=== PATIENT | female | born 1945 | race Caucasian/White ===

== ENCOUNTER → 2017-08-06 08:26 | Outpatient (CLI) | payer MEDICARE, OTHER, SELFPAY ==
--- NOTE | 2017-08-06 08:42 | RAD_ITS ---
STUDY: X-RAY - ABDOMEN/PELVIS REASON FOR EXAM: Female, 71 years old. History of kidney stones. Status post left nephrectomy. TECHNIQUE: Single AP view of the abdomen / pelvis. COMPARISON: Comparison is made with prior examination dated February 07, 2017. FINDINGS: There is an unremarkable bowel gas pattern. The calculus in the upper pole calyx of the right kidney has increased in size. It presently measures 1.8 cm. Stable appearance of the calcification in the lower pole calyx of the right kidney. There are 3 stable calcifications overlying the left iliac wing. There are calcified phleboliths in the pelvis. Normal visualized osseous structures. RAD/Abdomen Single View IMPRESSION: Increased size of the calculus in the upper pole calyx of the right kidney. Electronically Signed: Jose Juan Anderson MD at 13:27 EDT Tel [phone], Service support ,
--- NOTE | 2017-08-06 09:52 | EKG12_ITS ---
Test Reason : PRE OP Blood Pressure : / mmHG Vent. Rate : 055 BPM Atrial Rate : 055 BPM P-R Int : 168 ms QRS Dur : 078 ms QT Int : 436 ms P-R-T Axes : 015 018 017 degrees QTc Int : 417 ms Sinus bradycardia Minimal voltage criteria for LVH, may be normal variant Borderline ECG Confirmed by LEIGH ANN BECERRA ([id number]), editorial project manager JAS DEL ROSARIO ([id number]) on 08/19/2017 4:59:38 PM Referred By: Garry Fermin Confirmed By:LEIGH ANN BECERRA
[2017-08-06 10:59] LABS: Hematocrit 42.9 % (37-47); Mean Corp Hgb Conc 32.6 g/gl (32-36); Mean Corpuscular Hgb 30.4 pg (27.0-32.0); Mean Corpuscular Volume 93.3 fL (81-99); Mean Platelet Vol. 10.6 fl (6.2-12.0); Platelet Count 313 K/mm3 (150-450); RBC Distribution Width CV 13.2 % (11.6-14.6); RBC Distribution Width SD 44.1 fl (35.1-43.9); White Blood Count 7.1 K/mm3 (4.4-11.0)
[2017-08-06 11:01] LABS: Scan Indicated on CBC? Y/N NO
[2017-08-06 11:23] LABS: Anion Gap 11 (5-15); BUN 17 mg/dL (7-18); BUN/Creat Ratio 14.8 RATIO (10-20); Calcium,Total 9.2 mg/dL (8.5-10.1); Chloride 107 mmol/L (98-107); Creatinine, Serum 1.15 mg/dL (0.55-1.02); EST Glomerular Filtration Rate 49 mL/min (>60); Est Glom Filt Rate - Afr Amer 60 mL/min (>60); Glucose 131 mg/dL (74-106); Sodium Level 143 mmol/L (136-145)
== END ==
PROVIDERS: Family Provider Family Medicine; PCP Family Medicine; Visit Provider Urology
DX: Z01.818 Encounter for other preprocedural examination (principal); N20.0 Calculus of kidney
CPT/HCPCS: 36415; 74018; 80048; 85027; 93005

== ENCOUNTER → 2017-08-29 10:38 | Outpatient (CLI) | payer MEDICARE, OTHER, SELFPAY ==
--- NOTE | 2017-08-29 10:41 | RAD_ITS ---
STUDY: X-RAY - ABDOMEN/PELVIS REASON FOR EXAM: Female, 71 years old. Right-sided kidney stones TECHNIQUE: Single AP view of the abdomen / pelvis. COMPARISON: Prior study of 08/06/2017 FINDINGS: The lung bases are not in the field of view of the study. There is an unremarkable bowel gas pattern. There is no demonstrated free abdominal air. A right-sided ureteral stent is present appearing in good position. There are a number of very faint calcific densities of the mid to upper pole of the right kidney. A large calculus of the upper pole of the right kidney and several smaller right lower pole renal calculi seen on the previous study are not identified at present. No ureteral calculus is seen along the course of the right ureteral stent. There are 3 stable small calcifications overlying the left iliac wing. Normal soft tissue structures. Normal visualized osseous structures. RAD/Abdomen Single View IMPRESSION: Right ureteral stent appearing in good position. There are a number of very faint calcific fragments of the mid to upper pole of the right kidney which may represent results of lithotripsy. A large calcification of the upper pole of the right kidney and several smaller calcifications of the lower pole of the right kidney noted on the previous study are not identified at present. No ureteral calculi are seen along the course of the right ureteral stent. There are 3 small calcifications overlying the left iliac wing, stable in the interval. Electronically Signed: Barrington Rubio MD at 17:21 EDT , Service support ,
== END ==
PROVIDERS: Family Provider Family Medicine; PCP Family Medicine; Visit Provider Nurse Practitioner Adult Health
DX: N20.0 Calculus of kidney (principal)
CPT/HCPCS: 74018

== ENCOUNTER → 2017-09-18 11:39 | Outpatient (CLI) | payer MEDICARE, OTHER, SELFPAY ==
[2017-09-18 14:37] LABS: Vitamin D,25 Hydroxy 19.7 ng/mL (29.95-100.01)
[2017-09-18 14:57] LABS: AST(SGOT) 19 U/L (15-37); Alanine Aminotransfer ALT/SGPT 29 U/L (13-56); Anion Gap 11 (5-15); BUN 18 mg/dL (7-18); BUN/Creat Ratio 14.8 RATIO (10-20); Calcium,Total 9.5 mg/dL (8.5-10.1); Chloride 104 mmol/L (98-107); Cholesterol 164 mg/dL (200); Creatinine, Serum 1.22 mg/dL (0.55-1.02); EST Glomerular Filtration Rate 46 mL/min (>60); Est Glom Filt Rate - Afr Amer 56 mL/min (>60); Glucose 98 mg/dL (74-106); High Density Lipoprotein 42 mg/dL; Potassium 4.1 mmol/L (3.5-5.1); Sodium Level 140 mmol/L (136-145); T4 Total, Thyroxin 14.7 ug/dL (4.8-13.9); Thyroid Stim Hormone (TSH) 0.34 uIU/mL (0.358-3.74); Triglycerides 210 mg/dL; Very Low Density Lipoprotein 42 mg/dL (5-40)
== END ==
PROVIDERS: Family Provider Family Medicine; PCP Family Medicine; Visit Provider Family Medicine
DX: I10 Essential (primary) hypertension (principal); E03.9 Hypothyroidism, unspecified; E78.5 Hyperlipidemia, unspecified; E55.9 Vitamin D deficiency, unspecified
CPT/HCPCS: 36415; 80048; 80061; 82306; 84436; 84443; 84450; 84460

== ENCOUNTER → 2017-09-27 07:00 | Outpatient (CLI) | payer MEDICARE, OTHER, SELFPAY | PROVIDERS: Family Provider Family Medicine; PCP Family Medicine; Visit Provider Urology | DX: N39.0 Urinary tract infection, site not specified (principal) | CPT/HCPCS: 87086; 87088 ==

== ENCOUNTER → 2017-10-09 10:49 | Outpatient (CLI) | payer MEDICARE, OTHER, SELFPAY ==
--- NOTE | 2017-10-09 10:58 | CT_ITS ---
STUDY: CT ABDOMEN AND PELVIS WITHOUT CONTRAST REASON FOR EXAM: Female, 71 years old. FLANK PAIN HX-LEFT NEPHRECTOMY,NEREYDA/BSO,APPY RADIATION DOSAGE (If Supplied By Facility): CTDIvol = ( 17.1 ) mGy, DLP = ( 837.41 ) mGycm TECHNIQUE: Transaxial images were obtained from the dome of the diaphragm to the symphysis pubis without oral contrast, and without intravenous contrast. Sagittal and coronal images were reconstructed. COMPARISON: 06.27.11 FINDINGS: The visualized lung bases are unremarkable. The visualized portions of the heart are within normal limits. The liver is enlarged. This is consistent for Hepatomegaly. Liver is 20 cm in size. There are multiple gallstones. Normal spleen. Normal pancreas. Normal bilateral adrenal glands. Non obstructive 1 to 2 mm right renal parenchymal stones. The largest stone is in the mid right kidney measuring 4.1 mm. Surgically absent left kidney. Postsurgical vanessa in the left renal fossa. There is a residual calcified phleboliths along the left retroperitoneum. There is a moderate hiatal hernia. Normal small intestine. There are multiple colonic diverticula consistent with diverticulosis. There is non-visualization of the appendix. There are calcifications of the abdominal aorta and vascular structures. This is consistent for atherosclerotic disease. There is no abdominal aortic aneurysm. Normal inferior vena cava. Subcentimeter mesenteric lymph nodes. Normal urinary bladder. There is absence of the uterus consistent with a prior hysterectomy. Normal abdominal wall. There are degenerative changes of the osseous structures. Degenerative findings of the hips. Loss of intervertebral disc height at L5-S1. Vacuum disc phenomenon at L5-S1. Grade 1 anterolisthesis of L4 on L5. Minimal anterior wedging of L1. This appears stable. CT/Abdomen/Pelvis without Cont IMPRESSION: There is a moderate hiatal hernia. There are multiple gallstones. Non obstructive 1 to 2 mm right renal parenchymal stones. The largest stone is in the mid right kidney measuring 4.1 mm. There are multiple diverticuli of the colon. There is diverticulosis but no radiographic signs for diverticulitis. Hepatomegaly Other findings as above. Electronically Signed: Isaac Gautam MD at 17:34 EDT , Service support ,
== END ==
PROVIDERS: Family Provider Family Medicine; PCP Family Medicine; Visit Provider Urology
DX: R10.9 Unspecified abdominal pain (principal)
CPT/HCPCS: 74176

== ENCOUNTER → 2017-10-29 07:12 | Outpatient (CLI) | payer MEDICARE, OTHER, SELFPAY | PROVIDERS: Family Provider Family Medicine; PCP Family Medicine; Visit Provider Family Medicine | DX: Z12.31 Encounter for screening mammogram for malignant neoplasm of breast (principal) | CPT/HCPCS: 77063; 77067 ==

== ENCOUNTER → 2017-12-02 09:11 | Outpatient (CLI) | payer MEDICARE, OTHER, SELFPAY ==
--- NOTE | 2017-12-02 09:15 | RAD_ITS ---
STUDY: X-RAY - ABDOMEN/PELVIS REASON FOR EXAM: Female, 72 years old. History of kidney stone. TECHNIQUE: Single AP view of the abdomen / pelvis. COMPARISON: CT of the abdomen and pelvis, October 09, 2017. FINDINGS: The lung bases are not included. There is an unremarkable bowel gas pattern. There is increased rectal feces without obstruction. There is no small bowel dilatation. There is no demonstrated free abdominal air. The visualized liver and spleen are grossly normal in size and morphology. There are multiple calcific densities over the mid and lower right kidney suggesting renal calculi. There is a lobulated calcification overlying the right iliac crest which correlates with calcifications seen in the left pelvis on the CT scan. Normal visualized osseous structures. RAD/Abdomen Single View IMPRESSION: Multiple right renal calculi. The findings are similar to the distribution seen on a CT scan. Electronically Signed: Jass Mederos DO at 16:49 EDT Tel [phone], Service support ,
== END ==
PROVIDERS: Family Provider Family Medicine; PCP Family Medicine; Visit Provider Urology
DX: N20.0 Calculus of kidney (principal)
CPT/HCPCS: 74018

== ENCOUNTER → 2018-08-25 09:59 | Outpatient (CLI) | payer MEDICARE, OTHER, SELFPAY ==
--- NOTE | 2018-08-25 10:02 | RAD_ITS ---
STUDY: X-RAY - ABDOMEN/PELVIS REASON FOR EXAM: Female, 72 years old. Six-month follow-up for history of kidney stones on the left. TECHNIQUE: Two AP supine views of the abdomen and pelvis. COMPARISON: 02 December 2017 FINDINGS: Normal visualized lung bases. There is an unremarkable bowel gas pattern. There is no demonstrated free abdominal air. The visualized liver, spleen and kidneys are grossly normal in size and morphology. Multiple calculi overlying the right renal pelvis. Normal visualized osseous structures. RAD/Abdomen Single View IMPRESSION: Multiple calcifications overlie the right renal pelvis concerning for multiple nephroliths in the appropriate clinical setting. Electronically Signed: Paul Santoyo DO at 22:46 EDT , Service support ,
== END ==
PROVIDERS: Family Provider Family Medicine; PCP Family Medicine; Referring Provider Urology; Visit Provider Urology
DX: N20.0 Calculus of kidney (principal)
CPT/HCPCS: 74018

== ENCOUNTER → 2018-11-18 12:05 | Outpatient (CLI) | payer MEDICARE, OTHER, SELFPAY ==
--- NOTE | 2018-11-18 12:09 | BI_ITS ---
MAMMOGRAPHY - BILATERAL SCREENING REASON FOR EXAM: Female, 73 years old. Routine annual screening examination. PERTINENT HISTORY: Grandmother with breast cancer. TECHNIQUE: Digital bilateral breast shruthi (3D mammographic acquisition) in the CC and MLO projections. 2-D mediolateral oblique (MLO) and craniocaudad (CC) views of both breasts were obtained. CAD: Full Field Digital Mammography with Computer Added Detection was performed. COMPARISON: Comparison is made with prior study dated October 29, 2017. FINDINGS: Breast Composition: There are scattered areas of fibroglandular density. There are no dominant masses or suspicious calcifications. Stable small benign-appearing bilateral axillary lymph nodes. No other significant abnormalities are identified. There has been no significant change since the prior study. BI/SCREEN MAMM (CAD) W/SHRUTHI BILAT IMPRESSION: Stable bilateral screening mammogram. Yearly follow-up mammogram recommended. (A) ASSESSMENT CATEGORY: BIRADS Category 2: Benign. A letter regarding these results will be sent to the patient by the facility within 30 days. Approximately 10% of breast cancers are not detected by mammography. A normal mammogram should not delay biopsy of a clinically suspicious abnormality. [id number] Electronically Signed: Jose Juan Anderson, at 13:59 EDT , Service support ,
== END ==
PROVIDERS: Family Provider Family Medicine; PCP Family Medicine; Referring Provider Nurse Practitioner Family; Visit Provider Nurse Practitioner Family
DX: Z12.31 Encounter for screening mammogram for malignant neoplasm of breast (principal)
CPT/HCPCS: 77063; 77067

== ENCOUNTER → 2018-12-25 09:04 | Outpatient (CLI) | payer MEDICARE, OTHER, SELFPAY ==
--- NOTE | 2018-12-25 09:06 | RAD_ITS ---
STUDY: X-RAY - ABDOMEN/PELVIS REASON FOR EXAM: Female, 73 years old. Kidney stones TECHNIQUE: Single AP view of the abdomen / pelvis. COMPARISON: None. FINDINGS: There is an unremarkable bowel gas pattern. Multiple calcific opacities overlying both kidneys consistent with bilateral renal stones. No definite ureteral stone. Normal soft tissue structures. Normal visualized osseous structures. RAD/Abdomen Single View IMPRESSION: Bilateral renal stones Electronically Signed: Nimesh Collins MD at 9:09 EDT Tel , Service support ,
== END ==
PROVIDERS: Family Provider Family Medicine; PCP Family Medicine; Referring Provider Urology; Visit Provider Urology
DX: N20.0 Calculus of kidney (principal)
CPT/HCPCS: 74018

== ENCOUNTER 2018-12-31 10:38 | Day surgery (SDC) | payer MEDICARE, OTHER, SELFPAY ==
[2018-12-31 11:00] VITALS: BP 140/84; PULSE 55; RESP 16; TEMP 36.9; O2SAT 100; BMI 35.3
[2018-12-31] MEDS: Lactated Ringers 1,000 ML 100 ML IV (11:16)
[2018-12-31] MEDS: Cefazolin 2 GM in 0.9% Normal Saline 100 ML IV (12:16)
--- NOTE | 2018-12-31 13:31 | PCM.DC ---
You will use the following diet at home:: No restrictions, Regular Your food should be the consistency of: Regular Discharge Activity: Return to Normal Activity, May not drive while taking narcotic pain medications. Call your doctor if your incision/area has: Sudden Increased Bleeding Call your doctor if you observe: Fever of 101 or Higher Suture Line Care: Avoid Pulling/Pushing, Avoid Pinching/Bending Allergies/Adverse Reactions: Allergies Iodinated Contrast Media Allergy (Verified 12/31/18 10:58) Other latex Allergy (Verified 12/31/18 10:58) Rash meperidine [From Demerol] Allergy (Verified 12/31/18 10:58) Rash nitrofurantoin [From Macrobid] Allergy (Verified 12/31/18 10:58) Unknown sulfamethoxazole [From Septra] Allergy (Verified 12/31/18 10:58) Unknown trimethoprim [From Septra] Allergy (Verified 12/31/18 10:58) Unknown Medications to take at Discharge Amlodipine [Norvasc] 5 mg PO DAILY 10/05/13 Atenolol [Tenormin (Beta Cayeatno)] 100 mg PO DAILY 10/05/13 Atorvastatin Calcium [Lipitor] 20 mg PO QHS 10/05/13 Esomeprazole Mag Trihydrate [Nexium] 20 mg PO DAILY PRN 10/05/13 Levothyroxine [Synthroid] 200 mcg PO DAILY 10/05/13 Ramipril [Altace] 10 mg PO DAILY 10/05/13 Ranitidine [Zantac] 150 mg PO DINNER 10/05/13 Ciprofloxacin [Cipro] 500 mg PO BID #6 tab 12/31/18 Hydrocodone Bitart/Apap 5-325 [[place] 5MG-325MG] 1 tab PO Q4H PRN PRN 5 Days #20 tab 12/31/18 Phenazopyridine [Pyridium] 100 mg PO TID PRN PRN 5 Days #14 tab 12/31/18 The following prescriptions were given: Ciprofloxacin [Cipro] 500 mg PO BID #6 tab Prescription Printed Hydrocodone Bitart/Apap 5-325 [[place] 5MG-325MG] 1 tab PO Q4H PRN PRN 5 Days #20 tab PRN Reason: Pain Prescription Printed Phenazopyridine [Pyridium] 100 mg PO TID PRN PRN 5 Days #14 tab PRN Reason: burning Prescription Printed Primary Care Physician: Joan Gomez MD [Primary Care Provider] - Test Results: Test results from this visit will be discussed in further detail at your follow-up appointment, if applicable. Please Follow Up With: Garry Fermin MD When: next week with xray
--- NOTE | 2018-12-31 13:33 | OP.PCM_ITS ---
Report of Operation Date of Procedure: 12/31/18 Pre-Operative Diagnosis: Multiple right renal calculi Post-Operative Diagnosis: Same Surgery/Procedure Performed:: Cystoscopy, right retrograde pyelogram, interpretation fluoroscopic images, right ureteroscopy laser lithotripsy of stones, and stent placement. Description of Surgical Findings:: 73-year-old female who presents for treatment of her kidney stone she is taken back to the operating room and smooth induction of anesthesia she was placed supine on the table we went to the bladder with a 21 [place] rigid cystourethroscope cannulated the right ureteral orifice with a Pollick cath and a Glidewire, performed a retrograde pyelogram, looked at the fluoroscopic images and then I put a wire up into the right kidney next the wire went in with a flexible ureteroscope was able to get to the ureter quite easily went up the ureter which I got into the right renal pelvis there is a stone in the renal pelvis I then started with laser lithotripsy, took quite a long time to laser the stone she had a stone in the renal pelvis stone in the lower pole stone in the midpole stone in the mid upper pole and stone in the upper pole the kidney after lasering all the stones were good 45 minutes with 200 665 ?m laser fiber then I worked my way down the ureter put a wire up in that side of the stent into the wire and then pulled the string the stent coiled in the kidney bladder good position. We will see her next week with an x-ray and then remove the cyst with a cystoscope. Type of Anesthesia:: General Drains: stent right side - Admit VTE Documentation VTE Present on Admission: No VTE Mechan Device Prophylaxis: SCD's
[2018-12-31 13:36] VITALS: BP 138/81; BP 140/84; PULSE 72; RESP 16; TEMP 36.2; O2SAT 95
[2018-12-31 13:45] VITALS: BP 121/69; BP 140/84; PULSE 70; RESP 16; O2SAT 95
[2018-12-31 14:00] VITALS: BP 137/78; BP 140/84; PULSE 60; RESP 16; O2SAT 97
[2018-12-31 14:15] VITALS: BP 140/84; BP 143/79; PULSE 60; RESP 16; TEMP 36.3; O2SAT 95
[2018-12-31 14:50] VITALS: BP 140/84; BP 156/92; PULSE 60; RESP 20; TEMP 36.2; O2SAT 97
== END 2018-12-31 15:07 | disposition home or self-care (01) ==
LOC: SDC 10:39 → AC 10:40
PROVIDERS: Family Provider Family Medicine; PCP Family Medicine; Referring Provider Urology; Visit Provider Urology
PROC: 0TJ98ZZ Inspection of Ureter, Via Natural or Artificial Opening Endoscopic (ICD-10-PCS; CPT 52352; principal; 2018-12-31 12:10)
DX: N20.0 Calculus of kidney (principal); I10 Essential (primary) hypertension; E03.9 Hypothyroidism, unspecified; E78.5 Hyperlipidemia, unspecified; K58.9 Irritable bowel syndrome, unspecified; K21.9 Gastro-esophageal reflux disease without esophagitis; F32.9 Major depressive disorder, single episode, unspecified; F41.9 Anxiety disorder, unspecified; Z90.5 Acquired absence of kidney; Z78.0 Asymptomatic menopausal state; Z87.440 Personal history of urinary (tract) infections; Z87.442 Personal history of urinary calculi
CPT/HCPCS: 52356; 76000; J7120; C2617; J2405

== ENCOUNTER → 2019-01-05 14:27 | Outpatient (CLI) | payer MEDICARE, OTHER, SELFPAY ==
[2018-12-31 11:00] VITALS: BMI 35.3
--- NOTE | 2019-01-05 14:38 | RAD_ITS ---
STUDY: X-RAY - ABDOMEN/PELVIS REASON FOR EXAM: Female, 73 years old. Kidney stone. TECHNIQUE: Single AP view of the abdomen / pelvis. COMPARISON: 12/25/2018. FINDINGS: Lung base is not included in the [id number]. There is an unremarkable bowel gas pattern. There is no demonstrated free abdominal air. There are 2 stones within the mid lower pole of the right kidney, each measuring approximately 4.5 mm with subtle small stone within the humeral mid upper renal pole stones, each measuring approximately 3.5-4 mm. There is a right-sided ureteral stent in place. The left renal shadow is not visualized. Remainder of the visualized liver, spleen and kidneys are grossly normal in size and morphology. There is prominence of prominent calcifications projecting over the left iliac bones, nonspecific and stable in the interval. There are calcified phleboliths in the pelvis. There are diffuse degenerative changes of the visualized lumbar spine. RAD/Abdomen Single View IMPRESSION: Right-sided intrarenal stones as described above. Right-sided ureteral stent in place. Electronically Signed: Julianna Sanchez MD at 2:16 EDT , Service support ,
== END ==
PROVIDERS: Family Provider Family Medicine; PCP Family Medicine; Referring Provider Urology; Visit Provider Urology
DX: N20.0 Calculus of kidney (principal)
CPT/HCPCS: 74018

== ENCOUNTER → 2019-08-24 08:22 | Outpatient (CLI) | payer MEDICARE, OTHER, SELFPAY ==
--- NOTE | 2019-08-24 08:56 | RAD_ITS ---
STUDY: X-RAY - ABDOMEN/PELVIS REASON FOR EXAM: Female, 73 years old. Right sided stones -- left nephrectomy 2011 TECHNIQUE: Single AP view of the abdomen / pelvis. COMPARISON: Comparison is made with prior study dated January 05. FINDINGS: The previously seen right double-J stent catheter has been removed. There is a moderate amount of colonic fecal material. Multiple calculi are seen in the upper and mid portions of the right kidney. A tiny calcification is seen in the lower pole. The largest calcification measures 4.6 mm. There are calcified phleboliths in the pelvis. 3 stable adjacent calcifications are seen overlying the left iliac bone. Normal visualized osseous structures. RAD/Abdomen Single View IMPRESSION: Mild enlargement of the right intrarenal calculi. Electronically Signed: Jose Juan Anderson, at 10:36 EDT , Service support ,
== END ==
PROVIDERS: PCP Family Medicine; Referring Provider Urology; Visit Provider Urology
DX: N20.0 Calculus of kidney (principal)
CPT/HCPCS: 74018

== ENCOUNTER → 2019-12-31 13:36 | Outpatient (CLI) | payer MEDICARE, OTHER, SELFPAY ==
--- NOTE | 2019-12-31 13:38 | BI_ITS ---
MAMMOGRAPHY - BILATERAL SCREENING REASON FOR EXAM: Female, 74 years old. Routine annual screening examination. PERTINENT HISTORY: Grandmother with breast cancer. TECHNIQUE: Digital bilateral breast shruthi (3D mammographic acquisition) in the CC and MLO projections. 2-D mediolateral oblique (MLO) and craniocaudad (CC) views of both breasts were obtained. CAD: Full Field Digital Mammography with Computer Added Detection was performed. COMPARISON: Comparison is made with prior study dated 11/18/2018 and 10/29/2017. FINDINGS: Breast Composition: There are scattered areas of fibroglandular density. There are no dominant masses or suspicious calcifications. Stable benign appearing left axillary lymph nodes. No other significant abnormalities are identified. There has been no significant change since the prior study. BI/SCREEN MAMM (CAD) W/SHRUTHI BILAT IMPRESSION: Stable bilateral screening mammogram. Yearly follow-up mammogram recommended. (A) ASSESSMENT CATEGORY: BIRADS Category 2: Benign. A letter regarding these results will be sent to the patient by the facility within 30 days. Approximately 10% of breast cancers are not detected by mammography. A normal mammogram should not delay biopsy of a clinically suspicious abnormality. [id number] Electronically Signed: Jose Juan Anderson, at 14:28 EDT , Service support ,
== END ==
PROVIDERS: PCP Family Medicine; Referring Provider Family Medicine; Visit Provider Family Medicine
DX: Z12.31 Encounter for screening mammogram for malignant neoplasm of breast (principal)
CPT/HCPCS: 77063; 77067

== ENCOUNTER → 2020-02-22 08:56 | Outpatient (CLI) | payer MEDICARE, OTHER, SELFPAY ==
--- NOTE | 2020-02-22 09:00 | RAD_ITS ---
STUDY: X-RAY - ABDOMEN/PELVIS REASON FOR EXAM: Female, 74 years old. HX OF CALCULUS OF RIGHT KIDNEY. HX OF LEFT KIDNEY REMOVED 2011. TECHNIQUE: Single AP view of the abdomen / pelvis. COMPARISON: None. FINDINGS: There is an unremarkable bowel gas pattern. 2 small calcific opacities overlying the lower pole the right kidney consistent with right renal stones. No definite ureteral stone. Normal soft tissue structures. Normal visualized osseous structures. RAD/Abdomen Single View IMPRESSION: 2 right renal stones. Electronically Signed: Nimesh Collins MD at 17:04 EST Tel , Service support ,
== END ==
PROVIDERS: PCP Family Medicine; Referring Provider Urology; Visit Provider Urology
DX: N20.0 Calculus of kidney (principal)
CPT/HCPCS: 74018

== ENCOUNTER → 2020-03-31 11:40 | Outpatient (CLI) | payer MEDICARE, OTHER, SELFPAY | PROVIDERS: PCP Family Medicine; Visit Provider Urology | DX: N20.0 Calculus of kidney (principal) ==

== ENCOUNTER → 2020-04-04 09:09 | Outpatient (CLI) | payer MEDICARE, OTHER, SELFPAY ==
--- NOTE | 2020-04-04 09:24 | RAD_ITS ---
STUDY: X-RAY - ABDOMEN/PELVIS REASON FOR EXAM: Female, 74 years old. KIDNEY STONE CHECK UP, LEFT URETER TECHNIQUE: Single AP view of the abdomen / pelvis. COMPARISON: 02/22/2020 FINDINGS: Normal visualized lung bases. There is an unremarkable bowel gas pattern. There is no change in the calcific opacities overlying the right kidney consistent with right renal stones. There is also no change in the multiple calcific opacities overlying the left ilium which may represent left ureteral stones. Normal soft tissue structures. Normal visualized osseous structures. RAD/Abdomen Single View IMPRESSION: No change from 02/22/2020. Electronically Signed: Nimesh Collins MD at 16:54 EST Tel , Service support ,
== END ==
PROVIDERS: PCP Family Medicine; Referring Provider Urology; Visit Provider Urology
DX: N20.0 Calculus of kidney (principal)
CPT/HCPCS: 74018

== ENCOUNTER 2020-04-18 07:40 | Inpatient (IN) | payer MEDICARE, OTHER, SELFPAY ==
--- NOTE | 2020-04-11 13:39 | EKG12_ITS ---
Test Reason : PREOP Blood Pressure : / mmHG Vent. Rate : 062 BPM Atrial Rate : 062 BPM P-R Int : 156 ms QRS Dur : 072 ms QT Int : 426 ms P-R-T Axes : 014 012 017 degrees QTc Int : 432 ms Normal sinus rhythm Consider Voltage Criteria for LVH (aVL) Confirmed by AYAD JONAS, RUSS ([id number]), editor greeting card VICTOR MANUEL RODRIGUEZ ([id number]) on 04/12/2020 8:39:14 AM Referred By: West Minor Confirmed By:RUSS LION MD
[2020-04-11 14:18] LABS: Absolute Lymphocyte Count 2.22 X10^3/uL (0.83-4.51); Basophil# 0.06 X10^3/uL; Basophil% 0.7 % (0-1); Eosinophils% 3.5 % (0-5); Hematocrit 41.5 % (37-47); Lymphocyte # 2.22 X10^3/ul (4.0); Lymphocyte % 25.9 % (19-41); Mean Corp Hgb Conc 33.7 g/dL (32-36); Mean Corpuscular Hgb 31.3 pg (27.0-32.0); Mean Corpuscular Volume 92.8 fL (81-99); Mean Platelet Vol. 10.3 fl (6.2-12.0); Monocyte# 1.01 X10^3/uL; Monocyte% 11.8 % (0-10); NRBC Flagged by Analyzer 0 % (0-5); Neutrophil # 4.97 X10^3/uL (2.7-7.7); Neutrophil % 57.9 % (47-70); Platelet Count 259 K/mm3 (150-450); RBC Distribution Width SD 43.4 fl (35.1-43.9); Red Blood Count 4.47 M/mm3 (4.2-5.4); White Blood Count 8.6 K/mm3 (4.4-11.0)
[2020-04-11 15:00] LABS: Anion Gap 8 (5-15); BUN 17 mg/dL (7-18); BUN/Creat Ratio 17.1 RATIO (10-20); Calcium,Total 9.4 mg/dL (8.5-10.1); Chloride 108 mmol/L (98-107); Creatinine, Serum 0.99 mg/dL (0.55-1.02); EST Glomerular Filtration Rate 58 mL/min (>60); Est Glom Filt Rate - Afr Amer 70 mL/min (>60); Glucose 83 mg/dL (74-106); Magnesium 2.2 mg/dL (1.6-2.6); Potassium 4.2 mmol/L (3.5-5.1); Sodium Level 140 mmol/L (136-145); Thyroid Stim Hormone (TSH) 0.02 uIU/mL (0.358-3.74)
[2020-04-18] VITALS (15 sets, daily range): BP systolic 107–156; BP diastolic 59–90; PULSE 73–95; RESP 16–18; TEMP 36.4–36.7; O2SAT 92–99; BMI 34.5
[2020-04-18] MEDS: Lactated Ringers 1,000 ML 125 ML IV ×3 (06:08→12:39)
[2020-04-18] MEDS: Acetaminophen 500 MG Tablet 1000 MG PO ×2 (06:09→21:46)
[2020-04-18] MEDS: Gabapentin 600 MG Tablet PO (06:10)
[2020-04-18 06:35] LABS: Bedside Glucose 119 mg/dL (70-110)
--- NOTE | 2020-04-18 07:30 | KNEE_PTH ---
PATIENT: RUDY MÁRQUEZ LOC: [facility]3 U#:[id number] AGE/SX: 74/F ROOM: MS313 RE04/19/[address]: Dr. West Minor DO : 1945 BED: 1 DIS: 04/20/2020 SPEC #: [id number] RECD: 04/18/20 09:54 STATUS: YRAN BERNAL #: [id number] APOLINAR: 04/18/20 07:[address]: West Minor DEPT: SURGICAL PATHOLOGY RECD BY: Denise Keenan ENTERED: 04/18/20 10:58 SP TYPE: TOTAL KNEE OTHR DR: Dr. Joan Gomez MD Tissues: Knee, NOS Procedures: Decalcification bone/plaque Surgery Specimen Level IV HEADER OPERATION: ERAS, total knee replacement PRE-OP DIAGNOSIS: Osteoarthritis right knee TISSUE SUBMITTED: Right knee bone and soft tissue MICROSCOPIC DIAGNOSIS Bone and soft tissue of right knee, total knee resection: Severe degenerative joint disease. Mild synovial hyperplasia and associated mild chronic inflammation. AM:carlos a 04/21/2020 MICROSCOPIC DESCRIPTION Slides are reviewed. GROSS DESCRIPTION Received is one container designated bone and soft tissue right knee. The specimen consists of multiple fragments of serrato-yellow bone measuring in aggregate 9 x 9 x 3.5 cm. Also in the specimen container is a piece of yellow-white soft tissue measuring in aggregate 2 x 0.7 x 0.3 cm. A number of bony fragments contain articular surfaces consistent with tibial plateau and femoral condyle and displaying prominent osteophyte formation, eburnation, and bone erosion. Hair Or Beauty Salon Manager sections are submitted in two cassettes as follows: 1 - soft tissue submitted in entirety, 2 - bone after decalcification. / SJ:carlos a 04/18/20 TC:5 [facility]: [id number]
[2020-04-18] MEDS: Cefazolin 2 GM in 0.9% Normal Saline 100 ML IV (07:42)
--- NOTE | 2020-04-18 08:56 | PCM.OPRPT ---
Report of Operation Date of Procedure: 04/18/20 Pre-Operative Diagnosis: OA right knee Post-Operative Diagnosis: same Surgery/Procedure Performed:: Right TKR stitch welder: Darwin Hendrickson Type of Anesthesia:: Spinal Anesthesiologist: Daron Wilde - Admmarium VTE Documentation VTE Present on Admission: No VTE Mechan Device Prophylaxis: SCD's, Thigh High BRIE Hose VTE Pharm Prophylaxis ordered?: Yes
[2020-04-18] MEDS: Joint Pain Solution (NO KETOROLAC) 100 ML IV (09:08)
--- NOTE | 2020-04-18 10:00 | RAD_ITS ---
STUDY: X-RAY - RIGHT KNEE REASON FOR EXAM: Female, 74 years old. POST OP TECHNIQUE: 2 view(s) of the knee. COMPARISON: None. FINDINGS: Normal visualized distal femur. Normal visualized proximal tibia and fibula. Normal proximal tibiofibular articulation. The patient is status post total knee replacement. There is good alignment. Postoperative soft tissue changes. RAD/Knee 1 or 2 Views IMPRESSION: Status post total knee replacement. There is good alignment. Postoperative soft tissue changes. Electronically Signed: Jose Juan Anderson MD at 10:34 EST , Service support ,
[2020-04-18 10:15] LABS: Hemoglobin 12.8 g/dL (12.0-15.0); Mean Corpuscular Hgb 29.9 pg (27.0-32.0); Mean Corpuscular Volume 93.5 fL (81-99); Mean Platelet Vol. 10.1 fl (6.2-12.0); Platelet Count 271 K/mm3 (150-450); RBC Distribution Width CV 12.9 % (11.6-14.6); RBC Distribution Width SD 44.3 fl (35.1-43.9); Red Blood Count 4.28 M/mm3 (4.2-5.4); White Blood Count 9.6 K/mm3 (4.4-11.0)
[2020-04-18 10:28] LABS: Anion Gap 8 (5-15); BUN 13 mg/dL (7-18); BUN/Creat Ratio 11.7 RATIO (10-20); Calcium,Total 8.7 mg/dL (8.5-10.1); Chloride 111 mmol/L (98-107); Creatinine, Serum 1.11 mg/dL (0.55-1.02); EST Glomerular Filtration Rate 51 mL/min (>60); Est Glom Filt Rate - Afr Amer 62 mL/min (>60); Estimated Creatinine Clearance 36.78 ml/min; Glucose 164 mg/dL (74-106); Potassium 3.5 mmol/L (3.5-5.1); Sodium Level 141 mmol/L (136-145)
[2020-04-18] MEDS: Ondansetron 4 MG/2 ML Vial IV (11:59)
[2020-04-18] MEDS: oxyCODONE 5 MG Tablet PO (12:39)
[2020-04-18] MEDS: Morphine 2 MG/ML Syringe IV ×3 (13:27→20:12)
[2020-04-18] MEDS: Cefazolin 1 GM/50 ML BAG IV ×2 (15:37→21:40)
[2020-04-18] MEDS: proMETHazine 25 MG/ML Syringe 12.5 MG IM (15:43)
[2020-04-18] MEDS: Atorvastatin Calcium 20 MG Tablet PO (21:44)
[2020-04-18] MEDS: Senna/Docusate Sodium 1 Tablet 2 TABLET PO (21:46)
[2020-04-19] VITALS: BP 147/78; PULSE 75; RESP 16; TEMP 36.5; O2SAT 95
[2020-04-19] MEDS: oxyCODONE 5 MG Tablet PO ×4 (03:15→21:14)
[2020-04-19 04:48] VITALS: BP 154/83; PULSE 74; RESP 16; TEMP 36.7; O2SAT 97
[2020-04-19] MEDS: Acetaminophen 500 MG Tablet 1000 MG PO ×3 (05:02→21:18)
[2020-04-19] MEDS: Levothyroxine 100 MCG Tablet 200 MCG PO (05:02)
[2020-04-19 06:38] LABS: Hematocrit 40.3 % (37-47); Hemoglobin 13.1 g/dL (12.0-15.0); Mean Corp Hgb Conc 32.5 g/dL (32-36); Mean Corpuscular Hgb 30.3 pg (27.0-32.0); Mean Corpuscular Volume 93.3 fL (81-99); Mean Platelet Vol. 9.9 fl (6.2-12.0); Platelet Count 274 K/mm3 (150-450); RBC Distribution Width CV 12.9 % (11.6-14.6); RBC Distribution Width SD 44.2 fl (35.1-43.9); Red Blood Count 4.32 M/mm3 (4.2-5.4); White Blood Count 19.2 K/mm3 (4.4-11.0)
[2020-04-19 07:01] LABS: Anion Gap 6 (5-15); BUN 16 mg/dL (7-18); BUN/Creat Ratio 12.6 RATIO (10-20); Chloride 104 mmol/L (98-107); Creatinine, Serum 1.27 mg/dL (0.55-1.02); EST Glomerular Filtration Rate 44 mL/min (>60); Est Glom Filt Rate - Afr Amer 53 mL/min (>60); Estimated Creatinine Clearance 32.15 ml/min; Glucose 176 mg/dL (74-106); Potassium 4.2 mmol/L (3.5-5.1); Sodium Level 135 mmol/L (136-145)
--- NOTE | 2020-04-19 07:50 | PN.ORTHO_ITS ---
Subjective: Patient sitting in bedside, states pain is been very well managed. Patient denies chest pain, shortness of breath, calf pain, nausea vomiting. Patient is concerned that vanessa were used for the closure and her concern for metal allergy. Patient this time has no other complaints Objective: The dressing was removed the incision is clean dry intact. There is no erythema or indication of irritation from the staple placement. The knee is cool to touch. There is no calf tenderness. Vital signs and labs were reviewed noted in the medical record. Patient is afebrile. Patient in no respiratory distress speaking in full sentences. - Physical Exam Vitals/I&O's: Vital Signs Temp Pulse Resp BP Pulse Ox 98.0 F 74 16 154/83 H 97 04/19/20 04:48 04/19/20 04:48 04/19/20 04:48 04/19/20 04:48 04/19/20 04:48 Oxygen Flow Rate (L/min) 2 Oxygen Delivery Method Room Air Weight: 88.5 kg Body Mass Index (BMI) 34.5 Intake and Output for Last 24 Hours 04/17/20 04/18/20 04/19/20 23:59 23:59 23:59 Intake Total 2847.84 / 2847.84 400 / 400 Output Total 500 / 1200 1350 / 1350 Balance 2347.84 / 1647.84 -950 / -950 General: Alert, Oriented x3, Cooperative HEENT: PERRLA Oral: Moist Mucosa Cardiovascular: Regular rate Neurological: Cranial nerves II-XII grossly intact Psych/Mental Status: Normal Affect, Alert and oriented to time, place, person, mood and affect Laboratory Results 04/18/20 10:00: WBC 9.6, RBC 4.28, Hgb 12.8, Hct 40.0, MCV 93.5, MCH 29.9, MCHC 32.0, RDW Std Deviation 44.3 H, RDW Coeff of Tushar 12.9, Plt Count 271, MPV 10.1 04/18/20 10:00: Sodium 141, Potassium 3.5, Chloride 111 H, Carbon Dioxide 22.0, Anion Gap 8, BUN 13, Creatinine 1.11 H, Estim Creat Clear Calc 36.78, Est GFR (MDRD) Af Amer 62, Est GFR (MDRD) Non-Af 51 L, BUN/Creatinine Ratio 11.7, Glucose 164 H, Calcium 8.7 04/19/20 06:30: WBC 19.2 H, RBC 4.32, Hgb 13.1, Hct 40.3, MCV 93.3, MCH 30.3, MCHC 32.5, RDW Std Deviation 44.2 H, RDW Coeff of Tushar 12.9, Plt Count 274, MPV 9.9 04/19/20 06:30: Sodium 135 L, Potassium 4.2, Chloride 104, Carbon Dioxide 25.0, Anion Gap 6, BUN 16, Creatinine 1.27 H, Estim Creat Clear Calc 32.15, Est GFR (MDRD) Af Amer 53 L, Est GFR (MDRD) Non-Af 44 L, BUN/Creatinine Ratio 12.6, Glucose 176 H, Calcium 9.0 Current Medications Acetaminophen (Acetaminophen 500 Mg Tablet) 1,000 mg PO Q8 [facility] Last Admin: 04/19/20 05:02 Dose: 1,000 mg Documented by: Amlodipine Besylate (Amlodipine 5 Mg Tablet) 5 mg PO DAILY [facility] Last Admin: 04/18/20 13:34 Dose: Not Given Documented by: Aspirin (Aspirin 81 Mg Tab.Chew) 81 mg PO DAILY@0800 [facility] Last Admin: 04/18/20 13:34 Dose: Not Given Documented by: Atenolol (Atenolol 100 Mg Tablet) 100 mg PO DAILY [facility] Last Admin: 04/18/20 13:34 Dose: Not Given Documented by: Atorvastatin Calcium (Atorvastatin Calcium 20 Mg Tablet) 20 mg PO QHS [facility] Last Admin: 04/18/20 21:44 Dose: 20 mg Documented by: Levothyroxine Sodium (Levothyroxine 100 Mcg Tablet) 200 mcg PO DAILY@0600 [facility] Last Admin: 04/19/20 05:02 Dose: 200 mcg Documented by: Morphine Sulfate (Morphine 2 Mg/Ml Syringe) 2 mg IV Q2H PRN PRN PRN Reason: PAIN >5-10 Last Admin: 04/18/20 20:12 Dose: 2 mg Documented by: Ondansetron HCl (Ondansetron 4 Mg/2 Ml Vial) 4 mg IV Q8H PRN PRN PRN Reason: NAUSEA Last Admin: 04/18/20 11:59 Dose: 4 mg Documented by: Oxycodone HCl (Oxycodone 5 Mg Tablet) 5 - 10 mg PO Q4H PRN PRN PRN Reason: Pain Score 4-10 Last Admin: 04/19/20 03:15 Dose: 10 mg Documented by: Pantoprazole Sodium (Pantoprazole Sodium 20 Mg Tablet) 20 mg PO DAILY PRN PRN PRN Reason: GERD Promethazine HCl (Promethazine 25 Mg/Ml Syringe) 12.5 mg IM Q6H PRN PRN; Protocol PRN Reason: NAUSEA/VOMITING Last Admin: 04/18/20 15:43 Dose: 12.5 mg Documented by: Ramipril (Ramipril 10 Mg Capsule) 10 mg PO DAILY [facility] Last Admin: 04/18/20 13:34 Dose: Not Given Documented by: Senna/Docusate Sodium (Senna/Docusate Sodium 1 Tablet) 2 tablet PO BID [facility] Last Admin: 04/18/20 21:46 Dose: 2 tablet Documented by: Sodium Chloride (0.9% Nacl Peripheral Flush Adult/Peds) 5 - 15 ml IV UD PRN PRN Reason: SALINE FLUSH Sodium Chloride (0.9% Saline Lock 10 Ml Syringe) 10 - 40 ml IV UD PRN PRN Reason: SALINE FLUSH Medical Necessity - Tobacco Use Smoking Status: Never smoker Assessment/Plan Status post right total knee arthroplasty Plan 1. Continue all pain medications as prescribed 2. Continue physical therapy weight-bear as tolerated with walker 3. 81 mg aspirin 1 p.o. every 12 hours x30 days for postop DVT prophylaxis 4. Encourage incentive spirometry 5. We will continue to monitor closely the incision to assure no allergic reaction to the skin closure vanessa. 6. Patient would like to go to [facility] 4th floor rehab. 7. Possible discharge to rehab tomorrow.
--- NOTE | 2020-04-19 09:07 | CASEMGMT ---
Social Work Note SW had received call from RU yesterday stating pt was interested in RU at discharge. SW reviewed physician's note, plan is for RU tomorrow. KAMALA attempted to meet with pt, pt out of room. KAMALA will follow up with pt. KAMALA placed a call to Natalie with RU and updated her plan is RU tomorrow. Plan: RU tomorrow Chanell Hwang OFFICE AUDITOR, [employer]
[2020-04-19 09:31] VITALS: BP 156/75; PULSE 82; RESP 14; TEMP 36.8; O2SAT 96
[2020-04-19] MEDS: Atenolol 100 MG Tablet PO (09:34)
[2020-04-19] MEDS: Ramipril 10 MG Capsule PO (09:34)
[2020-04-19] MEDS: amLODIPine 5 MG Tablet PO (09:34)
[2020-04-19] MEDS: Aspirin 81 MG TAB.CHEW PO (09:35)
[2020-04-19] MEDS: Pantoprazole Sodium 20 MG Tablet PO (09:37)
--- NOTE | 2020-04-19 09:54 | CASEMGMT ---
Social Work Assessment Referral Date: 04/18/2020 Date of Assessment: 04/19/2020 Reason for consult: RU Informant: RU Personal Status: SW met with pt to complete initial assessment. Pt is alert and orientated x3, answers questions appropriately. Living Arrangements: Pt states she lives alone in a one story home with one step to enter from the garage. Pt states she has railings next to the step. Pt states she also has basement steps but will not be going down to the basement anytime soon. ADLs: Independent, still drives DME: Cane, Walker, wheelchair, raised toilet seat, bed handle, shower seat, handicapped accessible home. Pt states she had her previously knee done before so she has DME from previous surgery PCP: Dr. Dow Pharmacy: [facility] Pharmacy Supports: Pt states she has two daughters that are supportive. Pt states they both work though and not able to provide 24 hour care. Pt states her 2 years ago. Pt states she also has grandchildren but they are in college. Pt states she has a group of friends too who will be able to assist with transportation to and from appointments. Substance Abuse Hx: Pt denied Mental Health Hx: Pt states history of anxiety. Pt states Dr Gomez prescribed Xanax. Pt states her two years ago due to suicide. Pt states her struggled with depression for about five years and then completed suicide. Pt states when she gets anxious she will watch TV. SW offered support to pt. KAMALA spoke with pt regarding discharge plans. Patient was provided a list of IRF providers including quality and resource use data and consistent with the patient?s preferred geographic region, medical needs, and insurance network. The patient?s preferred provider is [facility]. SW informed pt that RU will have a bed available for pt, plan is to discharge to tomorrow. Pt states understanding, denied additional needs or concerns at this time. Plan: RU tomorrow Chanell Hwang DAIRY PROCESSING SUPERVISOR, BUTTERMAKER CONTINUOUS [employer]URN
--- NOTE | 2020-04-19 10:12 | PCM.PN.BLA ---
Progress Note Rehab medicine note. Pt will be coming to acute rehab tomorrow. I reviewed her labs and medications. TSH is very low at 0.02. there is not a recent T4 but the last T4 on record is in 2018 and the T4 was high at 14.7. Vitamin D level in 208 was low. She is not on a vitamin D supplement. the combination of low vitamin D, Hyperthyroidism and age puts her at high risk for osteoporosis. She has not had a DEXA at this institution. Creat is increased at 1.27, up from 0.99 on 04/11/20 and the sodium is low at 135. I spoke with Harsh PATEL and he is good with me ordering some lab and starting an IV. I talked with her nurse and let them know I had talked with Harsh. Will increase the ASA to 81 mg BID for DVT prophylaxis post TKA. Repeat BMP in the AM and an HH and Mag. Will accept for transfer to acute rehab tomorrow. STROKE Vital Signs/Narrative: Vital Signs Temp Pulse Resp BP Pulse Ox 04/19/20 09:31 98.3 F 82 14 156/75 H 96
--- NOTE | 2020-04-19 10:24 | CASEMGMT ---
RN DIOR NOTE: Intro role of CM to patient and WILLSON form explained re: Observation status for treatment of osteoarthritis rt knee/rt knee surgery. Explained hospitalization will be paid per insurance policy for Outpatient billing and condition will continue to be evaluated for Inpt necessity. Also let pt know that [facility] sends paper in the billing packet with their phone number if questions arise. Pt verbalizes understanding and does not have further questions. Form signed, copy made and placed in chart, and original given to pt. Kirsten TRUJILLO RN CM
[2020-04-19 11:29] LABS: T4 Free Direct 1.53 ng/dL (0.76-1.46); Uric Acid 4.5 mg/dL (2.6-6.0); Vitamin D,25 Hydroxy 16.5 ng/mL
[2020-04-19 11:33] LABS: Hemoglobin A1c 6.1 % (3.8-5.6)
[2020-04-19] MEDS: 0.9% Saline Lock 10 ML Syringe IV (12:50)
[2020-04-19] MEDS: 0.9% Normal Saline 1,000 ML 100 ML IV ×2 (12:50→22:00)
[2020-04-19 12:52] LABS: Albumin, Serum 3.3 g/dL (3.2-5.0)
[2020-04-19] MEDS: Calcium Carbonate 500 MG Tablet PO (13:56)
[2020-04-19 14:51] VITALS: BP 122/67; PULSE 62; RESP 16; TEMP 36.9; O2SAT 93
--- NOTE | 2020-04-19 15:54 | CHAPLAIN ---
Type of Pastoral Visit _x__ Initial Visit ___ Follow-up Visit ___ On-call Visit ___ General Patient Visit ___ Spiritual Assessment ___ Family Conference ___ Bereavement ___ Rapid Response ___ Code Blue ___ Other (describe below) Pastoral Care Referral From _x__ Patient ___ Family ___ Nurse ___ Physician ___ Telemetry Rn ___ Cloth Stock Sorter ___ Other (describe below) Sacrament/Intervention _x__ Active listening ___ Anointing ___ Temple ___ Bereavement ___ Communion ___ Karen exploration ___ ___ Life review ___ Prayer ___ Reconciliation ___ Sacrament of Sick _x__ Supportive presence ___ Wedding ___ Other (describe below) Pastoral Comments
[2020-04-19 21:06] VITALS: BP 175/86; PULSE 69; RESP 18; TEMP 36.6; O2SAT 95
[2020-04-19] MEDS: Atorvastatin Calcium 20 MG Tablet PO (21:14)
[2020-04-19] MEDS: Senna/Docusate Sodium 1 Tablet 2 TABLET PO (21:17)
[2020-04-20] MEDS: oxyCODONE 5 MG Tablet PO ×3 (01:43→12:25)
[2020-04-20 02:00] VITALS: BP 164/86; PULSE 64; RESP 16; TEMP 36.8; O2SAT 94
[2020-04-20] MEDS: Levothyroxine 175 MCG Tablet PO (05:59)
[2020-04-20] MEDS: Acetaminophen 500 MG Tablet 1000 MG PO (05:59)
[2020-04-20 06:58] LABS: Hematocrit 37.2 % (37-47); Hemoglobin 11.9 g/dL (12.0-15.0)
[2020-04-20 07:22] LABS: BUN 17 mg/dL (7-18); Creatinine, Serum 1.05 mg/dL (0.55-1.02); Glucose 136 mg/dL (74-106)
[2020-04-20 07:23] LABS: Anion Gap 4 (5-15); BUN/Creat Ratio 16.2 RATIO (10-20); Calcium,Total 8.7 mg/dL (8.5-10.1); Chloride 109 mmol/L (98-107); EST Glomerular Filtration Rate 54 mL/min (>60); Est Glom Filt Rate - Afr Amer 66 mL/min (>60); Estimated Creatinine Clearance 38.88 ml/min; Magnesium 2.2 mg/dL (1.6-2.6); Potassium 4.1 mmol/L (3.5-5.1); Sodium Level 137 mmol/L (136-145)
[2020-04-20] MEDS: Aspirin 81 MG TAB.CHEW PO (07:56)
[2020-04-20] MEDS: amLODIPine 5 MG Tablet PO (07:57)
[2020-04-20] MEDS: Ramipril 10 MG Capsule PO (07:58)
[2020-04-20] MEDS: Atenolol 100 MG Tablet PO (07:58)
[2020-04-20 08:00] VITALS: BP 119/63; PULSE 61; RESP 15; TEMP 37.3; O2SAT 96
[2020-04-20] MEDS: Senna/Docusate Sodium 1 Tablet 2 TABLET PO (08:00)
--- NOTE | 2020-04-20 09:37 | CASEMGMT ---
Social Work Note Pt is discharging to today. SW placed a call to Natalie with and updated her. is able to accept pt today. Plan: RU today Chanell Hwang MSW, BUNG DROPPER
--- NOTE | 2020-04-20 10:37 | PHA.DC.MR ---
Pharmacy Service has performed discharge medication reconciliation for this patient. The patient's discharge medication list was reviewed for discrepancies and discrepancies were resolved. Home Medications Atenolol [Tenormin (beta albert)] 100 mg PO DAILY 10/05/13 Atorvastatin Calcium [Lipitor] 20 mg PO QHS 10/05/13 Ramipril [Altace] 10 mg PO DAILY 10/05/13 Acetaminophen [Tylenol] 1,000 mg PO Q8 tab 04/20/20 Amlodipine [Norvasc] 5 mg PO BID #0 04/20/20 Aspirin [Aspirin, Baby] 81 mg PO BID tab.chew 04/20/20 Calcium Carbonate [Tums] 500 mg PO BIDCM tab 04/20/20 Cholecalciferol (VIT D3) [Vitamin D] 1,000 unit PO BID #1 tab 04/20/20 Levothyroxine [Synthroid] 175 mcg PO DAILY@0600 tab 04/20/20 Oxycodone [Oxyir] 5 - 10 mg PO Q4H PRN PRN 7 Days #56 tab 04/20/20 Pantoprazole Sodium [Protonix] 20 mg PO DAILY PRN PRN tab 04/20/20 Senna/Docusate Sodium [Senokot-S] 2 tab PO BID tab 04/20/20
== END 2020-04-20 12:50 | DRG 470 ==
LOC: SDC 08:24 → MS3 08:24
PROVIDERS: Anesthesiology; Internal Medicine; Admitting Provider Orthopaedic Surgery; PCP Family Medicine; Referring Provider Orthopaedic Surgery; Visit Provider Orthopaedic Surgery
PROC: (CPT 27447; principal; 2020-04-18 07:05)
DX: M17.11 Unilateral primary osteoarthritis, right knee (principal); I10 Essential (primary) hypertension; E78.00 Pure hypercholesterolemia, unspecified; E05.90 Thyrotoxicosis, unspecified without thyrotoxic crisis or storm; M79.7 Fibromyalgia; K21.9 Gastro-esophageal reflux disease without esophagitis; Z20.822 Contact with and (suspected) exposure to COVID-19; Z90.5 Acquired absence of kidney; Z79.899 Other long term (current) drug therapy
CPT/HCPCS: 36415; 73560; 80048; 82040; 82306; 82962; 83036; 83735; 84439; 84443; 84550; 85014; 85018; 85025; 85027; 87081; 87426; 88305; 88311; 93005; 97110; 97116; 97162; 97166; 97530; 97535; C1776; C9803; J7030; J7120; A4216; J2405

== ENCOUNTER 2020-04-20 13:35 | Inpatient (IN) | payer MEDICARE, OTHER, SELFPAY ==
[2020-04-18 11:44] VITALS: BMI 34.5
[2020-04-20 13:57] VITALS: BP 135/76; PULSE 61; RESP 16; TEMP 36.7; O2SAT 96; BMI 36.3
[2020-04-20 15:04] VITALS: O2SAT 96
[2020-04-20] MEDS: Aspirin 81 MG TAB.CHEW PO (16:32)
[2020-04-20] MEDS: oxyCODONE 5 MG Tablet PO ×2 (16:32→21:20)
[2020-04-20] MEDS: Calcium Carbonate 500 MG Tablet PO (16:33)
[2020-04-20] MEDS: Atorvastatin Calcium 20 MG Tablet PO (19:35)
[2020-04-20] MEDS: Senna/Docusate Sodium 1 Tablet 2 TABLET PO (19:35)
[2020-04-20] MEDS: amLODIPine 5 MG Tablet PO (19:35)
[2020-04-20] MEDS: Acetaminophen 500 MG Tablet 1000 MG PO (21:20)
[2020-04-20 22:00] VITALS: BP 134/68; PULSE 68; RESP 16; TEMP 36.9; O2SAT 94
[2020-04-21] MEDS: oxyCODONE 5 MG Tablet PO ×4 (01:58→21:27)
[2020-04-21] MEDS: Acetaminophen 500 MG Tablet 1000 MG PO ×3 (05:03→21:21)
[2020-04-21] MEDS: Levothyroxine 175 MCG Tablet PO (05:03)
--- NOTE | 2020-04-21 06:03 | NURSING ---
Ear plugs provided to pt for distracting building noises while sleeping, per pt report.
[2020-04-21 07:38] VITALS: O2SAT 95
[2020-04-21 08:00] VITALS: BP 132/83; PULSE 60; RESP 17; TEMP 36.2; O2SAT 96
[2020-04-21] MEDS: Senna/Docusate Sodium 1 Tablet 2 TABLET PO ×2 (08:46→21:21)
[2020-04-21] MEDS: Ramipril 10 MG Capsule PO (08:46)
[2020-04-21] MEDS: amLODIPine 5 MG Tablet PO ×2 (08:46→21:22)
[2020-04-21] MEDS: Calcium Carbonate 500 MG Tablet PO (08:47)
[2020-04-21] MEDS: Aspirin 81 MG TAB.CHEW PO ×2 (08:47→16:06)
[2020-04-21 10:04] VITALS: BP 149/81; PULSE 64; RESP 18; TEMP 36.3; O2SAT 94
[2020-04-21] MEDS: Atenolol 100 MG Tablet PO (10:08)
--- NOTE | 2020-04-21 11:24 | PCM.HP.STD ---
Problem List (1) Physical debility Status: Acute Comment: due to R TKA 04/19/20 (2) History of total right knee replacement Status: Acute (3) Hypertension Status: Chronic Qualifiers: Hypertension type: essential hypertension Qualified Code(s): I10 - Essential (primary) hypertension (4) Glucose intolerance Status: Acute Comment: new diagnosis (5) Nephrolithiasis Status: Chronic Comment: hereditary (6) History of left nephrectomy Status: Chronic (7) Aortic stenosis Status: Suspected Qualifiers: Cardiac valve disease etiology: nonrheumatic Qualified Code(s): I35.0 - Nonrheumatic aortic (valve) stenosis (8) Iatrogenic hyperthyroidism Status: Chronic (9) Vitamin D deficiency Status: Chronic (10) Insomnia Status: Chronic Qualifiers: Insomnia type: adjustment Qualified Code(s): F51.02 - Adjustment insomnia Comment: committed suicide a few years ago after > 50 years of marriage (11) Glucose intolerance (impaired glucose tolerance) Status: Acute Comment: new diagnosis (12) Obesity (BMI 30-39.9) Status: Chronic (13) History of hypothyroidism Status: Chronic (14) Hyperlipidemia Status: Chronic (15) Chronic renal failure, stage 3 (moderate) Status: Chronic Qualifiers: Chronic kidney disease stage 3 subtype: stage 3a (GFR 45-59) Qualified Code(s): N18.31 - Chronic kidney disease, stage 3a (16) Cholelithiasis Status: Chronic Qualifiers: Biliary obstruction: without biliary obstruction (17) Hepatomegaly Status: Chronic (18) Hiatal hernia Status: Chronic (19) Diverticulosis Status: Chronic (20) Atherosclerosis of abdominal aorta Status: Chronic History of Present Illness Date of Admission: 04/20/20 Chief Complaint: physical debility due to R TKA with decreased painful ambulation Cee is a 74 year old F with a past medical history of hypertension, hypothyroidism, iatrogenic hyperthyroidism, glucose intolerance, vitamin D deficiency, nephrolithiasis, left nephrectomy, obesity, stage IIIa chronic renal failure, heart MM, osteoarthritis and hyperlipidemia who underwent a right total knee replacement by Dr. West Minor on 04/19/2020. She lives alone and is unable to care for herself at this time due to pain and decreased ability to ambulate. She was admitted to in rehab on 04/20/20 for > 3 hours of therapy daily to restore her at or near her prior level of function/independence. [] Past Medical History Past Medical History (Chronic Problems): Chronic Problems Hypertension (Chronic) Nephrolithiasis (Chronic) hereditary History of left nephrectomy (Chronic) Iatrogenic hyperthyroidism (Chronic) Vitamin D deficiency (Chronic) Insomnia (Chronic) committed suicide a few years ago after > 50 years of marriage Obesity (BMI 30-39.9) (Chronic) History of hypothyroidism (Chronic) Hyperlipidemia (Chronic) Chronic renal failure, stage 3 (moderate) (Chronic) Cholelithiasis (Chronic) Hepatomegaly (Chronic) Hiatal hernia (Chronic) Diverticulosis (Chronic) Atherosclerosis of abdominal aorta (Chronic) Allergies contact metal agent Allergy (Verified 04/18/20 05:49) Other Body rejects metal Iodinated Contrast Media Allergy (Verified 04/18/20 05:49) Other latex Allergy (Verified 04/18/20 05:49) Rash meperidine [From Demerol] Allergy (Verified 04/18/20 05:49) Rash nitrofurantoin [From Macrobid] Allergy (Verified 04/18/20 05:49) Unknown NSAIDS (Non-Steroidal Anti-Inflamma Allergy (Verified 04/18/20 05:49) Other Pt to avoid all NSAIDs, d/t having only 1 kidney sulfamethoxazole [From Septra] Allergy (Verified 04/18/20 05:49) Unknown trimethoprim [From Novra] Allergy (Verified 04/18/20 05:49) Unknown Home Medications: Ambulatory Orders Medication Instructions Recorded Atenolol [Tenormin (beta albert)] 100 mg PO DAILY 10/05/13 Atorvastatin Calcium [Lipitor] 20 mg PO QHS 10/05/13 Ramipril [Altace] 10 mg PO DAILY 10/05/13 Acetaminophen [Tylenol] 1,000 mg PO Q8 04/20/20 Amlodipine [Norvasc] 5 mg PO BID #0 04/20/20 Aspirin [Aspirin, Baby] 81 mg PO BID 04/20/20 Calcium Carbonate [Tums] 500 mg PO BIDCM 04/20/20 Cholecalciferol (VIT D3) [Vitamin 1,000 unit PO BID 04/20/20 D] Levothyroxine [Synthroid] 175 mcg PO DAILY@0600 04/20/20 Oxycodone [Oxyir] 5 - 10 mg PO Q4H PRN PRN 7 Days 02/10/21 #56 tab Pantoprazole Sodium [Protonix] 20 mg PO DAILY PRN PRN tab 04/20/20 Senna/Docusate Sodium [Senokot-S] 2 tab PO BID 04/20/20 Surgical History: hysterectomy - NEREYDA with BSO for growths on the ovaries which were benign., total knee arthroplasty - Bilateral TKA., - - Bilateral carpal tunnel repair. Left nephrectomy. Multiple cystoscopies and stone removals. Psychiatric History: Anxiety - infrequent, Depression - after her of > 50 years committed suicide STOCK HANDLER FLOORPERSON History: - - polyps on the ovaries that could become malignant for which she had a NEREYDA with BSO Lives: Alone, - - She has 2 daughters that live in [place] and a son that lives in [facility] Smoking Status: Never smoker Tobacco Use: Non-smoker Alcohol: None Drugs: None - *Family History Maternal History Items: Cancer, Diabetes, Heart Disease, Hypertension, - - nephrolithiasis...hereditary Paternal History Items: Heart Disease Offspring History Items: - - hereditary nephrolithiasis Review of Systems Constitutional: Denies: Chills, Fever, Weight Change Eyes: Denies: Vision Change HEENT: Denies: Difficulty Hearing, Difficulty Swallowing, Head Aches, Nasal Congestion, Post Nasal Drip, Sinus Congestion, Sinus Drainage, Sore Throat Cardiovascular: Denies: Chest Pain, Edema, Light Headedness, Orthopnea, Palpitations, Paroxysmal Noc. Dyspnea, Syncope Respiratory: Denies: Cough, Shortness of Breath, Shortness of breath at rest, Shortness of breath upon exertion - but exercise is limited due to severe OA, Sputum production Gastrointestinal: Denies: Abdominal Pain, Constipation, Diarrhea, Nausea, Vomiting Genitourinary: Reports: Frequency - only during the night, Nocturia - several times a night. Denies: Dysuria, Incontinence, Retention Gynecological: Denies: Breast symptoms, Vaginal discharge, Vaginal itching Musculoskeletal: Reports: Joint Pain - knees, Joint stiffness. Denies: Joint Tenderness, Neck Pain, Shoulder Pain Skin: Reports: Wounds - she has an incision over the R knee due to the recent R TKA. Denies: Jaundice, Rash, Skin Changes Neurological: Denies: Balance problems, Change in Speech, Confusion, Focal weakness, Numbness, Tingling, Tremor, Seizures Psychiatric: Reports: Anxiety, Depression. Denies: Homicidal Ideations, Suicidal Ideations Endocrine: Reports: Hx of Thyroiditis Hematologic/ Lymphatic: Denies: Easy Bruising, Easy Bleeding, Hx of blood clot VTE Information - Inpt Only VTE Present on Admission: No VTE Mechan Device Prophylaxis: SCD's VTE Pharm Prophylaxis ordered?: Yes Patient Problems: Active and Suspected Problems Physical debility (Acute) due to R TKA 04/19/20 History of total right knee replacement (Acute) Glucose intolerance (Acute) new diagnosis Aortic stenosis (Suspected) Glucose intolerance (impaired glucose tolerance) (Acute) new diagnosis - Physical Exam Vitals/I&O's: Vital Signs Temp Pulse Resp BP Pulse Ox 97.3 F L 64 18 149/81 H 94 04/21/20 10:04 04/21/20 10:04 04/21/20 10:04 04/21/20 10:04 04/21/20 10:04 Oxygen Delivery Method Room Air Weight: 198 lb 6 oz Body Mass Index (BMI) 36.3 Intake and Output for Last 24 Hours 04/19/20 04/20/20 04/21/20 23:59 23:59 23:59 Intake Total 480 / 480 480 / 480 Balance 480 / 480 480 / 480 General: Alert, Oriented x3, Cooperative, No apparent distress, Well developed, Well nourished, - - pleasant HEENT: Atraumatic, PERRLA, EOMI, Normocephalic Oral: Moist Mucosa, No Gingival or Mucosal Lesions/ Ulcerations Neck: Supple, No JVD, No Nodes, No Nuchal Rigidity, Trachea Midline, Carotid Bruits, Bilateral - soft and I suspect this is due to radiation of MM (suspect aortic stenosis) Lungs: Clear to auscultation, No rhonchi, No wheeze, No rales, Diminished Cardiovascular: Regular rate, Regular Rhythm, Normal S1, Normal S2, No murmurs, Murmur - 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 Skin: No rashes, No breakdown, Incision - R knee. Stefan are intact and there is no erythema around the incision and no DC Musculoskeletal: No Tenderness to Palpation of Joints or Extremities, Arthritic Changes Neurological: Cranial nerves II-XII grossly intact, Neuro grossly intact Psych/Mental Status: Normal Affect, Appropriate Current Medications Acetaminophen (Acetaminophen 500 Mg Tablet) 1,000 mg PO Q8 [facility] Last Admin: 04/21/20 05:03 Dose: 1,000 mg Documented by: Amlodipine Besylate (Amlodipine 5 Mg Tablet) 5 mg PO BID [facility] Last Admin: 04/21/20 08:46 Dose: 5 mg Documented by: Aspirin (Aspirin 81 Mg Tab.Chew) 81 mg PO BIDCM [facility] Last Admin: 04/21/20 08:47 Dose: 81 mg Documented by: Atenolol (Atenolol 100 Mg Tablet) 100 mg PO DAILY [facility] Last Admin: 04/21/20 10:08 Dose: 100 mg Documented by: Atorvastatin Calcium (Atorvastatin Calcium 20 Mg Tablet) 20 mg PO QHS [facility] Last Admin: 04/20/20 19:35 Dose: 20 mg Documented by: Calcium Carbonate ([facility]cium [facility] 500 Mg [facility]t) [facility] Admin: 04/21/20 08:47 Dose: 500 mg Documented by: Cholecalciferol (Cholecalciferol (Vit D3) 1,000 Unit (25mcg)) 1,000 unit PO BID [facility] Last Admin: 04/21/20 08:46 Dose: 1,000 unit Documented by: Levothyroxine Sodium (Levothyroxine 175 Mcg Tablet) 175 mcg PO DAILY@0600 [facility] Last Admin: 04/21/20 05:03 Dose: 175 mcg Documented by: Oxycodone HCl (Oxycodone 5 Mg Tablet) 5 - 10 mg PO Q4H PRN PRN PRN Reason: Pain Score 4-10 Last Admin: 04/21/20 08:47 Dose: 5 mg Documented by: Pantoprazole Sodium (Pantoprazole Sodium 20 Mg Tablet) 20 mg PO DAILY PRN PRN PRN Reason: GERD Ramipril (Ramipril 10 Mg Capsule) 10 mg PO DAILY [facility] Last Admin: 04/21/20 08:46 Dose: 10 mg Documented by: Senna/Docusate Sodium (Senna/Docusate Sodium 1 Tablet) 2 tablet PO BID [facility] Last Admin: 04/21/20 08:46 Dose: 2 tablet Documented by: Assessment/Plan All Active Problems Physical debility (Acute) History of total right knee replacement (Acute) Glucose intolerance (Acute) Glucose intolerance (impaired glucose tolerance) (Acute) Impressions 1. Physical debility secondary to recent right total knee arthroplasty on 04/18/[address] Minor for severe osteoarthritis limiting her ability to ambulate and causing severe pain. 2. Deconditioning secondary to decreased mobility over the past several months due to severe right knee osteoarthritis. 3. History of right total knee replacement-04/18/[address] Minor 4. Hypertension 5. Glucose intolerance with a hemoglobin A1c of 6.1% 6. History of hypothyroidism 7. Iatrogenic hyperthyroidism 8. Obesity 9. Hyperlipidemia 10. Murmur-suspect at least moderate aortic stenosis. Patient denies dyspnea on exertion, dyspnea at rest, orthopnea, palpitations and chest pain. BUT, her exertion has been limited over the past year due to COVID and to severe OA R knee 11. Stage IIIa chronic renal failure 12. History of left nephrectomy for infection and multiple kidney stones 13. Hereditary nephrolithiasis 14. Hiatal hernia 15. Atherosclerosis of the abdominal aorta and its associated vascular structures 16. Diverticulosis 17. Hepatomegaly on her most recent CT scan of the abdomen and pelvis 18. Cholelithiasis 19. Vitamin D deficiency 20. Insomnia PLAN PT for gait stability OT for ADL's Analgesics as needed Bowel protocol Fall precautions Assess for Anxiety/Depression GI prophylaxis not necessary. Asymptomatic and no hx of PUD DVT prophylaxis with aspirin 81 mg p.o. twice daily Follow up with Dr. Minor and Dr. Gomez following DC from IP Rehab I will recommend she have an ECHO to assess the aortic valve. I also recommend she have a DEXA to assess bone density, bernice because she has been hyperthyroid for at least 2 years and she has Vitamin D deficiency. Pharmacy Resource Tech consult for education about weight loss and carb control. Add low salt, consistent carbohydrate intake and low fat to her diet Inpatient E&M: 79659 Init Hosp L3
--- NOTE | 2020-04-21 15:02 | CHAPLAIN ---
Type of Pastoral Visit ___ Initial Visit _x__ Follow-up Visit ___ On-call Visit ___ General Patient Visit ___ Spiritual Assessment ___ Family Conference ___ Bereavement ___ Rapid Response ___ Code Blue ___ Other (describe below) Pastoral Care Referral From ___ Patient ___ Family _x__ Nurse ___ Physician ___ Solar Resource Assessor ___ Victim Witness Administrator ___ Other (describe below) Sacrament/Intervention _x__ Active listening ___ Anointing ___ Sikhism ___ Bereavement ___ Communion ___ Karen exploration ___ ___ Life review ___ Prayer ___ Reconciliation ___ Sacrament of Sick _x__ Supportive presence ___ Wedding ___ Other (describe below) Pastoral Comments
--- NOTE | 2020-04-21 18:13 | NURSING ---
pt tells this RN that the IV placed in RFA is tender and there is a lump above the area. This RN examines area and notices that IV must have infiltrated. pt states that earlier when IV was flushed it burned. area noted to be reddened, bruised and edematous with small lump noted proximal to IV insertion site. This RN d/c's IV at this time. catheter is intact. will continue to monitor patient for increased swelling or bruising. pt has call light within reach and denies further needs.
[2020-04-21] MEDS: Atorvastatin Calcium 20 MG Tablet PO (21:22)
[2020-04-21] MEDS: traZODone 50 MG Tablet PO (21:22)
[2020-04-21 22:00] VITALS: BP 119/62; PULSE 63; RESP 16; TEMP 36.6
[2020-04-22] MEDS: oxyCODONE 5 MG Tablet PO ×4 (03:13→22:11)
[2020-04-22] MEDS: Acetaminophen 500 MG Tablet 1000 MG PO ×3 (06:24→22:14)
[2020-04-22] MEDS: Levothyroxine 175 MCG Tablet PO (06:24)
[2020-04-22] MEDS: Magnesium Hydroxide 30 ML UDC PO (06:29)
[2020-04-22 07:33] VITALS: BP 144/82; PULSE 62; RESP 16; TEMP 36.5; O2SAT 95
[2020-04-22 08:13] VITALS: O2SAT 95
[2020-04-22] MEDS: amLODIPine 5 MG Tablet PO ×2 (08:17→22:15)
[2020-04-22] MEDS: Atenolol 100 MG Tablet PO (08:17)
[2020-04-22] MEDS: Ramipril 10 MG Capsule PO (08:17)
[2020-04-22] MEDS: Aspirin 81 MG TAB.CHEW PO ×2 (08:17→17:29)
[2020-04-22] MEDS: Senna/Docusate Sodium 1 Tablet 2 TABLET PO ×2 (08:17→22:14)
[2020-04-22 09:41] VITALS: PULSE 62; RESP 16; O2SAT 97
--- NOTE | 2020-04-22 12:19 | REHABEVAL_ITS ---
Admission Information Primary Diagnosis:: Physical debility with decreased ability to ambulate, climb stairs and take care of herself after a right total knee replacement. She lives alone. Prior to surgery she was ambulating in the community without an assistive device, driving, taking care of all her ADLs and managing her finances. Status Changes from Prescreening?: No changes Identified Actual Problem List:: Skin Intergrity, Alteration in Sleep, Mobility Impaired, Self Care Deficit, BP, Hypertension, Alteration-Leisure Activ. Risk of Complications DVT: BRIE Dennis, - - ASA 81 mg p.o. twice daily Bleeding: Monitor Lab Values, Nursing to Teach Precautions for anti-coagulation therapy., Wound, if applicable, to be assessed every shift., Stroke patients assessed for lethargy or change in status. Infection: Clinical Staff to Monitor for S/S of infection:, S/S of infection include fever, redness, warmth, etc. Urinary Tract Infection: Monitor for frequency, burning, discomfort, or incontinence., Nursing will obtain urine sample for urinalysis and C&S when ordered. Aspiration: Clinical staff will monitor for coughing, drooling, congestion., Speech will evaluate swallowing and dsyphasia., Nursing will monitor patient swallowing during meals. Falls: Patient will be evaluated for Fall Precautions, Patient will be placed on Fall Precautions as indicated per protocol. Skin Breakdown: Nursing will assess skin daily using assessment tool., Nursing will place on Skin Breakdown Precautions as indicated. Pain: Clinical staff will assess patient's pain level per protocol., Medications will be given, if needed, and the pain level reassessed., Other methods: Massage, distraction, decrease stimulus, etc. used PRN. Plan of Care Patient requires physician specializing in physical medicine and rehab oversight to provide close medical supervision of rehab issues including: Pain Management, Sleep Problems, Bowel and Bladder, Medical and co-morbidity Management, DVT prophylaxis, Rehabilitation Leadership, Coordination of treatment team Patient needs Physical Therapy: For a minimum of 1 hour, At least 5 out of 7 days Patient needs Physical Therapy to improve:: Mobility, Mobility, Mobility, Strengthening, Transfers, Stretching, ROM, Endurance, Stairs, Gait, Balance Patient needs Occupational Therapy: For a minimum of 1 hour, At least 5 out of 7 days Patient needs Occupational Therapy to improve ADL's incl.: Eating, Grooming, Bathing, Dressing, Toileting, Toilet transfers, Community Reintegration, Higher functioning activities, Household tasks, Adaptive Equipment, Splinting, Other activities as determined Patient requires 24/7 Rehabilitation Nursing for: Pain Issues, Identifying and preventing risk factors, Monitoring and reporting current medical conditions, Assisting with ambulation, transfer, and all ADL's, Teaching patients about disease process and medications, Family teaching, Providing safe environment, Bowel and Bladder Issues, Skin integrity, Medication Management Patient needs Television Cable Installer/ Case Management for: Discharge Planning, Arranging Home Equipment or Services, Family Interventions Patient needs Dietary and Nutrition Services for: Adequate Nutrition, Nutritional Supplements, Nutritional Education Goals Patient will remain: free from falls, or injury at time of discharge. Patient will perform bed mobility at: MOD I level of assist. Patient will complete transfers from bed to chair at: MOD I level of assist. Patient will ambulate: with MOD I assist, with LRD, - - 750 feet Patient will complete upper body dressing at: MOD I level of assist. Patient will complete lower body dressing at: MOD I level of assist. Patient will complete toileting at: MOD I level of assist. Patient will perform bathing at: MOD I level of assist. Patient will complete grooming at: MOD I level of assist. Patient will complete home management skills at: MOD I level of assist. Patient will achieve: at MOD I assist, - - 1 curb step Patient will have pain level of: of 3 or less Patient's skin will: remain intact, free from infection. Patient will receive: adequate nutrition. Discharge Planning Pt Prognosis for Sig. Practical Improv. w/in Reasonable Time: Good Estimated Length of stay (days): 10 Anticipated D/C Destination: Home Was Preadmission Assessment Accurate?: Yes
--- NOTE | 2020-04-22 12:23 | PCM.PN.BLA ---
Progress Note Afebrile VSS Maintaining appropriate oxygen saturation on RA Oral intake is [] Discussed with nursing - no problems that need addressed Reviewed the PT/OT/ST notes Medication list reviewed. She states that she slept better last night with the change in mattress/bed and the trazodone. She only got up 2 times to urinate last night. The pain is better controlled and she is happy with the current pain medication regimen. She denies cough, shortness of breath, chest pain, calf pain, nausea, abdominal pain and dysuria. Alert appropriate NAD MMM no neck stiffness Lungs - CTA HRRR with no change in the MM - suspect no calf pain and no ankle edema non-focal neuro exam Impressions 1. Physical debility/gait instability post right TKA 2. Severe osteoarthritis 3. Nocturia 4. Acute blood loss anemia CBC, BMP on 04/25/2020 Continue current medications Continue therapy STROKE Vital Signs/Narrative: Vital Signs Pulse Resp Pulse Ox 04/22/20 09:41 62 16 97 Inpatient E&M: 69603 Subs Hosp L1
[2020-04-22 19:45] VITALS: BP 156/87; PULSE 67; RESP 18; TEMP 36.3; O2SAT 95
[2020-04-22] MEDS: Atorvastatin Calcium 20 MG Tablet PO (22:14)
[2020-04-22] MEDS: traZODone 50 MG Tablet PO (22:15)
[2020-04-23] MEDS: Levothyroxine 175 MCG Tablet PO (05:16)
[2020-04-23] MEDS: Acetaminophen 500 MG Tablet 1000 MG PO ×3 (05:16→20:32)
[2020-04-23] MEDS: oxyCODONE 5 MG Tablet PO ×2 (06:40→21:31)
[2020-04-23 06:50] VITALS: O2SAT 95
[2020-04-23 07:30] VITALS: BP 131/71; PULSE 61; RESP 16; TEMP 36.5; O2SAT 97
[2020-04-23] MEDS: Aspirin 81 MG TAB.CHEW PO ×2 (08:31→17:17)
[2020-04-23] MEDS: Ramipril 10 MG Capsule PO (08:31)
[2020-04-23] MEDS: amLODIPine 5 MG Tablet PO ×2 (08:31→20:33)
[2020-04-23] MEDS: Senna/Docusate Sodium 1 Tablet 2 TABLET PO ×2 (08:31→20:33)
[2020-04-23] MEDS: Atenolol 100 MG Tablet PO (08:32)
[2020-04-23 18:55] VITALS: BP 104/68; PULSE 80; RESP 16; TEMP 36.4; O2SAT 95
[2020-04-23] MEDS: Atorvastatin Calcium 20 MG Tablet PO (20:33)
[2020-04-23] MEDS: traZODone 50 MG Tablet PO (20:33)
[2020-04-23] MEDS: Calcium Carbonate 500 MG Tablet PO (21:32)
[2020-04-24] MEDS: Acetaminophen 500 MG Tablet 1000 MG PO ×3 (05:21→21:26)
[2020-04-24] MEDS: Levothyroxine 175 MCG Tablet PO (05:21)
[2020-04-24 07:30] VITALS: BP 148/66; PULSE 60; RESP 16; TEMP 36.9; O2SAT 96
[2020-04-24] MEDS: Ramipril 10 MG Capsule PO (08:24)
[2020-04-24] MEDS: Aspirin 81 MG TAB.CHEW PO ×2 (08:24→16:57)
[2020-04-24] MEDS: amLODIPine 5 MG Tablet PO ×2 (08:24→21:27)
[2020-04-24] MEDS: Atenolol 100 MG Tablet PO (08:25)
--- NOTE | 2020-04-24 11:33 | NURSING ---
up and ambulated in halls with walker and standby assist. tolerated well.
[2020-04-24] MEDS: oxyCODONE 5 MG Tablet PO (15:44)
[2020-04-24 19:34] VITALS: BP 117/66; PULSE 56; RESP 16; TEMP 36.9; O2SAT 96
[2020-04-24] MEDS: traZODone 50 MG Tablet PO (19:47)
[2020-04-24] MEDS: Atorvastatin Calcium 20 MG Tablet PO (21:27)
[2020-04-24] MEDS: Calcium Carbonate 500 MG Tablet PO (21:28)
[2020-04-25] MEDS: Acetaminophen 500 MG Tablet 1000 MG PO ×3 (05:45→21:40)
[2020-04-25] MEDS: Levothyroxine 175 MCG Tablet PO (05:46)
[2020-04-25 05:55] LABS: Hematocrit 37.9 % (37-47); Hemoglobin 11.9 g/dL (12.0-15.0); Mean Corp Hgb Conc 31.4 g/dL (32-36); Mean Corpuscular Hgb 30.1 pg (27.0-32.0); Mean Corpuscular Volume 95.9 fL (81-99); Mean Platelet Vol. 9.5 fl (6.2-12.0); Platelet Count 359 K/mm3 (150-450); RBC Distribution Width CV 13.1 % (11.6-14.6); RBC Distribution Width SD 45.8 fl (35.1-43.9); Red Blood Count 3.95 M/mm3 (4.2-5.4)
[2020-04-25 06:23] LABS: Anion Gap 6 (5-15); BUN 12 mg/dL (7-18); BUN/Creat Ratio 11.7 RATIO (10-20); Calcium,Total 9.2 mg/dL (8.5-10.1); Chloride 106 mmol/L (98-107); Creatinine, Serum 1.03 mg/dL (0.55-1.02); EST Glomerular Filtration Rate 56 mL/min (>60); Est Glom Filt Rate - Afr Amer 67 mL/min (>60); Glucose 137 mg/dL (74-106); Sodium Level 138 mmol/L (136-145)
[2020-04-25 07:31] VITALS: BP 131/67; PULSE 58; RESP 16; TEMP 36.8; O2SAT 93
[2020-04-25] MEDS: amLODIPine 5 MG Tablet PO ×2 (07:34→21:40)
[2020-04-25] MEDS: Atenolol 100 MG Tablet PO (07:34)
[2020-04-25] MEDS: Ramipril 10 MG Capsule PO (07:34)
[2020-04-25] MEDS: Aspirin 81 MG TAB.CHEW PO ×2 (07:34→17:03)
[2020-04-25] MEDS: oxyCODONE 5 MG Tablet PO ×2 (07:38→12:29)
[2020-04-25 10:00] VITALS: PULSE 58; RESP 16; O2SAT 93
--- NOTE | 2020-04-25 10:42 | CASEMGMT ---
Social Work IDT met with patient for Team meeting. Discussed patient's progress in therapy and nursing. Pt progressing well. The goal is for the pt to DC home alone. Explained Medicare approved 10 days with [facility] 05/01. Pt agreeable to remain and requesting outpatient PT at [facility]. No DME needs. Plan: DC home alone 05/[address] [facility] PT Maddi Correa CLIENT SERVICE SUPERVISOR ACQUISITIONS LOGISTICS ANALYST
--- NOTE | 2020-04-25 10:54 | PCM.PN.BLA ---
Progress Note Cee was seen on TEAM rounds today. No family was available to participate in rounds. Afebrile VSS Maintaining appropriate oxygen saturation on RA Oral intake is good Discussed with nursing - no problems that need addressed Reviewed the PT/OT notes Medication list reviewed. Has had Oxycodone 10 mg 1-2 times a day for the past 2 days. she is trying to wean herself off. All lab was personally reviewed. White blood cell count has come down to 11 from 19.2 at admission to rehab. Hemoglobin is stable at 11.9. Prior to surgery it was 13.1. Platelets are within normal limits. Sodium is 138 and the potassium is 4.0. The BUN is 12 and the creatinine is 1.03 which is down from 1.27 on 04/19/2020. Creatinine on 04/11/2020 was 0.99. GFR is consistent with stage IIIa chronic renal failure. She was seen by Dr. Prather and Harsh Mcgill today and examined. Nursing tells me that the vanessa can come out on 04/29 and we will apply steri strips after removal. Having trouble sleeping at night due to an uncomfortable bed.......the Air system has a leak and she is literally laying on the metal frame. Her knee pain is adequately controlled. Good bowel function. No CP, SOB, hemoptysis, calf pain, cough. Alert, sitting in a straight back chair at the bedside, no apparent distress, pleasant and talkative. Mucous membranes are moist, no mucosal lesions Not tachypneic, no conversational dyspnea, lungs are clear to auscultation Heart-regular with heart rate in the upper 50s. No gallop Abdomen-soft, nontender No calf pain no skin rashes. Impressions 1. Physical debility secondary to right total knee arthroplasty on 04/18/[address] Minor. 2. Severe osteoarthritis of the right knee 3. Acute blood loss anemia-stable 4. Poor exercise tolerance/deconditioning secondary to decreased mobility over the past year due to severe knee pain. 5. Hypertension-controlled 6. 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 iatrogenic hyperthyroidism - Levothyroid dose was adjusted 8. Insomnia even with Trazodone due to the bed malfunction - nursing to address 9. Vitamin D deficiency Continue Therapy to improve exercise tolerance. She lives alone Try and get her down to 5 mg tabs of Oxycodone prior to DC Saturday Remove the vanessa on Saturday and apply steri-strips Recommend and ECHO and DEXA at DC STROKE Vital Signs/Narrative: Vital Signs Temp Pulse Resp BP Pulse Ox 04/25/20 10:00 58 L 16 93 04/25/20 07:31 98.2 F 58 L 16 131/67 H 93 Inpatient E&M: [id number] Subs Hosp L2
[2020-04-25 19:37] VITALS: BP 120/83; PULSE 65; RESP 16; TEMP 36.6; O2SAT 97
[2020-04-25] MEDS: traZODone 50 MG Tablet PO (21:40)
[2020-04-25] MEDS: Atorvastatin Calcium 20 MG Tablet PO (21:40)
[2020-04-25] MEDS: Calcium Carbonate 500 MG Tablet PO (21:42)
[2020-04-25 22:00] VITALS: PULSE 65; RESP 16; O2SAT 97
[2020-04-26] MEDS: Levothyroxine 175 MCG Tablet PO (05:55)
[2020-04-26] MEDS: Acetaminophen 500 MG Tablet 1000 MG PO ×3 (05:55→21:36)
[2020-04-26 07:30] VITALS: BP 140/83; PULSE 59; RESP 16; TEMP 36.7; O2SAT 93
[2020-04-26] MEDS: amLODIPine 5 MG Tablet PO ×2 (07:55→20:26)
[2020-04-26] MEDS: Ramipril 10 MG Capsule PO (07:55)
[2020-04-26] MEDS: Atenolol 100 MG Tablet PO (07:55)
[2020-04-26] MEDS: Aspirin 81 MG TAB.CHEW PO ×2 (07:55→17:15)
[2020-04-26] MEDS: oxyCODONE 5 MG Tablet PO ×3 (08:19→23:27)
[2020-04-26 08:34] VITALS: PULSE 59; RESP 16; O2SAT 93
--- NOTE | 2020-04-26 10:48 | PCM.PN.BLA ---
Progress Note Afebrile VSS Maintaining appropriate oxygen saturation on RA Oral intake is good Discussed with nursing - no problems that need addressed. the nurse did mention she feels the pt is depressed and Cee was able to talk about her husbands suicide with her nurse. She gets tearful in an appropriate way. Reviewed the PT/OT notes Medication list reviewed. Alert, oriented x3 Mucous membranes are dry Lungs-diminished but clear to auscultation throughout Heart-regular rate and rhythm without ectopy, no change in the 3/6 systolic murmur at the second right intercostal space Abdomen-soft, nontender, nondistended, no guarding with palpation No calf pain, negative Homans, negative Herb Impressions 1. Physical debility/gait instability post right TKA 2. Severe osteoarthritis 3. Nocturia - this is better since she is sleeping better 4. Acute blood loss anemia Continue therapy no adjustments in the medications necessary at this time STROKE Vital Signs/Narrative: Vital Signs Temp Pulse Resp BP Pulse Ox 04/26/20 08:34 59 L 16 93 04/26/20 07:30 98.0 F 59 L 16 140/83 H 93 Inpatient E&M: [id number] Subs Hosp L1
[2020-04-26 19:25] VITALS: BP 108/64; PULSE 59; RESP 16; TEMP 36.9; O2SAT 96
[2020-04-26] MEDS: traZODone 50 MG Tablet PO (20:26)
[2020-04-26] MEDS: Atorvastatin Calcium 20 MG Tablet PO (20:26)
[2020-04-26] MEDS: Senna/Docusate Sodium 1 Tablet 2 TABLET PO (20:28)
[2020-04-26] MEDS: Calcium Carbonate 500 MG Tablet PO (20:30)
[2020-04-26 20:34] VITALS: PULSE 59; RESP 16; O2SAT 94
--- NOTE | 2020-04-26 20:41 | NURSING ---
Pt ambulated around unit x1 staff assist.
--- NOTE | 2020-04-26 23:42 | NURSING ---
Pt reports rt knee pain of 4/10. Oxyir 5mg PRN provided. Will continue to monitor.
[2020-04-27] MEDS: Levothyroxine 175 MCG Tablet PO (06:06)
[2020-04-27] MEDS: Acetaminophen 500 MG Tablet 1000 MG PO ×2 (06:06→14:27)
[2020-04-27 07:55] VITALS: BP 141/73; PULSE 61; RESP 16; TEMP 36.9; O2SAT 94
[2020-04-27] MEDS: Aspirin 81 MG TAB.CHEW PO ×2 (08:29→17:21)
[2020-04-27] MEDS: Atenolol 100 MG Tablet PO (08:29)
[2020-04-27] MEDS: Ramipril 10 MG Capsule PO (08:29)
[2020-04-27] MEDS: amLODIPine 5 MG Tablet PO (08:29)
[2020-04-27] MEDS: oxyCODONE 5 MG Tablet PO ×3 (08:30→21:51)
--- NOTE | 2020-04-27 08:55 | PN_ITS ---
Progress Note Afebrile VSS-heart rate is in the high 50s and low 60s. She denies any lightheadedness. Heart rate increases appropriately with exercise. Maintaining appropriate oxygen saturation on RA Oral intake is good Discussed with nursing - no problems that need addressed. Reviewed the PT/OT notes Medication list reviewed. AM BP is mildly increased. She gets Metoprolol and Ramipril in the AM and AMlodipine 5 BID. She often has therapy within 30 minutes after breakfast and frequently has not had a pain medication. This makes therapy more difficult and more painful. Denies chest pain, shortness of breath, hemoptysis, lightheadedness, nausea/vomiting. Good bowel function. Alert, oriented x3, no apparent distress, sitting in the recliner at the bedside. She does get tearful when she talks about finding her who committed suicide almost 2 years ago. She recovers quickly. Mucous membranes are very dry Neck is supple Lungs-diminished throughout but clear to auscultation. No tachypnea, no conversational dyspnea. Heart-regular rate and rhythm, 3/6 holosystolic MM at the second right intercostal space with radiation to the left ventricular outflow tract, apex, lower left sternal border and into the left axilla. No gallop She has some edema of the right ankle due to recent knee surgery. Ecchymosis is resolving. Negative Homans and negative Herb signs. BRIE hose are in place. No rashes. The incision is intact with no periincisional erythema or discharge. No focal neurologic deficits Impressions 1. Physical debility secondary to right total knee arthroplasty on 04/18/[address] Minor. Progressing well in therapy. 2. Severe osteoarthritis of the right knee 3. Acute blood loss anemia-stable 4. Poor exercise tolerance/deconditioning secondary to decreased mobility over the past year due to severe knee pain. 5. Hypertension-mostly controlled. I expect the BP will come down as the hyperthyroidism resolves 6. 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 iatrogenic hyperthyroidism - Levothyroid dose was adjusted 8. Insomnia better with Trazodone - She would like a RX ar discharge 9. Vitamin D deficiency - continue supplement at DC 10. 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 hx of multiple episodes of nephrolithiasis - with hx of Lithotripsies and basket extractions 12. She declines to start an antidepressant at this time. She feels that if she thinks she needs it she can discuss with Dr. Gomez. She has good coping mechanisms in place. Change the Amlodipine to 10 mg Q HS. Schedule oxycodone 10 mg every morning at 0700 I encouraged her to increase her fluid intake to protect the kidneys and to prevent dizziness/lightheadedness/falls. Remove vanessa on Saturday and apply Steri-Strips She will discuss getting an echocardiogram to better evaluate the murmur which I suspect is aortic stenosis and it is at least a grade 3 murmur and radiates to the entire left precordium and into the left axilla. She will also discuss a new DEXA with Dr. Gomez, especially since she has been vitamin D deficient and TSH has been low consistent with iatrogenic hy perthyroidism. Will need a T4 and TSH in 4 to 6 weeks since the dose has been decreased. Blood pressure should go down somewhat as the hyperthyroidism resolves. She would like to continue trazodone at discharge. We once again discussed treating her depression with an SSRI. She has good coping mechanisms in place and even though she is tearful when thinking about her she knows what to do to distract herself. She feels somewhat better since she is sleeping and she is down to nocturia only once a night since trazodone was started. STROKE Vital Signs/Narrative: Vital Signs Temp Pulse Resp BP Pulse Ox 04/27/20 07:55 98.4 F 61 16 141/73 H 94 Inpatient E&M: [id number] Subs Hosp L2
[2020-04-27] MEDS: traZODone 50 MG Tablet PO (21:44)
[2020-04-27] MEDS: amLODIPine 10 MG Tablet PO (21:45)
[2020-04-27] MEDS: Atorvastatin Calcium 20 MG Tablet PO (21:45)
[2020-04-27 22:00] VITALS: BP 104/52; PULSE 59; RESP 18; TEMP 36.8; O2SAT 95
[2020-04-27] MEDS: Calcium Carbonate 500 MG Tablet PO (22:06)
[2020-04-28] MEDS: Levothyroxine 175 MCG Tablet PO (04:55)
[2020-04-28] MEDS: Acetaminophen 500 MG Tablet 1000 MG PO ×2 (04:56→14:26)
[2020-04-28] MEDS: oxyCODONE 5 MG Tablet 10 MG PO (07:00)
[2020-04-28 07:18] VITALS: BP 154/85; PULSE 63; RESP 18; TEMP 36.8; O2SAT 97
[2020-04-28] MEDS: Aspirin 81 MG TAB.CHEW PO ×2 (08:17→16:53)
[2020-04-28] MEDS: Ramipril 10 MG Capsule PO (08:18)
[2020-04-28] MEDS: Atenolol 100 MG Tablet PO (08:18)
--- NOTE | 2020-04-28 11:40 | PCM.DC ---
- Discharge Diagnoses Current Active Problems: Current Active and Chronic Problems Physical debility (Acute) due to R TKA 04/19/20 History of total right knee replacement (Acute) Hypertension (Chronic) Glucose intolerance (Acute) new diagnosis Nephrolithiasis (Chronic) hereditary History of left nephrectomy (Chronic) Iatrogenic hyperthyroidism (Chronic) Vitamin D deficiency (Chronic) Insomnia (Chronic) committed suicide a few years ago after > 50 years of marriage Glucose intolerance (impaired glucose tolerance) (Acute) new diagnosis Obesity (BMI 30-39.9) (Chronic) History of hypothyroidism (Chronic) Hyperlipidemia (Chronic) Chronic renal failure, stage 3 (moderate) (Chronic) Cholelithiasis (Chronic) Hepatomegaly (Chronic) Hiatal hernia (Chronic) Diverticulosis (Chronic) Atherosclerosis of abdominal aorta (Chronic) You will use the following diet at home:: No restrictions, Regular Your food should be the consistency of: Regular Your liquids should be the consistency of: Regular/Thin Discharge Activity: Return to Normal Activity, May Shower, Use Walker Weight Bearing Status: Weight bearing as tolerated Call your doctor if you observe: Fever of 101 or Higher, Inability to urinate, Inability to have a bowel movement, Shortness of breath, Chest pain, Uncontrolled pain Allergies/Adverse Reactions: Allergies contact metal agent Allergy (Verified 04/18/20 05:49) Other Body rejects metal Iodinated Contrast Media Allergy (Verified 04/18/20 05:49) Other latex Allergy (Verified 04/18/20 05:49) Rash meperidine [From Demerol] Allergy (Verified 04/18/20 05:49) Rash nitrofurantoin [From Macrobid] Allergy (Verified 04/18/20 05:49) Unknown NSAIDS (Non-Steroidal Anti-Inflamma Allergy (Verified 04/18/20 05:49) Other Pt to avoid all NSAIDs, d/t having only 1 kidney sulfamethoxazole [From Septra] Allergy (Verified 04/18/20 05:49) Unknown trimethoprim [From Novra] Allergy (Verified 04/18/20 05:49) Unknown Medications to take at Discharge Atenolol [Tenormin (beta albert)] 100 mg PO DAILY 10/05/13 Atorvastatin Calcium [Lipitor] 20 mg PO QHS 10/05/13 Ramipril [Altace] 10 mg PO DAILY 10/05/13 Acetaminophen [Tylenol] 1,000 mg PO Q8 04/20/20 Amlodipine [Norvasc] 5 mg PO BID #0 04/20/20 Aspirin [Aspirin, Baby] 81 mg PO BID 04/20/20 Calcium Carbonate [Tums] 500 mg PO BIDCM 04/20/20 Cholecalciferol (VIT D3) [Vitamin D3] 1,000 unit PO BID 04/20/20 Levothyroxine [Synthroid] 175 mcg PO DAILY@0600 04/20/20 Oxycodone [Oxyir] 5 - 10 mg PO Q4H PRN PRN 7 Days #56 tab 04/20/20 Pantoprazole Sodium [Protonix] 20 mg PO DAILY PRN PRN tab 04/20/20 Calcium Carbonate [Tums] 500 mg PO Q6H PRN PRN tablet 04/28/20 Oxycodone [Oxyir] 10 mg PO 0700 #14 tablet 04/28/20 Senna/Docusate Sodium [Senokot-S] 2 tab PO BID #120 tab 04/28/20 traZODone [Desyrel] 50 mg PO 2100 #30 tab 04/28/20 The following prescriptions were given: traZODone [Desyrel] 50 mg PO 2100 #30 tab Transmission Status: Pending to [facility] Oxycodone [Oxyir] 10 mg PO 0700 #14 tablet Transmission Status: Sent to [facility] Senna/Docusate Sodium [Senokot-S] 2 tab PO BID #120 tab Transmission Status: Pending to [facility] Primary Care Physician: Joan Gomez MD [Primary Care Provider] - Please follow up with your Primary Care Physician in: 1 week. Test Results: Test results from this visit will be discussed in further detail at your follow-up appointment, if applicable. Please Follow Up With: Darwin Lugo When: Please Follow Up With: Heidi-clinical assistant professor surgical technology When: Saturday Proposed Discharge Date: 05/01/20
--- NOTE | 2020-04-28 11:41 | PCM.DC.SUM ---
Discharge Date and Diagnosis - Problem List Patient Problems: Active and Suspected Problems Physical debility (Acute) due to R TKA 04/19/20 History of total right knee replacement (Acute) Glucose intolerance (Acute) new diagnosis Aortic stenosis (Suspected) Glucose intolerance (impaired glucose tolerance) (Acute) new diagnosis Date of Admission: 04/20/20 Date of Discharge: 05/01/20 - Primary Discharge Diagnosis Acute Problems: Active Problems Physical debility (Acute) due to R TKA 04/19/20 History of total right knee replacement (Acute) Glucose intolerance (Acute) new diagnosis Glucose intolerance (impaired glucose tolerance) (Acute) new diagnosis Suspected Problems: Suspected Problems Aortic stenosis (Suspected) - Secondary Discharge Diagnosis Chronic Problems: Chronic Problems Hypertension (Chronic) Nephrolithiasis (Chronic) hereditary History of left nephrectomy (Chronic) Iatrogenic hyperthyroidism (Chronic) Vitamin D deficiency (Chronic) Insomnia (Chronic) committed suicide a few years ago after > 50 years of marriage Obesity (BMI 30-39.9) (Chronic) History of hypothyroidism (Chronic) Hyperlipidemia (Chronic) Chronic renal failure, stage 3 (moderate) (Chronic) Cholelithiasis (Chronic) Hepatomegaly (Chronic) Hiatal hernia (Chronic) Diverticulosis (Chronic) Atherosclerosis of abdominal aorta (Chronic) Hospital Course and Treatment Imaging Results: 04/21/20 11:26 Diet: Carbohydrate Controlled Food consistency:: Regular Liquid Consistency:: Regular/Thin Dietary Modifications:: Cardiac / Heart Healthy Is pt able to select menu?: Yes Diet Comments: 4 CHO servings/meal OK Operations: None Procedures: None Summary of Care Provided: The patient is a 74 year old Female with below past medical history hospitalized for right total knee replacement 04/18/[address] Minor, admitted to for > 3 hours daily rehabilitation, strengthening, prior to discharge home alone. Aspirin 81MG twice daily DVT prophylaxis x 4 weeks thru 05/16/2020. Trazodone added to aid sleep, consider stopping as outpatient. Discharge home alone, [facility]. Patient Problems: Active and Suspected Problems Physical debility (Acute) due to R TKA 04/19/20 History of total right knee replacement (Acute) Glucose intolerance (Acute) new diagnosis Aortic stenosis (Suspected) Glucose intolerance (impaired glucose tolerance) (Acute) new diagnosis - Physical Exam Vitals/I&O's: Vital Signs Temp Pulse Resp BP Pulse Ox 98.3 F 63 18 154/85 H 97 04/28/20 07:18 04/28/20 07:18 04/28/20 07:18 04/28/20 07:18 04/28/20 07:18 Oxygen Delivery Method Room Air Weight: 89.981 kg Body Mass Index (BMI) 36.3 Intake and Output for Last 24 Hours 04/26/20 04/27/20 04/28/20 23:59 23:59 23:59 Intake Total 1060 / 1060 1020 / 1020 Balance 1060 / 1060 1020 / 1020 Current Medications Acetaminophen (Acetaminophen 500 Mg Tablet) 1,000 mg PO Q8 [facility] Last Admin: 04/28/20 04:56 Dose: 1,000 mg Documented by: Al Hydroxide/Mg Hydroxide (Mag Hydrox/Al Hydrox/Simeth 30 Ml Udc) 30 ml PO Q4H PRN PRN PRN Reason: DYSPEPSIA Amlodipine Besylate (Amlodipine 10 Mg Tablet) 10 mg PO QHS [facility] Last Admin: 04/27/20 21:45 Dose: 10 mg Documented by: Aspirin ([facility] 81 Mg [facility].Chew) [facility] Admin: 04/28/20 08:17 Dose: 81 mg Documented by: Atenolol (Atenolol 100 Mg Tablet) 100 mg PO DAILY [facility] Last Admin: 04/28/20 08:18 Dose: 100 mg Documented by: Atorvastatin Calcium (Atorvastatin Calcium 20 Mg Tablet) 20 mg PO QHS [facility] Last Admin: 04/27/20 21:45 Dose: 20 mg Documented by: Calcium Carbonate (Calcium Carbonate 500 Mg Tablet) 500 mg PO Q6H PRN PRN PRN Reason: INDIGESTION Last Admin: 04/27/20 22:06 Dose: 500 mg Documented by: Cholecalciferol (Cholecalciferol (Vit D3) 1,000 Unit (25mcg)) 1,000 unit PO BID [facility] Last Admin: 04/28/20 08:18 Dose: 1,000 unit Documented by: Levothyroxine Sodium (Levothyroxine 175 Mcg Tablet) 175 mcg PO DAILY@0600 [facility] Last Admin: 04/28/20 04:55 Dose: 175 mcg Documented by: Magnesium Hydroxide (Magnesium Hydroxide 30 Ml Udc) 30 ml PO Q3D PRN PRN Reason: Constipation Last Admin: 04/22/20 06:29 Dose: 30 ml Documented by: Oxycodone HCl (Oxycodone 5 Mg Tablet) 5 - 10 mg PO Q4H PRN PRN PRN Reason: Pain Score 4-10 Last Admin: 04/27/20 21:51 Dose: 5 mg Documented by: Oxycodone HCl (Oxycodone 5 Mg Tablet) 10 mg PO 0700 [facility] Last Admin: 04/28/20 07:00 Dose: 10 mg Documented by: Ramipril (Ramipril 10 Mg Capsule) 10 mg PO DAILY [facility] Last Admin: 04/28/20 08:18 Dose: 10 mg Documented by: Senna/Docusate Sodium (Senna/Docusate Sodium 1 Tablet) 2 tablet PO BID [facility] Last Admin: 04/28/20 08:16 Dose: Not Given Documented by: Trazodone HCl (Trazodone 50 Mg Tablet) 50 mg PO 2100 [facility] Last Admin: 04/27/20 21:44 Dose: 50 mg Documented by: Discharge Diet: No Restrictions Discharge Activity: Return to Normal Activity, May Shower, Use Walker Weight Bearing Status: Weight bearing as tolerated Call your doctor if you observe: Fever of 101 or Higher, Inability to urinate, Inability to have a bowel movement, Shortness of breath, Chest pain, Uncontrolled pain Home Medications: Medications to take at Discharge Atenolol [Tenormin (beta albert)] 100 mg PO DAILY 10/05/13 Atorvastatin Calcium [Lipitor] 20 mg PO QHS 10/05/13 Ramipril [Altace] 10 mg PO DAILY 10/05/13 Acetaminophen [Tylenol] 1,000 mg PO Q8 04/20/20 Amlodipine [Norvasc] 5 mg PO BID #0 04/20/20 Aspirin [Aspirin, Baby] 81 mg PO BID 04/20/20 Calcium Carbonate [Tums] 500 mg PO BIDCM 04/20/20 Cholecalciferol (VIT D3) [Vitamin D3] 1,000 unit PO BID 04/20/20 Levothyroxine [Synthroid] 175 mcg PO DAILY@0600 04/20/20 Oxycodone [Oxyir] 5 - 10 mg PO Q4H PRN PRN 7 Days #56 tab 04/20/20 Pantoprazole Sodium [Protonix] 20 mg PO DAILY PRN PRN tab 04/20/20 Calcium Carbonate [Tums] 500 mg PO Q6H PRN PRN tablet 04/28/20 Oxycodone [Oxyir] 10 mg PO 0700 #14 tablet 04/28/20 Senna/Docusate Sodium [Senokot-S] 2 tab PO BID #120 tab 04/28/20 traZODone [Desyrel] 50 mg PO 2100 #30 tab 04/28/20 Following Prescriptions Were Given to Patient: traZODone [Desyrel] 50 mg PO 2100 #30 tab Transmission Status: Pending to [facility] Oxycodone [Oxyir] 10 mg PO 0700 #14 tablet Transmission Status: Sent to [facility] Senna/Docusate Sodium [Senokot-S] 2 tab PO BID #120 tab Transmission Status: Pending to [facility] Primary Care Physician: Joan Gomez MD [Primary Care Provider] - Please follow up with your Primary Care Physician in: 1 week. Please Follow Up With: Darwin Lugo When: Please Follow Up With: Heidi-clinical engineering inspection assistant When: Saturday Disposition: Home Minutes spent on discharge:: 35 Patient Condition:: Stable Medical Necessity - Tobacco Use Smoking Status: Never smoker Tobacco Use: Non-smoker Meaningful Use Info Meaningful Use Diagnoses (Choose all that apply): None applicable
[2020-04-28] MEDS: oxyCODONE 5 MG Tablet PO (12:14)
--- NOTE | 2020-04-28 16:59 | CHAPLAIN ---
Type of Pastoral Visit ___ Initial Visit _x__ Follow-up Visit ___ On-call Visit ___ General Patient Visit ___ Spiritual Assessment ___ Family Conference ___ Bereavement ___ Rapid Response ___ Code Blue ___ Other (describe below) Pastoral Care Referral From _x__ Patient ___ Family ___ Nurse ___ Physician ___ Terrazzo Layer ___ Code And Test Clerk ___ Other (describe below) Sacrament/Intervention _x__ Active listening ___ Anointing ___ Advent ___ Bereavement ___ Communion _x__ Karen exploration ___ _x__ Life review _x__ Prayer ___ Reconciliation ___ Sacrament of Sick _x__ Supportive presence ___ Wedding ___ Other (describe below) Pastoral Comments
[2020-04-28 21:10] VITALS: BP 108/56; PULSE 52; RESP 16; TEMP 36.8; O2SAT 97
[2020-04-28] MEDS: traZODone 50 MG Tablet PO (21:14)
[2020-04-28] MEDS: amLODIPine 10 MG Tablet PO (21:14)
[2020-04-28] MEDS: Atorvastatin Calcium 20 MG Tablet PO (21:14)
[2020-04-28 21:15] VITALS: PULSE 52
[2020-04-28] MEDS: Acetaminophen 325 MG Tablet 650 MG PO (21:15)
[2020-04-28] MEDS: Calcium Carbonate 500 MG Tablet PO (21:18)
[2020-04-29] MEDS: Levothyroxine 175 MCG Tablet PO (06:32)
[2020-04-29 07:29] VITALS: BP 126/65; PULSE 60; RESP 20; TEMP 36.8; O2SAT 95
[2020-04-29] MEDS: oxyCODONE 5 MG Tablet 10 MG PO (07:29)
[2020-04-29] MEDS: Atenolol 100 MG Tablet PO (09:22)
[2020-04-29] MEDS: Acetaminophen 325 MG Tablet 650 MG PO ×2 (09:22→20:01)
[2020-04-29] MEDS: Aspirin 81 MG TAB.CHEW PO ×2 (09:23→18:36)
[2020-04-29] MEDS: Ramipril 10 MG Capsule PO (09:23)
[2020-04-29 10:00] VITALS: PULSE 60
[2020-04-29] MEDS: oxyCODONE 5 MG Tablet PO ×2 (11:12→15:28)
--- NOTE | 2020-04-29 19:08 | NURSING ---
UP MOD I and doing well and gait steady via walker. Pleasant.
[2020-04-29] MEDS: traZODone 50 MG Tablet PO (20:00)
[2020-04-29] MEDS: Atorvastatin Calcium 20 MG Tablet PO (20:02)
[2020-04-29] MEDS: amLODIPine 10 MG Tablet PO (20:02)
[2020-04-29 22:00] VITALS: BP 99/58; PULSE 67; RESP 16; TEMP 36.8; O2SAT 98
[2020-04-30] MEDS: Levothyroxine 175 MCG Tablet PO (05:38)
[2020-04-30] MEDS: oxyCODONE 5 MG Tablet 10 MG PO (06:56)
[2020-04-30 07:02] VITALS: BP 133/74; PULSE 56; RESP 16; TEMP 36.6; O2SAT 94
[2020-04-30] MEDS: Atenolol 100 MG Tablet PO (08:03)
[2020-04-30] MEDS: Ramipril 10 MG Capsule PO (08:03)
[2020-04-30] MEDS: Aspirin 81 MG TAB.CHEW PO ×2 (08:04→17:10)
[2020-04-30] MEDS: Acetaminophen 325 MG Tablet 650 MG PO ×2 (11:26→21:03)
[2020-04-30] MEDS: oxyCODONE 5 MG Tablet PO (15:37)
[2020-04-30 19:25] VITALS: BP 113/61; PULSE 59; RESP 18; TEMP 36.7; O2SAT 95
[2020-04-30] MEDS: Atorvastatin Calcium 20 MG Tablet PO (20:07)
[2020-04-30] MEDS: traZODone 50 MG Tablet PO (20:07)
[2020-04-30] MEDS: amLODIPine 10 MG Tablet PO (20:09)
[2020-04-30 22:00] VITALS: PULSE 63; RESP 16; O2SAT 98
--- NOTE | 2020-04-30 23:16 | NURSING ---
Pt ambulated around unit x1 staff at side for safety.
[2020-05-01] MEDS: Levothyroxine 175 MCG Tablet PO (06:11)
[2020-05-01] MEDS: oxyCODONE 5 MG Tablet 10 MG PO (06:11)
[2020-05-01] MEDS: Atenolol 100 MG Tablet PO (07:41)
[2020-05-01] MEDS: Ramipril 10 MG Capsule PO (07:41)
[2020-05-01] MEDS: Aspirin 81 MG TAB.CHEW PO (07:41)
[2020-05-01 08:23] VITALS: BP 132/69; PULSE 60; RESP 16; TEMP 36.4; O2SAT 94
[2020-05-01] MEDS: oxyCODONE 5 MG Tablet PO (11:03)
[2020-05-01 14:30] VITALS: BP 132/69; PULSE 60; RESP 16; TEMP 36.4; O2SAT 94
--- NOTE | 2020-05-01 14:30 | NURSING ---
Daughter and patient aware of dc instruct and verbalized understanding.
== END 2020-05-01 14:30 | disposition home or self-care (01) | DRG 561 ==
PROVIDERS: Admitting Provider Internal Medicine; PCP Family Medicine; Visit Provider Internal Medicine
DX: Z47.1 Aftercare following joint replacement surgery (principal); Z96.651 Presence of right artificial knee joint; I12.9 Hypertensive chronic kidney disease with stage 1 through stage 4 chronic kidney disease, or unspecified chronic kidney disease; Z90.5 Acquired absence of kidney; E78.5 Hyperlipidemia, unspecified; N18.31 Chronic kidney disease, stage 3a; E66.9 Obesity, unspecified; E03.9 Hypothyroidism, unspecified; E55.9 Vitamin D deficiency, unspecified; I70.0 Atherosclerosis of aorta; E74.39 Other disorders of intestinal carbohydrate absorption; K44.9 Diaphragmatic hernia without obstruction or gangrene
CPT/HCPCS: 80048; 85027; 97110; 97116; 97162; 97166; 97530; 97535; 97802

== ENCOUNTER → 2020-05-04 15:52 | Outpatient (CLI) | payer MEDICARE, OTHER, SELFPAY ==
[2020-04-20 13:57] VITALS: BMI 36.3
--- NOTE | 2020-05-04 16:15 | VDLE_ITS ---
Reason For Study: Edema RIGHT GSV is normal. CFV is compressible, spontaneous, phasic, competent and demonstrates normal augmentation. FV is compressible, spontaneous, phasic, competent and demonstrates normal augmentation. POP V is compressible, spontaneous, phasic, competent and demonstrates normal augmentation. T/P Trunk is compressible. RT PerV is compressible. Rt PTV is dilated and non compressible consistent with acute DVT. Procedure Exam performed in department. A preliminary report was called and/or faxed to Katie. Interpretation Summary Acute deep vein thrombosis is noted in the right posterior tibial vein. The remainder of the right lower extremity deep venous system is patent and compressible. Valvular competence appears intact within the proximal deep venous system on the right . The right great saphenous vein appears patent and compressible segmentally. Ordering Physician: Joan Gomez Referring Physician: Joan Gomez Performed By: Dinora العلي, CELINE, RVT
== END ==
PROVIDERS: PCP Family Medicine; Referring Provider Family Medicine; Visit Provider Family Medicine
DX: I82.441 Acute embolism and thrombosis of right tibial vein (principal)
CPT/HCPCS: 93971

== ENCOUNTER 2020-07-02 12:46 | Emergency (ER) | payer MEDICARE, OTHER, SELFPAY ==
[2020-04-20 13:57] VITALS: BMI 36.3
[2020-07-02 12:47] VITALS: BP 127/74; PULSE 65; RESP 14; TEMP 35.7; O2SAT 96; BMI 32.7
--- NOTE | 2020-07-02 13:07 | ED.DCSUM_ITS ---
- ER Visit Summary Date of Service: 07/02/20 Chief Complaint: Facial swelling and right knee redness History of Present Illness: The patient is a [address] Gomez and Dr. Zee. She had a right total knee arthroplasty on May 01. She states that since that time her right knee is red and warm. States that those things are unchanged today. She denies any change in her pain. However, she reports that today her knee itches. Patient reports that she has facial swelling that began yesterday as well. She states that the only change that she can think it in is she had somebody come in and clean, but they used all organic products. She states that her facial swelling is actually improved greatly today. Patient denies any constitutional symptoms. No fever, chills, nausea, vomiting, or other complaints. Physical Examination: Vitals: Stable. Afebrile. General: Well-nourished and well-developed. Head: Normocephalic atraumatic. Neck: Supple, no lymphadenopathy. No JVD. Nontender. Cardiovascular: Regular rate and rhythm. No murmurs. Respiratory: No respiratory distress. Clear to auscultation bilaterally. Abdominal: Soft, nontender, nondistended, normal bowel sounds. No guarding, rebound, or peritoneal signs. Back: Nontender. Extremities: Mild erythema overlying her right knee with some warmth. No pain with short arc movements.. Skin: Normal color, no rash. Neurologic: Alert and oriented ?3. Cranial nerves II through XII are intact. Normal strength and sensation. Psych: Normal affect. Emergency Department Course and Treatment: The patient again states that the erythema and warmth are unchanged since the knee replacement. She does not want to have arthrocentesis if it can be avoided. She was given Pepcid and Claritin p.o. Treatment Plan: Patient was discussed with Dr. Minor. She is instructed to follow-up this week for repeat exam. She is instructed to watch for increasing pain, redness, fever, or any other signs of a septic joint. She will be discharged on Pepcid and Zyrtec. Disposition: To home in improved and stable condition. Impression: 1. Allergic reaction. 2. 2-month status post right total knee arthroplasty. This note was generated with [employer] software. It may contain incorrect words, spelling, and punctuation that were not noted in review of the chart prior to signing ED Disposition - Plan for ED Patient: Instructions: ED General Allergic Reactions Prescriptions: Famotidine [Pepcid] 20 mg PO BID #28 tablet Cetirizine HCl [Zyrtec] 10 mg PO DAILY #14 capsule Referrals: Joan Gomez MD [Primary Care Provider] - 1-2 Days if not improving [place] Minor DO [STAFF PHYSICIAN] - 3-5 Days
[2020-07-02] MEDS: Loratadine 10 MG Tablet PO (13:16)
[2020-07-02] MEDS: Famotidine 20 MG Tablet PO (13:16)
== END 2020-07-02 13:30 | disposition home or self-care (01) ==
LOC: ED 13:22
PROVIDERS: Emergency Provider Emergency Medicine; PCP Family Medicine
DX: T78.40XA Allergy, unspecified, initial encounter (principal); X58.XXXA Exposure to other specified factors, initial encounter; Z96.651 Presence of right artificial knee joint; I35.0 Nonrheumatic aortic (valve) stenosis; N18.9 Chronic kidney disease, unspecified; E03.9 Hypothyroidism, unspecified; Z79.82 Long term (current) use of aspirin; Z79.899 Other long term (current) drug therapy
CPT/HCPCS: 99283

== ENCOUNTER → 2020-08-09 12:11 | Outpatient (CLI) | payer MEDICARE, OTHER, SELFPAY ==
[2020-08-09 15:48] LABS: D-Dimer Quantitative (DVT/PE) 2.31 FEU/ug/m (0.27-0.49)
== END ==
PROVIDERS: PCP Family Medicine; Referring Provider Family Medicine; Visit Provider Family Medicine
DX: I82.409 Acute embolism and thrombosis of unspecified deep veins of unspecified lower extremity (principal)
CPT/HCPCS: 36415; 85379

== ENCOUNTER → 2020-10-03 08:45 | Outpatient (CLI) | payer MEDICARE, OTHER, SELFPAY ==
--- NOTE | 2020-10-03 08:48 | RAD_ITS ---
STUDY: X-RAY - ABDOMEN/PELVIS REASON FOR EXAM: Female, 74 years old. CALCULUS OF KIDNEY TECHNIQUE: Single AP view of the abdomen / pelvis. COMPARISON: Comparison is made with prior study dated 04/04/2020. FINDINGS: There is elevation of the right hemidiaphragm. There is a moderate amount of colonic fecal material. Stable calcified right intrarenal calculi. The patient is status post left nephrectomy. Normal soft tissue structures. Normal visualized osseous structures. RAD/Abdomen Single View IMPRESSION: Stable nonobstructive right intrarenal calculi. Electronically Signed: Jose Juan Anderson MD at 21:43 EDT , Service support ,
== END ==
PROVIDERS: PCP Family Medicine; Referring Provider Urology; Visit Provider Urology
DX: N20.0 Calculus of kidney (principal)
CPT/HCPCS: 74018

== ENCOUNTER → 2021-01-19 08:18 | Outpatient (CLI) | payer MEDICARE, OTHER, SELFPAY ==
--- NOTE | 2021-01-19 08:20 | BI_ITS ---
MAMMOGRAPHY - BILATERAL SCREENING REASON FOR EXAM: Female, 75 years old. Routine annual screening examination. PERTINENT HISTORY: Grandmother with breast cancer. TECHNIQUE: Digital bilateral breast vane (3D mammographic acquisition) in the CC and MLO projections. 2-D mediolateral oblique (MLO) and craniocaudad (CC) views of both breasts were obtained. CAD: Full Field Digital Mammography with Computer Added Detection was performed. COMPARISON: Comparison is made with prior examination in 12/31/2019 and 11/18/2018. FINDINGS: Breast Composition: There are scattered areas of fibroglandular density. There are no dominant masses or suspicious calcifications. Stable small benign-appearing bilateral axillary lymph nodes. No other significant abnormalities are identified. There has been no significant change since the prior study. BI/SCREENING MAMM (CAD), BILAT IMPRESSION: Stable bilateral screening mammogram. Yearly follow-up mammogram recommended. (A) ASSESSMENT CATEGORY: BIRADS Category 2: Benign. A letter regarding these results will be sent to the patient by the facility within 30 days. Approximately 10% of breast cancers are not detected by mammography. A normal mammogram should not delay biopsy of a clinically suspicious abnormality. [id number] Electronically Signed: Jose Juan Anderson MD at 9:00 EST , Service support ,
== END ==
PROVIDERS: PCP Family Medicine; Referring Provider Family Medicine; Visit Provider Family Medicine
DX: Z12.31 Encounter for screening mammogram for malignant neoplasm of breast (principal)
CPT/HCPCS: 77067

== ENCOUNTER 2021-04-10 15:26 | Outpatient (CLI) | payer MEDICARE, OTHER, SELFPAY ==
--- NOTE | 2021-04-10 15:31 | RAD_ITS ---
STUDY: X-RAY - ABDOMEN/PELVIS REASON FOR EXAM: Female, 75 years old. Kidney stone follow-up, prior left nephrectomy TECHNIQUE: Single AP view of the abdomen / pelvis. COMPARISON: 10/03/2020, 10/09/2017 FINDINGS: Normal visualized lung bases. There is an unremarkable bowel gas pattern. There is no demonstrated free abdominal air. Right renal calcifications have mildly increased in size since the prior study with the largest measuring 12 mm (previously measured 10 mm). Stable dystrophic calcifications of the left hemipelvis as seen on prior CT. Normal visualized osseous structures. Vascular phleboliths of pelvis are identified. Arteriovascular calcifications are present in the bilateral femoral arteries. RAD/Abdomen Single View IMPRESSION: Increased size of right nephrolithiasis. Electronically Signed: Niranjan Bray MD ([place]) at 15:50 EST ,
== END 2021-04-10 23:59 | disposition short-term general hospital (02) ==
LOC: RAD 15:28
PROVIDERS: PCP Family Medicine; Referring Provider Urology; Visit Provider Urology
DX: N20.0 Calculus of kidney (principal)
CPT/HCPCS: 74018

== ENCOUNTER 2021-05-03 15:45 | Outpatient (CLI) | payer MEDICARE, OTHER, SELFPAY ==
[2021-05-03 18:29] LABS: Microalbumin,Random Urine 83.2 mg/L (NO RANGE EST.); Microalbumin:Creatinine Ratio 108.3 mg/g CRE (<30 mg/g CRE)
[2021-05-03 18:36] LABS: AST(SGOT) 18 U/L (15-37); Alanine Aminotransfer ALT/SGPT 20 U/L (13-56); Anion Gap 7 (5-15); BUN 22 mg/dL (7-18); BUN/Creat Ratio 20.4 RATIO (10-20); Calcium,Total 9.6 mg/dL (8.5-10.1); Chloride 108 mmol/L (98-107); Cholesterol 176 mg/dL (200); Creatinine, Serum 1.08 mg/dL (0.55-1.02); EST Glomerular Filtration Rate 53 mL/min (>60); Est Glom Filt Rate - Afr Amer 64 mL/min (>60); Glucose 81 mg/dL (74-106); High Density Lipoprotein 53 mg/dL; Potassium 4.3 mmol/L (3.5-5.1); Sodium Level 139 mmol/L (136-145); Thyroid Stim Hormone (TSH) 1.83 uIU/mL (0.358-3.74); Triglycerides 113 mg/dL; Very Low Density Lipoprotein 23 mg/dL (5-40)
== END 2021-05-03 23:59 | disposition home or self-care (01) ==
LOC: MFPLAB 15:52
PROVIDERS: PCP Family Medicine; Referring Provider Family Medicine; Visit Provider Family Medicine
DX: I10 Essential (primary) hypertension (principal); E03.9 Hypothyroidism, unspecified; E78.5 Hyperlipidemia, unspecified
CPT/HCPCS: 36415; 80048; 80061; 82043; 82570; 84436; 84443; 84450; 84460

== ENCOUNTER 2021-05-19 13:57 | Outpatient (CLI) | payer MEDICARE, OTHER, SELFPAY ==
--- NOTE | 2021-05-19 14:03 | ECHOD_ITS ---
Reason For Study: Murmur Procedure This was a 2D Doppler, Color Flow transthoracic echocardiogram. Exam performed in department. Left Ventricle Normal LV size. Left ventricular systolic function is normal. The estimated ejection fraction is 60 %. No regional wall motion abnormalities noted. Right Ventricle Normal RV size. Normal systolic function. Atria The left atrium is mildly enlarged. Normal right atrium. Mitral Valve Mild focal mitral valve calcification, bileaflet. Mild (1+) mitral valve insufficiency. Aortic Valve Trisinus/trileaflet aortic valve. Moderate focal aortic valve calcification. Peak aortic valve gradient 48 mmHg. Mean aortic valve gradient 28 mmHg. Mild to moderate aortic stenosis. Mild (1+) aortic valve insufficiency. Pulmonic Valve Normal pulmonic valve. Great Vessels Normal aortic root. The pulmonary artery is normal size. Normal inferior vena cava. Pericardium/Pleural No pericardial effusion. MMode/2D Measurements & Calculations LVIDd: 5.0 cm IVSd: 0.72 cm LVOT diam: 2.1 cm LVIDs: 2.5 cm LVPWd: 0.91 cm LVOT area: 3.4 cm2 RVDd: 3.8 cm FS: 50.8 % Ao root diam: 3.4 cm LAV(MOD-bp): 76.4 ml LVAd ap4: 19.0 cm2 LAV(MOD-bp) Indexed: 40.6 ml/m2 LVLd ap4: 6.3 cm LAV(MOD-sp2): 69.6 ml EDV(MOD-sp4): 46.6 ml LAV(MOD-sp4): 80.4 ml EDV(sp4-el): 48.5 ml LVAs ap4: 10.4 cm2 LVLs ap4: 5.2 cm ESV(MOD-sp4): 17.4 ml ESV(sp4-el): 17.4 ml EF(MOD-sp4): 62.7 % EF(sp4-el): 64.1 % SV(MOD-sp4): 29.2 ml SV(sp4-el): 31.1 ml LA A4 area: 23.8 cm2 LA dimension(2D): 5.5 cm RA A4 area: 15.4 cm2 Doppler Measurements & Calculations MV E max gerardo: 82.3 cm/sec Lat Peak E' Gerardo: 8.2 cm/sec Med Peak E' Gerardo: 5.0 cm/sec MV A max gerardo: 80.4 cm/sec E/E' lat: 10.0 E/E' med: 16.3 MV E/A: 1.0 Ao V2 max: 348.2 cm/sec AI max gerardo: 346.0 cm/sec LV V1 max: 128.3 cm/sec Ao max P.5 mmHg AI max P.9 mmHg LV V1 max P.6 mmHg Ao V2 mean: 252.3 cm/sec LV V1 mean P.4 mmHg Ao mean P.8 mmHg AI dec slope: 149.6 cm/sec2 LV V1 mean: 102.0 cm/sec Ao V2 VTI: 87.9 cm AI P1/2t: 677.5 msec LV V1 VTI: 34.9 cm JANET(I,D): 1.4 cm2 JANET(V,D): 1.3 cm2 SV(LVOT): 119.7 ml PA V2 max: 130.0 cm/sec ECHO/Echo Complete Interpretation Summary Normal LV size. Left ventricular systolic function is normal. The estimated ejection fraction is 60 %. The left atrium is mildly enlarged. Moderate focal aortic valve calcification. Mild to moderate aortic stenosis. Ordering Physician: Joan Gomez Referring Physician: Joan Gomez S Performed By: Dinora العلي RDCS, RVT
== END 2021-05-19 23:59 | disposition home or self-care (01) ==
LOC: CVS 13:58
PROVIDERS: PCP Family Medicine; Referring Provider Family Medicine; Visit Provider Family Medicine
DX: R01.1 Cardiac murmur, unspecified (principal)
CPT/HCPCS: 93306

== ENCOUNTER 2021-05-30 09:06 | Outpatient (CLI) | payer MEDICARE, OTHER, SELFPAY ==
--- NOTE | 2021-05-30 09:07 | RAD_ITS ---
EXAM: XR RIGHT SHOULDER COMPLETE, 2 OR MORE VIEWS : 1945 CLINICAL INDICATION: pain TECHNIQUE: Two or more views of the right shoulder. This report was created using [employer]gar report generation technology. COMPARISON: None. FINDINGS: BONES/JOINTS: Unremarkable. No acute fracture. No subluxation. Normal alignment. Preservation of the joint space. No sclerotic or destructive changes observed. SOFT TISSUES: Unremarkable. No soft tissue swelling or gas. No radiopaque foreign body. RAD/Shoulder min 2 Views IMPRESSION: Negative right shoulder x-rays. at 1520 Reported and signed by: Wm Casillas MD Electronically Signed: Wm Casillas MD at 15:19 EDT ,
== END 2021-05-30 23:59 | disposition home or self-care (01) ==
LOC: MTRAD 09:07
PROVIDERS: PCP Family Medicine; Referring Provider Nurse Practitioner Family; Visit Provider Nurse Practitioner Family
DX: M25.511 Pain in right shoulder (principal)
CPT/HCPCS: 73030

== ENCOUNTER → 2021-07-11 | Outpatient (CLI) | payer MEDICARE, OTHER, SELFPAY | END | disposition home or self-care (01) | LOC: LAB 11:12 | PROVIDERS: PCP Family Medicine; Referring Provider Urology; Visit Provider Urology | DX: R31.29 Other microscopic hematuria (principal) | CPT/HCPCS: 87086; 87088 ==

== ENCOUNTER → 2021-08-23 | Outpatient (CLI) | payer MEDICARE, OTHER, SELFPAY | END | disposition home or self-care (01) | LOC: LAB.FUTURE 07:51 → RAD.FUTURE 07:52 | PROVIDERS: PCP Family Medicine; Visit Provider Urology | DX: N20.0 Calculus of kidney (principal) ==

== ENCOUNTER → 2021-10-03 | Outpatient (CLI) | payer MEDICARE, OTHER, SELFPAY ==
--- NOTE | 2021-10-03 08:11 | RAD_ITS ---
EXAM: XR ABDOMEN, 1 VIEW CLINICAL INDICATION: CALCULUS OF KIDNEY TECHNIQUE: Frontal supine view of the abdomen/pelvis. This report was created using [employer] report generation technology. COMPARISON: 04/10/2021 FINDINGS: LOWER THORAX: No acute pathology. GASTROINTESTINAL TRACT: Unremarkable. Non-obstructive. No bowel or stomach distention. ORGANS: Multiple calcifications are seen in the right midabdomen and left lower abdomen may represent right renal calculi and left-sided phleboliths. No organomegaly. BONES/JOINTS: No acute pathology. SOFT TISSUES: No acute pathology. RAD/Abdomen Single View IMPRESSION: Multiple right renal calculi. Several calcifications in the left abdomen may represent phleboliths. Electronically Signed: Wm Casillas MD at 1:31 EDT ,
== END | disposition home or self-care (01) ==
LOC: RAD 08:07
PROVIDERS: PCP Family Medicine; Referring Provider Family Medicine; Visit Provider Family Medicine
DX: N20.0 Calculus of kidney (principal)
CPT/HCPCS: 74018

== ENCOUNTER → 2021-10-16 | Outpatient (CLI) | payer MEDICARE, OTHER, SELFPAY | END | disposition home or self-care (01) | LOC: PSN 08:13 | PROVIDERS: PCP Family Medicine; Referring Provider Urology; Visit Provider Urology | DX: Z01.810 Encounter for preprocedural cardiovascular examination (principal) ==

== ENCOUNTER → 2021-11-23 | Outpatient (CLI) | payer MEDICARE, OTHER, SELFPAY ==
--- NOTE | 2021-11-23 09:46 | CT_ITS ---
STUDY: CT ABDOMEN AND PELVIS WITHOUT CONTRAST REASON FOR EXAM: Female, 76 years old. CALCULUS OF KIDNEY RADIATION DOSAGE (If Supplied By Facility): CTDIvol = ( 15.45 ) mGy, DLP = ( 741.25 ) mGycm TECHNIQUE: Transaxial images were obtained from the dome of the diaphragm to the symphysis pubis without oral contrast, and without intravenous contrast. Sagittal and coronal images were reconstructed. Individualized dose optimization techniques were used for this CT. COMPARISON: Comparison is made with prior study 10/09/2017. FINDINGS: The visualized lung bases are unremarkable. Coronary artery calcification. Normal liver. There are multiple small gallstones. Normal spleen. Normal pancreas. Normal bilateral adrenal glands. A staghorn calculus is seen in the right renal pelvis measuring 3.1 cm x 1 cm. This also evidence of a nonobstructive calculi in the lower pole calyx of the right kidney. Mild degree of renal pelvic dilatation. There is also evidence of a 4 mm calculus in the proximal portion of the right ureter. A tiny calculus is also seen in the midportion of the right kidney. The patient is status post left nephrectomy. There is a large hiatal hernia composed mostly of the fundus of the stomach. Normal small intestine. There are multiple colonic diverticula consistent with diverticulosis. The appendix is visualized and appears normal. There is diffuse atherosclerotic calcification of the abdominal aorta and its major visceral branches, without a demonstrated aneurysm. Normal inferior vena cava. Normal retroperitoneum. Normal urinary bladder. There is absence of the uterus consistent with a prior hysterectomy. Normal abdominal wall. There are degenerative changes of the visualized lumbar spine. Minimal anterior listhesis of L4 on L5. CT/Abdomen/Pelvis without Cont IMPRESSION: Status post left nephrectomy. Right-sided staghorn calculus as described with nonobstructive intrarenal calculi in the right kidney. 4 mm pancreas and the proximal portion of the right ureter. Tiny calcifications are also seen in the mid portion of the right ureter. Multiple small gallstones. Electronically Signed: Jose Juan Anderson MD at 10:34 EDT ,
== END | disposition home or self-care (01) ==
PROVIDERS: PCP Family Medicine; Referring Provider Urology; Visit Provider Urology
DX: N20.0 Calculus of kidney (principal); K80.20 Calculus of gallbladder without cholecystitis without obstruction; Z90.5 Acquired absence of kidney
CPT/HCPCS: 74176; 87086

== ENCOUNTER → 2021-11-27 | Outpatient (CLI) | payer MEDICARE, OTHER, SELFPAY ==
[2021-11-27 15:20] LABS: Hematocrit 42.9 % (37-47); Hemoglobin 13.7 g/dL (12.0-15.0); Mean Corp Hgb Conc 31.9 g/dL (32-36); Mean Corpuscular Volume 94.1 fL (81-99); Mean Platelet Vol. 10.4 fl (6.2-12.0); Platelet Count 260 K/mm3 (150-450); RBC Distribution Width CV 12.8 % (11.6-14.6); RBC Distribution Width SD 43.8 fl (35.1-43.9); Red Blood Count 4.56 M/mm3 (4.2-5.4)
[2021-11-27 15:40] LABS: Anion Gap 8 (5-15); BUN 17 mg/dL (7-18); BUN/Creat Ratio 15.5 RATIO (10-20); Calcium,Total 9.7 mg/dL (8.5-10.1); Chloride 106 mmol/L (98-107); EST Glomerular Filtration Rate 51 mL/min (>60); Est Glom Filt Rate - Afr Amer 62 mL/min (>60); Glucose 88 mg/dL (74-106); Potassium 4.2 mmol/L (3.5-5.1); Sodium Level 140 mmol/L (136-145)
== END | disposition home or self-care (01) ==
PROVIDERS: PCP Family Medicine; Referring Provider Urology; Visit Provider Urology
DX: Z01.812 Encounter for preprocedural laboratory examination (principal); N20.0 Calculus of kidney
CPT/HCPCS: 36415; 80048; 85027

== ENCOUNTER 2022-01-02 14:02 | Inpatient (IN) | payer MEDICARE, OTHER, SELFPAY ==
[2022-01-02 14:03] VITALS: BP 200/89; PULSE 58; RESP 14; TEMP 36.7; O2SAT 98; BMI 33.6
--- NOTE | 2022-01-02 14:46 | ED.VIS.GI ---
HPI HPI - GI History of Present Illness Chief Complaint: Flank Pain Detail of Chief Complaint: Flank pain Informant: patient Abdominal Pain/Flank Pain Timing: Continuous Narrative Narrative: Patient presents the emergency department complaint of flank pain that she said for for 5 days now. Patient states that she was seen by her urologist 5 days ago and had a stent placed in the right ureter. Patient has a known kidney stone that apparently was lasered however there were large pieces believed to be leftover. Afterwards patient had hematuria that seems to have cleared up. Patient was on Cipro until just recently. She continues to have significant pain and the oxycodone that she is taking does not seem to be helping the pain. Patient was referred by her urologist to the emergency department. Patient's had nausea but no vomiting. She rates her pain a 10 out of 10 currently. Patient has history of chronic kidney stones. Patient has had a left nephrectomy. [facility] Medical History (Updated 01/02/22 @ 16:[address] Lev Jerome, DO) Cholelithiasis Diverticulosis Essential hypertension Glucose intolerance (impaired glucose tolerance) Hepatomegaly Hiatal hernia History of hypothyroidism Hyperlipidemia Insomnia Nephrolithiasis Nonrheumatic aortic (valve) stenosis Vitamin D deficiency Home Medications atenolol 100 mg tablet 100 mg PO DAILY heart 10/05/13 [History Last Taken 04/20/20] atorvastatin 20 mg tablet 20 mg PO QHS cholesterol 10/05/13 [History Last Taken 04/19/20] ramipril 10 mg capsule (Altace) 10 mg PO DAILY bp 10/05/13 [History Last Taken 04/20/20] aspirin 81 mg chewable tablet 81 mg PO BID anticoagulant 04/20/20 [History Last Taken 04/20/20] trazodone 50 mg tablet 50 mg PO 2100 #30 tabs 04/28/20 [Rx Last Taken Unknown] amlodipine 5 mg tablet 5 mg PO DAILY bp 07/10/21 [History Last Taken Unknown] levothyroxine 200 mcg tablet 200 mcg PO .COMPLEX 07/10/21 [History Last Taken Unknown] Allergy/AdvReac Type Severity Reaction Status Date / Time contact metal agent Allergy Other Verified 01/02/22 14:05 Iodinated Contrast Media Allergy Other Verified 01/02/22 14:05 latex Allergy Rash Verified 01/02/22 14:05 meperidine [From Demerol] Allergy Rash Verified 01/02/22 14:05 nitrofurantoin Allergy Unknown Verified 01/02/22 14:05 [From Macrobid] NSAIDS (Non-Steroidal Allergy Other Verified 01/02/22 14:05 Anti-Inflamma sulfamethoxazole Allergy Unknown Verified 01/02/22 14:05 [From Septra] trimethoprim [From Septra] Allergy Unknown Verified 01/02/22 14:05 Surgical History History of left nephrectomy History of total right knee replacement (2020) Social History Smoking Status: Never smoker ROS ROS ED Review of Systems ROS Unobtainable: other Constitutional Constitutional ED: Reports lethargy; Denies chills, fever(s), sweats or weight loss Eyes Eyes: Denies blurry vision, change in vision or diplopia ENT ENT ED: Denies rhinorrhea or sore throat Cardiovascular Cardiovascular: Denies chest pain, orthopnea or racing heartbeat Respiratory/Chest Respiratory/Chest: Denies cough, dyspnea, dyspnea on exertion, orthopnea or sputum Gastrointestinal Gastrointestinal: Reports abdominal pain; Denies diarrhea, nausea or vomiting Genitourinary Genitourinary ED: Denies dysuria, hematuria or urinary frequency Musculoskeletal Musculoskeletal: Reports back pain; Denies arthralgias, myalgias or neck pain Integumentary Denies abscess, Abrasions or rash Neurologic Neurologic: Denies headache(s) or weakness Psychiatric Psychiatric: Denies anxiety, depression or suicidal thoughts Endocrine Endocrinology: Denies polydipsia, polyphagia or polyuria Hematologic/Lymphatic Hematologic/Lymphatic: Denies easy bleeding, easy bruising or lymphadenopathy Allergic/Immunologic Allergic/Immunologic ED: Denies mouth swelling, tongue swelling or urticaria EXAM Physical Exam Const Vital Signs: 01/02/22 14:03 Temperature 98.0 F Temperature Source Temporal Pulse Rate 58 L Respiratory Rate 14 Blood Pressure 200/89 H Blood Pressure Mean 126 Pulse Ox 98 Oxygen Delivery Method Room Air Positive well nourished and well developed General Appearance ED: well developed and NAD HEENT Reports TM's clear and moist mucous membranes normocephalic and atraumatic; Negative for trauma or tenderness Tympanic Membrane ED: Yes TM's clear Eyes PERRL and EOMs intact bilaterally General Eye ED: Negative for pale conjunctiva or scleral icterus Neck no lymphadenopathy, supple and no JVD General: Negative for tenderness Chest Wall inspection of chest normal and palpation of chest normal Chest: Negative for tenderness Resp normal respiratory effort and clear to auscultation bilaterally Effort and Inspection: Negative for respiratory distress or pain with movement Auscultation: Negative for rhonchi, wheezes or diminished lung sounds Cardio regular rate, regular rhythm, S1 normal heart sound, S2 normal heart sound and no murmurs Peripheral Pulses: pulses 2+ throughout GI normal to inspection, nondistended, normoactive bowel sounds, soft to palpation, non-distended and no masses GI Narrative: Tenderness to palpation over the right lower quadrant with some guarding. There is no rebound, rigidity, or. Signs. Patient has CVA tenderness on the right. Back/Spine no thoracic nor lumbar tenderness Back/Spine Narrative: CVA tenderness on the right. Extremity normal to inspection General Extremety ED: Negative for edema General Extremity: Negative for edema Neuro oriented x3, CN's II-XII intact bilaterally, no sensory deficits noted and gait normal Sensorium / Orientation: awake, alert, oriented to person, oriented to place and oriented to time Motor Exam: strength 5/5 throughout and strength abnormal Psych mental status grossly normal Skin no rashes or lesions noted and no wounds MDM MDM MDM Narrative Medical decision making narrative: Established on arrival. Patient was given a milligram of Dilaudid IV. Patient given Zofran 4 mg IV. Lab work-up was essentially unremarkable and her urine was positive for nitrites as well as 25-50 WBCs and 25-50 RBCs and +1 bacteria. Patient was started on Rocephin 1 g IV. KUB obtained showed the stent in the right ureter with some small calcifications within the right kidney. Patient's urologist had called in and gave recommendations on work-up that he would like in the emergency department that he wanted called back for admission of patient. We will call Dr. Fermin to evaluate patient for admission. Lab Data Attestation: I reviewed the patient's lab results. Labs: Laboratory Results - last 24 hr 01/02/22 01/02/22 01/02/22 15:00 15:00 15:00 WBC 11.2 H RBC 4.51 Hgb 13.6 Hct 42.3 MCV 93.8 MCH 30.2 MCHC 32.2 RDW Std Deviation 43.7 RDW Coeff of Tushar 12.6 Plt Count 290 MPV 9.9 Immature Gran % (Auto) 0.300 Neut % (Auto) 65.5 Lymph % (Auto) 19.8 [place] % (Auto) 9.8 Eos % (Auto) 4.2 Baso % (Auto) 0.4 Absolute Neuts (auto) 7.4 Absolute Lymphs (auto) 2.22 Nucleated RBC % 0 Sodium 139 Potassium 4.3 Chloride 109 H Carbon Dioxide 26.0 Anion Gap 4 L BUN 23 H Creatinine 1.29 H Estim Creat Clear Calc 29.34 Est GFR (MDRD) Af Amer 52 L Est GFR (MDRD) Non-Af 43 L BUN/Creatinine Ratio 17.8 Glucose 124 H Calcium 9.4 Urine Color Brown Urine Clarity Cloudy Urine pH 6.5 Ur Specific [place] 1.015 Urine Protein 100 H Urine Glucose (UA) Normal Urine Ketones 5 H Urine Occult Blood 250 H Urine Nitrite Positive H Urine Bilirubin Negative Urine Urobilinogen Normal Ur Leukocyte Esterase 500 H Urine RBC 25-50 SEEN Urine WBC 25-50 SEEN Ur Squamous Epith Cells 0-5 SEEN Urine Bacteria 1+ Urine Mucus 0 SEEN Radiography Diagnostic Testing: Clinical Impression(s) from Imaging Studies KUB X-Ray 01/02/22 15:15 IMPRESSION: Status post right double J stent catheter. Residual right intrarenal calculi although these have decreased in density and size as compared to prior study. Large amount of material is seen in the colon. Electronically Signed: Jose Juan Anderson MD at 15:29 EDT Reading Location ID and State: [facility] / [place] , Service support , Discharge Plan Triage Chief Complaint: Flank Pain ED Provider: Lev Jerome Dx/Rx/DC Orders Clinical Impression: Intractable pain, Urolithiasis, Acute UTI Prescriptions: No Action levothyroxine 200 mcg tablet 200 mcg PO .COMPLEX Rx Instructions: 200 mcg PO 5 days a week; amlodipine 5 mg tablet 5 mg PO DAILY atorvastatin 20 MG tablet 20 mg PO QHS atenolol 100 MG tablet 100 mg PO DAILY ramipril [Altace] 10 MG capsule 10 mg PO DAILY aspirin 81 MG tablet,chewable 81 mg PO BID trazodone 50 MG tablet 50 mg PO 2100 Qty: 30 0RF Primary Care Provider: Joan Gomez Referrals: Joan Gomez MD [Primary Care Provider] - Disposition Disposition: Acute Care Hospital [facility]
[2022-01-02] MEDS: 0.9% Normal Saline 1,000 ML 150 ML IV ×2 (15:02→19:57)
[2022-01-02] MEDS: Ondansetron 4 MG/2 ML Vial IV (15:02)
[2022-01-02] MEDS: HYDROmorphone 1 MG/ML Syringe IV (15:02)
[2022-01-02 15:06] LABS: Mucous, Urine 0 SEEN /hpf (<or=2+)
[2022-01-02 15:10] LABS: Color, Urine Brown (Yellow); Glucose, Dipstick Normal (Normal); Ketone-Dipstick 5 mg/dl (Negative); Leukocyte Esterase-Dipstick 500 /ul (Negative); Nitrite-Dipstick Positive (Negative); Occult Blood-Urine 250 /ul (Negative); Protein-Dipstick 100 mg/dl (Negative); Specific Gravity, Urine 1.015 (1.002-1.030); Urine Bilirubin Dipstick Negative (Negative); Urine Clarity Cloudy (Clear); Urine Urobilinogen Normal (Normal); Urine pH 6.5 (5.0 - 8.0)
[2022-01-02 15:11] LABS: Absolute Lymphocyte Count 2.22 X10^3/uL (0.83-4.51); Absolute Neutrophil Count 7.4 X10^3/uL (2.0-7.7); Basophil# 0.04 X10^3/uL; Basophil% 0.4 % (0-1); Eosinophil# 0.47 X10^3/uL; Eosinophils% 4.2 % (0-5); Hematocrit 42.3 % (37-47); Hemoglobin 13.6 g/dL (12.0-15.0); Lymphocyte # 2.22 X10^3/ul (0.83-4.51); Lymphocyte % 19.8 % (19-41); Mean Corp Hgb Conc 32.2 g/dL (32-36); Mean Corpuscular Hgb 30.2 pg (27.0-32.0); Mean Corpuscular Volume 93.8 fL (81-99); Mean Platelet Vol. 9.9 fl (6.2-12.0); Monocyte% 9.8 % (0-10); NRBC Flagged by Analyzer 0 % (0-5); Neutrophil # 7.36 X10^3/uL (2.7-7.7); Neutrophil % 65.5 % (47-70); Platelet Count 290 K/mm3 (150-450); RBC Distribution Width CV 12.6 % (11.6-14.6); RBC Distribution Width SD 43.7 fl (35.1-43.9); Red Blood Count 4.51 M/mm3 (4.2-5.4); White Blood Count 11.2 K/mm3 (4.4-11.0)
--- NOTE | 2022-01-02 15:15 | RAD_ITS ---
STUDY: X-RAY - ABDOMEN/PELVIS REASON FOR EXAM: Female, 76 years old. Abdominal pain, ureteral stent TECHNIQUE: Single AP view of the abdomen / pelvis. COMPARISON: Comparison is made with prior examination dated 10/03/2021. FINDINGS: There is an abundance of fecal material throughout the colon. A right-sided double-J stent catheter is in situ. Persistent right intrarenal calculi. These have decreased slightly in size as compared to prior study. Normal soft tissue structures. There are diffuse degenerative changes of the visualized lumbar spine. RAD/Abdomen Single View IMPRESSION: Status post right double J stent catheter. Residual right intrarenal calculi although these have decreased in density and size as compared to prior study. Large amount of material is seen in the colon. Electronically Signed: Jose Juan Anderson MD at 15:29 EDT ,
[2022-01-02 15:16] LABS: Bacteria 1+ /hpf (None Seen); Red Blood Cells-Urine 25-50 SEEN /hpf (0-5); Squamous Epithelial Cells - UA 0-5 SEEN /hpf (5-10); White Blood Cells 25-50 SEEN /hpf (0-5)
[2022-01-02 15:23] LABS: Anion Gap 4 (5-15); BUN 23 mg/dL (7-18); BUN/Creat Ratio 17.8 RATIO (10-20); Calcium,Total 9.4 mg/dL (8.5-10.1); Chloride 109 mmol/L (98-107); Creatinine, Serum 1.29 mg/dL (0.55-1.02); EST Glomerular Filtration Rate 43 mL/min (>60); Est Glom Filt Rate - Afr Amer 52 mL/min (>60); Estimated Creatinine Clearance 29.34 ml/min; Glucose 124 mg/dL (74-106); Potassium 4.3 mmol/L (3.5-5.1); Sodium Level 139 mmol/L (136-145)
[2022-01-02] MEDS: Ceftriaxone 1 GM/50 ML BAG IV ×2 (15:59→22:27)
[2022-01-02 17:08] VITALS: BP 161/77; PULSE 57; PULSE 59; RESP 16; TEMP 36.8; O2SAT 96; O2SAT 97
[2022-01-02] MEDS: HYDROmorphone 0.5 MG/0.5 ML SYRINGE IV (18:14)
[2022-01-02 18:30] VITALS: BP 141/83; PULSE 56; RESP 18; TEMP 37; O2SAT 97
[2022-01-02 18:43] VITALS: BMI 36.1
[2022-01-02] MEDS: 0.9% Saline Lock 10 ML Syringe IV (20:01)
[2022-01-02] MEDS: Atorvastatin Calcium 20 MG Tablet PO (22:27)
[2022-01-02] MEDS: 0.9% Normal Saline 1,000 ML 75 ML IV (22:32)
[2022-01-03] VITALS (11 sets, daily range): BP systolic 134–159; BP diastolic 74–89; PULSE 51–64; RESP 16–18; TEMP 36.5–36.9; O2SAT 94–99
[2022-01-03] MEDS: Levothyroxine 100 MCG Tablet 200 MCG PO (05:02)
--- NOTE | 2022-01-03 05:26 | NURSING ---
Documentation reviewed with Violeta MITCHELL.
[2022-01-03 06:42] LABS: Absolute Lymphocyte Count 1.86 X10^3/uL (0.83-4.51); Absolute Neutrophil Count 4.1 X10^3/uL (2.0-7.7); Basophil# 0.04 X10^3/uL; Basophil% 0.5 % (0-1); Eosinophil# 0.45 X10^3/uL; Eosinophils% 6.2 % (0-5); Hematocrit 39.9 % (37-47); Hemoglobin 13.1 g/dL (12.0-15.0); Lymphocyte # 1.86 X10^3/ul (0.83-4.51); Lymphocyte % 25.4 % (19-41); Mean Corp Hgb Conc 32.8 g/dL (32-36); Mean Corpuscular Hgb 30.5 pg (27.0-32.0); Mean Platelet Vol. 10.5 fl (6.2-12.0); Monocyte# 0.87 X10^3/uL; Monocyte% 11.9 % (0-10); NRBC Flagged by Analyzer 0 % (0-5); Neutrophil # 4.05 X10^3/uL (2.7-7.7); Neutrophil % 55.5 % (47-70); Platelet Count 237 K/mm3 (150-450); RBC Distribution Width CV 12.6 % (11.6-14.6); RBC Distribution Width SD 43.1 fl (35.1-43.9); Red Blood Count 4.29 M/mm3 (4.2-5.4); White Blood Count 7.3 K/mm3 (4.4-11.0)
[2022-01-03 07:12] LABS: Anion Gap 7 (5-15); BUN 13 mg/dL (7-18); BUN/Creat Ratio 13.6 RATIO (10-20); Calcium,Total 8.8 mg/dL (8.5-10.1); Chloride 109 mmol/L (98-107); Creatinine, Serum 0.95 mg/dL (0.55-1.02); EST Glomerular Filtration Rate 61 mL/min (>60); Est Glom Filt Rate - Afr Amer 73 mL/min (>60); Estimated Creatinine Clearance 39.85 ml/min; Glucose 112 mg/dL (74-106); Potassium 3.9 mmol/L (3.5-5.1); Sodium Level 138 mmol/L (136-145)
[2022-01-03] MEDS: Atenolol 100 MG Tablet PO (09:35)
[2022-01-03] MEDS: FLU VACC QS2022-23(6MOS UP)/PF 60 MCG/0.5 ML SYRINGE IM (09:35)
[2022-01-03] MEDS: amLODIPine 5 MG Tablet PO (09:35)
[2022-01-03] MEDS: Ramipril 10 MG Capsule PO (09:35)
[2022-01-03] MEDS: 0.9% Normal Saline 1,000 ML 75 ML IV ×2 (09:37→21:32)
[2022-01-03] MEDS: Ceftriaxone 1 GM/50 ML BAG IV ×2 (09:37→21:32)
--- NOTE | 2022-01-03 11:01 | HP.PCM_ITS ---
HPI - General General Date of Admission: 01/02/22 HPI Narrative RUDY MÁRQUEZ, is a 76 F who presents to the hospital she had a laser of the kidney stones last week but she was doing well not feeling well having severe pain presented to the emergency room was found to have an infection with pyelonephritis White count is elevated but she is feeling so bad and poor urine was positive so again admitted for antibiotics IV fluid hydration we will get the infection cleared no plan to treat the stones on Saturday We[place] this Saturday for shockwave lithotripsy. [facility] Medical History Cholelithiasis Diverticulosis Essential hypertension Glucose intolerance (impaired glucose tolerance) Hepatomegaly Hiatal hernia History of hypothyroidism Hyperlipidemia Insomnia Nephrolithiasis Nonrheumatic aortic (valve) stenosis Vitamin D deficiency Home Medications atenolol 100 mg tablet 100 mg PO DAILY heart 10/05/13 [History Last Taken 01/02/22] atorvastatin 20 mg tablet 20 mg PO QHS cholesterol 10/05/13 [History Last Taken 01/01/22] ramipril 10 mg capsule (Altace) 10 mg PO DAILY bp 10/05/13 [History Last Taken 01/02/22] trazodone 50 mg tablet 50 mg PO 2100 #30 tabs 04/28/20 [Rx Last Taken 12/28/21] amlodipine 5 mg tablet 5 mg PO DAILY bp 07/10/21 [History Last Taken 01/02/22] levothyroxine 200 mcg tablet 200 mcg PO MOTUWETHFR 07/10/21 [History Last Taken 01/02/22] oxycodone-acetaminophen 5 mg-325 mg tablet 1 tab PO Q6H PAIN 01/02/22 [History Last Taken 01/02/22 08:30] Allergy/AdvReac Type Severity Reaction Status Date / Time contact metal agent Allergy Other Verified 01/02/22 14:05 Iodinated Contrast Media Allergy Other Verified 01/02/22 14:05 latex Allergy Rash Verified 01/02/22 14:05 meperidine [From Demerol] Allergy Rash Verified 01/02/22 14:05 nitrofurantoin Allergy Unknown Verified 01/02/22 14:05 [From Macrobid] NSAIDS (Non-Steroidal Allergy Other Verified 01/02/22 14:05 Anti-Inflamma sulfamethoxazole Allergy Unknown Verified 01/02/22 14:05 [From ] trimethoprim [From ] Allergy Unknown Verified 01/02/22 14:05 Surgical History History of left nephrectomy History of total right knee replacement (2020) Social History Smoking Status: Never smoker Vital Signs Vital Signs Vital Signs: 01/02/22 14:03 01/02/22 17:08 01/02/22 17:08 Temperature 98.0 F 98.3 F 98.3 F Temperature Source Temporal Oral Oral Pulse Rate 58 L 57 L 59 L Pulse Strength Respiratory Rate 14 16 16 Respiratory Effort Respiratory Depth Respiratory Pattern Blood Pressure 200/89 H 161/77 H 161/77 H Blood Pressure Mean 126 105 105 Blood Pressure Source Blood Pressure Position Blood Pressure Location Pulse Ox 98 97 96 Oxygen Delivery Method Room Air Room Air Room Air 01/02/22 18:30 01/02/22 19:47 01/02/22 19:47 Temperature 98.6 F Temperature Source Oral Pulse Rate 56 L Pulse Strength Normal (2+) Respiratory Rate 18 Respiratory Effort Normal Respiratory Depth Normal Respiratory Pattern Normal Blood Pressure 141/83 H Blood Pressure Mean 102 Blood Pressure Source Monitor Blood Pressure Position Sitting Blood Pressure Location Left Arm Pulse Ox 97 Oxygen Delivery Method Room Air Room Air 01/03/22 00:30 01/03/22 05:05 01/03/22 05:05 Temperature 97.7 F L 98.2 F Temperature Source Oral Oral Pulse Rate 54 L 51 L Pulse Strength Respiratory Rate 18 18 Respiratory Effort Respiratory Depth Respiratory Pattern Blood Pressure 138/87 H 159/89 H Blood Pressure Mean 104 112 Blood Pressure Source Monitor Monitor Blood Pressure Position Semi-Fowlers Supine Blood Pressure Location Left Arm Left Arm Pulse Ox 95 94 Oxygen Delivery Method Room Air Room Air Room Air 01/03/22 05:07 01/03/22 07:25 01/03/22 09:00 Temperature 98.2 F 98.2 F Temperature Source Oral Oral Pulse Rate 57 L 64 Pulse Strength Respiratory Rate 18 16 Respiratory Effort Normal Non-Labored Respiratory Depth Normal Respiratory Pattern Normal Blood Pressure 159/89 H 156/74 H Blood Pressure Mean 112 101 Blood Pressure Source Monitor Blood Pressure Position Blood Pressure Location Left Arm Pulse Ox 97 99 Oxygen Delivery Method Room Air Room Air Room Air 01/03/22 09:02 01/03/22 09:27 01/03/22 10:56 Temperature 98.5 F 98.5 F Temperature Source Oral Oral Pulse Rate 57 L 57 L Pulse Strength Respiratory Rate 16 16 Respiratory Effort Normal Non-Labored Respiratory Depth Normal Respiratory Pattern Normal Blood Pressure 148/86 H 148/86 H Blood Pressure Mean 106 106 Blood Pressure Source Monitor Blood Pressure Position Sitting Blood Pressure Location Left Arm Pulse Ox 99 96 96 Oxygen Delivery Method Room Air Room Air Room Air Weight Weight: 89.6 kg Body Mass Index (BMI) 36.1 Physical Exam Const alert and oriented x3 General Appearance: cooperative HEENT normocephalic, head/scalp atraumatic, EAC's normal and TM's normal bilaterally Eyes PERRL and EOMs intact bilaterally Pupil: sluggish Neck no lymphadenopathy, supple and no JVD General: trachea midline Lymph Lymphatic: no lymphadenopathy noted, lymphedema and lymphadenopathy Resp normal respiratory effort, normal air movement and clear to auscultation bilaterally Cardio regular rate, regular rhythm and peripheral pulses 2+ throughout GI soft to palpation, non-tender and non-distended Extremity normal capillary refill and no clubbing, cyanosis or edema General Extremity: no tenderness to palpation of joints or extremities Skin no rashes or lesions noted General Skin Exam: turgor normal Lesions: no lesions Rashes: no rashes Neuro CN's II-XII intact bilaterally Speech: speech normal Motor Exam: strength 5/5 throughout; Negative for general weakness Psych thought process normal, cooperative and affect normal Appearance: appropriate Results Medical Records Data Attestation: I reviewed the patient's medical records Lab / Micro Data Result Diagrams: 01/03/22 06:04 01/03/22 06:04 Labs: Laboratory Results - last 24 hr 01/02/22 15:00: WBC 11.2 H, RBC 4.51, Hgb 13.6, Hct 42.3, MCV 93.8, MCH 30.2, MCHC 32.2, RDW Std Deviation 43.7, RDW Coeff of Tushar 12.6, Plt Count 290, MPV 9.9, Immature Gran % (Auto) 0.300, Neut % (Auto) 65.5, Lymph % (Auto) 19.8, [place] % (Auto) 9.8, Eos % (Auto) 4.2, Baso % (Auto) 0.4, Absolute Neuts (auto) 7.4, Absolute Lymphs (auto) 2.22, Nucleated RBC % 0 01/02/22 15:00: Sodium 139, Potassium 4.3, Chloride 109 H, Carbon Dioxide 26.0, Anion Gap 4 L, BUN 23 H, Creatinine 1.29 H, Estim Creat Clear Calc 29.34, Est GFR (MDRD) Af Amer 52 L, Est GFR (MDRD) Non-Af 43 L, BUN/Creatinine Ratio 17.8, Glucose 124 H, Calcium 9.4 01/02/22 15:00: Urine Color Brown, Urine Clarity Cloudy, Urine pH 6.5, Ur Specific [place] 1.015, Urine Protein 100 H, Urine Glucose (UA) Normal, Urine Ketones 5 H, Urine Occult Blood 250 H, Urine Nitrite Positive H, Urine Bilirubin Negative, Urine Urobilinogen Normal, Ur Leukocyte Esterase 500 H, Urine RBC 25- 50 SEEN, Urine WBC 25-50 SEEN, Ur Squamous Epith Cells 0-5 SEEN, Urine Bacteria 1+, Urine Mucus 0 SEEN 01/03/22 06:04: WBC 7.3, RBC 4.29, Hgb 13.1, Hct 39.9, MCV 93.0, MCH 30.5, MCHC 32.8, RDW Std Deviation 43.1, RDW Coeff of Tushar 12.6, Plt Count 237, MPV 10.5, Immature Gran % (Auto) 0.500, Neut % (Auto) 55.5, Lymph % (Auto) 25.4, [place] % (Auto) 11.9 H, Eos % (Auto) 6.2 H, Baso % (Auto) 0.5, Absolute Neuts (auto) 4.1, Absolute Lymphs (auto) 1.86, Nucleated RBC % 0 01/03/22 06:04: Sodium 138, Potassium 3.9, Chloride 109 H, Carbon Dioxide 22.0, Anion Gap 7, BUN 13, Creatinine 0.95, Estim Creat Clear Calc 39.85, Est GFR (MDRD) Af Amer 73, Est GFR (MDRD) Non-Af 61, BUN/Creatinine Ratio 13.6, Glucose 112 H, Calcium 8.8 Micro: Microbiology 01/02/22 15:00 Urine, Clean Catch Urine Culture - Preliminary Culture exhibits no growth. Radiology Impression KUB X-Ray 01/02/22 15:15 IMPRESSION: Status post right double J stent catheter. Residual right intrarenal calculi although these have decreased in density and size as compared to prior study. Large amount of material is seen in the colon. Electronically Signed: Jose Juan Anderson MD at 15:29 EDT , Assessment & Plan Assessment/Plan (1) Intractable pain: (2) Urolithiasis: (3) Acute UTI: PLAN: Plan admit for infection, pain control. iv hydration, plan to treat stone on Saturday, once infeciton cleared.
--- NOTE | 2022-01-03 12:28 | CASEMGMT ---
RN DIOR RIBBON WEAVER CM to room to meet with patient for initial transition planning/care coordination assessment. PAULA RADER introduced self and role at [facility]. Pt voices understanding and consents to assessment at this time. Pt sitting up in chair in room in no distress at this time. Dtr, Sabiha, present and pt agreeable to her being present during assess. Pt is A/O at this time and answers all questions appropriately. Care providers, pharmacy, and demographics verified/updated at this time. PCP: Dr Hummel Specialists: Dr Fermin-urologist Preferred Pharmacy: [facility] Retail Insurance: MCR, MMO Prescription Benefit: Yes Living Will/HPOA: Has both LW and HPOA, who are her dtr's: Hemalatha LNOK: Jacques's, Hemalatha Living Arrangements: Lives alone in ranch-style home w/1 step to enter. Denies difficulty w/stairs. Independent. Transportation: Pt states drives self and states no transportation concerns at this time. DME: Denies using any DME and denies needs. HHC/SNF: Hx [facility] after knee surgery. No hx of HHC. No needs identified. Pt wishes to return home and states has no concerns with going home at time of discharge. CM to follow for any discharge planning/needs. Pt voices no concerns/needs at this time. Advised pt to ask for CM if any questions/concerns/needs arise. Voices understanding. PLAN: Home Kirsten TRUJILLO RN, CM
--- NOTE | 2022-01-03 18:54 | NURSING ---
Reviewed charting with Roby Sheets RN
[2022-01-03] MEDS: Docusate Sodium 100 MG Capsule PO (21:31)
[2022-01-03] MEDS: Atorvastatin Calcium 20 MG Tablet PO (21:31)
[2022-01-04] VITALS (7 sets, daily range): BP systolic 109–175; BP diastolic 60–95; PULSE 47–78; RESP 14–16; TEMP 35.6–37.2; O2SAT 96–99
[2022-01-04] MEDS: Levothyroxine 100 MCG Tablet 200 MCG PO (05:32)
--- NOTE | 2022-01-04 07:49 | PCM.PN.GU ---
Subjective Subjective Status post admission for kidney stone severe pain and possible infection, so far urine cultures negative continue with antibiotics her blood pressure is high today and can have the hospitalist see her for this to try to optimize it she is going to be n.p.o. for surgery for tomorrow for shockwave lithotripsy of the remaining stone fragments in the right solitary kidney. Objective Data Objective Data Vital Signs: Vital Signs Temp Pulse Resp BP Pulse Ox O2 Del Method 97.7 F L 57 L 16 175/83 H 98 Room Air 01/04/22 05:28 01/04/22 05:28 01/04/22 05:28 01/04/22 05:28 01/04/22 05:28 01/04/22 05:28 Oxygen Delivery Method Room Air Weight: 89.6 kg Body Mass Index (BMI) 36.1 Intake & Output: Intake and Output for Last 24 Hours 01/02/22 01/03/22 01/04/22 23:59 23:59 23:59 Intake Total 1220.0 / 1550.0 2725.00 / 2725.00 Balance 1220.0 / 1550.0 2725.00 / 2725.00 Lab / Micro Data Result Diagrams: 01/03/22 06:04 01/03/22 06:04 Micro: Microbiology 01/02/22 15:00 Urine, Clean Catch Urine Culture - Final Culture exhibits no growth.
[2022-01-04] MEDS: Ramipril 10 MG Capsule PO (08:08)
[2022-01-04] MEDS: Atenolol 100 MG Tablet PO (08:08)
[2022-01-04] MEDS: Docusate Sodium 100 MG Capsule PO (08:08)
[2022-01-04] MEDS: amLODIPine 5 MG Tablet PO (08:08)
[2022-01-04] MEDS: Ceftriaxone 1 GM/50 ML BAG IV ×2 (09:54→21:42)
[2022-01-04] MEDS: amLODIPine 10 MG Tablet PO (09:59)
[2022-01-04] MEDS: 0.9% Normal Saline 1,000 ML 75 ML IV (13:11)
--- NOTE | 2022-01-04 15:05 | PN.HOSP_ITS ---
Subjective Subjective Consult for medical management/Hypertension: Patient was seen and examined. She denied any flank pain or dizziness or chest pain or headaches. She was admitted with pyelonephritis secondary to kidney stones. She will be going for shockwave lithotripsy tomorrow. Patient's blood pressure was found to be elevated, hospitalist service consulted for medical management. Objective Data Objective Data Vital Signs: Vital Signs Temp Pulse Resp BP Pulse Ox O2 Del Method 98.1 F 61 14 144/91 H 97 Room Air 01/04/22 13:01 01/04/22 13:01 01/04/22 13:01 01/04/22 13:01 01/04/22 13:01 01/04/22 13:01 Oxygen Delivery Method Room Air Weight: 89.6 kg Body Mass Index (BMI) 36.1 Intake & Output: Intake and Output for Last 24 Hours 01/02/22 01/03/22 01/04/22 23:59 23:59 23:59 Intake Total 1220.0 / 1550.0 2725.00 / 2725.00 1692.5 / 1692.5 Balance 1220.0 / 1550.0 2725.00 / 2725.00 1692.5 / 1692.5 Lab / Micro Data Result Diagrams: 01/03/22 06:04 01/03/22 06:04 Micro: Microbiology 01/02/22 15:00 Urine, Clean Catch Urine Culture - Final Culture exhibits no growth. Physical Exam Narrative Physical exam: General: Alert, Oriented x3, Cooperative HEENT: Atraumatic Oral: Moist Mucosa Neck: Supple Lungs: Clear to auscultation Cardiovascular: HS I+II, regular, 4/6 ejection/holosystolic murmurs Abdomen: Bowel Sounds Present, Soft, Non Tender Extremities: No edema Skin: No rashes, No breakdown Neurological: Grossly intact Psych/Mental Status: Appropriate Assessment & Plan Assessment/Plan (1) Essential hypertension: PLAN: Plan 1. Uncontrolled hypertension, in a patient with history of hypertension Increase amlodipine to 10 mg p.o. daily Continue on atenolol and ramipril Hydralazine IV as needed for systolic blood pressure more than 160 2. Acute pyelonephritis secondary to kidney stone, status post recent laser t reatment Urine culture showed no growth. Continue on IV ceftriaxone Patient going for shockwave lithotripsy tomorrow 3. CKD stage IIIa, creatinine improved, Creatinine was 1.29 yesterday, currently 0.95 Continue gentle IV fluid 4.Hypothyroidism, continue on Synthroid 5. Hyperlipidemia, continue statin 6. Aortic stenosis, follow-up with cardiology recommended 7. DVT PPx- per primary team Charges/Coding Visit Charges Inpatient E&M: 64017 Subs Hosp L2
[2022-01-04] MEDS: Atorvastatin Calcium 20 MG Tablet PO (21:42)
[2022-01-05] VITALS (13 sets, daily range): BP systolic 136–183; BP diastolic 82–97; PULSE 60–99; RESP 12–16; TEMP 36.4–37.1; O2SAT 94–99; BMI 36.3
[2022-01-05] MEDS: hydrALAZINE 20 MG/ML Vial 10 MG IV (02:29)
[2022-01-05] MEDS: 0.9% Normal Saline 1,000 ML 50 ML IV ×2 (03:36→22:21)
[2022-01-05] MEDS: Levothyroxine 100 MCG Tablet 200 MCG PO (05:33)
--- NOTE | 2022-01-05 05:55 | EKG12_ITS ---
Test Reason : PRE-OP Blood Pressure : / mmHG Vent. Rate : 060 BPM Atrial Rate : 060 BPM P-R Int : 158 ms QRS Dur : 078 ms QT Int : 432 ms P-R-T Axes : -05 017 008 degrees QTc Int : 432 ms Normal sinus rhythm Nonspecific ST and T wave abnormality Abnormal ECG Confirmed by AYAD JONAS, RUSS ([id number]), digital editor LIANA TAMEZ ([id number]) on 01/05/2022 10:22:09 AM Referred By: Confirmed By:RUSS LION MD
[2022-01-05 05:56] LABS: Absolute Lymphocyte Count 2.16 X10^3/uL (0.83-4.51); Basophil# 0.05 X10^3/uL; Basophil% 0.7 % (0-1); Eosinophil# 0.46 X10^3/uL; Hematocrit 41.4 % (37-47); Hemoglobin 13.9 g/dL (12.0-15.0); Lymphocyte # 2.16 X10^3/ul (0.83-4.51); Lymphocyte % 28.2 % (19-41); Mean Corp Hgb Conc 33.6 g/dL (32-36); Mean Corpuscular Hgb 30.5 pg (27.0-32.0); Mean Platelet Vol. 9.9 fl (6.2-12.0); Monocyte# 0.94 X10^3/uL; Monocyte% 12.3 % (0-10); NRBC Flagged by Analyzer 0 % (0-5); Neutrophil # 4.03 X10^3/uL (2.7-7.7); Neutrophil % 52.5 % (47-70); Platelet Count 254 K/mm3 (150-450); RBC Distribution Width CV 12.7 % (11.6-14.6); RBC Distribution Width SD 41.9 fl (35.1-43.9); Red Blood Count 4.55 M/mm3 (4.2-5.4); White Blood Count 7.7 K/mm3 (4.4-11.0)
[2022-01-05 06:34] LABS: AST(SGOT) 12 U/L (15-37); Alanine Aminotransfer ALT/SGPT 19 U/L (13-56); Albumin, Serum 3.5 g/dL (3.2-5.0); Alkaline Phosphatase 105 U/L (45-117); Anion Gap 5 (5-15); BUN 14 mg/dL (7-18); BUN/Creat Ratio 15.6 RATIO (10-20); Chloride 111 mmol/L (98-107); EST Glomerular Filtration Rate 65 mL/min (>60); Est Glom Filt Rate - Afr Amer 79 mL/min (>60); Estimated Creatinine Clearance 42.06 ml/min; Globulin 3.6 g/dL (2.2-4.2); Glucose 114 mg/dL (74-106); Potassium 3.5 mmol/L (3.5-5.1); Protein, Total 7.1 g/dL (6.4-8.2); Sodium Level 140 mmol/L (136-145); Thyroid Stim Hormone (TSH) 0.08 uIU/mL (0.358-3.74)
--- NOTE | 2022-01-05 07:40 | PCM.PN.HOSP ---
Subjective Subjective Follow-up on medical management: Patient was seen and examined. She has been kept n.p.o. for shockwave lithotripsy today. Denies any headache or dizziness or palpitations.No acute events on telemetry. Objective Data Objective Data Vital Signs: Vital Signs Temp Pulse Resp BP Pulse Ox O2 Del Method 98.2 F 62 16 143/82 H 98 Room Air 01/05/22 03:34 01/05/22 03:34 01/05/22 03:34 01/05/22 03:34 01/05/22 03:34 01/05/22 03:51 Oxygen Delivery Method Room Air Weight: 89.6 kg Body Mass Index (BMI) 36.1 Intake & Output: Intake and Output for Last 24 Hours 01/03/22 01/04/22 01/05/22 23:59 23:59 23:59 Intake Total 2725.00 / 2725.00 1742.5 / 1742.5 1000 / 1000 Balance 2725.00 / 2725.00 1742.5 / 1742.5 1000 / 1000 Lab / Micro Data Result Diagrams: 01/05/22 05:35 01/05/22 05:35 Labs: Laboratory Results - last 24 hr 01/05/22 05:35: WBC 7.7, RBC 4.55, Hgb 13.9, Hct 41.4, MCV 91.0, MCH 30.5, MCHC 33.6, RDW Std Deviation 41.9, RDW Coeff of Tushar 12.7, Plt Count 254, MPV 9.9, Immature Gran % (Auto) 0.300, Neut % (Auto) 52.5, Lymph % (Auto) 28.2, [place] % (Auto) 12.3 H, Eos % (Auto) 6.0 H, Baso % (Auto) 0.7, Absolute Neuts (auto) 4.0, Absolute Lymphs (auto) 2.16, Nucleated RBC % 0 01/05/22 05:35: Sodium 140, Potassium 3.5, Chloride 111 H, Carbon Dioxide 24.0, Anion Gap 5, BUN 14, Creatinine 0.90, Estim Creat Clear Calc 42.06, Est GFR (MDRD) Af Amer 79, Est GFR (MDRD) Non-Af 65, BUN/Creatinine Ratio 15.6, Glucose 114 H, Calcium 9.0, Total Bilirubin 0.70, AST 12 L, ALT 19, Alkaline Phosphatase 105, Total Protein 7.1, Albumin 3.5, Globulin 3.6, Albumin/Globulin Ratio 1.0, TSH 0.08 L Micro: Microbiology 01/02/22 15:00 Urine, Clean Catch Urine Culture - Final Culture exhibits no growth. Physical Exam Narrative Physical exam: General: Alert, Oriented x3, Cooperative HEENT: Atraumatic Oral: Moist Mucosa Neck: Supple Lungs: Clear to auscultation Cardiovascular: HS I+II, regular, 4/6 ejection/holosystolic murmurs Abdomen: Bowel Sounds Present, Soft, Non Tender Extremities: No edema Skin: No rashes, No breakdown Neurological: Grossly intact Psych/Mental Status: Appropriate Assessment & Plan Assessment/Plan (1) Urolithiasis: (2) Acute UTI: PLAN: Plan 1. Hypertension, better controlled, Continue on amlodipine, atenolol and ramipril Hydralazine IV prn for systolic blood pressure more than 160 2.?Acute pyelonephritis secondary to kidney stone, status post recent laser treatment Urine culture showed no growth. Continue on IV ceftriaxone Patient going for shockwave lithotripsy tomorrow 3.?CKD stage IIIa, creatinine improved, Creatinine is 0.90 today Continue gentle IV fluid 4.Hypothyroidism, TSH is 0.08, free T4 2.22, free T3 2.9 Decrease Synthroid to 150 mcg, patient will need to check a TSH and free T4 in 4 to 6 weeks 5.?Hyperlipidemia, continue statin 6.?Aortic stenosis, follow-up with cardiology recommended 7. DVT PPx- per primary team Charges/Coding Visit Charges Inpatient E&M: 82375 Subs Hosp L2
[2022-01-05 08:10] LABS: Free T3 2.9 pg/mL (2.18-3.98); T4 Free Direct 2.22 ng/dL (0.76-1.46)
[2022-01-05] MEDS: Ceftriaxone 1 GM/50 ML BAG IV ×2 (09:11→22:21)
[2022-01-05] MEDS: Atenolol 100 MG Tablet PO (09:11)
[2022-01-05] MEDS: amLODIPine 10 MG Tablet PO (09:11)
[2022-01-05] MEDS: Ramipril 10 MG Capsule PO (09:11)
[2022-01-05] MEDS: Acetaminophen 325 MG Tablet PO (09:18)
--- NOTE | 2022-01-05 12:50 | CM.UR ---
Pt is independent in room and states no concerns with going home at discharge. Rodriguez MITCHELL CM
--- NOTE | 2022-01-05 14:10 | NURSING ---
report called to Sathya in ac
--- NOTE | 2022-01-05 16:36 | OP.PCM_ITS ---
Report of Operation Date of Procedure: 01/05/22 Pre-Operative Diagnosis: right kidney stones s/p stent Post-Operative Diagnosis: same Surgery/Procedure Performed:: right ESWL Description of Surgical Findings:: Patient presents to the hospital for treatment of a kidney stone with shockwave lithotripsy. In the preoperative area and x-ray was done to confirm the location of the stone. The x-ray was reviewed and the stone location was revie wed. In the preoperative setting I spoke with the patient regarding the treatment of the stone how the treatment would be conducted and the expectations after surgery. The patient understands there is a risk of bleeding and infection. Also discussed the very rare risk of hematoma or damage to the kidney. We also discussed the risk that the shockwave machine will fail to break the stone adequately and that the patient may need other surgical procedures. We also discussed the possibility that the patient may need a stent after the procedure. After reviewing the procedure with the patient, the patient is signed the consent form all the patient's questions were addressed and was taken back to the operating room for treatment of a kidney stone. Patient was taken back to the operating room, patient was identified by the nursing staff, we identified the side of the treatment and the patient side of treatment had been marked by my initials. The patient underwent general anesthetic and was placed supine on the lithotripter table. We then used fluoroscopy to identify the stone on the Right side. We then positioned the patient under the lithotripter and we used triangulation technique to identify the location of the stone and then we made sure that the stone was engaged in the F2 focal point of F2 Donier lithoprior machine. Once the patient was positioned appropriately and the stone was identified and placed in the F2 focal point of the lithotripter machine we then proceeded with shockwave lithotripsy. In the beginning the shockwave was delivered at a rate of 90 shocks per minute, we monitor the EKG for any ectopy. The power was slowly increased to 5 kV and subsequently at the 7 kV. We then proceeded with the treatment we move the therapy had around during the treatment to make sure the stone stayed in the F2 focal point during the entire treatment and after 3000 shockwaves were delivered to the stone under fluoroscopic guidance the treatment was completed. The elie colon was given instructions to call the office to make an a follow-up appointment with an xray to evaluate the success of the treatment, pateint understands that its possible the stones may need another procedure.At this point the patient's anesthetic was reversed patient was extubated and taken back to the PACU in stable condition. Surgeon: Garry Fermin Type of Anesthesia: General Drains: stent in place Admit VTE Documentation VTE Present on Admission: No VTE Mechan Device Prophylaxis: SCD's VTE Pharm Prophylaxis ordered?: No
[2022-01-05] MEDS: oxyCODONE 5 MG Tablet PO (18:08)
[2022-01-05] MEDS: Atorvastatin Calcium 20 MG Tablet PO (21:51)
[2022-01-05] MEDS: Calcium Carbonate 500 MG Tablet PO (22:21)
[2022-01-05] MEDS: traZODone 50 MG Tablet PO (22:21)
[2022-01-06 01:42] VITALS: BP 162/83; PULSE 61; RESP 16; TEMP 36.7; O2SAT 94
[2022-01-06 01:50] VITALS: BP 162/83; PULSE 61
[2022-01-06] MEDS: hydrALAZINE 20 MG/ML Vial 10 MG IV (01:50)
[2022-01-06 02:58] VITALS: BP 122/70
[2022-01-06 05:33] VITALS: BP 137/90; PULSE 64; RESP 16; TEMP 37.1; O2SAT 95
[2022-01-06 05:42] VITALS: BP 137/90; PULSE 64; RESP 16; TEMP 37.1; O2SAT 95
[2022-01-06 05:57] LABS: Absolute Lymphocyte Count 0.89 X10^3/uL (0.83-4.51); Absolute Neutrophil Count 6.5 X10^3/uL (2.0-7.7); Hematocrit 39.7 % (37-47); Hemoglobin 13.4 g/dL (12.0-15.0); Lymphocyte # 0.89 X10^3/ul (0.83-4.51); Lymphocyte % 11.4 % (19-41); Mean Corp Hgb Conc 33.8 g/dL (32-36); Mean Corpuscular Hgb 31.4 pg (27.0-32.0); Mean Platelet Vol. 10.3 fl (6.2-12.0); Monocyte# 0.41 X10^3/uL; Monocyte% 5.2 % (0-10); NRBC Flagged by Analyzer 0 % (0-5); Neutrophil # 6.47 X10^3/uL (2.7-7.7); Neutrophil % 82.9 % (47-70); Platelet Count 247 K/mm3 (150-450); RBC Distribution Width CV 12.8 % (11.6-14.6); RBC Distribution Width SD 43.8 fl (35.1-43.9); Red Blood Count 4.27 M/mm3 (4.2-5.4); White Blood Count 7.8 K/mm3 (4.4-11.0)
[2022-01-06 06:32] LABS: ALB/GLOB Ratio 0.9 RATIO (0.9-2.4); AST(SGOT) 15 U/L (15-37); Alanine Aminotransfer ALT/SGPT 20 U/L (13-56); Albumin, Serum 3.1 g/dL (3.2-5.0); Alkaline Phosphatase 97 U/L (45-117); Anion Gap 10 (5-15); BUN 21 mg/dL (7-18); BUN/Creat Ratio 14.2 RATIO (10-20); Calcium,Total 8.8 mg/dL (8.5-10.1); Chloride 109 mmol/L (98-107); Creatinine, Serum 1.48 mg/dL (0.55-1.02); EST Glomerular Filtration Rate 36 mL/min (>60); Est Glom Filt Rate - Afr Amer 44 mL/min (>60); Globulin 3.4 g/dL (2.2-4.2); Glucose 181 mg/dL (74-106); Potassium 3.8 mmol/L (3.5-5.1); Protein, Total 6.5 g/dL (6.4-8.2); Sodium Level 138 mmol/L (136-145)
--- NOTE | 2022-01-06 08:36 | DS.PCM_ITS ---
Providers Date of Admission: 01/02/22 Primary Care Physician: Dr. Joan Gomez MD Consultations 01/04/22 07:48 Consult: Hospitalist Routine Consulting Provider: [facility] Reason for Consult: for high blood pressure. EMERGENT Consult: No MD Notified: Yes Date Notified: 01/04/22 Time Notified: 11:00 Method of Notification: Verbal Reason For Visit: PYELONEPHRITIS, KIDNEY STONE Diagnosis Discharge Diagnosis (1) Urolithiasis: Status: Acute Code(s): N20.9 - Urinary calculus, unspecified Plan: Had a right kidney stone stent was in place was still having severe pain very large stones these were blasted with shockwave lithotripsy (2) Acute UTI: Status: Acute Code(s): N39.0 - Urinary tract infection, site not specified Plan: Ruled out after negative urine culture she was given antibiotics and felt better (3) Hypertension: Status: Chronic Code(s): I10 - Essential (primary) hypertension Plan: Blood pressure was out of control in the hospital hospitalist was consulted to manage needs to follow-up with outpatient physician to continue to monitor and manage blood pressure. Plan admit for infection, pain control. iv hydration, plan to treat stone on Saturday, once infeciton cleared. Medications at Discharge Home Medications atenolol 100 mg tablet 100 mg PO DAILY heart 10/05/13 atorvastatin 20 mg tablet 20 mg PO QHS cholesterol 10/05/13 ramipril 10 mg capsule (Altace) 10 mg PO DAILY bp 10/05/13 trazodone 50 mg tablet 50 mg PO 2100 #30 tabs 04/28/20 amlodipine 5 mg tablet 5 mg PO DAILY bp 07/10/21 levothyroxine 200 mcg tablet 200 mcg PO MOTUWETHFR 07/10/21 oxycodone-acetaminophen 5 mg-325 mg tablet 1 tab PO Q6H PAIN 01/02/22 levothyroxine 150 mcg capsule 150 mcg PO DAILY #30 caps 01/06/22 Hospital Course Operations - (Shockwave lithotripsy) Summary of Care Provided Minutes Spent on Discharge: 30 Hospital Course: 76-year-old female with a history of recurrent kidney stones, she has a solitary right kidney and had 2 very large stones that showed up on recent KUB surveillance imaging. She underwent outpatient ureteroscopy but the stones are large that became too bloody and dangerous to continue so we stopped. We are planning for a second outpatient shockwave lithotripsy treatment but her pain was so severe and she was presented to my office fairly dehydrated and severe pain so we did admitted to the hospital culture was done for possible pyelonephritis which was negative. Pain was controlled she was hydrated. Blood pressure was out of control in the hospital and hospitalist was consulted to help manage this which improved with medications she will need to follow-up as an outpatient with her family physician regarding her blood pressure control. Stones broke up well on shockwave lithotripsy. Postop day #1 she is feeling well no severe pain has reported passing some fragments. She will go home today with a stent she can resume all her medications and follow-up in my office in 1 week with an x-ray and possible removal of her stent. Physical Exam Const alert and oriented x3 General Appearance: cooperative HEENT normocephalic, head/scalp atraumatic, EAC's normal and TM's normal bilaterally Eyes PERRL and EOMs intact bilaterally Pupil: sluggish Neck no lymphadenopathy, supple and no JVD General: trachea midline Lymph Lymphatic: no lymphadenopathy noted, lymphedema and lymphadenopathy Resp normal respiratory effort, normal air movement and clear to auscultation bilaterally Cardio regular rate, regular rhythm and peripheral pulses 2+ throughout GI soft to palpation, non-tender and non-distended Extremity normal capillary refill and no clubbing, cyanosis or edema General Extremity: no tenderness to palpation of joints or extremities Skin no rashes or lesions noted General Skin Exam: turgor normal Lesions: no lesions Rashes: no rashes Neuro CN's II-XII intact bilaterally Speech: speech normal Motor Exam: strength 5/5 throughout; Negative for general weakness Psych thought process normal, cooperative and affect normal Appearance: appropriate Weight / BMI Weight Weight: 89.6 kg Body Mass Index (BMI) 36.3 ABG / Lab / Microbiology Data Result Diagrams: 01/06/22 05:11 01/06/22 05:11 Laboratory: Laboratory Results - last 24 hr 01/06/22 05:11: WBC 7.8, RBC 4.27, Hgb 13.4, Hct 39.7, MCV 93.0, MCH 31.4, MCHC 33.8, RDW Std Deviation 43.8, RDW Coeff of Tushar 12.8, Plt Count 247, MPV 10.3, Immature Gran % (Auto) 0.500, Neut % (Auto) 82.9 H, Lymph % (Auto) 11.4 L, [place] % (Auto) 5.2, Eos % (Auto) 0.0, Baso % (Auto) 0.0, Absolute Neuts (auto) 6.5, Absolute Lymphs (auto) 0.89, Nucleated RBC % 0 01/06/22 05:11: Sodium 138, Potassium 3.8, Chloride 109 H, Carbon Dioxide 19.0 L , Anion Gap 10, BUN 21 H, Creatinine 1.48 H, Estim Creat Clear Calc 24.40, Est GFR (MDRD) Af Amer 44 L, Est GFR (MDRD) Non-Af 36 L, BUN/Creatinine Ratio 14.2, Glucose 181 H, Calcium 8.8, Total Bilirubin 0.50, AST 15, ALT 20, Alkaline Janet sphatase 97, Total Protein 6.5, Albumin 3.1 L, Globulin 3.4, Albumin/Globulin Ratio 0.9 Microbiology: Microbiology 01/02/22 15:00 Urine, Clean Catch Urine Culture - Final Culture exhibits no growth. D/C Instructions Discharge Diet: No restrictions, Light diet - advance as tolerated and Soft diet Discharge Activity: Return to Normal Activity Call your doctor if you observe: Fever of 101 or Higher Please Follow Up With: Garry Fermin MD When: Call for appt next with a [facility] Meaningful Use Info Meaningful Use Diagnoses (Choose all that apply): None applicable Discharge Plan Admission Admit Date/Time: 01/02/22 20:33 Primary Reason for Your Visit: kidney stone Attending Provider: Garry Fermin Primary Care Provider: Joan Gomez Consulting Providers: Sadie Márquez ; Genia Wright ; Genia Mandujano ; Javier Flood Instructions Additional Instructions / Restrictions: Your Levothyroxine dose was decreased to 150mcg daily in this hospital stay. You will need repeat blood work in 4-6 weeks with your primary care doctor to c dillon on your thyroid function Discharge Orders/Prescriptions Prescriptions: New levothyroxine 150 mcg capsule 150 mcg PO DAILY Qty: 30 0RF Continued levothyroxine 200 mcg tablet 200 mcg PO MOTUWETHFR Rx Instructions: 200 mcg PO 5 days a week; amlodipine 5 mg tablet 5 mg PO DAILY atorvastatin 20 MG tablet 20 mg PO QHS atenolol 100 MG tablet 100 mg PO DAILY ramipril [Altace] 10 MG capsule 10 mg PO DAILY trazodone 50 MG tablet 50 mg PO 2100 Qty: 30 0RF oxycodone-acetaminophen 5-325 mg tablet 1 tab PO Q6H Label Comments: TAKE 1 TABLET BY MOUTHIEVERY 6 HOURS NEEDED FOR PAIN Referrals / Follow Up: Joan Gomez MD [Primary Care Provider] - Garry Fermin MD [Med Staff - Active Staff] -
[2022-01-06 09:20] VITALS: BP 130/66; PULSE 62; RESP 18; TEMP 36.8; O2SAT 98
[2022-01-06] MEDS: amLODIPine 10 MG Tablet PO (09:22)
[2022-01-06] MEDS: Ramipril 10 MG Capsule PO (09:22)
[2022-01-06] MEDS: Atenolol 100 MG Tablet PO (09:22)
[2022-01-06] MEDS: 0.9% Normal Saline 1,000 ML 999 ML IV (09:35)
--- NOTE | 2022-01-06 09:50 | PN.HOSP_ITS ---
Subjective Subjective Follow-up on medical management: Patient was seen and examined. She denied any new complaints. She had right extracorporeal shockwave lithotripsy yesterday. Denies any flank pain or hematuria. Her vitals have been stable. Blood work shows new CLEMENTE. 1 L of fluid was given to patient. Objective Data Objective Data Vital Signs: Vital Signs Temp Pulse Resp BP Pulse Ox O2 Del Method 98.2 F 62 18 130/66 H 98 Room Air 01/06/22 09:20 01/06/22 09:20 01/06/22 09:20 01/06/22 09:20 01/06/22 09:20 01/06/22 09:20 Oxygen Delivery Method Room Air Weight: 89.6 kg Body Mass Index (BMI) 36.3 Intake & Output: Intake and Output for Last 24 Hours 01/04/22 01/05/22 01/06/22 23:59 23:59 23:59 Intake Total 1742.5 / 1742.5 2131.66 / 2131.66 Balance 1742.5 / 1742.5 2131.66 / 2131.66 Lab / Micro Data Result Diagrams: 01/06/22 05:11 01/06/22 05:11 Labs: Laboratory Results - last 24 hr 01/06/22 05:11: WBC 7.8, RBC 4.27, Hgb 13.4, Hct 39.7, MCV 93.0, MCH 31.4, MCHC 33.8, RDW Std Deviation 43.8, RDW Coeff of Tushar 12.8, Plt Count 247, MPV 10.3, Immature Gran % (Auto) 0.500, Neut % (Auto) 82.9 H, Lymph % (Auto) 11.4 L, [place] % (Auto) 5.2, Eos % (Auto) 0.0, Baso % (Auto) 0.0, Absolute Neuts (auto) 6.5, Absolute Lymphs (auto) 0.89, Nucleated RBC % 0 01/06/22 05:11: Sodium 138, Potassium 3.8, Chloride 109 H, Carbon Dioxide 19.0 L , Anion Gap 10, BUN 21 H, Creatinine 1.48 H, Estim Creat Clear Calc 24.40, Est GFR (MDRD) Af Amer 44 L, Est GFR (MDRD) Non-Af 36 L, BUN/Creatinine Ratio 14.2, Glucose 181 H, Calcium 8.8, Total Bilirubin 0.50, AST 15, ALT 20, Alkaline Phosphatase 97, Total Protein 6.5, Albumin 3.1 L, Globulin 3.4, Albumin/Globulin Ratio 0.9 Micro: Microbiology 01/02/22 15:00 Urine, Clean Catch Urine Culture - Final Culture exhibits no growth. Physical Exam Narrative Physical exam: General: Alert, Oriented x3, Cooperative HEENT: Atraumatic Oral: Moist Mucosa Neck: Supple Lungs: Clear to auscultation Cardiovascular: HS I+II, regular, 4/6 ejection/holosystolic murmurs Abdomen: Bowel Sounds Present, Soft, Non Tender Extremities: No edema Skin: No rashes, No breakdown Neurological: Grossly intact Psych/Mental Status: Appropriate Assessment & Plan Assessment/Plan (1) Urolithiasis: (2) Acute UTI: PLAN: Plan 1. Hypertension, better controlled, Continue on amlodipine 10mg po daily, atenolol and ramipril 2.?Acute pyelonephritis secondary to kidney stone, status post recent laser treatment Urine culture showed no growth. Managed on IV ceftriaxone Status post shockwave lithotripsy 01/05/22 3.?CLEMENTE on CKD stage IIIa, creatinine today is 1.48, previous creatinine was 0.90 Patient was given IV fluids She was strongly recommended to follow-up with her primary care doctor to have repeat blood work done within a week. 4.Hypothyroidism, TSH is 0.08, free T4 2.22, free T3 2.9 Synthroid was decreased to 150 mcg, patient will need to check a TSH and free T4 in 4 to 6 weeks 5.?Hyperlipidemia, continue statin 6.?Aortic stenosis, follow-up with cardiology recommended 7. DVT PPx- per primary team Charges/Coding Visit Charges Inpatient E&M: 16904 Subs Hosp L2
== END 2022-01-06 11:25 | disposition home or self-care (01) | DRG 694 ==
LOC: ED 18:02 → PCU 20:56
PROVIDERS: Emergency Medicine; Internal Medicine; Admitting Provider Urology; Emergency Provider Emergency Medicine; PCP Family Medicine; Visit Provider Urology
PROC: 0TF3XZZ Fragmentation in Right Kidney Pelvis, External Approach (ICD-10-PCS; CPT 50590; principal; 2022-01-05 15:05)
DX: N20.0 Calculus of kidney (principal); N17.9 Acute kidney failure, unspecified; N18.31 Chronic kidney disease, stage 3a; E03.9 Hypothyroidism, unspecified; E78.5 Hyperlipidemia, unspecified; I12.9 Hypertensive chronic kidney disease with stage 1 through stage 4 chronic kidney disease, or unspecified chronic kidney disease; I35.0 Nonrheumatic aortic (valve) stenosis; Z90.5 Acquired absence of kidney; Z79.899 Other long term (current) drug therapy; Z87.442 Personal history of urinary calculi; Z79.891 Long term (current) use of opiate analgesic; Z28.310 Unvaccinated for COVID-19; Z28.9 Immunization not carried out for unspecified reason; Z23 Encounter for immunization
CPT/HCPCS: 36415; 74018; 80048; 80053; 81001; 84439; 84443; 84481; 85025; 87086; 93005; 97802; 99284; G0008; J7030; 90686; A4216; J2405

== ENCOUNTER → 2022-01-11 | Outpatient (CLI) | payer MEDICARE, OTHER, SELFPAY ==
--- NOTE | 2022-01-11 11:12 | RAD_ITS ---
STUDY: X-RAY - ABDOMEN/PELVIS REASON FOR EXAM: Female, 76 years old. History of right renal calculus with recent lithotripsy and stent placement. 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 TECHNIQUE: Single AP view of the abdomen / pelvis. COMPARISON: CT of the abdomen and pelvis, November 23, 2021. FINDINGS: Lung bases are not included. There is an unremarkable bowel gas pattern. There is no demonstrated free abdominal air. The visualized liver, spleen and kidneys are grossly normal in size and morphology. There is a right-sided ureteral stent. There are multiple calcifications within the renal calyces. The larger calcification seen on the prior CT is no longer present. Gallstones are again noted. Phleboliths are seen in the pelvis. Normal soft tissue structures. Mild degenerative changes lumbar spine. RAD/Abdomen Single View IMPRESSION: 1. Right ureteral stent. There are smaller scattered right renal calculi. The large calculus seen on previous CT is absent. 2. No other major interval change. Electronically Signed: Jass Mederos DO at 21:31 EDT ,
== END | disposition home or self-care (01) ==
PROVIDERS: PCP Family Medicine; Referring Provider Urology; Visit Provider Urology
DX: N20.0 Calculus of kidney (principal)
CPT/HCPCS: 74018

== ENCOUNTER → 2022-01-22 | Outpatient (CLI) | payer MEDICARE, OTHER, SELFPAY ==
--- NOTE | 2022-01-22 08:09 | BI_ITS ---
MAMMOGRAPHY - BILATERAL SCREENING REASON FOR EXAM: Female, 76 years old. Routine annual screening examination. PERTINENT HISTORY: Grandmother with breast cancer. TECHNIQUE: Digital bilateral breast shruthi (3D mammographic acquisition) in the CC and MLO projections. 2-D mediolateral oblique (MLO) and craniocaudad (CC) views of both breasts were obtained. CAD: Full Field Digital Mammography with Computer Added Detection was performed. COMPARISON: Comparison is made with prior study dated 01/19/2021 and 12/31/2019. FINDINGS: Breast Composition: There are scattered areas of fibroglandular density. There are no dominant masses or suspicious calcifications. Stable small benign-appearing bilateral axillary lymph nodes. No other significant abnormalities are identified. There has been no significant change since the prior study. BI/SCRN MAMM (CAD)W/SHRUTHI BILAT IMPRESSION: Stable bilateral screening mammogram. Yearly follow-up mammogram recommended. (A) ASSESSMENT CATEGORY: BIRADS Category 2: Benign. A letter regarding these results will be sent to the patient by the facility within 30 days. Approximately 10% of breast cancers are not detected by mammography. A normal mammogram should not delay biopsy of a clinically suspicious abnormality. [id number] Electronically Signed: Jose Juan Anderson MD at 10:09 EST ,
== END | disposition home or self-care (01) ==
LOC: OPBI 08:08
PROVIDERS: PCP Family Medicine; Visit Provider Family Medicine
DX: Z12.31 Encounter for screening mammogram for malignant neoplasm of breast (principal); Z80.3 Family history of malignant neoplasm of breast
CPT/HCPCS: 77063; 77067

== ENCOUNTER → 2022-04-13 | Outpatient (CLI) | payer MEDICARE, OTHER, SELFPAY ==
[2022-04-13 18:14] LABS: Thyroid Stim Hormone (TSH) 0.39 uIU/mL (0.358-3.74)
== END | disposition home or self-care (01) ==
LOC: MFPLAB 14:23
PROVIDERS: PCP Family Medicine; Referring Provider Family Medicine; Visit Provider Family Medicine
DX: E03.9 Hypothyroidism, unspecified (principal)
CPT/HCPCS: 36415; 84443

== ENCOUNTER → 2022-05-14 | Outpatient (CLI) | payer MEDICARE, OTHER, SELFPAY ==
--- NOTE | 2022-05-14 10:02 | RAD_ITS ---
EXAM: XR ABDOMEN, 1 VIEW CLINICAL INDICATION: CALCULUS OF KIDNEY TECHNIQUE: Frontal supine view of the abdomen/pelvis. This report was created using [employer] report generation technology. COMPARISON: None. FINDINGS: LOWER THORAX: No acute pathology. GASTROINTESTINAL TRACT: Small numerous calcific densities project over left lower quadrant/pelvis. No bowel obstruction. ORGANS: Unremarkable as visualized. No organomegaly. No abnormal calcifications. BONES/JOINTS: Degenerative changes of the spine. Degenerative changes of the spine. SOFT TISSUES: No acute pathology. OTHER FINDINGS: No other suspicious calcifications. Multiple phleboliths in the pelvis. Peripheral vascular calcifications. RAD/Abdomen Single View IMPRESSION: No acute or healing fracture or malalignment. Electronically Signed: Noe Becker MD at 3:43 EST ,
== END | disposition home or self-care (01) ==
PROVIDERS: PCP Family Medicine; Referring Provider Urology; Visit Provider Urology
DX: N20.0 Calculus of kidney (principal)
CPT/HCPCS: 74018

== ENCOUNTER → 2022-11-19 | Outpatient (CLI) | payer MEDICARE, OTHER, SELFPAY ==
--- NOTE | 2022-11-19 09:15 | RAD_ITS ---
STUDY: X-RAY - ABDOMEN/PELVIS REASON FOR EXAM: Female, 77 years old. CALCULUS OF KIDNEY TECHNIQUE: Two AP supine views of the abdomen and pelvis. COMPARISON: 05/14/2022. FINDINGS: Minimal left basilar atelectasis, otherwise clear lung bases. There is an unremarkable bowel gas pattern. There is no demonstrated free abdominal air. There is obscuration of the bilateral kidneys from gas artifact in the bowel. Otherwise the visualized liver, spleen and kidneys are grossly normal in size and morphology. There are multiple soft tissue calcification projecting over the left iliac bone, left sacrum and pelvic soft tissues, likely phleboliths and largest averaging approximately 1.5 cm. Normal visualized osseous structures. RAD/Abdomen Single View IMPRESSION: No acute process identified. No distinct calculus seen over the kidneys within the limits described. Electronically Signed: Julianna Sanchez MD at 17:28 EDT ,
== END | disposition home or self-care (01) ==
LOC: RAD 09:09
PROVIDERS: PCP Family Medicine; Referring Provider Urology; Visit Provider Urology
DX: N20.0 Calculus of kidney (principal)
CPT/HCPCS: 74018

== ENCOUNTER → 2023-01-23 | Outpatient (CLI) | payer MEDICARE, OTHER, SELFPAY ==
--- NOTE | 2023-01-23 08:11 | BI_ITS ---
MAMMOGRAPHY - BILATERAL SCREENING REASON FOR EXAM: Female, 77 years old. Routine annual screening examination. PERTINENT HISTORY: Grandmother with breast cancer. TECHNIQUE: Digital bilateral breast shruthi (3D mammographic acquisition) in the CC and MLO projections. 2-D mediolateral oblique (MLO) and craniocaudad (CC) views of both breasts were obtained. CAD: Full Field Digital Mammography with Computer Added Detection was performed. COMPARISON: Comparison is made with prior study dated January 22, 2022 and January 19, 2021. FINDINGS: Breast Composition: There are scattered areas of fibroglandular density. There are no dominant masses or suspicious calcifications. Stable benign-appearing bilateral axillary lymph nodes. No other significant abnormalities are identified. There has been no significant change since the prior study. BI/SCRN MAMM (CAD)W/SHRUTHI BILAT IMPRESSION: Stable bilateral screening mammogram. Yearly follow-up mammogram recommended. (A) ASSESSMENT CATEGORY: BIRADS Category 2: Benign. A letter regarding these results will be sent to the patient by the facility within 30 days. Approximately 10% of breast cancers are not detected by mammography. A normal mammogram should not delay biopsy of a clinically suspicious abnormality. [id number] Electronically Signed: Jose Juan Anderson MD at 9:08 EST ,
== END | disposition home or self-care (01) ==
LOC: OPBI 08:10
PROVIDERS: PCP Family Medicine; Referring Provider Family Medicine; Visit Provider Family Medicine
DX: Z12.31 Encounter for screening mammogram for malignant neoplasm of breast (principal)
CPT/HCPCS: 77063; 77067

== ENCOUNTER → 2023-05-21 | Outpatient (CLI) | payer MEDICARE, OTHER, SELFPAY ==
--- NOTE | 2023-05-21 08:30 | RAD_ITS ---
INDICATION: CALCULUS OF KIDNEY EXAMINATION/TECHNIQUE: X-RAY - XR Abdomen 1 View COMPARISON: None FINDINGS: BOWEL GAS PATTERN: Non-obstructive. No bowel or stomach distention. FREE AIR: Not assessed on a single supine view. ORGANOMEGALY: Not seen. CALCIFICATIONS: No abnormal calcifications observed. LOWER CHEST: No acute pathology. BONES AND SOFT TISSUES: No acute pathology. RAD/Abdomen Single View IMPRESSION: 1. Non-obstructive bowel gas pattern. 2. No calcifications identified overlying the renal contours. Phleboliths are present in the pelvis. Electronically Signed: Nimesh Samaniego MD at 1:02 EDT ,
== END | disposition home or self-care (01) ==
LOC: RAD 08:29
PROVIDERS: PCP Family Medicine; Referring Provider Urology; Visit Provider Urology
DX: N20.0 Calculus of kidney (principal)
CPT/HCPCS: 74018

== ENCOUNTER → 2023-07-02 | Outpatient (CLI) | payer MEDICARE, OTHER, SELFPAY ==
[2023-07-02 13:14] LABS: Protein, Urine (Random) 14.5 mg/dL (<11.9); Protein:Creat Ratio 151 mg/g CRE (0-200)
[2023-07-02 13:16] LABS: AST(SGOT) 15 U/L (15-37); Anion Gap 5 (5-15); BUN 19 mg/dL (7-18); BUN/Creat Ratio 12.8 RATIO (10-20); Calcium,Total 9.3 mg/dL (8.5-10.1); Chloride 108 mmol/L (98-107); Cholesterol 169 mg/dL (200); Creatinine, Serum 1.48 mg/dL (0.55-1.02); EST Glomerular Filtration Rate 36 mL/min (>60); Est Glom Filt Rate - Afr Amer 44 mL/min (>60); Glucose 167 mg/dL (74-106); High Density Lipoprotein 50 mg/dL; Potassium 4.2 mmol/L (3.5-5.1); Sodium Level 138 mmol/L (136-145); T4 Total, Thyroxin 13.1 ug/dL (4.8-13.9); Thyroid Stim Hormone (TSH) 1.75 uIU/mL (0.358-3.74); Triglycerides 177 mg/dL; Very Low Density Lipoprotein 35 mg/dL (5-40)
== END | disposition home or self-care (01) ==
LOC: MFPLAB 10:29
PROVIDERS: PCP Family Medicine; Visit Provider Family Medicine
DX: I10 Essential (primary) hypertension (principal); E03.9 Hypothyroidism, unspecified; E78.5 Hyperlipidemia, unspecified
CPT/HCPCS: 36415; 80048; 80061; 82570; 84156; 84436; 84443; 84450

== ENCOUNTER → 2023-10-21 | Outpatient (CLI) | payer MEDICARE, OTHER, SELFPAY ==
--- NOTE | 2023-10-21 07:25 | US_ITS ---
EXAM: US abdomen, limited, right upper quadrant. HISTORY: RUQ pain TECHNIQUE: US Abdomen Limited (quadrant) COMPARISON: None. LIMITATIONS: None. LIVER Size: Enlarged, measuring 18.8 cm in length. Masses: None. Contour: Normal. Echotexture: Diffusely increased parenchymal echogenicity indicating fatty infiltration. Bile ducts: Normal. Portal veins: Normal. GALLBLADDER Size: Upper normal in size, with the gallbladder measuring 7.2 cm in length. Stones/sludge: Multiple small gravel-like shadowing stones layer in the dependent portion of gallbladder. Wall thickness: Slightly thickened measuring 3.8 mm in thickness. Pericholecystic fluid: None. Sonographic Perez sign: Negative. EXTRAHEPATIC BILE DUCTS: Common bile duct measures 7 mm in diameter, within normal limits for a patient this age group. No common duct stones are identified. RIGHT KIDNEY: Normal size, measuring 10.9 cm in length. A 8 x 7 mm echogenic shadowing nonobstructing stone within the midpole of the right kidney. No right-sided hydronephrosis. ASCITES: None. PLEURAL EFFUSIONS: None. OTHER: Limited visualization of the pancreas; the visualized pancreatic head appears normal while the visualized pancreatic body/tail is hypoechoic suggesting a mild degree of pancreatitis. Main pancreatic duct is not dilated. No pancreatic pseudocyst or peripancreatic fluid is identified. US/Abdomen Limited IMPRESSION: Cholelithiasis. Minimal nonspecific gallbladder wall thickening. No pericholecystic fluid or biliary ductal dilatation. Enlarged fatty liver. The visualized pancreatic body and tail are slightly hypoechoic as compared with the pancreatic head suggesting a mild degree of pancreatitis. Electronically Signed: Arya Morris MD at 23:42 EDT ,
== END | disposition home or self-care (01) ==
LOC: US 07:25
PROVIDERS: PCP Family Medicine; Referring Provider Family Medicine; Visit Provider Family Medicine
DX: R10.13 Epigastric pain (principal)
CPT/HCPCS: 76705

== ENCOUNTER 2023-10-31 23:50 | Emergency (ER) | payer MEDICARE, OTHER, SELFPAY ==
[2023-10-31 23:51] VITALS: BP 138/72; PULSE 73; RESP 16; TEMP 36.2; O2SAT 98; BMI 37.8
[2023-11-01] VITALS (9 sets, daily range): BP systolic 98–179; BP diastolic 62–109; PULSE 58–82; RESP 15–18; TEMP 36.2–36.8; O2SAT 93–100
--- NOTE | 2023-11-01 00:48 | CT_ITS ---
INDICATION: PAIN EXAMINATION: CT ABDOMEN AND PELVIS WITHOUT CONTRAST - CT Abdomen And Pelvis W/O Contrast Injection TECHNIQUE: Helically acquired images were obtained of the abdomen and pelvis without oral or IV contrast. A radiation dose optimization technique was used for this scan. IV Contrast dosage and agent: None. Oral contrast: None. COMPARISON: Abdominal ultrasound October 21, 2023 . FINDINGS: LOWER CHEST: Lung bases are clear. No cardiomegaly or pericardial effusion. Aortic valvular calcifications. Large hiatal hernia containing fluid LIVER: Heterogeneous hepatic steatosis with pericholecystic sparing. Hepatomegaly. No evidence of focal mass. GALLBLADDER AND BILIARY TREE: Distended gallbladder with multiple dependent stones. No pericholecystic inflammatory stranding. No intra- or extrahepatic biliary ductal dilation. PANCREAS: Diffuse peripancreatic inflammatory stranding without organized fluid collection. No gross pancreatic ductal dilatation appreciated. SPLEEN: Normal size without focal cystic or solid mass. ADRENAL GLANDS: No nodules. KIDNEYS AND URETERS: Multiple renal nonobstructive stones up to 7 mm in size. No hydronephrosis or perinephric inflammation. Absent left kidney. . PERITONEUM: No ascites or free air. No other fluid collection. BOWEL: Hiatal hernia as above. No perigastric inflammation. Mild wall wall thickening adjacent inflammatory pancreas. No small bowel distention. Appendix is not seen. No right lower quadrant inflammation to suggest appendicitis. No acute colonic finding.... LYMPH NODES: No enlarged mesenteric or retroperitoneal lymph nodes. VESSELS: Aortic atherosclerosis without ectasia.. URINARY BLADDER: Decompressed bladder. REPRODUCTIVE ORGANS: Absent uterus. No evidence of adnexal mass. ABDOMINAL WALL: Fat-containing umbilical hernia without inflammation No discrete abdominal or pelvic wall hernia. BONES: No lytic or blastic abnormality. CT/Abdomen/Pelvis without Cont IMPRESSION: Diffuse peripancreatic inflammation consistent with pancreatitis. No noncontrast evidence of joel pancreatic necrosis. Clinical and CT follow-up recommended Cholelithiasis with gallbladder distention. No CT apparent ductal stone. Consider MRCP. Nonobstructive right nephrolithiasis. Hepatic steatosis and hepatomegaly Electronically Signed: Mike Lay MD at 2:42 EDT ,
--- NOTE | 2023-11-01 00:49 | EDS_ITS ---
HPI History of Present Illness Chief Complaint: Abd Pain Informant: patient and family Narrative Narrative: 78-year-old female presenting to the emergency room with abdominal pain nausea vomiting. Patient states that 2 weeks ago she saw her doctor for chest and a bdominal discomfort that is worse with the eating. She notes she was diagnosed with IBS and has had intermittent constipation and diarrhea but since this has been going on has been more diarrhea. She states she had an EKG done that appeared normal. She had a gallbladder ultrasound and was told that her gallbladder was diseased. She has an appointment next Saturday to see Dr. Herbert in the office to talk about a possible cholecystectomy. Patient denies any fevers. She states that tonight the pain and nausea would not subside. She notes a generalized upper abdominal pain that is worse on the right and into the right flank. She denies any known pancreatic issues. No known liver disease. She has had prior left nephrectomy, appendectomy, and hysterectomy. Numerous surgeries for kidney stones which led to the nephrectomy. [facility] Medical History Nonrheumatic aortic (valve) stenosis Essential hypertension Diverticulosis Hiatal hernia Hepatomegaly Cholelithiasis Hyperlipidemia History of hypothyroidism Glucose intolerance (impaired glucose tolerance) Insomnia Vitamin D deficiency Nephrolithiasis Home Medications ?Medication ?Instructions ?Recorded ?Last Taken ?Type atenolol 100 mg tablet 100 mg PO DAILY heart 10/05/13 01/02/22 History atorvastatin 20 mg tablet 20 mg PO QHS cholesterol 10/05/13 01/01/22 History ramipril 10 mg capsule (Altace) 10 mg PO DAILY bp 10/05/13 01/02/22 History trazodone 50 mg tablet 50 mg PO 2100 #30 tabs 04/28/20 12/28/21 Rx levothyroxine 150 mcg capsule 150 mcg PO DAILY #30 caps 01/06/22 Unknown Rx amlodipine 10 mg tablet 5 mg PO DAILY 11/01/23 Unknown History Allergy/AdvReac Type Severity Reaction Status Date / Time contact metal agent Allergy Other Verified 10/31/23 23:51 Iodinated Contrast Media Allergy Other Verified 10/31/23 23:51 latex Allergy Rash Verified 10/31/23 23:51 meperidine (From Demerol) Allergy Rash Verified 10/31/23 23:51 nitrofurantoin (From Allergy Unknown Verified 10/31/23 23:51 Macrobid) NSAIDS (Non-Steroidal Allergy Other Verified 10/31/23 23:51 Anti-Inflamma sulfamethoxazole (From Allergy Unknown Verified 10/31/23 23:51 Septra) trimethoprim (From ) Allergy Unknown Verified 10/31/23 23:51 Surgical History History of left nephrectomy History of total right knee replacement (2020) Social History Smoking Status: Never smoker ROS ROS ED Constitutional Constitutional ED: Denies chills or weight loss Eyes Eyes: Denies change in vision or diplopia ENT ENT ED: Denies ear pain, rhinorrhea or sore throat Cardiovascular Cardiovascular: Reports chest pain; Denies orthopnea, palpitations or racing heartbeat Respiratory/Chest Respiratory/Chest: Denies cough, dyspnea or orthopnea Gastrointestinal Gastrointestinal: Reports abdominal pain, constipation, diarrhea, nausea and vomiting Genitourinary Genitourinary ED: Denies dysuria, hematuria or urinary frequency Musculoskeletal Musculoskeletal: Reports back pain; Denies arthralgias or myalgias Integumentary Denies abscess or rash Neurologic Neurologic: Denies headache(s) or weakness Psychiatric Psychiatric: Denies anxiety, depression, suicidal ideation or suicidal thoughts Endocrine Endocrinology: Denies polydipsia, polyphagia or polyuria Allergic/Immunologic Allergic/Immunologic ED: Denies mouth swelling, tongue swelling or urticaria EXAM Physical Exam Const Vital Signs: 10/31/23 23:51 11/01/23 01:51 11/01/23 02:09 Temperature 97.2 F L 98 F Temperature Source Temporal Pulse Rate 73 70 69 Respiratory Rate 16 18 18 Blood Pressure 138/72 H 116/66 116/66 Blood Pressure Mean 94 82 82 Pulse Ox 98 93 95 Oxygen Delivery Method Room Air 11/01/23 03:00 Temperature Temperature Source Pulse Rate 58 L Respiratory Rate 16 Blood Pressure 98/62 Blood Pressure Mean 74 Pulse Ox 96 Oxygen Delivery Method Room Air Positive well nourished, well developed and obese General Appearance ED: well developed Nutritional Appearance: obese HEENT Reports normocephalic, head/scalp atraumatic and moist mucous membranes Eyes PERRL and EOMs intact bilaterally Neck no lymphadenopathy, supple and no JVD Resp normal respiratory effort and clear to auscultation bilaterally Cardio regular rate and regular rhythm Rate: other Other Details: 3/6 systolic heart murmur GI Palpation: soft and tender RUQ; Negative for guarding or rebound tenderness present Back/Spine no CVA tenderness and normal ROM Extremity normal to inspection General Extremety ED: Negative for edema General Extremity: Negative for edema Neuro oriented x3 and CN's II-XII intact bilaterally Sensorium / Orientation: alert Motor Exam: strength 5/5 throughout Psych mental status grossly normal Mood & Affect: Negative for depressed or tearful Skin no rashes or lesions noted and no wounds MDM MDM MDM Narrative Medical decision making narrative: Differential diagnosis includes acute cholecystitis choledocholithiasis pancreatitis gastritis gastric ulcer hiatal hernia perforated viscus gastroparesis gastric outlet obstruction volvulus White count nonspecifically elevated 11.6 normal differential. Creatinine 1.39 normal electrolytes. Glucose 170. Total bilirubin is 3.8 with a direct bilirubin of 2.6 transaminases at 431 539 alk phos 205 lipase greater than 5000. Patient received Dilaudid Zofran and IV fluids. She also received a dose of Protonix. IV fluids were continued and the patient also received Zosyn. CT of the abdomen pelvis was obtained. This demonstrates inflammation around the pancreas but no significant ductal dilatation either intrahepatic or extrahepatic. Clinically this appears to be biliary obstruction and most likely to be gallstone pancreatitis. I spoke with her on-call surgeon. No ERCP is available over the next approximate 4 days. I spoke with the patient who asked me to speak with [facility]. They currently have about a 6-day wait for transfers. I spoke with the patient and then I spoke with [facility]. We are currently awaiting an answer whether or not they will accept. History & Record Review Discussion w/independent historian: Patient and Family Lab Data Attestation: I reviewed the patient's lab results. Labs: Laboratory Results - last 24 hr 10/31/23 23:58 WBC 11.6 H RBC 4.67 Hgb 14.1 Hct 43.8 MCV 93.8 MCH 30.2 MCHC 32.2 RDW Std Deviation 44.6 H RDW Coeff of Tushar 13.1 Plt Count 294 MPV 11.0 Immature Gran % (Auto) 0.300 Neut % (Auto) 68.1 Lymph % (Auto) 20.3 [place] % (Auto) 8.6 Eos % (Auto) 2.2 Baso % (Auto) 0.5 Absolute Neuts (auto) 7.9 H Absolute Lymphs (auto) 2.35 Nucleated RBC % 0 Sodium 138 Potassium 4.1 Chloride 106 Carbon Dioxide 22.0 Anion Gap 10 BUN 16 Creatinine 1.39 H Estim Creat Clear Calc 34.23 Est GFR (MDRD) Af Amer 47 L Est GFR (MDRD) Non-Af 39 L BUN/Creatinine Ratio 11.5 Glucose 176 H Calcium 9.4 Total Bilirubin 3.80 H Direct Bilirubin 2.60 H AST 431 H ALT 539 H Alkaline Phosphatase 205 H Total Protein 7.4 Albumin 3.7 Globulin 3.7 Lipase > 5000 H Radiography Diagnostic Testing: Clinical Impression(s) from Imaging Studies Abdomen/Pelvis CT 11/01/23 00:48 IMPRESSION: Diffuse peripancreatic inflammation consistent with pancreatitis. No noncontrast evidence of joel pancreatic necrosis. Clinical and CT follow-up recommended Cholelithiasis with gallbladder distention. No CT apparent ductal stone. Consider MRCP. Nonobstructive right nephrolithiasis. Hepatic steatosis and hepatomegaly Electronically Signed: Mike Lay MD at 2:42 EDT , Management Discussion w/another healthcare provider: Web Design Specialist (Dr. Herbert (Surgery) [facility] Transfer, [facility] Transfer) Discharge Plan Triage Chief Complaint: Abd Pain ED Provider: Mariano Rodrigues Dx/Rx/DC Orders Clinical Impression: Hernia, hiatal, Abdominal pain, Vomiting, Acute biliary pancreatitis, Acute hepatitis Prescriptions: No Action atorvastatin 20 MG tablet 20 mg PO QHS atenolol 100 MG tablet 100 mg PO DAILY ramipril [Altace] 10 MG capsule 10 mg PO DAILY trazodone 50 MG tablet 50 mg PO 2100 Qty: 30 0RF levothyroxine 150 mcg capsule 150 mcg PO DAILY Qty: 30 0RF amlodipine 10 mg tablet 5 mg PO DAILY Primary Care Provider: Joan Gomez Referrals: Joan Gomez MD [Primary Care Provider] - Print Language: Slovenian Disposition Disposition: Acute Care Hospital
[2023-11-01] MEDS: HYDROmorphone 1 MG/ML Syringe 0.5 MG IV (00:55)
[2023-11-01] MEDS: Ondansetron 4 MG/2 ML Vial IV ×3 (00:55→16:10)
[2023-11-01 00:58] LABS: Absolute Lymphocyte Count 2.35 X10^3/uL (0.83-4.51); Absolute Neutrophil Count 7.9 X10^3/uL (2.0-7.7); Basophil# 0.06 X10^3/uL; Basophil% 0.5 % (0-1); Eosinophil# 0.25 X10^3/uL; Eosinophils% 2.2 % (0-5); Hematocrit 43.8 % (37-47); Hemoglobin 14.1 g/dL (12.0-15.0); Lymphocyte # 2.35 X10^3/ul (0.83-4.51); Lymphocyte % 20.3 % (19-41); Mean Corp Hgb Conc 32.2 g/dL (32-36); Mean Corpuscular Hgb 30.2 pg (27.0-32.0); Mean Corpuscular Volume 93.8 fL (81-99); Monocyte% 8.6 % (0-10); NRBC Flagged by Analyzer 0 % (0-5); Neutrophil # 7.87 X10^3/uL (2.7-7.7); Neutrophil % 68.1 % (47-70); Platelet Count 294 K/mm3 (150-450); RBC Distribution Width CV 13.1 % (11.6-14.6); RBC Distribution Width SD 44.6 fl (35.1-43.9); Red Blood Count 4.67 M/mm3 (4.2-5.4); White Blood Count 11.6 K/mm3 (4.4-11.0)
[2023-11-01] MEDS: Pantoprazole Sodium 40 MG in 0.9% Normal Saline (100mL MB+) 100 ML 330 MG IV (01:32)
[2023-11-01 01:41] LABS: AST(SGOT) 431 U/L (15-37); Alanine Aminotransfer ALT/SGPT 539 U/L (13-56); Albumin, Serum 3.7 g/dL (3.2-5.0); Alkaline Phosphatase 205 U/L (45-117); Anion Gap 10 (5-15); BUN 16 mg/dL (7-18); BUN/Creat Ratio 11.5 RATIO (10-20); Calcium,Total 9.4 mg/dL (8.5-10.1); Chloride 106 mmol/L (98-107); Creatinine, Serum 1.39 mg/dL (0.55-1.02); EST Glomerular Filtration Rate 39 mL/min (>60); Est Glom Filt Rate - Afr Amer 47 mL/min (>60); Estimated Creatinine Clearance 34.23 ml/min; Globulin 3.7 g/dL (2.2-4.2); Glucose 176 mg/dL (74-106); Lipase > 5000 U/L (13-75); Potassium 4.1 mmol/L (3.5-5.1); Protein, Total 7.4 g/dL (6.4-8.2); Sodium Level 138 mmol/L (136-145)
[2023-11-01] MEDS: 0.9% Normal Saline (1000mL) 1,000 ML 999 ML IV (02:04)
[2023-11-01] MEDS: Piperacil/Tazobactam 4.5 GM in 0.9% Normal Saline (100mL MB+) 100 ML IV (02:12)
[2023-11-01] MEDS: 0.9% Normal Saline (1000mL) 1,000 ML 150 ML IV (04:25)
[2023-11-01 06:14] LABS: Bacteria 0 SEEN /hpf (None Seen); Mucous, Urine 0 SEEN /hpf (<or=2+); Squamous Epithelial Cells - UA 0 SEEN /hpf (5-10)
[2023-11-01 06:15] LABS: Color, Urine Yellow (Yellow); Glucose, Dipstick Normal (Normal); Ketone-Dipstick Negative (Negative); Leukocyte Esterase-Dipstick 25 /ul (Negative); Nitrite-Dipstick Negative (Negative); Occult Blood-Urine 25 /ul (Negative); Protein-Dipstick 30 mg/dl (Negative); Urine Bilirubin Dipstick Negative (Negative); Urine Clarity Clear (Clear); Urine Urobilinogen 1 mg/dl (Normal)
[2023-11-01 06:22] LABS: Red Blood Cells-Urine 0-5 SEEN /hpf (0-5); White Blood Cells 0-5 SEEN /hpf (0-5)
--- NOTE | 2023-11-01 07:25 | ED.RN ---
Patient accepted at [facility] by Dr Naik. Pt waiting on bed
[2023-11-01] MEDS: Levothyroxine 150 MCG Tablet PO (11:09)
[2023-11-01] MEDS: Ramipril 10 MG Capsule PO (11:09)
[2023-11-01] MEDS: Atenolol 50 MG Tablet 100 MG PO (11:10)
--- NOTE | 2023-11-01 12:08 | ED.RN ---
[facility] was called and they stated that [facility] is starting discharges so hopefully will have a bed sometime this afternoon. Nurse is aware.
[2023-11-01] MEDS: amLODIPine 5 MG Tablet PO (12:54)
[2023-11-01] MEDS: Morphine 4 MG/ML Syringe IV (16:10)
--- NOTE | 2023-11-01 16:19 | ED.RN ---
Pt going to [facility] because [facility] is not accepting.
== END 2023-11-01 16:18 | disposition short-term general hospital (02) ==
PROVIDERS: Emergency Provider Emergency Medicine; PCP Family Medicine; Visit Provider Emergency Medicine
DX: K85.10 Biliary acute pancreatitis without necrosis or infection (principal); K44.9 Diaphragmatic hernia without obstruction or gangrene; B17.9 Acute viral hepatitis, unspecified; I10 Essential (primary) hypertension; E78.5 Hyperlipidemia, unspecified; Z90.5 Acquired absence of kidney; Z90.49 Acquired absence of other specified parts of digestive tract; Z79.899 Other long term (current) drug therapy; Z87.442 Personal history of urinary calculi
CPT/HCPCS: 74176; 80048; 80076; 81001; 83690; 85025; 96361; 96365; 96366; 96375; 96376; 99284; J7030; A4216; J2405

== ENCOUNTER → 2023-11-12 | Outpatient (CLI) | payer MEDICARE, OTHER, SELFPAY ==
[2023-11-12 16:07] LABS: AST(SGOT) 84 U/L (15-37); Alanine Aminotransfer ALT/SGPT 68 U/L (13-56); Albumin, Serum 3.6 g/dL (3.2-5.0); Alkaline Phosphatase 232 U/L (45-117); Amylase 53 U/L (25-115); Bilirubin, Direct 0.66 mg/dL (0.00-0.30); Globulin 4.4 g/dL (2.2-4.2); Lipase 50 U/L (13-75)
== END | disposition home or self-care (01) ==
LOC: MTLAB 11:48
PROVIDERS: PCP Family Medicine; Referring Provider Family Medicine; Visit Provider Family Medicine
DX: K80.20 Calculus of gallbladder without cholecystitis without obstruction (principal)
CPT/HCPCS: 36415; 80076; 82150; 83690

== ENCOUNTER → 2023-11-21 | Outpatient (CLI) | payer MEDICARE, OTHER, SELFPAY ==
--- NOTE | 2023-11-21 08:08 | RAD_ITS ---
STUDY: X-RAY - ABDOMEN/PELVIS REASON FOR EXAM: Female, 78 years old. Calculus of kidney TECHNIQUE: Single AP view of the abdomen / pelvis. COMPARISON: None. FINDINGS: Normal visualized lung bases. There is an unremarkable bowel gas pattern. The visualized liver, spleen and kidneys are grossly normal in size and morphology. 10 mm calcific opacity projecting over the right kidney consistent with a right renal stone. No definite ureteral stone. Normal soft tissue structures. Normal visualized osseous structures. RAD/Abdomen Single View IMPRESSION: No bowel obstruction. Suspect 10 mm right renal stone. Electronically Signed: Nimesh Collins MD at 9:01 EDT ,
== END | disposition home or self-care (01) ==
LOC: RAD 08:07
PROVIDERS: PCP Family Medicine; Referring Provider Nurse Practitioner; Visit Provider Nurse Practitioner
DX: N20.0 Calculus of kidney (principal)
CPT/HCPCS: 74018

== ENCOUNTER → 2023-12-05 | Outpatient (CLI) | payer MEDICARE, OTHER, SELFPAY ==
[2023-12-05 18:07] LABS: AST(SGOT) 18 U/L (15-37); Alanine Aminotransfer ALT/SGPT 19 U/L (13-56); Albumin, Serum 3.5 g/dL (3.2-5.0); Alkaline Phosphatase 115 U/L (45-117); Amylase 58 U/L (25-115); Bilirubin, Direct 0.21 mg/dL (0.00-0.30); Globulin 3.3 g/dL (2.2-4.2); Lipase 36 U/L (13-75); Protein, Total 6.8 g/dL (6.4-8.2)
== END | disposition home or self-care (01) ==
LOC: MFPLAB 14:17
PROVIDERS: PCP Family Medicine; Visit Provider Family Medicine
DX: K80.20 Calculus of gallbladder without cholecystitis without obstruction (principal)
CPT/HCPCS: 36415; 80076; 82150; 83690

== ENCOUNTER → 2024-01-30 | Outpatient (CLI) | payer MEDICARE, OTHER, SELFPAY ==
--- NOTE | 2024-01-30 12:33 | BI_ITS ---
MAMMOGRAPHY - BILATERAL SCREENING REASON FOR EXAM: Female, 78 years old. Routine annual screening examination. PERTINENT HISTORY: Grandmother with breast cancer. TECHNIQUE: Digital bilateral breast shruthi (3D mammographic acquisition) in the CC and MLO projections. 2-D mediolateral oblique (MLO) and craniocaudad (CC) views of both breasts were obtained. CAD: Full Field Digital Mammography with Computer Added Detection was performed. COMPARISON: Comparison is made with prior study January 23, 2023 and January 22, 2022. FINDINGS: Breast Composition: There are scattered areas of fibroglandular density. There are no dominant masses or suspicious calcifications. Stable bilateral fat containing axillary lymph nodes. No other significant abnormalities are identified. There has been no significant change since the prior study. BI/SCRN MAMM (CAD)W/SHRUTHI BILAT IMPRESSION: Stable bilateral screening mammogram. Yearly follow-up mammogram recommended. (A) ASSESSMENT CATEGORY: BIRADS Category 2: Benign. A letter regarding these results will be sent to the patient by the facility within 30 days. Approximately 10% of breast cancers are not detected by mammography. A normal mammogram should not delay biopsy of a clinically suspicious abnormality. [id number] Electronically Signed: Jose Juan Anderson MD at 7:40 EST ,
== END | disposition home or self-care (01) ==
PROVIDERS: PCP Family Medicine
DX: Z12.31 Encounter for screening mammogram for malignant neoplasm of breast (principal)
CPT/HCPCS: 77063; 77067

== ENCOUNTER → 2024-05-25 | Outpatient (CLI) | payer MEDICARE, OTHER, SELFPAY ==
--- NOTE | 2024-05-25 08:37 | RAD_ITS ---
PROCEDURE: ABDOMEN SINGLE VIEW REASON FOR EXAM: CALCULUS OF KIDNEY TECHNIQUE: Single view abdomen. COMPARISON: None FINDINGS: Bowel gas pattern is normal. No evidence of bowel obstruction. Calcifications project over the right kidney, largest measuring approximately 0.7 cm. Multiple calcifications project over the left hemiabdomen and pelvis The bones are unremarkable. RAD/Abdomen Single View IMPRESSION: Nonobstructing right nephrolithiasis. Probable phleboliths in the left hemiabdomen. Reading Location: [facility]
== END | disposition home or self-care (01) ==
LOC: RAD 08:37
PROVIDERS: PCP Family Medicine; Referring Provider Nurse Practitioner; Visit Provider Nurse Practitioner
DX: N20.0 Calculus of kidney (principal)
CPT/HCPCS: 74018

== ENCOUNTER → 2024-07-14 | Outpatient (CLI) | payer MEDICARE, OTHER, SELFPAY ==
[2024-07-14 12:45] LABS: Absolute Lymphocyte Count 1.73 X10^3/uL (0.83-4.51); Absolute Neutrophil Count 4.9 X10^3/uL (2.0-7.7); Basophil# 0.06 X10^3/uL; Basophil% 0.7 % (0-1); Eosinophil# 0.33 X10^3/uL; Eosinophils% 4.1 % (0-5); Hematocrit 41.6 % (37-47); Hemoglobin 13.6 g/dL (12.0-15.0); Lymphocyte # 1.73 X10^3/ul (0.83-4.51); Lymphocyte % 21.4 % (19-41); Mean Corp Hgb Conc 32.7 g/dL (32-36); Mean Corpuscular Hgb 30.8 pg (27.0-32.0); Mean Corpuscular Volume 94.1 fL (81-99); Mean Platelet Vol. 10.7 fl (6.2-12.0); Monocyte# 1.06 X10^3/uL; Monocyte% 13.1 % (0-10); NRBC Flagged by Analyzer 0 % (0-5); Neutrophil # 4.86 X10^3/uL (2.7-7.7); Neutrophil % 60.3 % (47-70); Platelet Count 259 K/mm3 (150-450); RBC Distribution Width CV 13.2 % (11.6-14.6); RBC Distribution Width SD 45.1 fl (35.1-43.9); Red Blood Count 4.42 M/mm3 (4.2-5.4); White Blood Count 8.1 K/mm3 (4.4-11.0)
[2024-07-14 13:32] LABS: ALB/GLOB Ratio 1.4 RATIO (0.9-2.4); AST(SGOT) 21 U/L (<=31); Alanine Aminotransfer ALT/SGPT 15 U/L (<=34); Albumin, Serum 4.3 g/dL (3.4-4.8); Alkaline Phosphatase 120 U/L (35-104); Anion Gap 11 (5-15); BUN 18 mg/dL (4-19); BUN/Creat Ratio 14.9 RATIO (10-20); Calcium,Total 9.4 mg/dL (7.6-11.0); Carbon Dioxide 22.1 mmol/L (21.0-32.0); Chloride 106 mmol/L (98-108); Cholesterol 163 mg/dL (<=200); Creatinine, Serum 1.19 mg/dL (0.70-1.20); EST Glomerular Filtration Rate 47 (>60); Globulin 3.1 g/dL (2.2-4.2); Glucose 122 mg/dL (70-99); High Density Lipoprotein 47 mg/dL; Low Density Lipoprotein Calc. 83 mg/dL; Potassium 4.1 mmol/L (3.3-5.1); Protein, Total 7.3 g/dL (5.9-8.4); Sodium Level 140 mmol/L (133-145); Total Bilirubin 0.57 mg/dL (0.00-1.30); Triglycerides 166 mg/dL; Very Low Density Lipoprotein 33 mg/dL (5-40); Vitamin D,25 Hydroxy 19.6 ng/mL (30-100); cholesterol:hdl ratio screen 3.51
[2024-07-15 20:00] LABS: Hemoglobin A1c 6.5 % (<=5.6)
== END | disposition home or self-care (01) ==
LOC: MFPLAB 10:02
PROVIDERS: PCP Family Medicine; Referring Provider Family Medicine; Visit Provider Family Medicine
DX: I10 Essential (primary) hypertension (principal); E03.9 Hypothyroidism, unspecified; E78.5 Hyperlipidemia, unspecified; R73.9 Hyperglycemia, unspecified
CPT/HCPCS: 36415; 80053; 80061; 82306; 83036; 84443; 85025

== ENCOUNTER → 2024-11-16 | Outpatient (CLI) | payer MEDICARE, OTHER, SELFPAY | END | disposition home or self-care (01) | LOC: LABSPEC 11:09 | PROVIDERS: PCP Family Medicine; Referring Provider Urology; Visit Provider Urology | DX: N20.0 Calculus of kidney (principal) ==

== ENCOUNTER → 2024-11-23 | Outpatient (CLI) | payer MEDICARE, OTHER, SELFPAY ==
--- NOTE | 2024-11-23 08:35 | RAD_ITS ---
PROCEDURE: ABDOMEN SINGLE VIEW 11/23/2024 REASON FOR EXAM: CALCULUS OF KIDNEY TECHNIQUE: Procedure Code: RADABD Modality: DX Procedure: ABDOMEN SINGLE VIEW COMPARISON: 05/25/2024. FINDINGS: Calcific densities overlie the region of the gallbladder which may represent cholelithiasis. Calcific densities overlie the region of the right kidney which may represent nephrolithiasis. Nonspecific nonobstructive bowel gas pattern. No evidence of acute fracture or dislocation. Mild degenerative changes of bilateral hips. Degenerative changes of the partially visualized spine. Degenerative changes of the pubic symphysis. RAD/Abdomen Single View IMPRESSION: As above. Reading Location: [id number]
== END | disposition home or self-care (01) ==
LOC: RAD 08:35
PROVIDERS: PCP Family Medicine; Referring Provider Urology; Visit Provider Urology
DX: N20.0 Calculus of kidney (principal)
CPT/HCPCS: 74018

== ENCOUNTER → 2025-01-18 | Outpatient (CLI) | payer MEDICARE, OTHER, SELFPAY ==
[2025-01-18 10:54] LABS: Hematocrit 43.8 % (37-47); Hemoglobin 14.2 g/dL (12.0-15.0); Immature Granulocytes Count 0.030 X10^3/uL (0.0-0.0); Mean Corp Hgb Conc 32.4 g/dL (32-36); Mean Corpuscular Volume 93.2 fL (81-99); Mean Platelet Vol. 10.8 fl (6.2-12.0); NRBC Flagged by Analyzer 0 % (0-5); Platelet Count 247 K/mm3 (150-450); RBC Distribution Width CV 13.0 % (11.6-14.6); RBC Distribution Width SD 44.3 fl (35.1-43.9); Red Blood Count 4.70 M/mm3 (4.2-5.4); White Blood Count 6.6 K/mm3 (4.4-11.0)
[2025-01-18 11:08] LABS: AST(SGOT) 19 U/L (<=31); Alanine Aminotransfer ALT/SGPT 16 U/L (<=34); Albumin, Serum 4.3 g/dL (3.4-4.8); Alkaline Phosphatase 115 U/L (35-104); Anion Gap 13 (5-15); BUN 15 mg/dL (4-19); BUN/Creat Ratio 12.8 RATIO (10-20); Calcium,Total 9.6 mg/dL (7.6-11.0); Carbon Dioxide 21.3 mmol/L (21.0-32.0); Chloride 108 mmol/L (98-108); Cholesterol 164 mg/dL (<=200); Globulin 3.0 g/dL (2.2-4.2); Glucose 134 mg/dL (70-99); Low Density Lipoprotein Calc. 91 mg/dL; Potassium 4.3 mmol/L (3.3-5.1); Triglycerides 157 mg/dL; Very Low Density Lipoprotein 31 mg/dL (5-40); Vitamin D,25 Hydroxy 22.5 ng/mL (30-100); cholesterol:hdl ratio screen 3.60
== END | disposition home or self-care (01) ==
LOC: MFPLAB 08:24
PROVIDERS: Family Medicine; PCP Family Medicine; Visit Provider Family Medicine
DX: I12.9 Hypertensive chronic kidney disease with stage 1 through stage 4 chronic kidney disease, or unspecified chronic kidney disease (principal); E11.22 Type 2 diabetes mellitus with diabetic chronic kidney disease; N18.31 Chronic kidney disease, stage 3a
CPT/HCPCS: 36415; 80053; 80061; 82306; 83036; 84443; 85025

== ENCOUNTER → 2025-03-10 | Outpatient (CLI) | payer MEDICARE, OTHER, SELFPAY ==
--- NOTE | 2025-03-10 15:36 | BI_ITS ---
EXAM: SCRN MAMM (CAD)W/SHRUTHI BILAT DATE: 03/10/2025 CLINICAL HISTORY: F, Age 79 y/o , SCREENING TECHNIQUE: Procedure Code: [id number] Modality: MG Procedure: SCRN MAMM (CAD)W/SHRUTHI BILAT COMPARISON: Prior exam(s) dated 01/30/2024. FINDINGS: TISSUE DENSITY: There are scattered areas of fibroglandular density. Bilateral Breast Mammographic Findings: No significant masses, calcifications or other abnormalities are identified. No interval change BI/SCRN MAMM (CAD)W/SHRUTHI BILAT IMPRESSION: Stable screening mammogram, no suspicious findings OVERALL FINAL ASSESSMENT BI-RADS 1: NEGATIVE. RECOMMENDATION: Routine annual follow-up in 1 Year Additional Recommendation none A letter with findings and recommendations will be mailed to the patient. Reading Location: [id number]
--- OUTSIDE RECORDS SUMMARY | 2025-03-10 15:52 | XMS RPT_ITS | CCD ---
Author Organization [facility] Care Team Providers Care Solar Mechanical Engineer Name Role Phone Dr. Joan Gomez Primary Care Provider Dr. Arnol Riddle Attending Provider Dr. Joan Gomez Primary Care Provider Dr. Shane Rios Emergency Provider Zander, Dr. Garry Randolph Admit Provider Zander, Dr. Garry Randolph Other Provider Sadie Márquez Other Provider Unavailable Dr. Genia Wright Attending Provider Dr. Genia Wright Other Provider Dr. Genia Mandujano Other Provider Dr. Javier Flood Other Provider Dr. Joan Gomez Primary Care Provider Dr. Shane Rios Emergency Provider Dr. Garry Fermin Admit Provider Dr. Garry Fermin Referring Provider Dr. Garry Fermin Other Provider Sadie Márquez Other Provider Unavailable Dr. Genia Wright Attending Provider Dr. Genia Wright Other Provider Dr. Genia Mandujano Other Provider Dr. Javier Flood Other Provider Joan Gomez Primary Care Provider JOAN GOMEZ Primary Care Unavailable Patricia JONAS, Joan Crowder Primary Care Provider FARRAH VIRK Attending Unavailabl e CONSULT, SURGERY - GENERAL (EMERGENT) Consulting Unavailable KELLY SCHROEDER Admitting Unavailable LEIGH ANN AYON Referring Unavailable Patricia JONAS, Dr. Joan Crowder Primary Care Provider [phone] Erie, Manju Attending Provider Erie, Manju Referring Provider Jed JONAS, Jania Primary Care Provider [phone] Jed JONAS, Jania Attending Provider [phone] Jed JONAS, Jania Referring Provider [phone] Jed JONAS, Jania Primary Care Provider [phone] Zander JONAS, Dr. Garry Randolph Attending Provider Zander JONAS, Dr. Garry Randolph Referring Provider Jed JONAS, Jania Primary Care Physician Zander JONAS, Dr. Garry Randolph Attending Physician Jed, Chalon Primary Care Unavailable Jed, Cuateon Attending Unavailable Jed, Chalon Referring Unavailable Jed, Chalon Primary Care Unavailable Zander, Garry Randolph Attending Unavailable Zander, Garry Randolph Referring Unavailable Zander, Garry Randolph Attending Unavailable Zander, Garry Randolph Referring Unavailable Jed, Chalon Primary Care Unavailable RICHARD, RE1 Attending Unavailable Joan Gomez S Primary Care Unavailable Jed, Jania Attending Unavailable Jed, Chalon Primary Care Unavailable Jolliff, Joan S Primary Care Unavailable Michelle, Manju Attending Unavailable Erie, Manju Referring Unavailable Allergies Allergy Classification Reported Allergen(s) Allergy Type Date of Onset Reaction(s) Facility (20 sources) Latex; Translations: [LATEX] Allergy to substance 01-31-20 05 Rash [facility] (20 sources) Meperidine Drug Allergy 07-03-19 21 Hives [facility] (19 sources) Nitrofurantoin Drug Allergy 07-03-19 Unknown [facility] (19 sources) Sulfamethoxazole Drug Allergy 07-03-19 21 Unknown [facility] (19 sources) Trimethoprim Drug Allergy 07-03-19 Unknown [facility] (20 sources) contact metal agent; Translations: [contact metal agent] Allergy to substance 07-03-19 Other [facility] Comment on above: Body rejects metal (20 sources) Iodinated Contrast Media; Translations: [Iodinated Contrast Media] Allergy to substance 07-03-19 Other [facility] (20 sources) NSAIDS (Non-Steroidal Anti-Inflamma; Translations: [NSAIDS (Non-Steroidal Anti-Inflamma] Allergy to substance 07-03-19 Other [facility] Comment on above: Pt to avoid all NSAI Ds, d/t having only 1 kidney (2 sources) Cinoxacin; Translations: [CINOXACIN] Drug Allergy 01-31-20 05 [facility] Work Phone: (4 sources) Iodine; Translations: [IODINE] Drug Allergy 01-31-20 05 [facility] (2 sources) Meperidine; Translations: [MEPERIDINE (PF)] Drug Allergy 01-31-20 05 GI Upset [facility] (2 sources) Sulfamethoxazole / Trimethoprim; Translations: [SULFAMETHOXAZOLE-TR IMETHOPRIM] Drug Allergy 01-31-20 05 Rash [facility] (2 sources) Latex Propensity to adverse reactions to drug 01-31-20 05 [facility] (2 sources) Wound Dressing Adhesive Propensity to adverse reactions to drug 11-01-19 24 Hives [facility] (1 source) Latex Drug allergy (disorder) 10-31-19 [facility] Repository (1 source) Meperidine Drug Allergy 10-31-19 [facility] Repository (1 source) Nitrofurantoin Drug Allergy 10-31-19 [facility] Repository (1 source) Sulfamethoxazole Drug Allergy 10-31-19 [facility] Repository (1 source) Trimethoprim Drug Allergy 10-31-19 [facility] Repository Medications Current Medications Medication Drug Class(es) Dates Sig (Normalized) Sig (Original) acetaminophen 325 mg oral tablet (20 sources) Start: 11-05-2023 take 2 tablets by mouth every six hours as needed Acetaminophen 325 MG tablet Take 2 tablets by mouth every 6 hours as needed. 11/05/2023 Active Start: 11-01-2023 End: 11-05-2023 take 1 tablet by mouth every six hours as needed 650 mg, Oral, EVERY 6 HOURS NEEDED, Starting on Sat11/01/23 at 1927, Until Sat11/05/23 at 1912, Mild Pain, Oral temp > 100.4 F, Maximum dose of acetaminophen is 4000 mg from all sources in 24 hours. Start: 04-20-2020 End: 07-10-2021 take 2 tablets by mouth every eight hours Acetaminophen 500 MG tablet Discontinued 1000 mg PO EVERY 8 HOURS April 20, 2020 3:18pm July 10, 2021 4:20pm pain Start: 04-20-2020 End: 07-10-2021 take 1000 mg by mouth every eight hours Acetaminophen Discontinued 1000 MG PO EVERY 8 HOURS April 20, 2020 3:18pm July 10, 2021 4:20pm ALPRAZolam 0.5 mg oral tablet (1 source) Benzodiazepine Start: 02-11-2013 take 1 tablet by mouth every twelve hours as needed for anxiety and anxiety ALPRAZolam (XANAX) 0.5 mg tablet Indications: Anxiety Take 1 tablet by mouth twice daily as needed. 40 tablet 0 02/11/2013 Active amoxicillin 500 mg / clavulanate 125 mg oral tablet (1 source) Penicillin-class Antibacterial Start: 09-01-2023 End: 09-06-2023 take 1 tablet by mouth once daily amoxicillin-clavulan ate potassium (AUGMENTIN) 500-125 mg per tablet Take 1 tablet by mouth once daily for 5 days. 5 tablet 0 09/01/2023 09/06/2023 Active atorvastatin 20 mg oral tablet (20 sources) HMG-CoA Reductase Inhibitor Start: 10-05-2013 take 1 tablet by mouth at bedtime bacitracin 0.5 unt/mg topical ointment (1 source) Start: 09-26-2012 bacitracin 500 unit/gram ointment Indications: Local skin infection Apply 1 application to affected area twice daily. To hand lesion. 30 g 0 09/26/2012 Active chlordiazePOXIDE hydrochloride 5 mg / clidinium bromide 2.5 mg oral capsule (1 source) Anticholinergic, Benzodiazepine Start: 04-21-2015 take 1 capsule by mouth twice daily as needed, then take 5 capsules by mouth once as needed chlordiazePOXIDE-cli dinium (LIBRAX) 5-2.5 mg per capsule Indications: Irritable bowel syndrome with diarrhea , Proctalgia Take 1 capsule by mouth twice daily as needed. 40 capsule 1 04/21/2015 Active esomeprazole 40 mg delayed release oral capsule (20 sources) Proton Pump Inhibitor Start: 04-21-2015 take 1 capsule by mouth once daily esomeprazole (NEXIUM) 40 mg capsule Indications: Gastroesophageal reflux disease without esophagitis Take 1 capsule by mouth once daily. 90 capsule 3 04/21/2015 Active Start: 10-05-2013 End: 04-20-2020 Esomeprazole Magnesium (Nexi um) 40 MG capsule Discontinued 20 mg PO DAILY as needed for GERD October 05, 2013 12:00am April 20, 2020 10:11am fluticasone propionate 0.05 mg/actuat metered dose nasal spray (1 source) Corticosteroid Start: 04-21-2015 take 2 spray(s) nasal route once daily fluticasone (FLONASE) 50 mcg/actuation nasal spray Indications: Other allergic rhinitis Use 2 Sprays in each nostril once daily. 1 Bottle 11 04/21/2015 Active oxyCODONE hydrochloride 5 mg oral tablet (20 sources) Opioid Agonist Start: 11-05-2023 End: 11-08-2023 take 1 tablet by mouth every six hours as needed for pain oxyCODONE 5 MG tablet Indications: Gallstone pancreatitis Take 1 tablet by mouth every 6 hours as needed for Moderate Pain or Severe Pain for up to 3 days. 12 tablet 11/05/2023 11/08/2023 Active Start: 04-28-2020 End: 07-10-2021 Oxycodone 5 MG tablet Discon tinued 10 mg PO 0700 14 0 April 28, 2020 July 10, 2021 4:21pm History of total right knee replacement Presence of right artificial knee joint Start: 04-28-2020 End: 07-10-2021 Oxycodone Discontinued 10 MG PO 0700 14 April 28, 2020 July 10, 2021 4:21pm Start: 04-20-2020 End: 05-02-2020 take 5-10 mg by mouth every four hours as needed for pain Oxycodone 5 MG tablet Discontinued 5 - 10 mg PO EVERY 4 HOURS NEEDED as needed for Pain Score 4-10 56 7 0 May 01, 2020 April 26, 2020 1:00am May 02, 2020 1:03am History of total knee replacement Presence of unspecified artificial knee joint potassium citrate 15 meq extended release oral tablet (1 source) Start: 01-14-2012 Potassium Citrate (UROCIT-K 15) 15 mEq TbER Take 15 mEq by mouth once daily. 0 01/14/2012 Active ramipril 10 mg oral capsule (20 sources) Angiotensin Converting Enzyme Inhibitor Start: 10-05-2013 take 1 capsule by mouth once daily raNITIdine 150 mg oral tablet (1 source) Histamine-2 Receptor Antagonist Start: 07-10-2010 take 1 tablet by mouth once daily in the evening ranitidine (ZANTAC) 150 mg ORAL tablet Indications: Esophagitis, unspecified Take by mouth once daily. Take one(1) tablet daily in the evening. 0 07/10/2010 Active traZODone hydrochloride 50 mg oral tablet (20 sources) Serotonin Reuptake Inhibitor Start: 10-19-2014 End: 11-05-2023 triamcinolone acetonide 1 mg/ml topical cream (1 source) Corticosteroid Start: 09-26-2012 triamcinolone acetonide 0.1 % cream Apply 1 application to affected area twice daily. Apply to affected area for rash/itching 30 g 0 09/26/2012 Active Completed/Discontinued Medications Medication Drug Class(es) Dates Sig (Normalized) Sig (Original) acetaminophen 325 mg / HYDROcodone bitartrate 5 mg oral tablet (19 sources) Opioid Agonist Start: 12-31-2018 End: 01-08-2019 Hydrocodone-Acetami nophen 1 TABLET tablet Discontinued 1 {tbl} PO EVERY 4 HOURS NEEDED as needed for Pain 20 5 0 December 31, 2018 January 04, 2019 12:00am January 08, 2019 12:10am Personal history of urinary calculi Start: 12-31-2018 End: 01-08-2019 take 1 tablet by mouth every four hours as needed Hydrocodone-Acetaminophen Discontinued 1 TABLET PO EVERY 4 HOURS NEEDED 20 5 December 31, 2018 January 08, 2019 12:10am acetaminophen 325 mg / oxyCODONE hydrochloride 5 mg oral tablet (14 sources) Opioid Agonist Start: 01-02-2022 End: 11-01-2023 Oxycodone-Acetaminophen 5-32 5 mg tablet Discontinued 1 {tbl} PO EVERY 6 HOURS January 02, 2022 12:00am November 01, 2023 2:06am PAIN Start: 01-02-2022 take 1 tablet by betito th every six hours Oxycodone-Acetaminophen Active 1 TABLET PO EVERY 6 HOURS January 02, 2022 12:00am amLODIPine 5 mg oral tablet (20 sources) Dihydropyridine Calcium Channel [place] Start: 11-02-2023 End: 11-05-2023 take 5 mg by mouth once daily 5 mg, Oral, DAILY, First dose on 11/02/23 at 0900, Until Discontinued Start: 11-01-2023 take 5 mg by mouth once daily Start: 01-06-2022 End: 11-01-2023 take 1 tablet by mouth once daily Amlodipine 10 mg tablet Discontinued 10 mg PO DAILY 30 30 0 January 06, 2022 12:00am November 01, 2023 2:07am Start: 04-20-2020 End: 07-10-2021 take 1 tablet by mouth twice daily Amlodipine 5 MG tablet Discontinued 5 mg PO TWICE A DAY 0 0 April 20, 2020 10:17am July 10, 2021 4:21pm bp Start: 10-05-2013 End: 01-06-2022 take 1 tablet by mouth once daily Amlodipine 5 mg tablet Discontinued 5 mg PO DAILY July 10, 2021 4:19pm January 06, 2022 1:13pm bp aspirin 81 mg chewable tablet (20 sources) Platelet Aggregation Inhibitor, Nonsteroidal Anti-inflammatory Drug Start: 04-20-2020 End: 04-20-2020 take 1 tablet by mouth twice daily Aspirin 81 MG tablet,chewable Discontinued 81 mg PO TWICE A DAY 0 April 20, 2020 1:00am April 20, 2020 3:18pm atenolol 50 mg oral tablet (20 sources) beta-Adrenergic [place] Start: 11-02-2023 End: 11-05-2023 take 100 mg by mouth once daily 100 mg, Oral, DAILY, First dose on 11/02/23 at 0900, Until Discontinued Start: 10-05-2013 take 1 tablet by mouth once da alpa calcium carbonate 500 mg chewable tablet (20 sources) Start: 04-28-2020 End: 07-10-2021 take 1 tablet by mouth every six hours as needed Calcium Carbonate 500 MG tablet Discontinued 500 mg PO EVERY 6 HOURS NEEDED as needed for Indigestion 0 April 28, 2020 1:00am July 10, 2021 4:20pm Start: 04-20-2020 End: 07-10-2021 take 1 tablet by mouth twice daily at mealtime Calcium Carbonate 500 MG tablet Discontinued 500 mg PO TWICE DAILY WITH MEALS April 20, 2020 3:18pm July 10, 2021 4:20pm bone health calcium chloride 0.0014 meq/ml / potassium chloride 0.004 meq/ml / sodium chloride 0.103 meq/ml / sodium lactate 0.028 meq/ml injectable solution (2 sources) Start: 11-01-2023 End: 11-05-2023 Intravenous, at 75 mL/hr, CONTINUOUS, Starting on Sat11/01/23 at 2030, Until Sat11/05/23 at 0835 cetirizine hydrochloride 10 mg oral capsule (19 sources) Histamine-1 Receptor Antagonist Start: 07-02-2020 End: 07-10-2021 take 1 capsule by mouth once daily Cetirizine 10 MG capsule Discontinued 10 mg PO DAILY 14 0 July 02, 2020 12:00am July 10, 2021 4:20pm cholecalciferol 0.025 mg oral tablet (20 sources) Vitamin D Start: 04-20-2020 End: 07-10-2021 take 1 tablet by mouth twice daily Cholecalciferol (Vitamin D3) 1,000 UNIT tablet Discontinued 1000 U PO TWICE A DAY April 20, 2020 3:18pm July 10, 2021 4:20pm health docusate sodium 50 mg / sennosides, mcfp 8.6 mg oral tablet (20 sources) Start: 04-20-2020 End: 07-10-2021 Sennosides-Docusate Sodium 1 TABLET tablet Discontinued 2 {tbl} PO TWICE A DAY 120 0 April 28, 2020 12:39pm July 10, 2021 4:21pm constipation Start: 04-20-2020 End: 07-10-2021 take 2 tablets by mouth twice daily Sennosides-Docusate Sodium Discontinued 2 TABLET PO TWICE A DAY 120 April 28, 2020 12:39pm July 10, 2021 4:21pm 0.4 ml enoxaparin sodium 100 mg/ml prefilled syringe (2 sources) Low Molecular Weight Heparin Start: 11-02-2023 End: 11-05-2023 inject 40 mg by subcutaneous injection once daily 40 mg, Subcutaneous, DAILY, First dose on Sat11/02/23 at 0900, Until Discontinued, For SUBCUTANEOUS route ONLY: alternate injection sites between left and right abdominal wall, pinching location and avoiding area around navel. If unable to use abdominal sites, may use the front or side of thighs., Indications: DVT/PE prophylaxis famotidine 20 mg oral tablet (19 sources) Histamine-2 Receptor Antagonist Start: 07-02-2020 End: 07-10-2021 take 1 tablet by mouth twice daily Famotidine 20 MG tablet Discontinued 20 mg PO TWICE A DAY July 02, 2020 12:00am July 10, 2021 4:20pm guaiFENesin 20 mg/ml oral solution (2 sources) Start: 11-01-2023 End: 11-05-2023 take 400 mg by mouth every six hours as needed 400 mg, Oral, EVERY 6 HOURS NEEDED, Starting on Sat11/01/23 at 1927, Until Sat11/05/23 at 1912, Cough, Congestion hydrALAZINE hydrochloride 25 mg oral tablet (4 sources) Arteriolar Vasodilator Start: 11-03-2023 End: 11-03-2023 5 mg, Intravenous, ONCE, 1 dose, On Sat11/03/23 at 2345 Start: 11-02-2023 End: 11-05-2023 take 1 tablet by mouth every eight hours as needed 25 mg, Oral, EVERY 8 HOURS NEEDED, Starting on Sat11/02/23 at 0816, Until Sat11/05/23 at 1912, Other, for systolic BP >175 1 ml HYDROmorphone hydrochloride 1 mg/ml cartridge (2 sources) Opioid Agonist Start: 11-04-2023 End: 11-04-2023 0.5 mg, Intravenous, EVERY 10 MINUTES NEEDED, 8 doses, Starting on Sat11/04/23 at 1532, Until Sat11/04/23 at 1656, Moderate Pain, Severe Pain, May give a total of 4mg in PACU., Recovery HYDROmorphone (DILAUDID) injection 0.2 mg (2 sources) Start: 11-01-2023 End: 11-05-2023 take 0.2 mg intravenously every three hours as needed HYDROmorphone (DILAUDID) injection 0.2 mg levothyroxine sodium 0.075 mg oral tablet (20 sources) l-Thyroxine Start: 11-02-2023 End: 11-05-2023 take 150 ug by mouth once daily before breakfast 150 mcg, Oral, DAILY BEFORE BREAKFAST, First dose on 11/02/23 at 0600, Until Discontinued Start: 01-06-2022 take 1 capsule by mo [facility] once daily Start: 07-10-2021 End: 11-01-2023 Levothyroxine 200 mcg tablet Discontinued 200 ug [facility] July 10, 2021 12:00am November 01, 2023 2:06am 200 mcg PO 5 days a week; Start: 04-20-2020 End: 07-10-2021 take 1 tablet by mouth once daily Levothyroxine 175 MCG tablet Discontinued 175 ug PO DAILY@0600 April 20, 2020 3:18pm July 10, 2021 4:21pm hypothyroidism Start: 09-07-2015 [facility], then take 1 tablet by mouth once daily, then take 0.5 tablet by mouth every week levothyroxine (SYNTHROID) 150 mcg tablet Indications: Unspecified hypothyroidism Take 1 tablet by mouth once daily. Take one tab daily, and additionally 1/2 tab WEEKLY 90 tablet 3 09/07/2015 Active Start: 10-05-2013 End: 04-20-2020 Levothyroxine 150 MCG tablet Discontinued 200 ug PO DAILY October 05, 2013 12:00am April 20, 2020 10:12am thyroid Start: 10-05-2013 End: 04-20-2020 take 200 ug by mouth once daily Levothyroxine Discontinued 200 MCG PO DAILY October 05, 2013 12:00am April 20, 2020 10:12am melatonin 3 mg oral tablet (2 sources) Start: 11-01-2023 End: 11-05-2023 take 6 mg by mouth once daily at bedtime as needed 6 mg, Oral, DAILY AT BEDTIME NEEDED, Starting on Sat11/01/23 at 1927, Until Sat11/05/23 at 1912, Insomnia 2 ml ondansetron 2 mg/ml injection (2 sources) Serotonin-3 Receptor Antagonist Start: 11-04-2023 End: 11-04-2023 4 mg, Intravenous, ONCE NEEDED, 1 dose, Starting on Sat11/04/23 at 1532, Until Sat11/04/23 at 1621, Nausea / Vomiting, FIRST line antiemetic, Do not administer within 6 hours of intra-operative dose., Recovery Ondansetron 4mg/2ml (ZOFRAN) injection 4 mg (2 sources) Start: 11-01-2023 End: 11-05-2023 take 4 mg intravenously every six hours as needed Ondansetron 4mg/2ml (ZOFRAN) injection 4 mg pantoprazole 40 mg injection (20 sources) Proton Pump Inhibitor Start: 11-02-2023 End: 11-05-2023 40 mg, Intravenous, DAILY, First dose on Sat11/02/23 at 0900, Until Discontinued, Dilute each 40 mg vial with 10 mL of NS. All bolus doses, whether 40 mg or 80 mg, should be administered over at least two minutes., Indications: GERD Start: 04-20-2020 End: 07-10-2021 take 1 tablet by mouth once daily as needed for gastroesophageal reflux disease Pantoprazole 20 MG tablet Discontinued 20 mg PO DAILY NEEDED as needed for GERD 0 April 20, 2020 1:00am July 10, 2021 4:21pm phenazopyridine hydrochloride 100 mg oral tablet (19 sources) Start: 12-31-2018 End: 01-08-2019 take 1 tablet by mouth three times daily as needed Phenazopyridine 100 MG tablet Discontinued 100 mg PO 3 TIMES DAILY NEEDED as needed for burning 14 5 0 December 31, 2018 1:29pm January 04, 2019 12:00am January 08, 2019 12:10am piperacillin 4000 mg / tazobactam 500 mg injection (2 sources) Penicillin-clas s Antibacterial, beta Lactamase Inhibitor Start: 11-01-2023 End: 11-02-2023 4.5 g, Intravenous, Administer over 4 Hours, EVERY 8 HOURS NON-STANDARD, First dose on Sat11/01/23 at 2100, Until Discontinued, Infuse STAT doses over 30 minutes. Infuse other doses over 4 hours. Contains a penicillin., Indications: Empiric therapy polyethylene glycol 3350 13243 mg powder for oral solution (2 sources) Osmotic Laxative Start: 11-01-2023 End: 11-05-2023 17 g, Oral, DAILY NEEDED, Starting on Sat11/01/23 at 1927, Until Sat11/05/23 at 191, Constipation 1st Line 1000 ml sodium chloride 9 mg/ml injection (2 sources) Start: 11-01-2023 End: 11-05-2023 Intravenous, at 20 mL/hr, NEEDED, Starting on Sat11/01/23 at 1924, Until Sat11/05/23 at 1911, Carrier Fluid - See Admin. Inst, 250mL 0.9NS to be used as carrier fluid for intermittent small volume or piggyback medication administration as needed. Infusion rate of the carrier fluid should be set at 20 mL/hr unless the rate as the intermittent medication is less than 20 mL/hr. For intermittent medications with a rate less than 20 mL/hr set the carrier fluid at that rate of the intermittent or piggy back medication. Problems Active Problems Problem Classification Problem Date Documented Da te Episodic/Chronic Abdominal hernia (20 sources) Hiatal hernia; Translations: [Diaphragmatic hernia without obstruction or gangrene] Onset: 6 07-24-2021 Episodic Abdominal pain (6 sources) Left flank pain; Translations: [Unspecified abdominal pain] Onset: 0 03-14-2009 Episodic Biliary tract disease (19 sources) Biliary calculus; Translations: [Calculus of gallbladder without cholecystitis without obstruction] 07-24-2021 Episodic Calculus of urinary tract (20 sources) Kidney stone; Translations: [Calculus of kidney] Onset: 8 Episodic Comment on above: hereditary Chronic kidney disease (19 sources) Chronic renal failure; Translations: [Chronic renal failure, stage 3 (moderate)] 04-21-2020 Chronic Diabetes mellitus without complication (19 sources) Impaired glucose tolerance; Translations: [Impaired glucose tolerance (oral)] 07-24-2021 Episodic Comment on above: new diagnosis Disorders of lipid metabolism (20 sources) Hyperlipidemia; Translations: [Hyperlipidemia, unspecified] 07-10-2021 Chronic Diverticulosis and diverticulitis (19 sources) Diverticular disease; Translations: [Diverticulosis of intestine, part unspecified, without perforation or abscess without bleeding] 07-24-2021 Chronic Esophageal disorders (1 source) Gastroesophageal reflux disease; Translations: [Gastro-esophageal reflux disease without esophagitis] 01-30-2005 Chronic Essential hypertension (20 sources) Hypertensive disorder; Translations: [Essential (primary) hypertension] Onset: 5 Chronic Heart valve disorders (18 sources) Aortic stenosis, non-rheumatic ; Translations: [Nonrheumatic aortic (valve) stenosis] 07-24-2021 Chronic Hepatitis (5 sources) Acute hepatitis; Translations: [Acute viral hepatitis, unspecified] 11-09-2023 Episodic Malaise and fatigue (19 sources) Asthenia; Translations: [Other malaise] 07-24-2021 Episodic Comment on above: due to R TKA 04/19/20 Nausea and vomiting (5 sources) Vomiting; Translations: [Vomiting, unspecified] 11-09-2023 Episodic Nutritional deficiencies (20 sources) Vitamin D deficiency; Translations: [Vitamin D deficiency, unspecified] Onset: 9 07-24-2021 Chronic Other connective tissue disease (18 sources) History of total knee arthroplasty; Translations: [Presence of right artificial knee joint] Onset: 1 07-24-2021 Chronic Other connective tissue disease (1 source) History of right total knee replacement; Translations: [Presence of right artificial knee joint] Onset: 1 07-24-2021 Chronic Other gastrointestinal disorders (1 source) Irritable bowel syndrome; Translations: [Irritable bowel syndrome without diarrhea] Onset: 8 02-19-2008 Chronic Other liver diseases (19 sources) Large liver; Translations: [Hepatomegaly, not elsewhere classified] 07-24-2021 Episodic Other nutritional; endocrine; and metabolic disorders (19 sources) Disorder of carbohydrate metabolism; Translations: [Other disorders of intestinal carbohydrate absorption] 07-24-2021 Chronic Comment on above: new diagnosis Other nutritional; endocrine; and metabolic disorders (19 sources) Body mass index 30+ - obesity; Translations: [Obesity, unspecified] 04-21-2020 Chronic Other nutritional; endocrine; and metabolic disorders (19 sources) H/O: hypothyroidism; Translations: [Personal history of other endocrine, nutritional and metabolic disease] 07-10-2021 Episodic Other skin disorders (1 source) Localized scleroderma; 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]] Onset: 8 01-12-2008 Chronic Other upper respiratory infections (1 source) Bacterial sinusitis; Translations: [Chronic sinusitis, unspecified] 09-01-2023 Chronic Pancreatic disorders (not diabetes) (13 sources) Gallstone pancreatitis; Translations: [Biliary acute pancreatitis without necrosis or infection] Onset: 11-04-2023 Episodic Peripheral and visceral atherosclerosis (19 sources) Abdominal aortic atherosclerosis; Translations: [Atherosclerosis of aorta] 04-21-2020 Chronic Residual codes; unclassified (19 sources) History of nephrectomy; Translations: [Acquired absence of kidney] 07-24-2021 Episodic Residual codes; unclassified (19 sources) Insomnia; Translations: [Insomnia, unspecified] 07-24-2021 Episodic Residual codes; unclassified (14 sources) Pain; Translations: [Pain, unspecified] 01-02-2022 Episodic Residual codes; unclassified (3 sources) Pain, unspecified; Translations: [Generalized pain] Episodic Thyroid disorders (20 sources) Iatrogenic thyrotoxicosis; Translations: [Other thyrotoxicosis without thyrotoxic crisis or storm] 04-21-2020 Chronic Urinary tract infections (17 sources) Acute urinary tract infection; Translations: [Urinary tract infection, site not specified] Episodic Past or Other Problems Problem Classification Problem Date Documented Da te Episodic/Chronic Allergic reactions (2 sources) Radiation-induced dermatosis; 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] Onset: 11-08-2005 Resolved: 10-19-2014 10-19-2014 Episodic Esophageal disorders (1 source) Esophagitis; Translations: [Esophagitis, unspecified] Onset: 08-01-2005 08-01-2005 Episodic Inflammatory diseases of female pelvic organs (1 source) Ulceration of vulva; Translations: [Ulceration of vulva] Onset: 01-12-2008 01-12-2008 Episodic Mycoses (1 source) Candidiasis; Translations: [Candidiasis of skin and nail] Onset: 01-12-2008 Resolved: 10-19-2014 10-19-2014 Episodic Neoplasms of unspecified nature or uncertain behavior (1 source) Neoplasm of uncertain behavior of skin; Translations: [Neoplasm of uncertain behavior of skin] Onset: 11-08-2005 Resolved: 10-19-2014 10-19-2014 Episodic Other and unspecified benign neoplasm (1 source) Benign neoplasm of skin of trunk; Translations: [Other benign neoplasm of skin of trunk] Onset: 11-08-2005 11-08-2005 Episodic Other and unspecified benign neoplasm (1 source) Benign tumor of head and neck; Translations: [Other benign neoplasm of skin of scalp and neck] Onset: 09-24-2006 09-24-2006 Episodic Other and unspecified benign neoplasm (1 source) Benign neoplasm of skin of face; Translations: [Other benign neoplasm of skin of unspecified part of face] Onset: 06-25-2006 Resolved: 10-19-2014 10-19-2014 Episodic Other connective tissue disease (1 source) Muscle pain; Translations: [Myalgia and myositis, unspecified] Onset: 05-28-2005 05-28-2005 Episodic Other connective tissue disease (1 source) Calcaneal spur; Translations: [Calcaneal spur, unspecified foot] Onset: 10-05-2005 10-05-2005 Episodic Other injuries and conditions due to external causes (1 source) Foreign body in bladder and urethra; Translations: [Foreign body in bladder, initial encounter] Onset: 12-19-2007 12-19-2007 Episodic Other injuries and conditions due to external causes (1 source) Open wound; Translations: [Other injury of unspecified body region, initial encounter] Onset: 12-20-2005 Resolved: 10-19-2014 10-19-2014 Episodic Other non-epithelial cancer of skin (1 source) History of malignant neoplasm of skin; Translations: [Personal history of other malignant neoplasm of skin] Onset: 03-26-2006 03-26-2006 Episodic Other screening for suspected conditions (not mental disorders or infectious disease) (1 source) Encounter for screening mammogram for malignant neoplasm of breast; Translations: [Encounter for screening mammogram for malignant neoplasm of breast] Onset: 06-15-2024 Episodic Other skin disorders (1 source) Disorder of skin pigmentation; Translations: [Disorder of pigmentation, unspecified] Onset: 11-08-2005 Resolved: 10-19-2014 10-19-2014 Episodic Other skin disorders (1 source) Seborrheic keratosis; Translations: [Other seborrheic keratosis] Onset: 11-08-2005 Resolved: 10-19-2014 10-19-2014 Episodic Other skin disorders (1 source) Keloid scar; Translations: [Hypertrophic scar] Onset: 03-26-2006 Resolved: 10-19-2014 10-19-2014 Episodic Other skin disorders (1 source) Scar conditions and fibrosis of skin; Translations: [Scar conditions and fibrosis of skin] Onset: 03-26-2006 Resolved: 10-19-2014 10-19-2014 Episodic Other skin disorders (1 source) Sebaceous cyst of skin; Translations: [Sebaceous cyst] Onset: 03-26-2006 Resolved: 10-19-2014 10-19-2014 Episodic Skin and subcutaneous tissue infections (1 source) Pyoderma; Translations: [Pyoderma] Onset: 01-12-2008 01-12-2008 Episodic Results Test Name Value Interpretation Reference Range Facility CBC W/Diff, Automatedon 01-09 Absolute Lymph 2.07 X10 3/uL Normal 0.83-4.51 [facility] Comment on above: Order Comment: Order Date: 11/23/24 Order Info: [id number] - CBCD Performed By: #### L 500.4100, L501.9520, L501.9985, L500.4050, L100.0100 #### [facility] [address] [place], [address] Absolute Neut 3.4 X10 3/uL Normal 2.0-7.7 [facility] Comment on above: Order Comment: Order Date: 11/23/24 Order Info: [id number]- - CBCD Performed By: #### L 500.4100, L501.9520, L501.9985, L500.4050, L100.0100 #### [facility] [address] [place], [address] Basophils/100 WBC (Bld) 1.1 % High 0-[address] [facility] Comment on above: Order Comment: Order Date: 11/23/24 Order Info: [id number] - CBCD Performed By: #### L 500.4100, L501.9520, L501.9985, L500.4050, L100.0100 #### [facility] [address] [place], [address] Eosinophils/100 WBC (Bld) 4.7 % Normal 0-5 [facility] Comment on above: Order Comment: Order Date: 11/23/24 Order Info: [id number] - CBCD Performed By: #### L 500.4100, L501.9520, L501.9985, L500.4050, L100.0100 #### [facility] [address] [place], [address] Erythrocyte distribution width (RBC) [Ratio] 13.0 % Normal 11.6-14.6 [facility] Comment on above: Order Comment: Order Date: 11/23/24 Order Info: [id number] - CBCD Performed By: #### L 500.4100, L501.9520, L501.9985, L500.4050, L100.0100 #### [facility] [address] [place], [address] Hematocrit (Bld) [Volume fraction] 43.8 % Normal 37-47 [facility] Comment on above: Order Comment: Order Date: 11/23/24 Order Info: [id number] - CBCD Performed By: #### L 500.4100, L501.9520, L501.9985, L500.4050, L100.0100 #### [facility] [address] [place], [address] Hemoglobin (Bld) [Mass/Vol] 14.2 g/dL Normal 12.0-15.0 [facility] Comment on above: Order Comment: Order Date: 11/23/24 Order Info: 0184-1 - CBCD Performed By: #### L 500.4100, L501.9520, L501.9985, L500.4050, L100.0100 #### [facility] [address] [place], [address] IG% 0.500 Normal 0.0-0.9 [facility] Comment on above: Order Comment: Order Date: 11/23/24 Order Info: [id number] - CBCD Result Comment: IG% - Immature Granulocytes (promyelocytes, myelocytes and metamyelocytes) > 1% indicates that a LEFT SHIFT is Present. Performed By: #### L 500.4100, L501.9520, L501.9985, L500.4050, L100.0100 #### [facility] [address] [place], [address] Lymphocytes/100 WBC (Bld) 31.3 % Normal 19-41 [facility] Comment on above: Order Comment: Order Date: 11/23/24 Order Info: 0184-1 - CBCD Performed By: #### L 500.4100, L501.9520, L501.9985, L500.4050, L100.0100 #### [facility] [address] [place], [address] MCH (RBC) [Entitic mass] 30.2 pg Normal 27.0-32.0 [facility] Comment on above: Order Comment: Order Date: 11/23/24 Order Info: 0184-1 - CBCD Performed By: #### L 500.4100, L501.9520, L501.9985, L500.4050, L100.0100 #### [facility] [address] [place], [address] MCHC (RBC) [Mass/Vol] 32.4 g/dL Normal 32-36 [facility] Comment on above: Order Comment: Order Date: 11/23/24 Order Info: [id number] - CBCD Performed By: #### L 500.4100, L501.9520, L501.9985, L500.4050, L100.0100 #### [facility] [address] [place], [address] MCV (RBC) [Entitic vol] 93.2 fL Normal 81-[address] [facility] Comment on above: Order Comment: Order Date: 11/23/24 Order Info: [id number] - CBCD Performed By: #### L 500.4100, L501.9520, L501.9985, L500.4050, L100.0100 #### [facility] [address] [place], [address] Monocytes/100 WBC (Bld) 11.8 % High 0-[address] [facility] Comment on above: Order Comment: Order Date: 11/23/24 Order Info: 0184-1 - CBCD Performed By: #### L 500.4100, L501.9520, L501.9985, L500.4050, L100.0100 #### [facility] [address] [place], [address] Neutrophils/100 WBC (Bld) 50.6 % Normal 47-70 [facility] Comment on above: Order Comment: Order Date: 11/23/24 Order Info: 0184-1 - CBCD Performed By: #### L 500.4100, L501.9520, L501.9985, L500.4050, L100.0100 #### [facility] [address] [place], [address] Nucleated RBC (Bld) [#/Vol] 0 10*3/uL Normal 0-5 [facility] Comment on above: Order Comment: Order Date: 11/23/24 Order Info: 0184-1 - CBCD Performed By: #### L 500.4100, L501.9520, L501.9985, L500.4050, L100.0100 #### [facility] [address] [place], [address] Platelet mean volume (Bld) [Entitic vol] 10.8 fL Normal 6.2-12.0 [facility] Comment on above: Order Comment: Order Date: 11/23/24 Order Info: 0184-1 - CBCD Performed By: #### L 500.4100, L501.9520, L501.9985, L500.4050, L100.0100 #### [facility] [address] [place], [address] Platelets (Bld) [#/Vol] 247 10*3/uL Normal 150-450 [facility] Comment on above: Order Comment: Order Date: 11/23/24 Order Info: [id number] - CBCD Performed By: #### L 500.4100, L501.9520, L501.9985, L500.4050, L100.0100 #### [facility] [address] [place], [address] RBC (Bld) [#/Vol] 4.70 10*6/uL Normal 4.2-5.4 [facility] Comment on above: Order Comment: Order Date: 11/23/24 Order Info: [id number] - CBCD Performed By: #### L 500.4100, L501.9520, L501.9985, L500.4050, L100.0100 #### [facility] [address] [place], [address] RDW SD 44.3 fl High 35.1-43.9 [facility] Comment on above: Order Comment: Order Date: 11/23/24 Order Info: 0184- - CBCD Performed By: #### L 500.4100, L501.9520, L501.9985, L500.4050, L100.0100 #### [facility] [address] [place], [address] WBC (Bld) [#/Vol] 6.6 10*3/uL Normal 4.4-11.0 [facility] Comment on above: Order Comment: Order Date: 11/23/24 Order Info: [id number] - CBCD Performed By: #### L 500.4100, L501.9520, L501.9985, L500.4050, L100.0100 #### [facility] [address] [place], [address] Comprehensive Metabolic Prof ilon 01-18-2025 Albumin [Mass/Vol] 4.3 g/dL Normal 3.4-4.8 [facility] Comment on above: Order Comment: Order Date: 11/23/24Order Info: [id number] - CMPOrder Info: [id number] - LIPIDOrder Info: [id number] - TSH Performed By: #### L 100.0100, L500.4050, L501.9520, L506.1001, L500.4100, L501.9985 #### [facility] [address], [address] Albumin/Globulin [Mass ratio] 1.4 {ratio} Normal 0.9-2.4 [facility] Comment on above: Order Comment: Order Date: 11/23/24Order Info: 07-1 - CMPOrder Info: [id number] - LIPIDOrder Info: [id number] - TSH Performed By: #### L 100.0100, L500.4050, L501.9520, L506.1001, L500.4100, L501.9985 #### [facility] [address], [address] ALK PHOS 115 U/L High 35-104 [facility] Comment on above: Order Comment: Order Date: 11/23/24Order Info: 07-1 - CMPOrder Info: [id number] - LIPIDOrder Info: [id number] - TSH Performed By: #### L 100.0100, L500.4050, L501.9520, L506.1001, L500.4100, L501.9985 #### [facility] [address], [address] ALT [Catalytic activity/Vol] 16 U/L Normal <=34 [facility] Comment on above: Order Comment: Order Date: 11/23/24Order Info: [id number] - CMPOrder Info: [id number] - LIPIDOrder Info: [id number] - TSH Performed By: #### L 100.0100, L500.4050, L501.9520, L506.1001, L500.4100, L501.9985 #### [facility] [address] [place], [address] AST [Catalytic activity/Vol] 19 U/L Normal <=31 [facility] Comment on above: Order Comment: Order Date: 11/23/24Order Info: [id number] - CMPOrder Info: [id number] - LIPIDOrder Info: [id number] - TSH Performed By: #### L 100.0100, L500.4050, L501.9520, L506.1001, L500.4100, L501.9985 #### [facility] [address] [place], [address] Bilirubin [Mass/Vol] 0.80 mg/dL Normal 0.00-1.30 [facility] Comment on above: Order Comment: Order Date: 11/23/24Order Info: [id number] - CMPOrder Info: [id number] - LIPIDOrder Info: [id number] - TSH Performed By: #### L 100.0100, L500.4050, L501.9520, L506.1001, L500.4100, L501.9985 #### [facility] [address] [place], [address] BUN/CRE 12.8 RATIO Normal 10-20 [facility] Comment on above: Order Comment: Order Date: 11/23/24Order Info: [id number] - CMPOrder Info: [id number] - LIPIDOrder Info: [id number] - TSH Performed By: #### L 100.0100, L500.4050, L501.9520, L506.1001, L500.4100, L501.9985 #### [facility] [address] [place], [address] Calcium [Mass/Vol] 9.6 mg/dL Normal 7.6-11.0 [facility] Comment on above: Order Comment: Order Date: 11/23/24Order Info: 785- - CMPOrder Info: [id number] - LIPIDOrder Info: [id number] - TSH Performed By: #### L 100.0100, L500.4050, L501.9520, L506.1001, L500.4100, L501.9985 #### [facility] [address] [place], [address] Chloride [Moles/Vol] 108 mmol/L Normal 98-108 [facility] Comment on above: Order Comment: Order Date: 11/23/24Order Info: 785- - CMPOrder Info: - LIPIDOrder Info: 3 - TSH Performed By: #### L 100.0100, L500.4050, L501.9520, L506.1001, L500.4100, L501.9985 #### [facility] [address] [place], [address] CO2 [Moles/Vol] 21.3 mmol/L Normal 21.0-32.0 [facility] Comment on above: Order Comment: Order Date: 11/23/24Order Info: [id number] - CMPOrder Info: [id number] - LIPIDOrder Info: [id number] - TSH Performed By: #### L 100.0100, L500.4050, L501.9520, L506.1001, L500.4100, L501.9985 #### [facility] [address] [place], [address] Creatinine [Mass/Vol] 1.18 mg/dL Normal 0.70-1.20 [facility] Comment on above: Order Comment: Order Date: 11/23/24Order Info: 785- - CMPOrder Info: [id number] - LIPIDOrder Info: [id number] - TSH Performed By: #### L 100.0100, L500.4050, L501.9520, L506.1001, L500.4100, L501.9985 #### [facility] [address] [place], [address] GAP 13 Normal 5-15 [facility] Comment on above: Order Comment: Order Date: 11/23/24Order Info: [id number] - CMPOrder Info: [id number] - LIPIDOrder Info: [id number] - TSH Performed By: #### L 100.0100, L500.4050, L501.9520, L506.1001, L500.4100, L501.9985 #### [facility] [address] [place], [address] GFR/1.73 sq M.predicted among non-blacks MDRD (S/P/Bld) [Vol rate/Area] 47 mL/min/{1.73_m2} Low >60 [facility] Comment on above: Order Comment: Order Date: 11/23/24Order Info: 785- - CMPOrder Info: - LIPIDOrder Info: [id number] - TSH Result Comment: mL/m in/1.73m2 CKD-EPI Creatinine Equation (2020) Performed By: #### L 100.0100, L500.4050, L501.9520, L506.1001, L500.4100, L501.9985 #### [facility] [address] [place], [address] Globulin (S) [Mass/Vol] 3.0 g/dL Normal 2.2-4.[address] [facility] Comment on above: Order Comment: Order Date: 11/23/24Order Info: [id number] - CMPOrder Info: [id number] - LIPIDOrder Info: [id number] - TSH Performed By: #### L 100.0100, L500.4050, L501.9520, L506.1001, L500.4100, L501.9985 #### [facility] [address] [place], [address] Glucose [Mass/Vol] 134 mg/dL High 70-99 [facility] Comment on above: Order Comment: Order Date: 11/23/24Order Info: 07-1 - CMPOrder Info: [id number] - LIPIDOrder Info: [id number] - TSH Performed By: #### L 100.0100, L500.4050, L501.9520, L506.1001, L500.4100, L501.9985 #### [facility] [address] [place], [address] Potassium [Moles/Vol] 4.3 mmol/L Normal 3.3-5.1 [facility] Comment on above: Order Comment: Order Date: 11/23/24Order Info: 785- - CMPOrder Info: [id number] - LIPIDOrder Info: [id number] - TSH Performed By: #### L 100.0100, L500.4050, L501.9520, L506.1001, L500.4100, L501.9985 #### [facility] [address] [place], [address] Sodium [Moles/Vol] 142 mmol/L Normal 133-145 [facility] Comment on above: Order Comment: Order Date: 11/23/24Order Info: 07- - CMPOrder Info: [id number] - LIPIDOrder Info: [id number] - TSH Performed By: #### L 100.0100, L500.4050, L501.9520, L506.1001, L500.4100, L501.9985 #### [facility] [address] [place], [address] T PROT 7.2 g/dL Normal 5.9-8.4 [facility] Comment on above: Order Comment: Order Date: 11/23/24Order Info: 07-1 - CMPOrder Info: [id number] - LIPIDOrder Info: [id number] - TSH Performed By: #### L 100.0100, L500.4050, L501.9520, L506.1001, L500.4100, L501.9985 #### [facility] [address] [place], [address] Urea nitrogen [Mass/Vol] 15 mg/dL Normal 4-19 [facility] Comment on above: Order Comment: Order Date: 11/23/24Order Info: [id number] - CMPOrder Info: [id number] - LIPIDOrder Info: [id number] - TSH Performed By: #### L 100.0100, L500.4050, L501.9520, L506.1001, L500.4100, L501.9985 #### [facility] [address] [place], [address] Hemoglobin A1con 01-18-2025 HbA1c (Bld) [Mass fraction] 6.5 % High <=5.6 [facility] Comment on above: Order Comment: Order Date: 11/23/24 Order Info: [id number] - A1C Result Comment: Norm al < 5.7 % Prediabetic 5.7 - 6.4 % Diabetic >or= 6.5 % Please note range changes. Performed By: #### L 500.4100, L501.9520, L501.9985, L500.4050, L100.0100 #### [facility] [address] [place], [address] Lipid Profileon 01-18-2025 CHOL:HDL 3.60 Normal [facility] Comment on above: Order Comment: Order Date: 11/23/24Order Info: [id number] - CMPOrder Info: [id number] - LIPIDOrder Info: [id number] - TSH Performed By: #### L 100.0100, L500.4050, L501.9520, L506.1001, L500.4100, L501.9985 #### [facility] [address] [place], [address] Cholesterol [Mass/Vol] 164 mg/dL Normal <=200 [facility] Comment on above: Order Comment: Order Date: 11/23/24Order Info: [id number] - CMPOrder Info: [id number] - LIPIDOrder Info: [id number] - TSH Result Comment: Chol esterol level, Desirable <200 mg/dL Borderline high cholesterol 200-239 mg/dL High cholesterol >=240 mg/dL Recommendations of the NCEP Adult Treatment Panel for the following risk-cutoff thresholds for the [place] population. Performed By: #### L 100.0100, L500.4050, L501.9520, L506.1001, L500.4100, L501.9985 #### [facility] [address] [place], [address] Cholesterol in HDL [Mass/Vol] 46 mg/dL Normal [facility] Comment on above: Order Comment: Order Date: 11/23/24Order Info: [id number] - CMPOrder Info: [id number] - LIPIDOrder Info: 3 - TSH Result Comment: Elva onal Cholesterol Education Program (NCEP) guidelines: <40 mg/dL: Low HDL-cholesterol (major risk factor for CHD) >= 60 mg/dL: High HDL-cholesterol (negative risk factor for CHD) HDL-cholesterol is affected by a number of factors, e.g. smoking, exercise, hormones, sex and age. Performed By: #### L 100.0100, L500.4050, L501.9520, L506.1001, L500.4100, L501.9985 #### [facility] [address] [place], [address] Cholesterol in LDL [Mass/Vol] 91 mg/dL Normal [facility] Comment on above: Order Comment: Order Date: 11/23/24Order Info: [id number] - CMPOrder Info: [id number] - LIPIDOrder Info: 6-3 - TSH Result Comment: Bord rgnizm=490-865 mg/dL Higher Ywyn=274 mg/dL or greater Babin Equation 2020 for LDL-C Performed By: #### L 100.0100, L500.4050, L501.9520, L506.1001, L500.4100, L501.9985 #### [facility] [address] [place], [address] Cholesterol in VLDL [Mass/Vol] 31 mg/dL Normal 5-40 [facility] Comment on above: Order Comment: Order Date: 11/23/24Order Info: [id number] - CMPOrder Info: [id number] - LIPIDOrder Info: [id number] - TSH Performed By: #### L 100.0100, L500.4050, L501.9520, L506.1001, L500.4100, L501.9985 #### [facility] [address] [place], [address] Triglyceride [Mass/Vol] 157 mg/dL Normal [facility] Comment on above: Order Comment: Order Date: 11/23/24Order Info: [id number] - CMPOrder Info: [id number] - LIPIDOrder Info: [id number] - TSH Result Comment: The drugs N-Acetylcysteine and Metamizole may falsely depress this assay. Normal range: <150 mg/dL Borderline High: 150-199 mg/dL High: 200-499 mg/dL Very High: >500 mg/dL Performed By: #### L 100.0100, L500.4050, L501.9520, L506.1001, L500.4100, L501.9985 #### [facility] [address] [place], [address] Microalb:Creat Ratio,Random URon 01-18-2025 MALB:CREAT Normal <30 mg/g CRE [facility] Comment on above: Order Comment: Order Date: 11/23/24 Order Info: [id number] - MIALB Result Comment: BRENNAN ENT UTO Performed By: #### L 506.1001, L502.0250 #### [facility] [address] [place], [address] MICROALBUMIN,UR Normal <20 mg/L [facility] Comment on above: Order Comment: Order Date: 11/23/24 Order Info: [id number] - MIALB Result Comment: BERNNAN ENT UTO Performed By: #### L 506.1001, L502.0250 #### [facility] [address] [place], [address] UR CREAT Normal 28.00-217.00 [facility] Comment on above: Order Comment: Order Date: 11/23/24 Order Info: [id number] - MIALB Result Comment: BRENNAN ENT UTO Performed By: #### L 506.1001, L502.0250 #### [facility] [facility] [address] [place], [address] Thyroid Stim Hormone (TSH)on 01-18-2025 TSH 1.480 uIU/mL Normal 0.300-4.200 [facility] Comment on above: Order Comment: Order Date: 11/23/24Order Info: [id number] - CMPOrder Info: [id number] - LIPIDOrder Info: [id number] - TSH Performed By: #### L 100.0100, L500.4050, L501.9520, L506.1001, L500.4100, L501.9985 #### [facility] [address] [place], [address] Vitamin D,25 Hydroxyon 01-18 Vitamin D 25-OH 22.5 ng/mL Low 30-100 [facility] Comment on above: Order Comment: Order Date: 11/23/24 Order Info: [id number] - CMP Order Info: [id number] - LIPID Order Info: [id number] - TSH Result Comment: Priscila min D Status Deficiency: <20 ng/mL (50nmol/L) Insufficiency: 20-30 ng/mL (50-75 nmol/L) Sufficiency: 30-100 ng/mL (75-250 nmol/L) Toxicity: >100 ng/mL (>250 nmol/L) Performed By: #### L 506.1001, L502.0250 #### [facility] [address] [place], [address] Abdomen Single Viewon 2024 Abdomen Single View [facility] Imaging Services [address] [place] [address] Abdomen Single View MR#: [id number] Acct: [id number] Name: JULIA MÁRQUEZ Rep #: [id number] : 1945 F [id number] From: Mike Rodriguez MD PCP: Dr. Jania Adkins MD Status: REG CLI Study: Abdomen Single View Date of Exam: 11/23/24 Exam# [id number] Ordering Dr: Garry Fermin MD PROCEDURE: ABDOMEN SINGLE VIEW 11/23/2024 REASON FOR EXAM: CALCULUS OF KIDNEY TECHNIQUE: Procedure Code: RADABD Modality: DX Procedure: ABDOMEN SINGLE VIEW COMPARISON: 05/25/2024. FINDINGS: Calcific densities overlie the region of the gallbladder which may represent cholelithiasis. Calcific densities overlie the region of the right kidney which may represent nephrolithiasis. Nonspecific nonobstructive bowel gas pattern. No evidence of acute fracture or dislocation. Mild degenerative changes of bilateral hips. Degenerative changes of the partially visualized spine. Degenerative changes of the pubic symphysis. RAD/Abdomen Single View IMPRESSION: As above. Reading Location: [facility] CC: Dr. Jania Adkins MD; Dr. Garry Fermin MD [employer] Analyst: Signed Normal [facility] Hemoglobin A1c percentageOrd ered By: Jania Adkins on 07-15-2024 HbA1c (Bld) [Mass fraction] 6.5 % High <=5.6 [facility] Comment on above: Normal < 5.7 % Predi abetic 5.7 - 6.4 % Diabetic >or= 6.5 % Please note range changes. Order Comment: PLEAS E ADD A1C TO BLOOD DRAWN 07/14/24 PER Result Comment: Norm al < 5.7 % Prediabetic 5.7 - 6.4 % Diabetic >or= 6.5 % Please note range changes. Performed By: #### L 100.0100, L500.4050, L501.9520, L506.1001, L500.4100, L501.9985 #### [facility] [address] [place], [address] Absolute lymphocyte countOrd ered By: Jania Jed on 07-14-2024 Lymphocytes Auto (Unsp spec) [#/Vol] 1.73 10*3/uL 0.83-4.51 [facility] Absolute neutrophil countOrd ered By: Jania Jed on 07-14-2024 Neutrophils (Bld) [#/Vol] 4.9 10*3/uL 2.0-7.7 [facility] Anion gap in Serum or Plasma Ordered By: Jania Adkins on 07-14-2024 Anion gap [Moles/Vol] 11 mmol/L 5-15 [facility] Automated lymphocyte count a s percentage of total leukocytesOrdered By: Cuatebeckie Jed on 07-14-2024 Lymphocytes/100 WBC Auto (Unsp spec) 21.4 % 19-41 [facility] BUN/creatinine ratioOrdered By: Jania Adkins on 07-14-2024 Urea nitrogen/Creatinine [Mass ratio] 14.9 mg/mg 10-20 [facility] Basophil percentageOrdered B y: Cuatebeckie Jed on 07-14-2024 Basophils/100 WBC (Bld) 0.7 % 0-[address] [facility] Bilirubin, totalOrdered By: Jania Adkins on 07-14-2024 Bilirubin [Mass/Vol] 0.57 mg/dL 0.00-1.30 [facility] CBC W/Diff, Automatedon Absolute Lymph 1.73 X10 3/uL Normal 0.83-4.51 [facility] Comment on above: Performed By: #### L 100.0100, L500.4050, L501.9520, L506.1001, L500.4100, L501.9985 #### [facility] [address] [place], [address] Absolute Neut 4.9 X10 3/uL Normal 2.0-7.7 [facility] Comment on above: Performed By: #### L 100.0100, L500.4050, L501.9520, L506.1001, L500.4100, L501.9985 #### [facility] [address] [place], [address] Basophils/100 WBC (Bld) 0.7 % Normal 0-[address] [facility] Comment on above: Performed By: #### L 100.0100, L500.4050, L501.9520, L506.1001, L500.4100, L501.9985 #### [facility] [address] [place], [address] Eosinophils/100 WBC (Bld) 4.1 % Normal 0-5 [facility] Comment on above: Performed By: #### L 100.0100, L500.4050, L501.9520, L506.1001, L500.4100, L501.9985 #### [facility] [address] [place], [address] Erythrocyte distribution width (RBC) [Ratio] 13.2 % Normal 11.6-14.6 [facility] Comment on above: Performed By: #### L 100.0100, L500.4050, L501.9520, L506.1001, L500.4100, L501.9985 #### [facility] [address] [place], [address] Hematocrit (Bld) [Volume fraction] 41.6 % Normal 37-47 [facility] Comment on above: Performed By: #### L 100.0100, L500.4050, L501.9520, L506.1001, L500.4100, L501.9985 #### [facility] [address] [place], [address] Hemoglobin (Bld) [Mass/Vol] 13.6 g/dL Normal 12.0-15.0 [facility] Comment on above: Performed By: #### L 100.0100, L500.4050, L501.9520, L506.1001, L500.4100, L501.9985 #### [facility] [address] [place], [address] IG% 0.400 Normal 0.0-0.9 [facility] Comment on above: Result Comment: IG% - Immature Granulocytes (promyelocytes, myelocytes and metamyelocytes) > 1% indicates that a LEFT SHIFT is Present. Performed By: #### L 100.0100, L500.4050, L501.9520, L506.1001, L500.4100, L501.9985 #### [facility] [address] [place], [address] Lymphocytes/100 WBC (Bld) 21.4 % Normal 19-41 [facility] Comment on above: Performed By: #### L 100.0100, L500.4050, L501.9520, L506.1001, L500.4100, L501.9985 #### [facility] [address] [place], [address] MCH (RBC) [Entitic mass] 30.8 pg Normal 27.0-32.0 [facility] Comment on above: Performed By: #### L 100.0100, L500.4050, L501.9520, L506.1001, L500.4100, L501.9985 #### [facility] [address] [place], [address] MCHC (RBC) [Mass/Vol] 32.7 g/dL Normal 32-36 [facility] Comment on above: Performed By: #### L 100.0100, L500.4050, L501.9520, L506.1001, L500.4100, L501.9985 #### [facility] [address] [place], [address] MCV (RBC) [Entitic vol] 94.1 fL Normal 81-[address] [facility] Comment on above: Performed By: #### L 100.0100, L500.4050, L501.9520, L506.1001, L500.4100, L501.9985 #### [facility] [address] [place], [address] Monocytes/100 WBC (Bld) 13.1 % High 0-[address] [facility] Comment on above: Performed By: #### L 100.0100, L500.4050, L501.9520, L506.1001, L500.4100, L501.9985 #### [facility] [address] [place], [address] Neutrophils/100 WBC (Bld) 60.3 % Normal 47-70 [facility] Comment on above: Performed By: #### L 100.0100, L500.4050, L501.9520, L506.1001, L500.4100, L501.9985 #### [facility] [address] [place], [address] Nucleated RBC (Bld) [#/Vol] 0 10*3/uL Normal 0-5 [facility] Comment on above: Performed By: #### L 100.0100, L500.4050, L501.9520, L506.1001, L500.4100, L501.9985 #### [facility] [address] [place], [address] Platelet mean volume (Bld) [Entitic vol] 10.7 fL Normal 6.2-12.0 [facility] Comment on above: Performed By: #### L 100.0100, L500.4050, L501.9520, L506.1001, L500.4100, L501.9985 #### [facility] [address] [place], [address] Platelets (Bld) [#/Vol] 259 10*3/uL Normal 150-450 [facility] Comment on above: Performed By: #### L 100.0100, L500.4050, L501.9520, L506.1001, L500.4100, L501.9985 #### [facility] [address] [place], [address] RBC (Bld) [#/Vol] 4.42 10*6/uL Normal 4.2-5.4 [facility] Comment on above: Performed By: #### L 100.0100, L500.4050, L501.9520, L506.1001, L500.4100, L501.9985 #### [facility] [address] [place], [address] RDW SD 45.1 fl High 35.1-43.9 [facility] Comment on above: Performed By: #### L 100.0100, L500.4050, L501.9520, L506.1001, L500.4100, L501.9985 #### [facility] [address] [place], [address] WBC (Bld) [#/Vol] 8.1 10*3/uL Normal 4.4-11.0 [facility] Comment on above: Performed By: #### L 100.0100, L500.4050, L501.9520, L506.1001, L500.4100, L501.9985 #### [facility] [address] [place], [address] Calculated very low density lipoprotein (VLDL) cholesterol measurementOrdered By: Jania Adkins on 07-14-2024 Calculated very low density lipoprotein (VLDL) cholesterol measurement 33 mg/dL 5-40 [facility] Carbon dioxide, total [Moles /volume] in Central venous bloodOrdered By: Jania Adkins on 07-14-2024 CO2 [Moles/Vol] 22.1 mmol/L 21.0-32.0 [facility] Chloride assayOrdered By: James Adkins on 07-14-2024 Chloride [Moles/Vol] 106 mmol/L 98-108 [facility] Comprehensive Metabolic Prof ilon 07-14-2024 Albumin [Mass/Vol] 4.3 g/dL Normal 3.4-4.8 [facility] Comment on above: Performed By: #### L 100.0100, L500.4050, L501.9520, L506.1001, L500.4100, L501.9985 #### [facility] [address] [place], [address] Albumin/Globulin [Mass ratio] 1.4 {ratio} Normal 0.9-2.4 [facility] Comment on above: Performed By: #### L 100.0100, L500.4050, L501.9520, L506.1001, L500.4100, L501.9985 #### [facility] [address] [place], [address] ALK PHOS 120 U/L High 35-104 [facility] Comment on above: Performed By: #### L 100.0100, L500.4050, L501.9520, L506.1001, L500.4100, L501.9985 #### [facility] [address] [place], [address] ALT [Catalytic activity/Vol] 15 U/L Normal <=34 [facility] Comment on above: Performed By: #### L 100.0100, L500.4050, L501.9520, L506.1001, L500.4100, L501.9985 #### [facility] [address] [place], [address] AST [Catalytic activity/Vol] 21 U/L Normal <=31 [facility] Comment on above: Performed By: #### L 100.0100, L500.4050, L501.9520, L506.1001, L500.4100, L501.9985 #### [facility] [address] [place], [address] Bilirubin [Mass/Vol] 0.57 mg/dL Normal 0.00-1.30 [facility] Comment on above: Performed By: #### L 100.0100, L500.4050, L501.9520, L506.1001, L500.4100, L501.9985 #### [facility] [address] [place], [address] BUN/CRE 14.9 RATIO Normal 10-20 [facility] Comment on above: Performed By: #### L 100.0100, L500.4050, L501.9520, L506.1001, L500.4100, L501.9985 #### [facility] [address] [place], [address] Calcium [Mass/Vol] 9.4 mg/dL Normal 7.6-11.0 [facility] Comment on above: Performed By: #### L 100.0100, L500.4050, L501.9520, L506.1001, L500.4100, L501.9985 #### [facility] [address] [place], [address] Chloride [Moles/Vol] 106 mmol/L Normal 98-108 [facility] Comment on above: Performed By: #### L 100.0100, L500.4050, L501.9520, L506.1001, L500.4100, L501.9985 #### [facility] [address] [place], [address] CO2 [Moles/Vol] 22.1 mmol/L Normal 21.0-32.0 [facility] Comment on above: Performed By: #### L 100.0100, L500.4050, L501.9520, L506.1001, L500.4100, L501.9985 #### [facility] [address] [place], [address] Creatinine [Mass/Vol] 1.19 mg/dL Normal 0.70-1.20 [facility] Comment on above: Performed By: #### L 100.0100, L500.4050, L501.9520, L506.1001, L500.4100, L501.9985 #### [facility] [address] [place], [place], [id number] (801) GAP 11 Normal 5-15 [facility] Comment on above: Performed By: #### L 100.0100, L500.4050, L501.9520, L506.1001, L500.4100, L501.9985 #### [facility] [address] [place], [place], [id number] ([address] GFR/1.73 sq M.predicted among non-blacks MDRD (S/P/Bld) [Vol rate/Area] 47 mL/min/{1.73_m2} Low >60 [facility] Comment on above: Result Comment: mL/m in/1.73m2 CKD-EPI Creatinine Equation (2020) Performed By: #### L 100.0100, L500.4050, L501.9520, L506.1001, L500.4100, L501.9985 #### [facility] [address] [place], [place], [id number] ([address] Globulin (S) [Mass/Vol] 3.1 g/dL Normal 2.2-4.2 [facility] Comment on above: Performed By: #### L 100.0100, L500.4050, L501.9520, L506.1001, L500.4100, L501.9985 #### [facility] [address] [place], [address] Glucose [Mass/Vol] 122 mg/dL High 70-99 [facility] Comment on above: Performed By: #### L 100.0100, L500.4050, L501.9520, L506.1001, L500.4100, L501.9985 #### [facility] [address] [place], [address] Potassium [Moles/Vol] 4.1 mmol/L Normal 3.3-5.1 [facility] Comment on above: Performed By: #### L 100.0100, L500.4050, L501.9520, L506.1001, L500.4100, L501.9985 #### [facility] [address] [place], [address] Sodium [Moles/Vol] 140 mmol/L Normal 133-145 [facility] Comment on above: Performed By: #### L 100.0100, L500.4050, L501.9520, L506.1001, L500.4100, L501.9985 #### [facility] [address] [place], [address] T PROT 7.3 g/dL Normal 5.9-8.4 [facility] Comment on above: Performed By: #### L 100.0100, L500.4050, L501.9520, L506.1001, L500.4100, L501.9985 #### [facility] [address] [place], [address] Urea nitrogen [Mass/Vol] 18 mg/dL Normal 4-19 [facility] Comment on above: Performed By: #### L 100.0100, L500.4050, L501.9520, L506.1001, L500.4100, L501.9985 #### [facility] [address] [place], [address] Eosinophil percentageOrdered By: Jania Adkins on 07-14-2024 Eosinophils/100 WBC (Bld) 4.1 % 0-5 [facility] Erythrocyte distribution wid th ratioOrdered By: Jania Adkins on 07-14-2024 Erythrocyte distribution width (RBC) [Ratio] 13.2 % 11.6-14.6 [facility] Erythrocyte distribution wid th standard deviationOrdered By: Jania Adkins on 07-14-2024 Erythrocyte distribution width (RBC) [Ratio] 45.1 fl High 35.1-43.9 [facility] Glomerular filtration rate ( GFR) estimation/1.73 sq m using serum, plasma, or whole bOrdered By: Jania Adkins on 07-14-2024 GFR/1.73 sq M.predicted among non-blacks MDRD (S/P/Bld) [Vol rate/Area] 47 mL/min/{1.73_m2} Low >60 [facility] Comment on above: mL/min/1.73m2 CKD-EP I Creatinine Equation (2020) Hematocrit Auto (Bld) [Volum e fraction]Ordered By: Jania Adkins on 07-14-2024 Hematocrit (Bld) [Volume fraction] 41.6 % 37-47 [facility] Hemoglobin measurementOrdere d By: Jania Adkins on 07-14-2024 Hemoglobin (Bld) [Mass/Vol] 13.6 g/dL 12.0-15.0 [facility] Immature granulocytes/100 WB C Auto (Bld)Ordered By: Jania Adkins on 07-14-2024 Immature granulocytes/100 WBC (Bld) 0.400 % 0.0-0.9 [facility] Comment on above: IG% - Immature Granu locytes (promyelocytes, myelocytes and metamyelocytes) > 1% indicates that a LEFT SHIFT is Present. LDL calc ser/plasOrdered By: Jania Adkins on 07-14-2024 Cholesterol in LDL [Mass/Vol] 83 mg/dL [facility] Comment on above: Lodokdpbmy=086-776 m g/dL & Higher Kxge=098 mg/dL or greater Laboratory - Chemistry and C hemistry - challengeOrdered By: Jania Adkins on 07-14-2024 AST [Catalytic activity/Vol] 21 U/L <32 [facility] Lipid Profileon 07-14-2024 CHOL:HDL 3.51 Normal [facility] Comment on above: Performed By: #### L 100.0100, L500.4050, L501.9520, L506.1001, L500.4100, L501.9985 #### [facility] [address] [place], [address] Cholesterol [Mass/Vol] 163 mg/dL Normal <=200 [facility] Comment on above: Result Comment: Chol esterol level, Desirable <200 mg/dL Borderline high cholesterol 200-239 mg/dL High cholesterol >=240 mg/dL Recommendations of the NCEP Adult Treatment Panel for the following risk-cutoff thresholds for the [place] population. Performed By: #### L 100.0100, L500.4050, L501.9520, L506.1001, L500.4100, L501.9985 #### [facility] [address] [place], [address] Cholesterol in HDL [Mass/Vol] 47 mg/dL Normal [facility] Comment on above: Result Comment: Elva onal Cholesterol Education Program (NCEP) guidelines: <40 mg/dL: Low HDL-cholesterol (major risk factor for CHD) >= 60 mg/dL: High HDL-cholesterol (negative risk factor for CHD) HDL-cholesterol is affected by a number of factors, e.g. smoking, exercise, hormones, sex and age. Performed By: #### L 100.0100, L500.4050, L501.9520, L506.1001, L500.4100, L501.9985 #### [facility] [address] [place], [address] Cholesterol in LDL [Mass/Vol] 83 mg/dL Normal [facility] Comment on above: Result Comment: Bord hjhcqu=131-521 mg/dL Higher Nrid=532 mg/dL or greater Performed By: #### L 100.0100, L500.4050, L501.9520, L506.1001, L500.4100, L501.9985 #### [facility] [address] [place], [address] Cholesterol in VLDL [Mass/Vol] 33 mg/dL Normal 5-40 [facility] Comment on above: Performed By: #### L 100.0100, L500.4050, L501.9520, L506.1001, L500.4100, L501.9985 #### [facility] [address] [place], [place], [id number] Triglyceride [Mass/Vol] 166 mg/dL Normal [facility] Comment on above: Result Comment: The drugs N-Acetylcysteine and Metamizole may falsely depress this assay. Normal range: <150 mg/dL Borderline High: 150-199 mg/dL High: 200-499 mg/dL Very High: >500 mg/dL Performed By: #### L 100.0100, L500.4050, L501.9520, L506.1001, L500.4100, L501.9985 #### [facility] [address] [place], [place], [id number] MCV (mean corpuscular volume ) determinationOrdered By: Jania Adkins on 07-14-2024 MCV (RBC) [Entitic vol] 94.1 fL 81-[address] [facility] Mean corpuscular hemoglobin (MCH) determinationOrdered By: Jania Adkins on 07-14-2024 MCH (RBC) [Entitic mass] 30.8 pg 27.0-32.0 [facility] Mean corpuscular hemoglobin concentration (MCHC) determinationOrdered By: Jania Adkins on 07-14-2024 MCHC (RBC) [Mass/Vol] 32.7 g/dL 32-36 [facility] Mean platelet volume determi nationOrdered By: Jania Adkins on 07-14-2024 Platelet mean volume (Bld) [Entitic vol] 10.7 fL 6.2-12.0 [facility] Monocyte percentageOrdered B y: Jania Adkins on 07-14-2024 Monocytes/100 WBC (Bld) 13.1 % High 0-[address] [facility] Neutrophil percentageOrdered By: Jania Adkins on 07-14-2024 Neutrophils/100 WBC (Bld) 60.3 % 47-70 [facility] Nucleated red blood cell per centageOrdered By: Jania Adkins on 07-14-2024 Nucleated RBC/100 WBC (Bld) [Ratio] 0 % 0-5 [facility] Platelet countOrdered By: James Adkins on 07-14-2024 Platelets (Bld) [#/Vol] 259 10*3/uL 150-450 [facility] Potassium measurement (mass/ volume)Ordered By: Jania Adkins on 07-14-2024 Potassium (Unsp spec) [Mass/Vol] 4.1 mmol/L 3.3-5.1 [facility] RBC Auto (Bld) [#/Vol]Ordere d By: Jania Adkins on 07-14-2024 RBC (Bld) [#/Vol] 4.42 10*6/uL 4.2-5.4 [facility] Screening total cholesterol/ high density lipoprotein (HDL) cholesterol ratioOrdered By: Jania Adkins on 07-14-2024 Cholesterol.total/Choles terol in HDL [Mass ratio] 3.51 {ratio} [facility] Serum creatinine measurement (mass/volume)Ordered By: Jania Adkins on 07-14-2024 Creatinine [Mass/Vol] 1.19 mg/dL 0.70-1.20 [facility] Serum globulin measurementOr dered By: Jania Adkins on 07-14-2024 Globulin (S) [Mass/Vol] 3.1 g/dL 2.2-4.[address] [facility] Serum glucose measurement (m ass/volume)Ordered By: Jania Adkins on 07-14-2024 Glucose [Mass/Vol] 122 mg/dL High 70-99 [facility] Serum or plasma alanine campos otransferase (ALT) measurementOrdered By: Jania Adkins on 07-14-2024 ALT [Catalytic activity/Vol] 15 U/L <35 [facility] Serum or plasma albumin greg urement (mass/volume)Ordered By: Jania Adkins on 07-14-2024 Albumin [Mass/Vol] 4.3 g/dL 3.4-4.8 [facility] Serum or plasma albumin/glob ulin mass ratioOrdered By: Jania Adkins on 07-14-2024 Albumin/Globulin [Mass ratio] 1.4 {ratio} 0.9-2.4 [facility] Serum or plasma alkaline francis sphatase measurementOrdered By: Jania Adkins on 07-14-2024 ALP [Catalytic activity/Vol] 120 U/L High 35-104 [facility] Serum or plasma calcium greg urement (mass/volume)Ordered By: Jania Adkins on 07-14-2024 Calcium [Mass/Vol] 9.4 mg/dL 7.6-11.0 [facility] Serum or plasma cholesterol in HDL measurement (mass/volume)Ordered By: Jania Adkins on 07-14-2024 Cholesterol in HDL [Mass/Vol] 47 mg/dL >40 [facility] Comment on above: National Cholesterol Education Program (NCEP) guidelines:<40 mg/dL: Low HDL-cholesterol (major risk factor for CHD)>= 60 mg/dL: High HDL-cholesterol (negative risk factor for CHD)HDL-cholesterol is affected by a number of factors, e.g. smoking, exercise, hormones, sex and age. Serum or plasma cholesterol measurement (mass/volume)Ordered By: Jania Adkins on 07-14-2024 Cholesterol [Mass/Vol] 163 mg/dL <201 [facility] Comment on above: Cholesterol level, D esirable <200 mg/dLBorderline high cholesterol 200-239 mg/dLHigh cholesterol >=240 mg/dLRecommendations of the NCEP Adult Treatment Panel for the following risk-cutoff thresholds for the [place] population. Serum or plasma urea nitroge n measurement (mass/volume)Ordered By: Jania Adkins on 07-14-2024 Urea nitrogen [Mass/Vol] 18 mg/dL 4-19 [facility] Sodium levelOrdered By: Cuate Adkins on 07-14-2024 Sodium [Moles/Vol] 140 mmol/L 133-145 [facility] TSH DL <= 0.005 mIU/L QnOrde red By: Jania Adkins on 07-14-2024 TSH Qn 1.950 uIU/mL 0.300-4.200 [facility] Thyroid Stim Hormone (TSH)on 07-14-2024 TSH 1.950 uIU/mL Normal 0.300-4.200 [facility] Comment on above: Performed By: #### L 100.0100, L500.4050, L501.9520, L506.1001, L500.4100, L501.9985 #### [facility] Laboratory [address] [place], [address] Total proteinOrdered By: Simi Adkins on 07-14-2024 Protein [Mass/Vol] 7.3 g/dL 5.9-8.4 [facility] Triglycerides measurementOrd ered By: Jania Adkins on 07-14-2024 Triglyceride [Mass/Vol] 166 mg/dL <[address] [facility] Comment on above: The drugs N-Acetylcy steine and Metamizole may falsely depress this assay. Normal range: <150 mg/dLBorderline High: 150-199 mg/dLHigh: 200-499 mg/dLVery High: >500 mg/dL Vitamin D,25 Hydroxyon 07-14 Vitamin D 25-OH 19.6 ng/mL Low 30-100 [facility] Comment on above: Result Comment: Priscila min D Status Deficiency: <20 ng/mL (50nmol/L) Insufficiency: 20-30 ng/mL (50-75 nmol/L) Sufficiency: 30-100 ng/mL (75-250 nmol/L) Toxicity: >100 ng/mL (>250 nmol/L) Performed By: #### L 100.0100, L500.4050, L501.9520, L506.1001, L500.4100, L501.9985 #### [facility] Laboratory [address] [place], [address] White blood cell (WBC) count Ordered By: Jania Adkins on 07-14-2024 WBC (Bld) [#/Vol] 8.1 10*3/uL 4.4-11.0 [facility] Abdomen Single Viewon 2024 Abdomen Single View [facility] Imaging Services [address] [place] [address] Abdomen Single View MR#: [id number] Acct: [id number] Name: JULIA MÁRQUEZ Rep #: [id number] : 1945 F [id number] From: Hany Matthew MD PCP: Dr. Joan Gomez MD Status: REG CLI Study: Abdomen Single View Date of Exam: 05/25/24 Exam# [id number] Ordering Dr: Manju Martinez PROCEDURE: ABDOMEN SINGLE VIEW REASON FOR EXAM: CALCULUS OF KIDNEY TECHNIQUE: Single view abdomen. COMPARISON: None FINDINGS: Bowel gas pattern is normal. No evidence of bowel obstruction. Calcifications project over the right kidney, largest measuring approximately 0.7 cm. Multiple calcifications project over the left hemiabdomen and pelvis The bones are unremarkable. RAD/Abdomen Single View IMPRESSION: Nonobstructing right nephrolithiasis. Probable phleboliths in the left hemiabdomen. Reading Location: [facility] CC: Dr. Joan Gomez MD; Manju Martinez Digital Computer Systems Analyst: Signed Normal [facility] SCRN MAMM (CAD)W/SHRUTHI BILATo n 01-30-2024 SCRN MAMM (CAD)W/SHRUTHI BILAT [facility] Imaging Services [address] [place] [id number] SCRN MAMM (CAD)W/SHRUTHI BILAT MR#: [id number] Acct: [id number] Name: JULIA MÁRQUEZ Rep #: [id number] : 1945 F [id number] From: Jose Juan segovia MD PCP: Dr. Joan Gomez MD Status: REG CLI Study: SCRN MAMM (CAD)W/SHRUTHI BILAT Date of Exam: 01/10 04/03 Exam# [id number] Ordering Dr: Manju Wild DEPARTMENT COORDINATOR -C [id number] MAMMOGRAPHY - BILATERAL SCREENING REASON FOR EXAM: Female, 78 years old. Routine annual screening examination. PERTINENT HISTORY: Grandmother with breast cancer. TECHNIQUE: Digital bilateral breast shruthi (3D mammographic acquisition) in the CC and MLO projections. 2-D mediolateral oblique (MLO) and craniocaudad (CC) views of both breasts were obtained. CAD: Full Field Digital Mammography with Computer Added Detection was performed. COMPARISON: Comparison is made with prior study January 23, 2023 and January 22, 2022. FINDINGS: Breast Composition: There are scattered areas of fibroglandular density. There are no dominant masses or suspicious calcifications. Stable bilateral fat containing axillary lymph nodes. No other significant abnormalities are identified. There has been no significant change since the prior study. BI/SCRN MAMM (CAD)W/SHRUTHI BILAT IMPRESSION: Stable bilateral screening mammogram. Yearly follow-up mammogram recommended. (A) ASSESSMENT CATEGORY: BIRADS Category 2: Benign. A letter regarding these results will be sent to the patient by the facility within 30 days. Approximately 10% of breast cancers are not detected by mammography. A normal mammogram should not delay biopsy of a clinically suspicious abnormality. [id number] Electronically Signed: Jose Juan Anderson MD at 7:40 EST Reading Location ID and State: [address] [place] [address] , Service support , CC: Dr. Joan Gomez MD; Manju Wild Digital Computer Systems Analyst: Signed Normal [facility] ABORH TYPE RECONFIRMATIONon 11-05-2023 ABO/RH(D) TYPE Positive Normal [facility] Comment on above: Performed By: #### T YPEC #### [facility] (DEFAULT) [address] [place] [address] CBC,PLATELETSon 11-05-2023 Hematocrit (Bld) [Volume fraction] 37.7 % Normal 34.9-44.3 [facility] Comment on above: Performed By: #### H FP, O, CHM7 #### [facility] (DEFAULT) [address] [place] [address] 56870 Hemoglobin (Bld) [Mass/Vol] 12.1 g/dL Normal 11.4-15.2 [facility] Comment on above: Performed By: #### Adolfo SALDIVAR MGO, CHM7 #### [facility] (DEFAULT) [address] [place] [address] 67644 MCV (RBC) [Entitic vol] 92.6 fL Normal 79.6-97.7 [facility] Comment on above: Performed By: #### Adolfo SALDIVAR MGMarquis CHM7 #### [facility] (DEFAULT) [address] [place] [address] 70790 Mean Cell Hgb 29.7 pg Normal 25.9-33.9 [facility] Comment on above: Performed By: #### Adolfo SALDIVAR MGO CHM7 #### [facility] (DEFAULT) [address] [place] [address] 16017 Mean Cell Hgb Conc 32.1 g/dL Normal 31.4-35.9 [facility] Comment on above: Performed By: #### Adolfo SALDIVAR MGO, CHM7 #### [facility] (DEFAULT) [address] [place] [address] 97364 Platelet mean volume (Bld) [Entitic vol] 10.8 fL Normal 8.5-12.2 [facility] Comment on above: Performed By: #### Adolfo SALDIVAR MGO, CHM7 #### [facility] (DEFAULT) [address] [place] [address] 41448 Platelets (Bld) [#/Vol] 231 10*3/uL Normal 150-393 [facility] Comment on above: Performed By: #### Adolfo FP, MGO, CHM7 #### [facility] (DEFAULT) [address] [place] [address] 07018 RBC (Bld) [#/Vol] 4.07 10*6/uL Normal 3.91-5.04 [facility] Comment on above: Performed By: #### H FP, MGO, CHM7 #### [facility] (DEFAULT) [address] [place] [address] 67530 RBC Distribution 12.9 % Normal 10.8-14.9 [facility] Comment on above: Performed By: #### H FP, MGO, CHM7 #### [facility] (DEFAULT) [address] [place] [address] 89925 WBC (Bld) [#/Vol] 8.73 10*3/uL Normal 3.99-11.19 [facility] Comment on above: Performed By: #### H FP, MGO, CHM7 #### [facility] (DEFAULT) [address] [place] [address] 19522 CHEM 7 (LYTES,BUN,CREA,GLUC) on 11-05-2023 Anion gap [Moles/Vol] 14 mmol/L Normal 7-17 [facility] Comment on above: Performed By: #### H FP, MGO, CHM7 #### [facility] (DEFAULT) [address] [place] [address] 54280 Chloride [Moles/Vol] 106 mmol/L Normal 98-108 [facility] Comment on above: Performed By: #### H FP, MGO, CHM7 #### [facility] (DEFAULT) [address] [place] [address] 77825 CO2 [Moles/Vol] 22 mmol/L Normal 21-[address] [facility] Comment on above: Performed By: #### H FP, MGO, CHM7 #### [facility] (DEFAULT) [address] [place] [address] 09052 Creatinine [Mass/Vol] 0.99 mg/dL Normal 0.50-1.20 [facility] Comment on above: Performed By: #### H FP, MGO, CHM7 #### [facility] (DEFAULT) [address] [place] [address] 53564 GFR/1.73 sq M.predicted among non-blacks MDRD (S/P/Bld) [Vol rate/Area] 58 mL/min/{1.73_m2} Low >=60 [facility] Comment on above: Result Comment: Repo rted eGFR is based on the CKD-EPI 2020 equation using creatinine, age, and sex. Performed By: #### H DOROTEO SALDIVAR CHM7 #### [facility] (DEFAULT) [address] [place] [address] 78902 Glucose [Mass/Vol] 162 mg/dL High 70-99 [facility] Comment on above: Performed By: #### DOROTEO JACOB CHM7 #### [facility] (DEFAULT) [address] [place] [address] 87918 Osmolality [Osmolality] 293 mosm/kg Normal 278-305 [facility] Comment on above: Performed By: #### DOROTEO JACOB CHM7 #### [facility] (DEFAULT) [address] [place] [address] 97751 Potassium [Moles/Vol] 3.8 mmol/L Normal 3.5-5.0 [facility] Comment on above: Performed By: #### H DOROTEO SALDIVAR CHM7 #### [facility] (DEFAULT) [address] [place] [address] 62757 Sodium [Moles/Vol] 138 mmol/L Normal 135-145 [facility] Comment on above: Performed By: #### Adolfo SALDIVAR MGMarquis CHM7 #### [facility] (DEFAULT) [address] [place] [address] 92016 Urea nitrogen [Mass/Vol] 14 mg/dL Normal 7-25 [facility] Comment on above: Performed By: #### Adolfo SALDIVAR MGO CHM7 #### [facility] (DEFAULT) [address] [place] [address] 21695 Urea nitrogen/Creatinine [Mass ratio] 14 mg/mg Normal [facility] Comment on above: Performed By: #### H YARIEL MGO CHM7 #### [facility] (DEFAULT) [address] [place] [address] 90985 HEPATIC FUNCTION PANELon Albumin [Mass/Vol] 3.6 g/dL Normal 3.5-5.0 [facility] Comment on above: Performed By: #### Adolfo SALDIVAR MGO CHM7 #### [facility] (DEFAULT) [address] [place] [address] 00196 ALP [Catalytic activity/Vol] 100 U/L Normal 32-126 [facility] Comment on above: Performed By: #### Adolfo SALDIVAR MGMarquis CHM7 #### [facility] (DEFAULT) [address] [place] [address] 30386 ALT [Catalytic activity/Vol] 99 U/L High 9-48 [facility] Comment on above: Performed By: #### Adolfo SALDIVAR MGO CHM7 #### [facility] (DEFAULT) [address] [place] [address] 17475 AST [Catalytic activity/Vol] 35 U/L Normal 10-39 [facility] Comment on above: Performed By: #### H YARIEL MGO, CHM7 #### [facility] (DEFAULT) [address] [place] [address] 65424 Bilirubin [Mass/Vol] 0.8 mg/dL Normal <1.5 [facility] Comment on above: Performed By: #### Adolfo FP MGO, CHM7 #### [facility] (DEFAULT) [address] [place] [address] 22328 Bilirubin.indirect [Mass/Vol] 0.2 mg/dL Normal <0.3 [facility] Comment on above: Performed By: #### Adolfo FP, MGO, CHM7 #### [facility] (DEFAULT) [address] [place] [address] 98832 Protein [Mass/Vol] 6.2 g/dL Low 6.4-8.3 [facility] Comment on above: Performed By: #### H FP, MGO, CHM7 #### [facility] (DEFAULT) [address] [place] [address] Laboratory - Chemistry and C hemistry - challengeon 11-05-2023 Albumin [Mass/Vol] 3.6 g/dL 3.5 - 5.0 g/dL [facility] ALP [Catalytic activity/Vol] 100 U/L 32 - 126 [facility] ALT [Catalytic activity/Vol] 99 U/L High 9 - 48 U/L [facility] Anion gap [Moles/Vol] 14 mmol/L 7 - 17 mmol/L [facility] AST [Catalytic activity/Vol] 35 U/L 10 - 39 U/L [facility] Bilirubin [Mass/Vol] 0.8 mg/dL NINF - 1.5 mg/dL [facility] Bilirubin.direct [Mass/Vol] 0.2 mg/dL NINF - 0.3 mg/dL [facility] Chloride [Moles/Vol] 106 mmol/L 98 - 10 8 mmol/L [facility] CO2 [Moles/Vol] 22 mmol/L 21 - 31 mmol/L [facility] Creatinine [Mass/Vol] 0.99 mg/dL 0.50 - 1.20 mg/dL [facility] Glucose [Mass/Vol] 162 mg/dL High 70 - 99 mg/dL [facility] Magnesium [Mass/Vol] 1.7 mg/dL 1.6 - 2 .6 mg/dL [facility] Osmolality Calc [Osmolality] 293 [facility] Potassium [Moles/Vol] 3.8 mmol/L 3.5 - 5.0 mmol/L [facility] Protein [Mass/Vol] 6.2 g/dL Low 6.4 - 8.3 g/dL [facility] Sodium [Moles/Vol] 138 mmol/L 135 - 145 mmol/L [facility] Urea nitrogen [Mass/Vol] 14 mg/dL 7 - 25 mg/d L [facility] Urea nitrogen/Creatinine [Mass ratio] 14 mg/mg [facility] Laboratory - Hematology and Cell countson 11-05-2023 Erythrocyte distribution width (RBC) [Ratio] 12.9 % 10.8 - 14.9 % [facility] Hematocrit (Bld) [Volume fraction] 37.7 % 34.9 - 44.3 % [facility] Hemoglobin (Bld) [Mass/Vol] 12.1 g/dL 11.4 - 15.2 g/dL [facility] MCH (RBC) [Entitic mass] 29.7 pg 25. 9 - 33.9 pg [facility] MCHC (RBC) [Mass/Vol] 32.1 g/dL 31.4 - 35.9 g/dL [facility] MCV (RBC) [Entitic vol] 92.6 fL 79.6 - 97.7 fL [facility] Platelet mean volume (Bld) [Entitic vol] 10.8 fL 8.5 - 12.2 fL [facility] Platelets (Bld) [#/Vol] 231 10*3/uL 150 - 393 K/uL [facility] RBC (Bld) [#/Vol] 4.07 10*6/uL [facility] WBC (Bld) [#/Vol] 8.73 10*3/uL 3.99 - 11. 19 K/uL [facility] MAGNESIUMon 11-05-2023 Magnesium [Mass/Vol] 1.7 mg/dL Normal 1.6-2.6 [facility] Comment on above: Performed By: #### H FP, MGO, CHM7 #### [facility] (DEFAULT) [address] [place] [address] No Panel Informationon 11-04 ABO/RH(D) TYPE Positive [facility] eGFR, CKD-EPI, Female 58 Low - PINF [facility] Comment on above: Reported eGFR is bas ed on the CKD-EPI 2020 equation using creatinine, age, and sex. Interpretation and review of laboratory results Abnormal [facility] Interpretation and review of laboratory results Normal [facility] Interpretation and review of laboratory results Normal [facility] CBC,PLATELETSon 11-04-2023 Hematocrit (Bld) [Volume fraction] 40.1 % Normal 34.9-44.3 [facility] Comment on above: Performed By: #### H FP MGO, CHM7 #### [facility] (DEFAULT) [address] [place] [address] 43390 Hemoglobin (Bld) [Mass/Vol] 13.0 g/dL Normal 11.4-15.2 [facility] Comment on above: Performed By: #### Adolfo FP, MGO, CHM7 #### [facility] (DEFAULT) [address] [place] [address] 49028 MCV (RBC) [Entitic vol] 93.0 fL Normal 79.6-97.7 [facility] Comment on above: Performed By: #### H FP, MGO, CHM7 #### [facility] (DEFAULT) [address] [place] [address] 15553 Mean Cell Hgb 30.2 pg Normal 25.9-33.9 [facility] Comment on above: Performed By: #### H FP, MGO, CHM7 #### [facility] (DEFAULT) [address] [place] [address] 76882 Mean Cell Hgb Conc 32.4 g/dL Normal 31.4-35.9 [facility] Comment on above: Performed By: #### H FP, MGO, CHM7 #### [facility] (DEFAULT) [address] [place] [address] 32254 Platelet mean volume (Bld) [Entitic vol] 10.6 fL Normal 8.5-12.2 [facility] Comment on above: Performed By: #### H FP, MGO, CHM7 #### [facility] (DEFAULT) [address] [place] [address] 14432 Platelets (Bld) [#/Vol] 241 10*3/uL Normal 150-393 [facility] Comment on above: Performed By: #### H FP MGO, CHM7 #### [facility] (DEFAULT) [address] [place] [address] 17107 RBC (Bld) [#/Vol] 4.31 10*6/uL Normal 3.91-5.04 [facility] Comment on above: Performed By: #### H FP, MGO, CHM7 #### [facility] (DEFAULT) [address] [place] [address] 80018 RBC Distribution 12.7 % Normal 10.8-14.9 [facility] Comment on above: Performed By: #### H FP, MGO, CHM7 #### [facility] (DEFAULT) [address] [place] [address] 34647 WBC (Bld) [#/Vol] 6.02 10*3/uL Normal 3.99-11.19 [facility] Comment on above: Performed By: #### Adolfo FP, MGO, CHM7 #### [facility] (DEFAULT) [address] [place] [address] 30891 CHEM 7 (LYTES,BUN,CREA,GLUC) on 11-04-2023 Anion gap [Moles/Vol] 15 mmol/L Normal 7-17 [facility] Comment on above: Performed By: #### Adolfo FP, MGO, CHM7 #### [facility] (DEFAULT) [address] [place] [address] 29934 Chloride [Moles/Vol] 108 mmol/L Normal 98-108 [facility] Comment on above: Performed By: #### H FP, MGO, CHM7 #### [facility] (DEFAULT) [address] [place] [address] 23348 CO2 [Moles/Vol] 22 mmol/L Normal 21-[address] [facility] Comment on above: Performed By: #### H FP, MGO, CHM7 #### [facility] (DEFAULT) [address] [place] [address] 91920 Creatinine [Mass/Vol] 1.05 mg/dL Normal 0.50-1.20 [facility] Comment on above: Performed By: #### H FP MGO CHM7 #### [facility] (DEFAULT) [address] [place] [address] 07273 GFR/1.73 sq M.predicted among non-blacks MDRD (S/P/Bld) [Vol rate/Area] 54 mL/min/{1.73_m2} Low >=60 [facility] Comment on above: Result Comment: Repo rted eGFR is based on the CKD-EPI 2020 equation using creatinine, age, and sex. Performed By: #### H YARIEL MGO CHM7 #### [facility] (DEFAULT) [address] [place] [address] 93735 Glucose [Mass/Vol] 82 mg/dL Normal 70-99 [facility] Comment on above: Performed By: #### H YARIEL MGO CHM7 #### [facility] (DEFAULT) [address] [place] [address] 36238 Osmolality [Osmolality] 292 mosm/kg Normal 278-305 [facility] Comment on above: Performed By: #### H YARIEL MGO CHM7 #### [facility] (DEFAULT) [address] [place] [address] 54213 Potassium [Moles/Vol] 3.7 mmol/L Normal 3.5-5.0 [facility] Comment on above: Performed By: #### H FP MGO, CHM7 #### [facility] (DEFAULT) [address] [place] [address] 33959 Sodium [Moles/Vol] 141 mmol/L Normal 135-145 [facility] Comment on above: Performed By: #### H FP MGO, CHM7 #### [facility] (DEFAULT) [address] [place] [address] 84112 Urea nitrogen [Mass/Vol] 9 mg/dL Normal 7-25 [facility] Comment on above: Performed By: #### H FP, MGO, CHM7 #### [facility] (DEFAULT) [address] [place] [address] 77503 Urea nitrogen/Creatinine [Mass ratio] 9 mg/mg Normal [facility] Comment on above: Performed By: #### H FP, MGO, CHM7 #### [facility] (DEFAULT) [address] [place] [address] 71208 HEPATIC FUNCTION PANELon Albumin [Mass/Vol] 4.0 g/dL Normal 3.5-5.0 [facility] Comment on above: Performed By: #### H FP, MGO, CHM7 #### [facility] (DEFAULT) [address] [place] [address] 92500 ALP [Catalytic activity/Vol] 117 U/L Normal 32-126 [facility] Comment on above: Performed By: #### H FP, MGO, CHM7 #### [facility] (DEFAULT) [address] [place] [address] 31457 ALT [Catalytic activity/Vol] 143 U/L High 9-48 [facility] Comment on above: Performed By: #### H FP, MGO, CHM7 #### [facility] (DEFAULT) [address] [place] [address] 91234 AST [Catalytic activity/Vol] 42 U/L High 10-39 [facility] Comment on above: Performed By: #### H FP, MGO, CHM7 #### [facility] (DEFAULT) [address] [place] [address] 43490 Bilirubin [Mass/Vol] 1.2 mg/dL Normal <1.5 [facility] Comment on above: Performed By: #### H FP, MGO, CHM7 #### [facility] (DEFAULT) [address] [place] [address] 87360 Bilirubin.indirect [Mass/Vol] 0.3 mg/dL High <0.3 [facility] Comment on above: Result Comment: Spec imen hemolyzed. Direct bilirubin results may be falsely decreased. Interpret within the clinical context. Performed By: #### H FP, MGO, CHM7 #### [facility] (DEFAULT) [address] [place] [address] Protein [Mass/Vol] 6.8 g/dL Normal 6.4-8.3 [facility] Comment on above: Performed By: #### H FP, MGO, CHM7 #### [facility] (DEFAULT) [address] [place] [address] Laboratory - Chemistry and C hemistry - challengeon 11-04-2023 Glucose [Mass/Vol] 150 mg/dL High 70 - 99 mg/dL [facility] Albumin [Mass/Vol] 4.0 g/dL 3.5 - 5.0 g/dL [facility] ALP [Catalytic activity/Vol] 117 U/L 32 - 126 U/L [facility] ALT [Catalytic activity/Vol] 143 U/L High 9 - 48 U/L [facility] Anion gap [Moles/Vol] 15 mmol/L 7 - 17 mmol/L [facility] AST [Catalytic activity/Vol] 42 U/L High 10 - 39 U/L [facility] Bilirubin [Mass/Vol] 1.2 mg/dL NINF - 1.5 mg/dL [facility] Bilirubin.direct [Mass/Vol] 0.3 mg/dL High NINF - 0.3 mg/dL [facility] Comment on above: Specimen hemolyzed. Direct bilirubin results may be falsely decreased. Interpret within the clinical context. Chloride [Moles/Vol] 108 mmol/L 98 - 10 8 mmol/L [facility] CO2 [Moles/Vol] 22 mmol/L 21 - 31 mmol/L [facility] Creatinine [Mass/Vol] 1.05 mg/dL 0.50 - 1.20 mg/dL [facility] Glucose [Mass/Vol] 82 mg/dL 70 - 99 mg/dL [facility] Magnesium [Mass/Vol] 1.8 mg/dL 1.6 - 2 .6 mg/dL [facility] Osmolality Calc [Osmolality] 292 [facility] Potassium [Moles/Vol] 3.7 mmol/L 3.5 - 5.0 mmol/L [facility] Protein [Mass/Vol] 6.8 g/dL 6.4 - 8.3 g/dL [facility] Sodium [Moles/Vol] 141 mmol/L 135 - 145 mmol/L [facility] Urea nitrogen [Mass/Vol] 9 mg/dL 7 - 25 mg/d L [facility] Urea nitrogen/Creatinine [Mass ratio] 9 mg/mg [facility] Laboratory - Coagulationon 0 11-04-2023 INR Coag (Bld) [Relative time] 1.1 {INR} 0.9 - 1.1 [facility] PT Coag (PPP) [Time] 13.7 s [facility] Laboratory - Hematology and Cell countson 11-04-2023 Erythrocyte distribution width (RBC) [Ratio] 12.7 % 10.8 - 14.9 % [facility] Hematocrit (Bld) [Volume fraction] 40.1 % 34.9 - 44.3 % [facility] [facility] Hem[facility] (Bld) [Mass/Vol] 13.0 g/dL 11.4 - 15.2 g/dL [facility] MCH (RBC) [Entitic mass] 30.2 pg 25. 9 - 33.9 pg [facility] MCHC (RBC) [Mass/Vol] 32.4 g/dL 31.4 - 35.9 g/dL [facility] MCV (RBC) [Entitic vol] 93.0 fL 79.6 - 97.7 fL [facility] Platelet mean volume (Bld) [Entitic vol] 10.6 fL 8.5 - 12.2 fL [facility] Platelets (Bld) [#/Vol] 241 10*3/uL 150 - 393 K/uL [facility] RBC (Bld) [#/Vol] 4.31 10*6/uL [facility] WBC (Bld) [#/Vol] 6.02 10*3/uL 3.99 - 11. 19 K/uL [facility] MAGNESIUMon 11-04-2023 Magnesium [Mass/Vol] 1.8 mg/dL Normal 1.6-2.6 [facility] Comment on above: Performed By: #### H FP, MGO, CHM7 #### [facility] (DEFAULT) [address] [place] [address] No Panel Informationon 11-03 Interpretation and review of laboratory results Abnormal [facility] POC Sample Type CAPBL [facility] Test performed at address of the patient encounter. [facility] ABO/RH(D) TYPE Positive [facility] Outdate Specimen 11/07/2023 23:59 [facility] eGFR, CKD-EPI, Female 54 Low - PINF [facility] Comment on above: Reported eGFR is bas ed on the CKD-EPI 2020 equation using creatinine, age, and sex. Interpretation and review of laboratory results Abnormal [facility] Interpretation and review of laboratory results Normal [facility] Interpretation and review of laboratory results Normal [facility] Interpretation and review of laboratory results Normal [facility] PROTIME-INRon 11-04-2023 INR Coag (PPP) [Relative time] 1.1 {INR} Normal 0.9-1.1 [facility] Comment on above: Performed By: #### P TI #### [facility] (DEFAULT) [address] [place] [address] PT Coag (PPP) [Time] 13.7 s Normal 11.9-14.2 [facility] Comment on above: Performed By: #### P TI #### [facility] (DEFAULT) [address] [address] SURG PATH REQUESTon 11-04-19 Case Report [facility] Comment on above: Result Comment: Surg ical Pathology Report Case: [id number] Authorizing Provider: Jorge Jarrell MD Collected: 11/04/2023 02:22 PM Ordering Location: [facility] PERIOP Received: 11/04/2023 03:44 PM Pathologist: DAVID Blount Specimen: SURG PATH, gallbladder Performed By: #### S URGP #### [facility] (DEFAULT) [address] [place] [address] Clinical History Preop Diagnosis: Gallstone pancreatitis. Clinical History: Hypertension, gallstone, irritable bowel syndrome, nephrolithiasis. [facility] Comment on above: Performed By: #### S URGP #### [facility] (DEFAULT) [address] [place] [address] Gross Description [facility] Comment on above: Result Comment: The specimen is received in one properly labeled container with the patient's name and accession number. A. The specimen is designated gallbladder and consists of a single partially deflated 8.1 x 3.2 x 2.4 cm gallbladder. The adventitial surface is dark green and ragged. Opening the specimen reveals a thick green bile as well as innumerable minute pale serrato small gallstones measuring up to 0.2 cm in greatest dimension. The mucosa is velvety, dark green, and grossly unremarkable. Sectioning reveals a wall thickness of 0.1 cm. 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 [facility] Comment on above: Performed By: #### S URGP #### [facility] (DEFAULT) [address] [address] Pathologic Diagnosis Normal [facility] Comment on above: Result Comment: A. G allbladder, cholecystectomy: Chronic calculous cholecystitis. Performed By: #### S URGP #### [facility] (DEFAULT) [address] [address] Professional Interpretation Performed at: Normal [facility] Comment on above: Result Comment: [facility] For Immediate Release to [facility]'s [facility] Yes [address] [place], [place] [address] Performed By: #### S URGP #### [facility] (DEFAULT) [address] [address] TYPE AND SCREENon 11-04-2023 ABO/RH(D) TYPE Positive Normal [facility] Comment on above: Performed By: #### H FP, MGO, CHM7 #### [facility] (DEFAULT) [address] [address] Outdate Specimen 11/07/2023 23:59 Normal [facility] Comment on above: Performed By: #### H FP, MGO, CHM7 #### [facility] (DEFAULT) [address] [address] CBC,PLATELETSon 11-03-2023 Hematocrit (Bld) [Volume fraction] 37.3 % Normal 34.9-44.3 [facility] Comment on above: Performed By: #### H FP, MGO, CHM7 #### [facility] (DEFAULT) [address] [address] Hemoglobin (Bld) [Mass/Vol] 12.0 g/dL Normal 11.4-15.2 [facility] Comment on above: Performed By: #### H FP, MGO, CHM7 #### [facility] (DEFAULT) [address] [address] MCV (RBC) [Entitic vol] 93.7 fL Normal 79.6-97.7 [facility] Comment on above: Performed By: #### H FP, MGO, CHM7 #### [facility] (DEFAULT) [address] [place] [address] Mean Cell Hgb 30.2 pg Normal 25.9-33.9 [facility] Comment on above: Performed By: #### H FP, MGO, CHM7 #### [facility] (DEFAULT) [address] [place] [address] Mean Cell Hgb Conc 32.2 g/dL Normal 31.4-35.9 [facility] Comment on above: Performed By: #### H FP, MGO, CHM7 #### [facility] (DEFAULT) [address] [place] [address] Platelet mean volume (Bld) [Entitic vol] 10.5 fL Normal 8.5-12.2 [facility] Comment on above: Performed By: #### H FP, MGO, CHM7 #### [facility] (DEFAULT) [address] [place] [address] Platelets (Bld) [#/Vol] 202 10*3/uL Normal 150-393 [facility] Comment on above: Performed By: #### H FP, MGO, CHM7 #### [facility] (DEFAULT) [address] [place] [address] RBC (Bld) [#/Vol] 3.98 10*6/uL Normal 3.91-5.04 [facility] Comment on above: Performed By: #### H FP, MGO, CHM7 #### [facility] (DEFAULT) [address] [place] [address] RBC Distribution 12.8 % Normal 10.8-14.9 [facility] Comment on above: Performed By: #### H FP, MGO, CHM7 #### [facility] (DEFAULT) [address] [place] [address] WBC (Bld) [#/Vol] 6.60 10*3/uL Normal 3.99-11.19 [facility] Comment on above: Performed By: #### H YARIEL MGO CHM7 #### [facility] (DEFAULT) [address] [place] [address] CHEM 7 (LYTES,BUN,CREA,GLUC) on 11-03-2023 Anion gap [Moles/Vol] 14 mmol/L Normal 7-17 [facility] Comment on above: Performed By: #### H FP, MGO, CHM7 #### [facility] (DEFAULT) [address] [place] [address] Chloride [Moles/Vol] 107 mmol/L Normal 98-108 [facility] Comment on above: Performed By: #### H FP, MGO, CHM7 #### [facility] (DEFAULT) [address] [place] [address] CO2 [Moles/Vol] 22 mmol/L Normal 21-[address] [facility] Comment on above: Performed By: #### H FP MGO, CHM7 #### [facility] (DEFAULT) [address] [place] [address] Creatinine [Mass/Vol] 1.27 mg/dL High 0.50-1.20 [facility] Comment on above: Performed By: #### H FP, MGO, CHM7 #### [facility] (DEFAULT) [address] [place] [address] GFR/1.73 sq M.predicted among non-blacks MDRD (S/P/Bld) [Vol rate/Area] 43 mL/min/{1.73_m2} Low >=60 [facility] Comment on above: Result Comment: Repo rted eGFR is based on the CKD-EPI 2020 equation using creatinine, age, and sex. Performed By: #### H FP, MGO, CHM7 #### [facility] (DEFAULT) [address] [place] [address] Glucose [Mass/Vol] 103 mg/dL High 70-99 [facility] Comment on above: Performed By: #### H DOROTEO SALDIVAR CHM7 #### [facility] (DEFAULT) [address] [place] [address] Osmolality [Osmolality] 291 mosm/kg Normal 278-305 [facility] Comment on above: Performed By: #### DOROTEO JACOB CHM7 #### [facility] (DEFAULT) [address] [place] [address] Potassium [Moles/Vol] 4.1 mmol/L Normal 3.5-5.0 [facility] Comment on above: Result Comment: Spec imen hemolyzed. Potassium results may be falsely elevated. Interpret within clinical context. Performed By: #### DOROTEO JACOB CHM7 #### [facility] (DEFAULT) [address] [place] [address] Sodium [Moles/Vol] 139 mmol/L Normal 135-145 [facility] Comment on above: Performed By: #### H DOROTEO SALDIVAR CHM7 #### [facility] (DEFAULT) [address] [place] [address] Urea nitrogen [Mass/Vol] 12 mg/dL Normal 7-25 [facility] Comment on above: Performed By: #### DOROTEO JACOB CHMEliz #### [facility] (DEFAULT) [address] [place] [address] Urea nitrogen/Creatinine [Mass ratio] 9 mg/mg Normal [facility] Comment on above: Performed By: #### DOROTEO JACOB CHM7 #### [facility] (DEFAULT) [address] [place] [address] HEPATIC FUNCTION PANELon Albumin [Mass/Vol] 3.6 g/dL Normal 3.5-5.0 [facility] Comment on above: Performed By: #### DOROTEO JACOB CHM7 #### [facility] (DEFAULT) [address] [place] [address] ALP [Catalytic activity/Vol] 123 U/L Normal 32-126 [facility] Comment on above: Performed By: #### H DOROTEO SALDIVAR CHM7 #### [facility] (DEFAULT) [address] [place] [address] ALT [Catalytic activity/Vol] 193 U/L High 9-48 [facility] Comment on above: Performed By: #### H DOROTEO SALDIVAR CHM7 #### [facility] (DEFAULT) [address] [place] [address] AST [Catalytic activity/Vol] 69 U/L High 10-39 [facility] Comment on above: Result Comment: Spec imen slightly hemolyzed. AST results may be falsely elevated. Interpret within the clinical context. Performed By: #### H DOROTEO SALDIVAR CHM7 #### [facility] (DEFAULT) [address] [place] [address] Bilirubin [Mass/Vol] 1.2 mg/dL Normal <1.5 [facility] Comment on above: Performed By: #### H DOROTEO SALDIVAR CHM7 #### [facility] (DEFAULT) [address] [place] [address] Bilirubin.indirect [Mass/Vol] 0.2 mg/dL Normal <0.3 [facility] Comment on above: Performed By: #### H DOROTEO SALDIVAR CHM7 #### [facility] (DEFAULT) [address] [place] [address] Protein [Mass/Vol] 6.0 g/dL Low 6.4-8.3 [facility] Comment on above: Performed By: #### H DOROTEO SALDIVAR CHM7 #### [facility] (DEFAULT) [address] [place] [address] Laboratory - Chemistry and C hemistry - challengeon 11-03-2023 Albumin [Mass/Vol] 3.6 g/dL 3.5 - 5.0 g/dL [facility] ALP [Catalytic activity/Vol] 123 U/L 32 - 126 U/L [facility] ALT [Catalytic activity/Vol] 193 U/L High 9 - 48 U/L [facility] Anion gap [Moles/Vol] 14 mmol/L 7 - 17 mmol/L [facility] AST [Catalytic activity/Vol] 69 U/L High 10 - 39 U/L [facility] Comment on above: Specimen slightly he molyzed. AST results may be falsely elevated. Interpret within the clinical context. Bilirubin [Mass/Vol] 1.2 [facility] Bilirubin.direct [Mass/Vol] 0.2 mg/dL [facility] mg/dL [facility] Chloride [Moles/Vol] 107 mmol/L 98 - 10 8 mmol/L [facility] CO2 [Moles/Vol] 22 mmol/L 21 - 31 mmol/L [facility] Creatinine [Mass/Vol] 1.27 mg/dL High 0.50 - 1.20 mg/dL [facility] Glucose [Mass/Vol] 103 mg/dL High 70 - 99 mg/dL [facility] Magnesium [Mass/Vol] 1.8 mg/dL 1.6 - 2 .6 mg/dL [facility] Osmolality Calc [Osmolality] 291 [facility] Potassium [Moles/Vol] 4.1 mmol/L 3.5 - 5.0 mmol/L [facility] Comment on above: Specimen hemolyzed. Potassium results may be falsely elevated. Interpret within clinical context. Protein [Mass/Vol] 6.0 g/dL Low 6.4 - 8.3 g/dL [facility] Sodium [Moles/Vol] 139 mmol/L 135 - 145 mmol/L [facility] Urea nitrogen [Mass/Vol] 12 mg/dL 7 - 25 mg/d L [facility] Urea nitrogen/Creatinine [Mass ratio] 9 mg/mg [facility] Laboratory - Hematology and Cell countson 11-03-2023 Erythrocyte distribution width (RBC) [Ratio] 12.8 % 10.8 - 14.9 % [facility] Hematocrit (Bld) [Volume fraction] 37.3 % 34.9 - 44.3 % [facility] Hemoglobin (Bld) [Mass/Vol] 12.0 g/dL 11.4 - 15.2 g/dL [facility] MCH (RBC) [Entitic mass] 30.2 pg 25. 9 - 33.9 pg [facility] MCHC (RBC) [Mass/Vol] 32.2 g/dL 31.4 - 35.9 g/dL [facility] MCV (RBC) [Entitic vol] 93.7 fL 79.6 - 97.7 fL [facility] Platelet mean volume (Bld) [Entitic vol] 10.5 fL 8.5 - 12.2 fL [facility] Platelets (Bld) [#/Vol] 202 10*3/uL 150 - 393 K/uL [facility] RBC (Bld) [#/Vol] 3.98 10*6/uL [facility] WBC (Bld) [#/Vol] 6.60 10*3/uL 3.99 - 11. 19 K/uL [facility] MAGNESIUMon 11-03-2023 Magnesium [Mass/Vol] 1.8 mg/dL Normal 1.6-2.6 [facility] Comment on above: Performed By: #### H FP, MGO, CHM7 #### [facility] (DEFAULT) [address] [place] [address] No Panel Informationon 11-02 Interpretation and review of laboratory results Normal [facility] eGFR, CKD-EPI, Female 43 Low - PINF [facility] Comment on above: Reported eGFR is bas ed on the CKD-EPI 2020 equation using creatinine, age, and sex. Interpretation and review of laboratory results Abnormal [facility] Interpretation and review of laboratory results Normal [facility] C REACTIVE PROTEINon 024 CRP [Mass/Vol] 18.48 mg/L High <10.00 [facility] Comment on above: Performed By: #### H FP, CA, LIPA, MGO, CHM7, CRP #### [facility] (DEFAULT) [address] [place] [address] CALCIUMon 11-02-2023 Calcium [Mass/Vol] 9.0 mg/dL Normal 8.6-10.5 [facility] Comment on above: Performed By: #### H FP, MGO, CHM7 #### [facility] (DEFAULT) [address] [place] [address] CBC AND ELECTRONIC DIFFon Basophils (Bld) [#/Vol] 0.05 10*3/uL Normal 0.00-0.15 [facility] Comment on above: Performed By: #### L [id number] #### [facility] (DEFAULT) [address] [place] [address] Basophils/100 WBC (Bld) 0.7 % Normal [facility] Comment on above: Performed By: #### L [id number] #### [facility] (DEFAULT) [address] [place] [address] DIFF STATUS Electronic Differential Normal [facility] Comment on above: Performed By: #### L AB980 #### [facility] (DEFAULT) [address] [place] [address] Eosinophils (Bld) [#/Vol] 0.21 10*3/uL Normal 0.00-0.42 [facility] Comment on above: Performed By: #### L AB980 #### [facility] (DEFAULT) [address] [address] Eosinophils/100 WBC (Bld) 2.9 % Normal [facility] Comment on above: Performed By: #### L [id number] #### [facility] (DEFAULT) [address] [place] [address] Hematocrit (Bld) [Volume fraction] 41.2 % Normal 34.9-44.3 [facility] Comment on above: Performed By: #### L [id number] #### [facility] (DEFAULT) [address] [address] Hemoglobin (Bld) [Mass/Vol] 12.5 g/dL Normal 11.4-15.2 [facility] Comment on above: Performed By: #### L [id number] #### [facility] (DEFAULT) [address] [address] Immature Grans % 0.3 % Normal [facility] Comment on above: Performed By: #### L [id number] #### [facility] (DEFAULT) [address] [address] Immature Grans Absolute < Normal <=0.08 [facility] Comment on above: Performed By: #### L AB980 #### [facility] (DEFAULT) [address] [address] Lymphocytes (Bld) [#/Vol] 2.18 10*3/uL Normal 1.16-3.51 [facility] Comment on above: Performed By: #### L [id number] #### [facility] (DEFAULT) [address] [address] Lymphocytes/100 WBC (Bld) 30.6 % Normal [facility] Comment on above: Performed By: #### L AB980 #### [facility] (DEFAULT) [address] [address] MCV (RBC) [Entitic vol] 96.9 fL Normal 79.6-97.7 [facility] Comment on above: Performed By: #### L [id number] #### [facility] (DEFAULT) [address] [address] Mean Cell Hgb 29.4 pg Normal 25.9-33.9 [facility] Comment on above: Performed By: #### L AB980 #### [facility] (DEFAULT) [address] [place] [address]198 Mean Cell Hgb Conc 30.3 g/dL Low 31.4-35.9 [facility] Comment on above: Performed By: #### L [id number] #### [facility] (DEFAULT) [address] [place] [address] Monocytes (Bld) [#/Vol] 0.65 10*3/uL Normal 0.22-0.87 [facility] Comment on above: Performed By: #### L AB980 #### [facility] (DEFAULT) [address] [place] [address] Monocytes/100 WBC (Bld) 9.1 % Normal [facility] Comment on above: Performed By: #### L [id number] #### [facility] (DEFAULT) [address] [place] [address]72 Nucleated RBC 0.0 /100 WBC Normal <=0.[address] [facility] Comment on above: Performed By: #### L [id number] #### [facility] (DEFAULT) [address] [place] [address] Platelet mean volume (Bld) [Entitic vol] 11.0 fL Normal 8.5-12.2 [facility] Comment on above: Performed By: #### L [id number] #### [facility] (DEFAULT) [address] [place] [address] Platelets (Bld) [#/Vol] 201 10*3/uL Normal 150-393 [facility] Comment on above: Performed By: #### L [id number] #### [facility] (DEFAULT) [address] [place] [address]27 RBC (Bld) [#/Vol] 4.25 10*6/uL Normal 3.91-5.04 [facility] Comment on above: Performed By: #### L [id number] #### [facility] (DEFAULT) [address] [place] [address]25 RBC Distribution 13.2 % Normal 10.8-14.9 [facility] Comment on above: Performed By: #### L [id number] #### [facility] (DEFAULT) [address] [place] [address] 10689 Segs + Bands Auto 56.4 % Normal [facility] Comment on above: Performed By: #### L [id number] #### [facility] (DEFAULT) [address] [place] [address] 0[address]99 Segs + Bands,Absolute Auto 4.02 K/uL Normal 1.64-7.28 [facility] Comment on above: Performed By: #### L [id number] #### [facility] (DEFAULT) [address] [place] [address]8 WBC (Bld) [#/Vol] 7.13 10*3/uL Normal 3.99-11.19 [facility] Comment on above: Performed By: #### L [id number] #### [facility] (DEFAULT) [address] [place] [address]91 CHEM 7 (LYTES,BUN,CREA,GLUC) on 11-02-2023 Anion gap [Moles/Vol] 13 mmol/L Normal 7-17 [facility] Comment on above: Performed By: #### H FP, MGO, CHM7 #### [facility] (DEFAULT) [address] [place] [address]78 Chloride [Moles/Vol] 111 mmol/L High 98-108 [facility] Comment on above: Performed By: #### H FP, MGO, CHM7 #### [facility] (DEFAULT) [address] [place] [address] CO2 [Moles/Vol] 21 mmol/L Normal 21-[address] [facility] Comment on above: Performed By: #### H FP, MGO, CHM7 #### [facility] (DEFAULT) [address] [place] [address]37 Creatinine [Mass/Vol] 1.42 mg/dL High 0.50-1.20 [facility] Comment on above: Performed By: #### DOROTEO JACOB CHM7 #### [facility] (DEFAULT) [address] [place] [address]359 GFR/1.73 sq M.predicted among non-blacks MDRD (S/P/Bld) [Vol rate/Area] 38 mL/min/{1.73_m2} Low >=60 [facility] Comment on above: Result Comment: Repo rted eGFR is based on the CKD-EPI 2020 equation using creatinine, age, and sex. Performed By: #### H DOROTEO SALDIVAR CHM7 #### [facility] (DEFAULT) [address] [place] [address] 92019 Glucose [Mass/Vol] 100 mg/dL High 70-99 [facility] Comment on above: Performed By: #### DOROTEO JACOB CHM7 #### [facility] (DEFAULT) [address] [place] [address] 88563 Osmolality [Osmolality] 296 mosm/kg Normal 278-305 [facility] Comment on above: Performed By: #### H DOROTEO SALDIVAR CHM7 #### [facility] (DEFAULT) [address] [place] [address] 63911 Potassium [Moles/Vol] 3.8 mmol/L Normal 3.5-5.0 [facility] Comment on above: Performed By: #### DOROTEO JACOB CHM7 #### [facility] (DEFAULT) [address] [place] [address] 15899 Sodium [Moles/Vol] 141 mmol/L Normal 135-145 [facility] Comment on above: Performed By: #### DOROTEO JACOB CHM7 #### [facility] (DEFAULT) [address] [place] [address] 10059 Urea nitrogen [Mass/Vol] 17 mg/dL Normal 7-25 [facility] Comment on above: Performed By: #### H DOROTEO SALDIVAR CHMEliz #### [facility] (DEFAULT) [address] [place] [address] 39918 Urea nitrogen/Creatinine [Mass ratio] 12 mg/mg Normal [facility] Comment on above: Performed By: #### Adolfo FP MGO, CHM7 #### [facility] (DEFAULT) [address] [place] [address] 17263 HEPATIC FUNCTION PANELon Albumin [Mass/Vol] 3.9 g/dL Normal 3.5-5.0 [facility] Comment on above: Performed By: #### Adolfo SALDIVAR MGO CHM7 #### [facility] (DEFAULT) [address] [place] [address] 6[address]97 ALP [Catalytic activity/Vol] 139 U/L High 32-126 [facility] Comment on above: Performed By: #### Adolfo FP MGO CHM7 #### [facility] (DEFAULT) [address] [place] [address] 18912 ALT [Catalytic activity/Vol] 292 U/L High 9-48 [facility] Comment on above: Performed By: #### Adolfo SALDIVAR MGO CHM7 #### [facility] (DEFAULT) [address] [place] [address] 26726 AST [Catalytic activity/Vol] 141 U/L High 10-39 [facility] Comment on above: Performed By: #### H FP MGO, CHM7 #### [facility] (DEFAULT) [address] [place] [address] 77525 Bilirubin [Mass/Vol] 1.5 mg/dL High <1.5 [facility] Comment on above: Performed By: #### H FP, MGO, CHM7 #### [facility] (DEFAULT) [address] [place] [address] 33299 Bilirubin.indirect [Mass/Vol] 0.4 mg/dL High <0.3 [facility] Comment on above: Performed By: #### H FP, MGO, CHM7 #### [facility] (DEFAULT) [address] [place] [address] Protein [Mass/Vol] 6.6 g/dL Normal 6.4-8.3 [facility] Comment on above: Performed By: #### H FP, MGO, CHM7 #### [facility] (DEFAULT) [address] [place] [address] LIPASEon 11-02-2023 Lipase [Catalytic activity/Vol] 238 U/L High 11-82 [facility] Comment on above: Performed By: #### H FP, MGO, CHM7 #### [facility] (DEFAULT) [address] [place] [id number] Laboratory - Chemistry and C hemistry - challengeon 11-02-2023 Albumin [Mass/Vol] 3.9 g/dL 3.5 - 5.0 g/dL [facility] ALP [Catalytic activity/Vol] 139 U/L High 32 - 126 U/L [facility] ALT [Catalytic activity/Vol] 292 U/L High 9 - 48 U/L [facility] Anion gap [Moles/Vol] 13 mmol/L 7 - 17 mmol/L [facility] AST [Catalytic activity/Vol] 141 U/L High 10 - 39 U/L [facility] Bilirubin [Mass/Vol] 1.5 mg/dL [facility] Bilirubin.direct [Mass/Vol] 0.4 mg/dL High NINF - 0.3 mg/dL [facility] Calcium [Mass/Vol] 9.0 mg/dL 8.6 - 10. 5 mg/dL [facility] Chloride [Moles/Vol] 111 mmol/L High 98 - 10 8 mmol/L [facility] CO2 [Moles/Vol] 21 mmol/L 21 - 31 mmol/L [facility] Creatinine [Mass/Vol] 1.42 mg/dL High 0.50 - 1.20 mg/dL [facility] CRP High sensitivity method [Mass/Vol] 18.48 mg/L High NINF - 10.00 mg/L [facility] Glucose [Mass/Vol] 100 mg/dL High 70 - 99 mg/dL [facility] Lipase [Catalytic activity/Vol] 238 U/L High 11 - 82 U/L [facility] Magnesium [Mass/Vol] 1.9 mg/dL 1.6 - 2 .6 mg/dL [facility] Osmolality Calc [Osmolality] 296 [facility] Potassium [Moles/Vol] 3.8 mmol/L 3.5 - 5.0 mmol/L [facility] Protein [Mass/Vol] 6.6 g/dL 6.4 - 8.3 g/dL [facility] Sodium [Moles/Vol] 141 mmol/L 135 - 145 mmol/L [facility] Urea nitrogen [Mass/Vol] 17 mg/dL 7 - 25 mg/d L [facility] Urea nitrogen/Creatinine [Mass ratio] 12 mg/mg [facility] Phosphate [Mass/Vol] 3.3 mg/dL 2.2 - 4 .6 mg/dL [facility] Laboratory - Coagulationon 0 11-02-2023 aPTT Coag (PPP) [Time] 26.6 s [facility] INR Coag (Bld) [Relative time] 1.1 {INR} 0.9 - 1.1 [facility] PT Coag (PPP) [Time] 14.3 s High [facility] Laboratory - Hematology and Cell countson 11-02-2023 Basophils (Bld) [#/Vol] 0.05 10*3/uL 0.00 - 0.15 K/uL [facility] Basophils/100 WBC (Bld) 0.7 % [facility] Differential cell count method Nom (Bld) Electronic Differential [facility] Eosinophils (Bld) [#/Vol] 0.21 10*3/uL 0.00 - 0.42 K/uL [facility] Eosinophils/100 WBC (Bld) 2.9 % [facility] Erythrocyte distribution width (RBC) [Ratio] 13.2 % 10.8 - 14.9 % [facility] Hematocrit (Bld) [Volume fraction] 41.2 % 34.9 - 44.3 % [facility] Hemoglobin (Bld) [Mass/Vol] 12.5 g/dL 11.4 - 15.2 g/dL [facility] Immature granulocytes (Bld) [#/Vol] K/uL NINF - 0.08 K/uL [facility] Immature granulocytes/100 WBC (Bld) 0.3 % [facility] Lymphocytes (Bld) [#/Vol] 2.18 10*3/uL 1.16 - 3.51 K/uL [facility] Lymphocytes/100 WBC (Bld) 30.6 % [facility] MCH (RBC) [Entitic mass] 29.4 pg 25. 9 - 33.9 pg [facility] MCHC (RBC) [Mass/Vol] 30.3 g/dL Low 31.4 - 35.9 g/dL [facility] MCV (RBC) [Entitic vol] 96.9 fL 79.6 - 97.7 fL [facility] Monocytes (Bld) [#/Vol] 0.65 10*3/uL 0.22 - 0.87 K/uL [facility] Monocytes/100 WBC (Bld) 9.1 % [facility] Neutrophils (Bld) [#/Vol] 4.02 10*3/uL 1.64 - 7.28 K/uL [facility] Nucleated RBC/100 WBC (Bld) [Ratio] 0.0 % [facility] Platelet mean volume (Bld) [Entitic vol] 11.0 fL 8.5 - 12.2 fL [facility] Platelets (Bld) [#/Vol] 201 10*3/uL 150 - 393 K/uL [facility] RBC (Bld) [#/Vol] 4.25 10*6/uL [facility] Segmented neutrophils/100 WBC (Bld) 56.4 % [facility] WBC (Bld) [#/Vol] 7.13 10*3/uL 3.99 - 11. 19 K/uL [facility] MAGNESIUMon 11-02-2023 Magnesium [Mass/Vol] 1.9 mg/dL Normal 1.6-2.6 [facility] Comment on above: Performed By: #### H FP, MGO, CHM7 #### [facility] (DEFAULT) [address] [place] [address] No Panel Informationon 11-01 eGFR, CKD-EPI, Female 38 Low - PINF [facility] Comment on above: Reported eGFR is bas ed on the CKD-EPI 2020 equation using creatinine, age, and sex. Interpretation and review of laboratory results Normal [facility] Interpretation and review of laboratory results Abnormal [facility] Interpretation and review of laboratory results Normal [facility] Interpretation and review of laboratory results Abnormal [facility] Interpretation and review of laboratory results Abnormal [facility] PHOSPHATE, INORGANICon 11-01 Phosphorous 3.3 mg/dL Normal 2.2-4.6 [facility] Comment on above: Performed By: #### I PB #### [facility] (DEFAULT) [address] [place] [address] PT,INR,PTTon 11-02-2023 aPTT Coag (Bld) [Time] 26.6 s Normal 24.0-34.3 [facility] Comment on above: Performed By: #### P TPTT #### [facility] (DEFAULT) [address] [place] [address] INR Coag (PPP) [Relative time] 1.1 {INR} Normal 0.9-1.1 [facility] Comment on above: Performed By: #### P TPTT #### [facility] (DEFAULT) [address] [place] [address] PT Coag (PPP) [Time] 14.3 s High 11.9-14.2 [facility] Comment on above: Performed By: #### P TPTT #### [facility] (DEFAULT) [address] [id number] CNOVon 09-01-2023 CNOV Office Visit (UCWSTR) ---- SIMJULIA Berry ([id number]) 1945 F Date Time Provider Department 09/01/23 3:00 PM KATIE R[facility] During your visit today, we recorded the following information about you: Temperature Pulse Respiration Blood pressure 98.9 degrees 70/minute 18/minute 118/78 Weight 90.9 kg Katie Rico APRN.DATA COLLECTION TECHNICIAN 09/01/2023 3:13 PM Signed Subjective HPI Julia presents today with complaint of 10 days of sinus pain and pressure, pnd and this morning both eyes were irritated. 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 Dr. Minor left COLONOSCOPY FLX DX W/COLLJ SPEC WHEN PFRMD 08/28/1999 Colonoscopy COLONOSCOPY FLX DX W/COLLJ SPEC WHEN PFRMD 08/01/2005 Colonoscopy COLONOSCOPY FLX DX W/COLLJ SPEC WHEN PFRMD 07/06/10 EGD TRANSORAL BIOPSY SINGLE/MULTIPLE 07/06/10 ESOPHAGOGASTRODUODE NOSCOPY TRANSORAL DIAGNOSTIC 08/01/2005 EGD LITHOTRIPSY XTRCORP SHOCK WAVE 12/12/2007 Lithotripsy LITHOTRIPSY XTRCORP SHOCK WAVE 11/15/2010 Lithotripsy - right - [facility] - Dr. Camarillo LITHOTRIPSY XTRCORP SHOCK WAVE 12/21/2011 Lithotripsy - right - [facility] - NEPHRECTOMY PARTIAL 08/15/2011 Nephrectomy - left- Dr. Camarillo - [place] SALPINGO-OOPHORECTO MY COMPL/PRTL UNI/BI SPX Salpingo-oophorecto my TONSILLECTOMY PRIMARY/SECONDARY Tonsillectomy TOTAL ABDOMINAL HYSTERECT W/WO RMVL TUBE OVARY Hysterectomy, NEREYDA ALLERGIES Cinobac [Cinoxacin], Demerol [Meperidine (Pf)], Ivp Dye [Iodine], Latex, and Septra [Sulfamethoxazole-T rimethoprim] MEDICATIONS levothyroxine (SYNTHROID) 150 mcg tablet Take 1 tablet by mouth once daily. Take one tab daily, and additionally 1/2 tab WEEKLY ramipril (ALTACE) 10 mg capsule Take 1 capsule by mouth once daily. atenolol (TENORMIN) 100 mg tablet Take 1 tablet by mouth once daily. atorvastatin (LIPITOR) 20 mg tablet Take 1 tablet by mouth once daily. amLODIPine (NORVASC) 5 mg tablet Take 1 tablet by mouth once daily. fluticasone (FLONASE) 50 mcg/actuation nasal spray Use 2 Sprays in each nostril once daily. esomeprazole (NEXIUM) 40 mg capsule Take 1 capsule by mouth once daily. chlordiazePOXIDE-cl idinium (LIBRAX) 5-2.5 mg per capsule Take 1 capsule by mouth twice daily as needed. traZODone (DESYREL) 50 mg tablet Take 1 tablet by mouth at bedtime as needed for Sedation. ALPRAZolam (XANAX) 0.5 mg tablet Take 1 tablet by mouth twice daily as needed. bacitracin 500 unit/gram ointment Apply 1 application to affected area twice daily. To hand lesion. triamcinolone acetonide 0.1 % cream Apply 1 application to affected area twice daily. Apply to affected area for rash/itching Potassium Citrate (UROCIT-K 15) 15 mEq TbER Take 15 mEq by mouth once daily. ranitidine (ZANTAC) 150 mg ORAL tablet Take by mouth once daily. Take one(1) tablet daily in the evening. FAMILY HISTORY Problem Relation Age of Onset Cancer Mother COLON Heart Mother CT Heart Father CT Diabetes Mother Social History Tobacco Use Smoking status: Never Smokeless tobacco: Never Substance Use Topics Alcohol use: No Drug use: No Review of Systems HENT: Positive for congestion and sinus pain. All other systems reviewed and are negative. Objective Physical Exam Vitals and nursing note reviewed. Constitutional: Appearance: Normal appearance. HENT: Head: Normocephalic and atraumatic. Right Ear: Tympanic membrane, ear canal and external ear normal. Left Ear: Tympanic membrane, ear canal and external ear normal. Nose: Congestion present. Mouth/Throat: Mouth: Mucous membranes are dry. Pharynx: Oropharynx is clear. Neurological: Mental Status: She is alert. ASSESSMENT/PLAN: 1. Bacterial sinusitis - ICD9: 473.9, 041.9, ICD10: J32.9, B96.89 - Will begin treatment with Amoxicillin for 5 days - Supportive care with plenty of fluids, rest, and analgesia prn. - Follow up in 3-5 days if symptoms persist or worsen. Katie Rico, PRODUCT SAFETY TECHNICIAN.DATA COLLECTION TECHNICIAN Allergies As of Date: 09/01/2023 Noted Allergy Reaction (more content not included)... Normal [facility] Basophil percentageOrdered B y: Joan Gomez on 07-02-2023 Chloride [Moles/Vol] 108 mmol/L 98-107 [facility] Cholesterol [Mass/Vol] 169 mg/dL <200 [facility] Comment on above: <200 mg/dL Desirable 200-240 mg/dL Borderline >240 mg/dL High Risk Glucose [Mass/Vol] 167 mg/dL 74-106 [facility] Comment on above: Fasting Glucose resu lt greater than or equal to 126 mg/dL suggests DIABETES MELLITUS per A.D.A. criteria. Potassium [Moles/Vol] 4.2 mmol/L 3.5-5.1 [facility] Sodium [Moles/Vol] 138 mmol/L 136-145 [facility] Triglyceride [Mass/Vol] 177 mg/dL <[address] [facility] Comment on above: The drugs N-Acetylcy steine and Metamizole may falsely depress this assay.Serum Triglycerides Reference Interval Normal <150 mg/dL Borderline high 150 - 199 mg/dL High 200 - 499 mg/dL Very High > or = 500 mg/dL Laboratory - Chemistry and C hemistry - challengeOrdered By: Joan Gomez on 07-02-2023 Cholesterol in HDL [Mass/Vol] 50 mg/dL >40 [facility] Comment on above: The drugs N-Acetylcy steine and Metamizole may falsely depress this assay. Reference Range HDL <40 mg/dL Low HDL Cholesterol HDL >or= 60 mg/dL High HDL Cholesterol Cholesterol in LDL [Mass/Vol] 84 mg/dL 0-130 [facility] CO2 [Moles/Vol] 25.0 mmol/L 21.0-32.0 [facility] Urea nitrogen/Creatinine [Mass ratio] 12.8 mg/mg 10-20 [facility] No Panel InformationOrdered By: Joan Gomez on 07-02-2023 Estimated GFR (MDRD) Amer 44 mL/min >60 [facility] Comment on above: GFR Calc Estimated GFR (MDRD) Non-Af Amer 36 mL/min >60 [facility] Comment on above: Non- GFR Calc VLDL Cholesterol 35 mg/dL 5-40 [facility] Serum or plasma calcium greg urement (mass/volume)Ordered By: Joan Gomez on 07-02-2023 Calcium [Mass/Vol] 9.3 mg/dL 8.5-10.1 [facility] Serum or plasma creatinine m easurement (mass/volume)Ordered By: Joan Gomez on 07-02-2023 Creatinine [Mass/Vol] 1.48 mg/dL 0.55-1.02 [facility] Comment on above: The validity of the calculated GFR & GFRAA in patients over 70 years has not been determined. Clinical correlation is essential. Serum or plasma thyroid stim ulating hormone (TSH) measurement (units/volume)Ordered By: Joan Gomez on 07-02-2023 TSH Qn 1.75 uIU/mL 0.358-3.74 [facility] Serum or plasma thyroxine (T 4) measurement (mass/volume)Ordered By: Joan Gomez on 07-02-2023 T4 [Mass/Vol] 13.1 ug/dL 4.8-13.9 [facility] Serum or plasma urea nitroge n measurement (mass/volume)Ordered By: Joan Gomez on 07-02-2023 Urea nitrogen [Mass/Vol] 19 mg/dL 7-18 [facility] Thin prep Papanicolaou smear with manual screeningOrdered By: Joan Gomez on 07-02-2023 Protein (U) [Mass/Vol] 14.5 mg/dL 0.0-11.8 [facility] Thin prep Papanicolaou smear with manual screening 15 U/L 15-37 [facility] Thin prep Papanicolaou smear with manual screening 5 5-15 [facility] Urine creatinine measurement (mass/volume)Ordered By: Joan Gomez on 07-02-2023 Creatinine (U) [Mass/Vol] 95.90 mg/dL NO RANGE EST. [facility] Urine protein/creatinine mas s ratioOrdered By: Joan Gomez on 07-02-2023 Protein/Creatinine (U) [Mass ratio] 151 mg/g CRE 0-200 [facility] No Panel InformationOrdered By: Dr. Gomez on 04-13-2022 Thyroid Stimulating Hormone (TSH) 0.39 uIU/mL 0.358-3.74 [facility] Absolute lymphocyte counton 01-06-2022 Lymphocytes Auto (Unsp spec) [#/Vol] 0.89 10*3/uL 0.83-4.51 [facility] Work Phone: Basophil percentageon 2021 Basophils/100 WBC (Bld) 0.0 % 0-[address] [facility] Work Phone: Bilirubin [Mass/Vol] 0.50 mg/dL 0.20-1.00 [facility] Work Phone: Comment on above: For patients on eltr ombopag therapy, use of Dimension [place] TBIL is not recommended. Chloride [Moles/Vol] 109 mmol/L 98-107 [facility] Work Phone: Eosinophils/100 WBC (Bld) 0.0 % 0-5 [facility] Work Phone: Glucose [Mass/Vol] 181 mg/dL 74-106 [facility] Work Phone: Comment on above: Fasting Glucose resu lt greater than or equal to 126 mg/dL suggests DIABETES MELLITUS per A.D.A. criteria. Neutrophils (Bld) [#/Vol] 6.5 10*3/uL 2.0-7.7 [facility] Work Phone: Neutrophils/100 WBC (Bld) 82.9 % 47-70 [facility] Work Phone: Potassium [Moles/Vol] 3.8 mmol/L 3.5-5.1 [facility] Work Phone: Protein [Mass/Vol] 6.5 g/dL 6.4-8.2 [facility] Work Phone: Sodium [Moles/Vol] 138 mmol/L 136-145 [facility] Work Phone: WBC (Bld) [#/Vol] 7.8 10*3/uL 4.4-11.0 [facility] Work Phone: Blood erythrocytes count (nu mber/volume)on 01-06-2022 RBC (Bld) [#/Vol] 4.27 10*6/uL 4.2-5.4 [facility] Work Phone: Blood hemoglobin measurement (mass/volume)on 01-06-2022 Hemoglobin (Bld) [Mass/Vol] 13.4 g/dL 12.0-15.0 [facility] Work Phone: Blood lymphocytes/100 leukoc yteson 01-06-2022 Lymphocytes/100 WBC (Bld) 11.4 % 19-41 [facility] Work Phone: Blood monocytes/100 leukocyt eson 01-06-2022 Monocytes/100 WBC (Bld) 5.2 % 0-[address] [facility] Work Phone: Blood platelet mean volumeon 01-06-2022 Platelet mean volume (Bld) [Entitic vol] 10.3 fL 6.2-12.0 [facility] Work Phone: Determination of erythrocyte mean corpuscular volume (MCV)on 01-06-2022 MCV (RBC) [Entitic vol] 93.0 fL 81-[address] [facility] Work Phone: Hematocrit Auto (Bld) [Volum e fraction]on 01-06-2022 Hematocrit (Bld) [Volume fraction] 39.7 % 37-47 [facility] Work Phone: Laboratory - Chemistry and C hemistry - challengeon 01-06-2022 ALP [Catalytic activity/Vol] 97 U/L 45-117 [facility] Work Phone: ALT [Catalytic activity/Vol] 20 U/L 13-56 [facility] Work Phone: CO2 [Moles/Vol] 19.0 mmol/L 21.0-32.0 [facility] Work Phone: Globulin (S) [Mass/Vol] 3.4 g/dL 2.2-4.[address] [facility] Work Phone: Urea nitrogen/Creatinine [Mass ratio] 14.2 mg/mg 10-20 [facility] Work Phone: Laboratory - Hematology and Cell countson 01-06-2022 Erythrocyte distribution width (RBC) [Entitic vol] 43.8 fL 35.1-43.9 [facility] Work Phone: Erythrocyte distribution width (RBC) [Ratio] 12.8 % 11.6-14.6 [facility] Work Phone: Immature granulocytes/100 WBC (Bld) 0.500 % 0.0-0.9 [facility] Work Phone: Comment on above: IG% - Immature Granu locytes (promyelocytes, myelocytes and metamyelocytes) > 1% indicates that a LEFT SHIFT is Present. MCH (RBC) [Entitic mass] 31.4 pg 27.0-32.0 [facility] Work Phone: Nucleated RBC/100 WBC (Bld) [Ratio] 0 % 0-5 [facility] Work Phone: MCHC Auto (RBC) [Mass/Vol]on 01-06-2022 MCHC (RBC) [Mass/Vol] 33.8 g/dL 32-36 [facility] Work Phone: No Panel Informationon 01-06 Estimated Creatinine Clearance Calc 24.40 ml/min [facility] Work Phone: Estimated GFR (MDRD) Amer 44 mL/min >60 [facility] Work Phone: Comment on above: GFR Calc Estimated GFR (MDRD) Non-Af Amer 36 mL/min >60 [facility] Work Phone: Comment on above: Non- GFR Calc Platelets bldon 01-06-2022 Platelets (Bld) [#/Vol] 247 10*3/uL 150-450 [facility] Work Phone: Serum or plasma albumin greg urement (mass/volume)on 01-06-2022 Albumin [Mass/Vol] 3.1 g/dL 3.2-5.0 [facility] Work Phone: Serum or plasma albumin/glob ulin mass ratioon 01-06-2022 Albumin/Globulin [Mass ratio] 0.9 {ratio} 0.9-2.4 [facility] Work Phone: Serum or plasma calcium greg urement (mass/volume)on 01-06-2022 Calcium [Mass/Vol] 8.8 mg/dL 8.5-10.1 [facility] Work Phone: Serum or plasma creatinine m easurement (mass/volume)on 01-06-2022 Creatinine [Mass/Vol] 1.48 mg/dL 0.55-1.02 [facility] Work Phone: Comment on above: The validity of the calculated GFR & GFRAA in patients over 70 years has not been determined. Clinical correlation is essential. Serum or plasma urea nitroge n measurement (mass/volume)on 01-06-2022 Urea nitrogen [Mass/Vol] 21 mg/dL 7-18 [facility] Work Phone: Thin prep Papanicolaou smear with manual screeningon 01-06-2022 Thin prep Papanicolaou smear with manual screening 15 U/L 15-37 [facility] Work Phone: Thin prep Papanicolaou smear with manual screening 10 5-15 [facility] Work Phone: Laboratory - Chemistry and C hemistry - challengeon 01-05-2022 Free T4 [Mass/Vol] 2.22 ng/dL 0.76-1.46 [facility] Work Phone: No Panel Informationon 01-05 Free Triiodothyronine (T3) pg/dL 2.9 pg/mL 2.18-3.98 [facility] Work Phone: Thyroid Stimulating Hormone (TSH) 0.08 uIU/mL 0.358-3.74 [facility] Work Phone: Absolute lymphocyte counton 01-02-2022 Lymphocytes Auto (Unsp spec) [#/Vol] 2.22 10*3/uL 0.83-4.51 [facility] Work Phone: Basophil percentageon 2021 Basophil percentage 25-50 SEEN /hpf 0-5 [facility] Work Phone: Basophils/100 WBC (Bld) 0.4 % 0-[address] [facility] Work Phone: Chloride [Moles/Vol] 109 mmol/L 98-107 [facility] Work Phone: Eosinophils/100 WBC (Bld) 4.2 % 0-5 [facility] Work Phone: Glucose [Mass/Vol] 124 mg/dL 74-106 [facility] Work Phone: Comment on above: Fasting Glucose resu lt from 100 to 125 mg/dL suggests IMPAIRED HOMEOSTASIS per A.D.A. criteria. Neutrophils (Bld) [#/Vol] 7.4 10*3/uL 2.0-7.7 [facility] Work Phone: Neutrophils/100 WBC (Bld) 65.5 % 47-70 [facility] Work Phone: Potassium [Moles/Vol] 4.3 mmol/L 3.5-5.1 [facility] Work Phone: Sodium [Moles/Vol] 139 mmol/L 136-145 [facility] Work Phone: WBC (Bld) [#/Vol] 11.2 10*3/uL 4.4-11.0 [facility] Work Phone: Bilirubin Test strip Ql (U)o n 01-02-2022 Bilirubin Ql (U) Negative Negative [facility] Work Phone: Blood erythrocytes count (nu mber/volume)on 01-02-2022 RBC (Bld) [#/Vol] 4.51 10*6/uL 4.2-5.4 [facility] Work Phone: Blood hemoglobin measurement (mass/volume)on 01-02-2022 Hemoglobin (Bld) [Mass/Vol] 13.6 g/dL 12.0-15.0 [facility] Work Phone: Blood lymphocytes/100 leukoc yteson 01-02-2022 Lymphocytes/100 WBC (Bld) 19.8 % 19-41 [facility] Work Phone: Blood monocytes/100 leukocyt eson 01-02-2022 Monocytes/100 WBC (Bld) 9.8 % 0-[address] [facility] Work Phone: Blood platelet mean volumeon 01-02-2022 Platelet mean volume (Bld) [Entitic vol] 9.9 fL 6.2-12.0 [facility] Work Phone: Determination of erythrocyte mean corpuscular volume (MCV)on 01-02-2022 MCV (RBC) [Entitic vol] 93.8 fL 81-[address] [facility] Work Phone: Hematocrit Auto (Bld) [Volum e fraction]on 01-02-2022 Hematocrit (Bld) [Volume fraction] 42.3 % 37-47 [facility] Work Phone: Ketones Test strip Ql (U)on 01-02-2022 Ketones Ql (U) 5 mg/dl Negative [facility] Work Phone: Laboratory - Chemistry and C hemistry - challengeon 01-02-2022 CO2 [Moles/Vol] 26.0 mmol/L 21.0-32.0 [facility] Work Phone: Urea nitrogen/Creatinine [Mass ratio] 17.8 mg/mg 10- [facility] Work Phone: Laboratory - Hematology and Cell countson 01-02-2022 Erythrocyte distribution width (RBC) [Entitic vol] 43.7 fL 35.1-43.9 [facility] Work Phone: Erythrocyte distribution width (RBC) [Ratio] 12.6 % 11.6-14.6 [facility] Work Phone: Immature granulocytes/100 WBC (Bld) 0.300 % 0.0-0.9 [facility] Work Phone: Comment on above: IG% - Immature Granu locytes (promyelocytes, myelocytes and metamyelocytes) > 1% indicates that a LEFT SHIFT is Present. MCH (RBC) [Entitic mass] 30.2 pg 27.0-32.0 [facility] Work Phone: Nucleated RBC/100 WBC (Bld) [Ratio] 0 % 0-5 [facility] Work Phone: MCHC Auto (RBC) [Mass/Vol]on 01-02-2022 MCHC (RBC) [Mass/Vol] 32.2 g/dL 32-36 [facility] Work Phone: Mucus LM Ql (Urine sed)on Mucus Ql (Urine sed) 0 SEEN /hpf [facility] Work Phone: Nitrite Test strip Ql (U)on 01-02-2022 Nitrite Ql (U) Positive Negative [facility] Work Phone: No Panel Informationon 01-02 Estimated Creatinine Clearance Calc 29.34 ml/min [facility] Work Phone: Estimated GFR (MDRD) Amer 52 mL/min >60 [facility] Work Phone: Comment on above: GFR Calc Estimated GFR (MDRD) Non-Af Amer 43 mL/min >60 [facility] Work Phone: Comment on above: Non- GFR Calc Platelets bldon 01-02-2022 Platelets (Bld) [#/Vol] 290 10*3/uL 150-450 [facility] Work Phone: Protein Test strip Ql (U)on 01-02-2022 Protein Ql (U) 100 mg/dl Negative [facility] Work Phone: Serum or plasma calcium greg urement (mass/volume)on 01-02-2022 Calcium [Mass/Vol] 9.4 mg/dL 8.5-10.1 [facility] Work Phone: Serum or plasma creatinine m easurement (mass/volume)on 01-02-2022 Creatinine [Mass/Vol] 1.29 mg/dL 0.55-1.02 [facility] Work Phone: Comment on above: The validity of the calculated GFR & GFRAA in patients over 70 years has not been determined. Clinical correlation is essential. Serum or plasma urea nitroge n measurement (mass/volume)on 01-02-2022 Urea nitrogen [Mass/Vol] 23 mg/dL 7-18 [facility] Work Phone: Squamous epithelial cells de tection in urine sediment by light microscopyon 01-02-2022 Epithelial cells.squamous LM Ql (Urine sed) 0-5 SEEN /hpf 5-10 [facility] Work Phone: Thin prep Papanicolaou smear with manual screeningon 01-02-2022 Thin prep Papanicolaou smear with manual screening 4 5-15 [facility] Work Phone: Urine blood detectionon 12-10 RBC Ql (U) 250 /ul Negative [facility] Work Phone: RBC Ql (U) 25-50 SEEN /hpf 0-5 [facility] Work Phone: Urine clarityon 01-02-2022 Clarity (U) Cloudy Clear [facility] Work Phone: Urine color determinationon 01-02-2022 Color (U) Brown Yellow [facility] Work Phone: Urine glucose detectionon Glucose Ql (U) Normal mg/dl Normal [facility] Work Phone: Urine leukocyte esterase det ection by dipstickon 01-02-2022 Leukocyte esterase Test strip Ql (U) 500 /ul Negative [facility] Work Phone: Urine pHon 01-02-2022 pH (U) 6.5 [pH] 5.0 - 8.0 [facility] Work Phone: Urine sediment bacteria coun t by microscopy (number/high power field)on 01-02-2022 Bacteria LM.HPF (Urine sed) [#/Area] 1 /[HPF] None Seen [facility] Work Phone: Urine specific gravity measu rementon 01-02-2022 Specific gravity (U) [Rel density] 1.015 1.002-1.030 [facility] Work Phone: Urobilinogen Auto test strip Ql (U)on 01-02-2022 Urobilinogen Ql (U) Normal mg/dl Normal [facility] Work Phone: Basophil percentageon 2021 Chloride [Moles/Vol] 106 mmol/L 98-107 [facility] Work Phone: Glucose [Mass/Vol] 88 mg/dL 74-106 [facility] Work Phone: Potassium [Moles/Vol] 4.2 mmol/L 3.5-5.1 [facility] Work Phone: Sodium [Moles/Vol] 140 mmol/L 136-145 [facility] Work Phone: WBC (Bld) [#/Vol] 9.0 10*3/uL 4.4-11.0 [facility] Work Phone: Blood erythrocytes count (nu mber/volume)on 11-27-2021 RBC (Bld) [#/Vol] 4.56 10*6/uL [facility].2-5.4 [facility]: Blood hemoglobin measurement (mass/volume)on 11-27-2021 Hemoglobin (Bld) [Mass/Vol] 13.7 g/dL 12.0-15.0 [facility] Work Phone: Blood platelet mean volumeon 11-27-2021 Platelet mean volume (Bld) [Entitic vol] 10.4 fL 6.2-12.0 [facility] Work Phone: Determination of erythrocyte mean corpuscular volume (MCV)on 11-27-2021 MCV (RBC) [Entitic vol] 94.1 fL 81-[address] [facility] Work Phone: Hematocrit Auto (Bld) [Volum e fraction]on 11-27-2021 Hematocrit (Bld) [Volume fraction] 42.9 % 37-47 [facility] Work Phone: Laboratory - Chemistry and C hemistry - challengeon 11-27-2021 CO2 [Moles/Vol] 26.0 mmol/L 21.0-32.0 [facility] Work Phone: Urea nitrogen/Creatinine [Mass ratio] 15.5 mg/mg 10-20 [facility] Work Phone: Laboratory - Hematology and Cell countson 11-27-2021 Erythrocyte distribution width (RBC) [Entitic vol] 43.8 fL 35.1-43.9 [facility] Work Phone: Erythrocyte distribution width (RBC) [Ratio] 12.8 % 11.6-14.6 [facility] Work Phone: MCH (RBC) [Entitic mass] 30.0 pg 27.0-32.0 [facility] Work Phone: MCHC Auto (RBC) [Mass/Vol]on 11-27-2021 MCHC (RBC) [Mass/Vol] 31.9 g/dL 32-36 [facility] Work Phone: No Panel Informationon 11-27 Estimated GFR (MDRD) Amer 62 mL/min >60 [facility] Work Phone: Comment on above: GFR Calc Estimated GFR (MDRD) Non-Af Amer 51 mL/min >60 [facility] Work Phone: Comment on above: Non- GFR Calc Platelets bldon 11-27-2021 Platelets (Bld) [#/Vol] 260 10*3/uL 150-450 [facility] Work Phone: Serum or plasma calcium greg urement (mass/volume)on 11-27-2021 Calcium [Mass/Vol] 9.7 mg/dL 8.5-10.1 [facility] Work Phone: Serum or plasma creatinine m easurement (mass/volume)on 11-27-2021 Creatinine [Mass/Vol] 1.10 mg/dL 0.55-1.02 [facility] Work Phone: Comment on above: The validity of the calculated GFR & GFRAA in patients over 70 years has not been determined. Clinical correlation is essential. Serum or plasma urea nitroge n measurement (mass/volume)on 11-27-2021 Urea nitrogen [Mass/Vol] 17 mg/dL 7-18 [facility] Work Phone: Thin prep Papanicolaou smear with manual screeningon 11-27-2021 Thin prep Papanicolaou smear with manual screening 8 5-15 [facility] Work Phone: Culture, urineon 07-11-2021 Bacteria identified Cx Nom (U) Mixed Gram Pos & Gram Neg Org [facility] Work Phone: Basophil percentageon 2021 Chloride [Moles/Vol] 108 mmol/L 98-[address] [facility] Work Phone: Cholesterol [Mass/Vol] 176 mg/dL <200 [facility] Work Phone: Comment on above: <200 mg/dL Desirable 200-240 mg/dL Borderline >240 mg/dL High Risk Glucose [Mass/Vol] 81 mg/dL 74-106 [facility] Work Phone: Potassium [Moles/Vol] 4.3 mmol/L 3.5-5.[address] [facility] Work Phone: Sodium [Moles/Vol] 139 mmol/L 136-145 [facility] Work Phone: Triglyceride [Mass/Vol] 113 mg/dL <[address] [facility] Work Phone: Comment on above: The drugs N-Acetylcy steine and Metamizole may falsely depress this assay.Serum Triglycerides Reference Interval Normal <150 mg/dL Borderline high 150 - 199 mg/dL High 200 - 499 mg/dL Very High > or = 500 mg/dL Laboratory - Chemistry and C hemistry - challengeon 05-03-2021 ALT [Catalytic activity/Vol] 20 U/L 13-56 [facility] Work Phone: CO2 [Moles/Vol] 24.0 mmol/L 21.0-32.0 [facility] Work Phone: T4 [Mass/Vol] 12.0 ug/dL 4.8-13.9 [facility] Work Phone: Urea nitrogen/Creatinine [Mass ratio] 20.4 mg/mg 10-20 [facility] Work Phone: No Panel Informationon 05-03 Estimated GFR (MDRD) Amer 64 mL/min >60 [facility] Work Phone: Comment on above: GFR Calc Estimated GFR (MDRD) Non-Af Amer 53 mL/min >60 [facility] Work Phone: Comment on above: Non- GFR Calc Thyroid Stimulating Hormone (TSH) 1.83 uIU/mL 0.358-3.74 [facility] Work Phone: Urine Microalbumin/Creatinine Ratio 108.3 mg/g CRE <30 [facility] Work Phone: Serum or plasma calcium greg urement (mass/volume)on 05-03-2021 Calcium [Mass/Vol] 9.6 mg/dL 8.5-10.1 [facility] Work Phone: Serum or plasma cholesterol in HDL measurement (mass/volume)on 05-03-2021 Cholesterol in HDL [Mass/Vol] 53 mg/dL >40 [facility] Work Phone: Comment on above: The drugs N-Acetylcy steine and Metamizole may falsely depress this assay. Reference Range HDL <40 mg/dL Low HDL Cholesterol HDL >or= 60 mg/dL High HDL Cholesterol Serum or plasma cholesterol in VLDL measurement (mass/volume)on 05-03-2021 Cholesterol in VLDL [Mass/Vol] 23 mg/dL 5-40 [facility] Work Phone: Serum or plasma creatinine m easurement (mass/volume)on 05-03-2021 Creatinine [Mass/Vol] 1.08 mg/dL 0.55-1.02 [facility] Work Phone: Comment on above: The validity of the calculated GFR & GFRAA in patients over 70 years has not been determined. Clinical correlation is essential. Serum or plasma low density lipoprotein (LDL) cholesterol measurement (mass/volume)on 05-03-2021 Cholesterol in LDL [Mass/Vol] 100 mg/dL 0-130 [facility] Work Phone: Serum or plasma urea nitroge n measurement (mass/volume)on 05-03-2021 Urea nitrogen [Mass/Vol] 22 mg/dL 7-18 [facility] Work Phone: Thin prep Papanicolaou smear with manual screeningon 05-03-2021 Thin prep Papanicolaou smear with manual screening 18 U/L 15-37 [facility] Work Phone: Thin prep Papanicolaou smear with manual screening 7 5-15 [facility] Work Phone: Thin prep Papanicolaou smear with manual screening 83.2 mg/L NO RANGE EST. [facility] Work Phone: Urine creatinine measurement (mass/volume)on 05-03-2021 Creatinine (U) [Mass/Vol] 76.80 mg/dL NO RANGE EST. [facility] Work Phone: Culture, urine Bacteria identified Cx Nom (U) Mixed Gram Pos & Gram Neg Org [facility] Work Phone: Bacteria identified Cx Nom (U) Culture exhibits no growth. [facility] Work Phone: Vital Signs Date Time Vital Sign Value Performing Clinician Facility 11-05-2023 10:58-0400 Body temperature 97.59 [degF] Farrah Virk MD Work Phone: [facility] 11-05-2023 10:58-0400 Diastolic blood pressure 65 mm[Hg] Farrah Virk MD Work Phone: [facility] 11-05-2023 10:58-0400 Heart rate 56 /min Farrah Virk MD Work Phone: [facility] 11-05-2023 10:58-0400 Respiratory rate 16 /min Farrah Virk MD Work Phone: [facility] 11-05-2023 10:58-0400 SaO2% (BldA) [Mass fraction] 96 % Farrah Virk MD Work Phone: [facility] 11-05-2023 10:58-0400 Systolic blood pressure 144 mm[Hg] Farrah Virk MD Work Phone: [facility] 11-04-2023 12:44-0400 Body height 160 cm Farrah Virk MD Work Phone: [facility] 11-04-2023 12:44-0400 Body mass index (BMI) [Ratio] 35.61 kg/m2 Farrah Virk MD Work Phone: [facility] 11-04-2023 12:44-0400 Body weight 91.17 kg Farrah Virk MD Work Phone: [facility] 09-01-2023 15:04-0400 Body temperature 98.91 [degF] Katie Call PRODUCT SAFETY TECHNICIAN.DATA COLLECTION TECHNICIAN Work Phone: [facility] 09-01-2023 15:04-0400 Body weight 90.9 kg PRODUCT SAFETY TECHNICIAN.DATA COLLECTION TECHNICIAN Work Phone: [facility] 09-01-2023 15:04-0400 Diastolic blood pressure 78 mm[Hg] Katie Callow PRODUCT SAFETY TECHNICIAN.DATA COLLECTION TECHNICIAN Work Phone: [facility] 09-01-2023 15:04-0400 Heart rate 70 /min ow PRODUCT SAFETY TECHNICIAN.DATA COLLECTION TECHNICIAN Work Phone: [facility] 09-01-2023 15:04-0400 Respiratory rate 18 /min PRODUCT SAFETY TECHNICIAN.DATA COLLECTION TECHNICIAN Work Phone: [facility] 09-01-2023 15:04-0400 SaO2% (BldA) [Mass fraction] 97 % PRODUCT SAFETY TECHNICIAN.DATA COLLECTION TECHNICIAN Work Phone: [facility] 09-01-2023 15:04-0400 Systolic blood pressure 118 mm[Hg] Katie Callow PRODUCT SAFETY TECHNICIAN.DATA COLLECTION TECHNICIAN Work Phone: [facility] 01-06-2022 09:20-0400 Body temperature 98.2 [degF] Dr. Joan Gomez Work Phone: [facility] Work Phone: 01-06-2022 09:20-0400 Diastolic blood pressure 66 mm[Hg] Dr. Joan Gomez Work Phone: [facility] Work Phone: 01-06-2022 09:20-0400 Heart rate 62 /min Dr. Joan Gomez Work Phone: [facility] Work Phone: 01-06-2022 09:20-0400 Respiratory rate 18 /min Dr. Joan Gomez Work Phone: [facility] Work Phone: 01-06-2022 09:20-0400 SaO2% (BldA) [Mass fraction] 98 % Dr. Joan Gomez Work Phone: [facility] Work Phone: 01-06-2022 09:20-0400 Systolic blood pressure 130 mm[Hg] Dr. Joan Gomez Work Phone: [facility] Work Phone: 01-05-2022 13:53-0400 Body height [address] Joan Gomez Work Phone: [facility] Work Phone: 01-05-2022 13:53-0400 Body mass index (BMI) [Ratio] 36.3 kg/m2 Dr. Joan Gomez Work Phone: [facility] Work Phone: 01-05-2022 13:53-0400 Body weight 89.[address] Joan Gomez Work Phone: [facility] Work Phone: 01-02-2022 17:08-0400 Body temperature 98.3 [degF] [facility] Work Phone: 01-02-2022 17:08-0400 Diastolic blood pressure 77 mm[Hg] [facility] Work Phone: 01-02-2022 17:08-0400 Heart rate 59 /min [facility] Work Phone: 01-02-2022 17:08-0400 Respiratory rate 16 /min [facility] Work Phone: 01-02-2022 17:08-0400 SaO2% (BldA) [Mass fraction] 96 % [facility] Work Phone: 01-02-2022 17:08-0400 Systolic blood pressure 161 mm[Hg] [facility] Work Phone: 01-02-2022 14:03-0400 Body height 157.48 cm [facility] Work Phone: 01-02-2022 14:03-0400 Body mass index (BMI) [Ratio] 33.6 kg/m2 [facility] Work Phone: 01-02-2022 14:03-0400 Body weight 83.46 kg [facility] Work Phone: Encounters Encounter Date Encounter Type Care Provider Facility Start: 01-18-2025 ambulatory Jania Jed Facility:[facility] Start: 11-23-2024 End: 11-23-2024 ambulatory Jania Adkins MD Work Phone: -Radiology [facility] Start: 11-23-2024 End: 11-23-[address] Garry Fermin MD -Radiology [facility] Work Phone: Start: 11-23-2024 End: 11-23-2024 ambulatory Garry Fermin Facility:[facility] Start: 11-16-2024 End: 11-16-2024 ambulatory Jania Adkins MD Work Phone: -Laboratory Specimen Start: 11-16-2024 End: 11-16-[address] Garry Fermin MD -Laboratory Specimen Work Phone: Start: 11-16-2024 End: 11-16-2024 ambulatory Jania Adkins Facility:[facility] Start: 07-14-2024 End: 07-14-[address] Joan Gomez MD Work Phone: [facility] Work Phone: Start: 07-14-2024 End: 07-14-[address] Jania Adkins MD -Laboratory, [facility] Start: 07-14-2024 End: 07-14-2024 ambulatory Jania Adkins Facility:[facility] Start: 05-25-2024 End: 05-25-[address] Joan Gomez MD Work Phone: [facility] Work Phone: Start: 05-25-2024 End: 05-25-2024 Patient encounter procedure Manju Martinez -Radiology, [facility] Work Phone: Start: 05-25-2024 End: 05-25-2024 ambulatory Joan Gomez Facility:[facility] Start: 01-30-2024 End: 01-30-2024 ambulatory HOLA RAMOS Facility:[facility] Start: 11-01-2023 End: 11-05-2023 Evaluation and management of inpatient Amber Naik MD Work Phone: [id number] Comment on above: Pancreatitis Start: 09-01-2023 End: 09-01-2023 ambulatory JOAN GOMEZ Facility:[facility] Start: 09-01-2023 End: 09-01-2023 Patient encounter procedure Katie Rico APRN.[facility] Work Phone: [facility] Comment on above: Bacterial sinusitis (Primary Dx) Start: 07-02-2023 End: 07-02-2023 ambulatory [facility] Work Phone: Start: 07-02-2023 End: 07-02-2023 Patient encounter procedure [facility] Start: 05-21-2023 End: 05-21-2023 ambulatory [facility] Work Phone: Start: 05-21-2023 End: 05-21-2023 Patient encounter procedure [facility]-Radiology, [facility] Work Phone: Start: 01-23-2023 End: 01-23-2023 ambulatory [facility] Work Phone: Start: 01-23-2023 End: 01-23-2023 Patient encounter procedure [facility]-Outpatient Breast Imaging Work Phone: Start: 11-19-2022 End: 11-19-2022 ambulatory [facility] Work Phone: Start: 11-19-2022 End: 11-19-2022 Patient encounter procedure [facility], [facility] Work Phone: Start: 05-14-2022 End: 05-14-2022 ambulatory [facility] Work Phone: Start: 05-14-2022 End: 05-14-2022 Patient encounter procedure [facility], [facility] Start: 04-13-2022 End: 04-13-2022 Patient encounter procedure [facility] Start: 01-22-2022 End: 01-22-[address] Joan Gomez Work Phone: [facility] Work Phone: Start: 01-22-2022 End: 01-22-[address] Joan Gomez Work Phone: [facility]-Outpatient Breast Imaging Start: 01-11-2022 End: 01-11-[address] Joan Gomez Work Phone: [facility] Work Phone: Start: 01-11-2022 End: 01-11-[address] Joan Gomez Work Phone: [facility]-Radiology, [facility] Start: 01-06-2022 Non-patient / Non-visit Dr. Jose C Gomez Work Phone: [facility] Start: 01-05-2022 Non-patient / Non-visit Dr. Jose C Gomez Work Phone: [facility] Start: 01-04-2022 Non-patient / Non-visit Dr. Jose C Goemz Work Phone: [facility] Start: 01-02-2022 End: 01-06-2022 Evaluation and management of inpatient Dr. Joan Gomez Work Phone: [facility]-Progressive Care Unit Start: 01-02-2022 End: 01-02-2022 [facility] Start: 11-27-2021 End: 11-27-2021 ambulatory [facility] Work Phone: Start: 11-27-2021 End: 11-27-2021 Patient encounter [facility] Start: 11-23-2021 End: 11-23-2021 Patient encounter procedure [facility]-Cat Scan, [facility] Start: 10-16-2021 End: 10-16-2021 Patient encounter procedure [facility]-Pulmonary Services/Neurology Start: 10-03-2021 End: 10-03-2021 Patient encounter procedure [facility]-Radiology, [facility] Start: 08-23-2021 End: 08-23-[address] Joan Gomez Work Phone: [facility]-RAD Future Appts Start: 07-11-2021 End: 07-11-[address] [facility] Start: 05-30-2021 End: 05-30-[address] Joan Gomez Work Phone: [facility] Start: 05-19-2021 Non-patient / Non-visit Dr. Jose C Gomez Work Phone: [facility] Start: 05-19-2021 End: 05-19-[address] Joan Gomez Work Phone: [facility]-Cardiovascula r Services Start: 05-03-2021 End: 05-03-[address] [facility] Gomez [facility] Start: 04-10-2021 End: 04-10-[address] Joan Gomez Work Phone: [facility]-Radiology, [facility] Procedures Date Procedure Procedure Detail Performing Clinician Start: 11-23-2024 Plain X-ray abdomen Simi Adkins MD Work Phone: Start: 07-14-2024 Vitamin D, 25-hydrox y measurement Dr. Joan Gomez MD Work Phone: Comment on above: Vitamin D StatusDefi ciency: <20 ng/mL (50nmol/L)Insufficiency: 20-30 ng/mL (50-75 nmol/L)Sufficiency: 30-100 ng/mL (75-250 nmol/L)Toxicity: >100 ng/mL (>250 nmol/L) Start: 05-25-2024 Plain X-ray abdomen Dr. Joan Gomez MD Work Phone: Start: 11-05-2023 ABORH TYPE RECONFIRMATION [place] Mishra MD Work Phone: Start: 11-05-2023 Assay of magnesium Trenton Virk MD Work Phone: Start: 11-05-2023 Hepatic function panel Kelly Schroeder MD Work Phone: Start: 11-04-2023 Glucose measurement, blood Farrah Virk MD Work Phone: Start: 11-04-2023 End: 11-04-2023 Antibody screen Farrah Chaparro Work Phone: Comment on above: Performed By: #### H FP, MGO, CHM7 #### [facility] ([facility]) [address] [place] [address] Start: 11-04-2023 Assay of magnesium Trenton Virk MD Work Phone: Start: 11-04-2023 EXTRA LAVENDER TOP Shaniced justin Virk MD Work Phone: Start: 11-04-2023 EXTRA TUBES Farrah Virk MD Work Phone: Start: 11-04-2023 Hepatic function panel Kelly Schroeder MD Work Phone: Start: 11-03-2023 Blood count complete automated Kelly Schroeder MD Work Phone: Start: 11-03-2023 Assay of magnesium Anod ika Albino Virk MD Work Phone: Start: 11-03-2023 Hepatic function panel Kelly Schroeder MD Work Phone: Start: 11-02-2023 Bilirubin direct Brant darcie Schroeder MD Work Phone: Start: 11-02-2023 C-reactive protein Lamari lacey Schroeder MD Work Phone: Start: 11-02-2023 CBC AND ELECTRONIC DIFF Kelly Schroeder MD Work Phone: Start: 11-02-2023 Complete blood count with white cell differential, automated Kelly Schroeder MD Work Phone: Start: 05-21-2023 Diagnostic radiograp hy of abdomen Start: 01-23-2023 Screening mammography Start: 11-19-2022 Diagnostic radiograp hy of abdomen Start: 05-14-2022 Diagnostic radiograp hy of abdomen Start: 01-22-2022 Screening mammography Shankar Gomez Work Phone: Start: 01-11-2022 Diagnostic radiograp hy of abdomen Dr. Joan Gomez Work Phone: Start: 01-05-2022 Extracorporeal shock wave lithotripsy Dr. Joan Gomez Work Phone: Start: 01-02-2022 Diagnostic radiograp hy of abdomen Start: 11-23-2021 CT of abdomen and pe lvis without contrast Start: 10-03-2021 Diagnostic radiograp hy of abdomen Start: 07-11-[address] Joan overton Work Phone: Start: 05-30-2021 Plain X-ray of shoulder Dr. Joan Gomez Work Phone: Start: 04-10-2021 Diagnostic radiograp hy of abdomen Dr. Joan Gomez Work Phone: Urine culture Dr. Joan abreu Work Phone: Plan of Treatment Date Care Activity Detail Author Start: 11-28-2023 End: 11-28-2023 Patient encounter procedure 11/28/2023 1:30 PM EDT Office Visit Trauma Surgery [facility] [address] [place] [id number] Jorge Jarrell MD [address] [place] [id number] Trauma Surgery [facility] Start: 11-10-2023 Influenza vaccination INFLUENZA VACC INE (#1) [facility] Start: 11-05-2023 End: 11-04-2024 Hepatic function 2000 panel - Serum or Plasma HEPATIC FUNCTION PANEL Lab Routine Gallstone pancreatitis Expected: 11/05/2023, Expires: 11/04/2024 [facility] Comment on above: Expected: 11/05/2023 , Expires: 11/04/2024 Start: 03-11-2023 Advance Directive Discussion Advance Directive Discussion [facility] Start: 03-11-2023 Behavioral Health Screening Behavioral Health Screening [facility] Start: 11-09-2022 Covid-19 Vaccine ( season) Covid-19 Vaccine () [facility] Start: 01-06-2022 Patient discharge [facility] Work Phone: Start: 01-04-2022 Provision of activit y privileges [facility] Work Phone: Start: 01-04-2022 Consultation [facility] Work Phone: Start: 01-02-2022 Vital signs measurements [facility] Work Phone: Start: 01-02-2022 Measuring intake and output [facility] Work Phone: Start: 01-02-2022 Admission procedure [facility] Work Phone: Start: 01-02-2022 End: 01-02-2022 Following clinical pathway protocol [facility] Work Phone: Start: 01-02-2022 [facility] Work Phone: Start: 01-02-2022 Patient referral to dietitian [facility] Work Phone: Start: 04-21-2018 Diabetes Screening Diabetes Screenin g [facility] Start: 03-10-2012 Shingrix Vaccine (2 of 3) Shingrix Vaccine (2 of 3) [facility] Start: 03-10-2012 Zoster vaccine hzv l keo for subcutaneous use ZOSTER (SHINGLES) VACCINE (2 of 3) [facility] Start: 08-08-2009 Tetanus vaccination TETANUS [facility] Start: 2005 RSV Vaccine (1 - 1-d ose 60+ series) RSV Vaccine (1 - 1-dose 60+ series) [facility] Start: 1990 Screening for malign ant neoplasm of colon COLORECTAL CANCER SCREENING DISCUSSION [facility] Start: 1985 Screening for malign ant neoplasm of breast MAMMOGRAM SCREENING DISCUSSION [facility] Start: 1966 Screening for malign ant neoplasm of cervix CERVICAL CANCER SCREENING DISCUSSION [facility] Start: 1964 Third diphtheria, tetanus and acellular pertussis (DTaP) vaccination TDAP (ADULT) [facility] Start: 1964 Urine microalbumin profile DTaP,Tdap,Td Vaccine (1 - Tdap) [facility] Start: 11-01-1963 Hepatitis C screening Hepatitis C Sc [facility] Start: 1945 Hepatitis C screening HEPATITI S C VIRUS SCREENING [facility] Start: 1945 Screening for osteoporosis DEXA SCAN DISCUSSION [facility] Start: 1945 Thyroid stimulating hormone measurement TSH [facility] Bacteria identified in Urine by Culture Urine Culture [facility] Work Phone: Patient referral [facility] Work Phone: SURG PATH REQUEST [facility] Comment on above: Release Upon Orderin g for 1 Occurrences starting 11/04/2023 [facility] Work Phone: Immunizations Immunization Date Immunization Notes Care Provider Gt castellon 12-28-2022 influenza virus vacc ine, unspecified formulation Amber Naik MD Work Phone: [facility] 01-03-2022 influenza, injectabl e, quadrivalent, preservative free [facility] 01-03-2022 influenza, seasonal, injectable Dr. Joan Gomez Work Phone: [facility] 12-10-[address] Joan Gomez Work Phone: [facility] 04-21-2015 pneumococcal conjuga te vaccine, 13 valent Katie Callow PRODUCT SAFETY TECHNICIAN.DATA COLLECTION TECHNICIAN Work Phone: [facility] 12-09-2013 influenza, seasonal, injectable Katie Callow PRODUCT SAFETY TECHNICIAN.DATA COLLECTION TECHNICIAN Work Phone: [facility] 01-14-2012 zoster vaccine, live Katie C allow PRODUCT SAFETY TECHNICIAN.DATA COLLECTION TECHNICIAN Work Phone: [facility] 01-14-2012 zoster vaccine, unspecified formulation Amber Naik MD Work Phone: [facility] 12-17-2011 influenza virus vacc ine, unspecified formulation Katie Callow PRODUCT SAFETY TECHNICIAN.DATA COLLECTION TECHNICIAN Work Phone: [facility] 02-27-2011 pneumococcal polysaccharide vaccine, 23 valent Katie Callow PRODUCT SAFETY TECHNICIAN.DATA COLLECTION TECHNICIAN Work Phone: [facility] 12-30-2010 influenza virus vacc ine, unspecified formulation Katie Callow PRODUCT SAFETY TECHNICIAN.DATA COLLECTION TECHNICIAN Work Phone: [facility] Work Phone: 01-12-2010 influenza virus vacc ine, unspecified formulation Katie Callow PRODUCT SAFETY TECHNICIAN.DATA COLLECTION TECHNICIAN Work Phone: [facility] Work Phone: 12-02-2008 influenza virus vacc ine, unspecified formulation Ktaie Callow PRODUCT SAFETY TECHNICIAN.DATA COLLECTION TECHNICIAN Work Phone: [facility] Work Phone: 01-15-2008 influenza virus vacc ine, unspecified formulation Katie Rico PRODUCT SAFETY TECHNICIAN.DATA COLLECTION TECHNICIAN Work Phone: [facility] Work Phone: 01-14-2007 influenza virus vacc ine, unspecified formulation Katie Rico PRODUCT SAFETY TECHNICIAN.DATA COLLECTION TECHNICIAN Work Phone: [facility] 01-08-2006 influenza virus vacc ine, unspecified formulation Katie Rico PRODUCT SAFETY TECHNICIAN.DATA COLLECTION TECHNICIAN Work Phone: [facility] Work Phone: Payers Date Payer Category Payer Self-pay [id number] 2014 Unknown [id number] 2014 Unknown [id number] 2010 Medicare [id number].[facility] 2010 Medicare [id number] 1945 Unknown [id number] Unknown [id number] Unknown [id number] [id number] Unknown [id number] [id number] Unknown [id number] [id number] [id number] Unknown [id number] [id number] [id number] Unknown [id number] [id number] [id number] Social History Date Type Detail Facility Start: 07-02-2020 End: 01-02-2022 Tobacco smoking status NHIS Unknown if ever smoked [facility] Start: 04-21-2020 None [facility] Start: 04-21-2020 Alone;- [facility] Start: 04-20-2020 Non-smoker [facility] Start: 1945 Sex Assigned At Female [facility] Start: 08-24-2010 End: 11-01-2023 Tobacco smoking status NHIS Never smoked tobacco [facility] Start: 08-24-2010 End: 11-01-2023 Tobacco use and exposure Smokeless tobacco non-user [facility] Start: 09-01-2023 Alcohol intake Current non-dr sound recordist of alcohol (finding) [facility] Start: 09-01-2023 End: 11-04-2023 History of Social function [facility] Start: 09-01-2023 End: 11-04-2023 Tobacco use panel [facility] Start: 1945 Sex Assigned At Not on file [facility] Start: 11-04-2023 Alcoholic beverage intake Life time non-drinker (finding) [facility] Has the zumatek, M-Changa, or water M-KOPA threatened to shut off services in your home in past 12Mo No [facility] (I/We) worried jann hall (my/our) food would run out before (I/we) got money to buy more. Never true [facility] In the past 12 month s, has lack of transportation kept you from medical appointments or from getting medications? No [facility] Start: 06-04-2024 End: 06-15-2024 Sex Female (finding) [facility] Medical Equipment Procedure Code Equipment Code Equipment Origin al Text Equipment Identifier Dates Total knee replacement ARTICULAR SURFACE FDA Start: 04-18-2020 Total knee replacement DOUGH,CEMENT 6191-1-010 FDA Start: 04-18-2020 Total knee replacement DOUGH,CEMENT 6191-1-010 FDA Start: 04-18-2020 Total knee replacement FEMORAL COMPONENT FDA Start: 04-18-2020 Total knee replacement PATELLA 32MM FDA Start: 04-18-2020 Total knee replacement TIBIAL BASEPLATE FDA Start: 04-18-2020 Total knee replacement ARTICULAR SURFACE FDA Start: 04-18-2020 Total knee replacement DOUGH,CEMENT 6191-1-010 FDA Start: 04-18-2020 Total knee replacement DOUGH,CEMENT 6191-1-010 FDA Start: 04-18-2020 Total knee replacement FEMORAL COMPONENT FDA Start: 04-18-2020 Total knee replacement PATELLA 32MM FDA Start: 04-18-2020 Total knee replacement TIBIAL BASEPLATE FDA Start: 04-18-2020 Total knee replacement ARTICULAR SURFACE FDA Start: 04-18-2020 Total knee replacement DOUGH,CEMENT 6191-1-010 FDA Start: 04-18-2020 Total knee replacement DOUGH,CEMENT 6191-1-010 FDA Start: 04-18-2020 Total knee replacement FEMORAL COMPONENT FDA Start: 04-18-2020 Total knee replacement PATELLA 32MM FDA Start: 04-18-2020 Total knee replacement TIBIAL BASEPLATE FDA Start: 04-18-2020 Total knee replacement ARTICULAR SURFACE FDA Start: 04-18-2020 Total knee replacement DOUGH,CEMENT 6191-1-010 FDA Start: 04-18-2020 Total knee replacement DOUGH,CEMENT 6191-1-010 FDA Start: 04-18-2020 Total knee replacement FEMORAL COMPONENT FDA Start: 04-18-2020 Total knee replacement PATELLA 32MM FDA Start: 04-18-2020 Total knee replacement TIBIAL BASEPLATE FDA Start: 04-18-2020 Total knee replacement ARTICULAR SURFACE FDA Start: 04-18-2020 Total knee replacement DOUGH,CEMENT 6191-1-010 FDA Start: 04-18-2020 Total knee replacement DOUGH,CEMENT 6191-1-010 FDA Start: 04-18-2020 Total knee replacement FEMORAL COMPONENT FDA Start: 04-18-2020 Total knee replacement PATELLA 32MM FDA Start: 04-18-2020 Total knee replacement TIBIAL BASEPLATE FDA Start: 04-18-2020 Total knee replacement ARTICULAR SURFACE FDA Start: 04-18-2020 Total knee replacement DOUGH,CEMENT 6191-1-010 FDA Start: 04-18-2020 Total knee replacement DOUGH,CEMENT 6191-1-010 FDA Start: 04-18-2020 Total knee replacement FEMORAL COMPONENT FDA Start: 04-18-2020 Total knee replacement PATELLA 32MM FDA Start: 04-18-2020 Total knee replacement TIBIAL BASEPLATE FDA Start: 04-18-2020 Total knee replacement ARTICULAR SURFACE FDA Start: 04-18-2020 Total knee replacement DOUGH,CEMENT 6191-1-010 FDA Start: 04-18-2020 Total knee replacement DOUGH,CEMENT 6191-1-010 FDA Start: 04-18-2020 Total knee replacement FEMORAL COMPONENT FDA Start: 04-18-2020 Total knee replacement PATELLA 32MM FDA Start: 04-18-2020 Total knee replacement TIBIAL BASEPLATE FDA Start: 04-18-2020 Total knee replacement ARTICULAR SURFACE FDA Start: 04-18-2020 Total knee replacement DOUGH,CEMENT 6191-1-010 FDA Start: 04-18-2020 Total knee replacement DOUGH,CEMENT 6191-1-010 FDA Start: 04-18-2020 Total knee replacement FEMORAL COMPONENT FDA Start: 04-18-2020 Total knee replacement PATELLA 32MM FDA Start: 04-18-2020 Total knee replacement TIBIAL BASEPLATE FDA Start: 04-18-2020 Total knee replacement ARTICULAR SURFACE FDA Start: 04-18-2020 Total knee replacement DOUGH,CEMENT 6191-1-010 FDA Start: 04-18-2020 Total knee replacement DOUGH,CEMENT 6191-1-010 FDA Start: 04-18-2020 Total knee replacement FEMORAL COMPONENT FDA Start: 04-18-2020 Total knee replacement PATELLA 32MM FDA Start: 04-18-2020 Total knee replacement TIBIAL BASEPLATE FDA Start: 04-18-2020 Total knee replacement ARTICULAR SURFACE FDA Start: 04-18-2020 Total knee replacement DOUGH,CEMENT 6191-1-010 FDA Start: 04-18-2020 Total knee replacement DOUGH,CEMENT 6191-1-010 FDA Start: 04-18-2020 Total knee replacement FEMORAL COMPONENT FDA Start: 04-18-2020 Total knee replacement PATELLA 32MM FDA Start: 04-18-2020 Total knee replacement TIBIAL BASEPLATE FDA Start: 04-18-2020 Total knee replacement ARTICULAR SURFACE FDA Start: 04-18-2020 Total knee replacement DOUGH,CEMENT 6191-1-010 FDA Start: 04-18-2020 Total knee replacement DOUGH,CEMENT 6191-1-010 FDA Start: 04-18-2020 Total knee replacement FEMORAL COMPONENT FDA Start: 04-18-2020 Total knee replacement PATELLA 32MM FDA Start: 04-18-2020 Total knee replacement TIBIAL BASEPLATE FDA Start: 04-18-2020 Total knee replacement ARTICULAR SURFACE FDA Start: 04-18-2020 Total knee replacement DOUGH,CEMENT 6191-1-010 FDA Start: 04-18-2020 Total knee replacement DOUGH,CEMENT 6191-1-010 FDA Start: 04-18-2020 Total knee replacement FEMORAL COMPONENT FDA Start: 04-18-2020 Total knee replacement PATELLA 32MM FDA Start: 04-18-2020 Total knee replacement TIBIAL BASEPLATE FDA Start: 04-18-2020 Total knee replacement ARTICULAR SURFACE FDA Start: 04-18-2020 Total knee replacement DOUGH,CEMENT 6191-1-010 FDA Start: 04-18-2020 Total knee replacement DOUGH,CEMENT 6191-1-010 FDA Start: 04-18-2020 Total knee replacement FEMORAL COMPONENT FDA Start: 04-18-2020 Total knee replacement PATELLA 32MM FDA Start: 04-18-2020 Total knee replacement TIBIAL BASEPLATE FDA Start: 04-18-2020 Total knee replacement ARTICULAR SURFACE FDA Start: 04-18-2020 Total knee replacement DOUGH,CEMENT 6191-1-010 FDA Start: 04-18-2020 Total knee replacement DOUGH,CEMENT 6191-1-010 FDA Start: 04-18-2020 Total knee replacement FEMORAL COMPONENT FDA Start: 04-18-2020 Total knee replacement PATELLA 32MM FDA Start: 04-18-2020 Total knee replacement TIBIAL BASEPLATE FDA Start: 04-18-2020 Total knee replacement ARTICULAR SURFACE FDA Start: 04-18-2020 Total knee replacement DOUGH,CEMENT 6191-1-010 FDA Start: 04-18-2020 Total knee replacement DOUGH,CEMENT 6191-1-010 FDA Start: 04-18-2020 Total knee replacement FEMORAL COMPONENT FDA Start: 04-18-2020 Total knee replacement PATELLA 32MM FDA Start: 04-18-2020 Total knee replacement TIBIAL BASEPLATE FDA Start: 04-18-2020 Total knee replacement ARTICULAR SURFACE FDA Start: 04-18-2020 Total knee replacement DOUGH,CEMENT 6191-1-010 FDA Start: 04-18-2020 Total knee replacement DOUGH,CEMENT 6191-1-010 FDA Start: 04-18-2020 Total knee replacement FEMORAL COMPONENT FDA Start: 04-18-2020 Total knee replacement PATELLA 32MM FDA Start: 04-18-2020 Total knee replacement TIBIAL BASEPLATE FDA Start: 04-18-2020 Total knee replacement ARTICULAR SURFACE FDA Start: 04-18-2020 Total knee replacement DOUGH,CEMENT 6191-1-010 FDA Start: 04-18-2020 Total knee replacement DOUGH,CEMENT 6191-1-010 FDA Start: 04-18-2020 Total knee replacement FEMORAL COMPONENT FDA Start: 04-18-2020 Total knee replacement PATELLA 32MM FDA Start: 04-18-2020 Total knee replacement TIBIAL BASEPLATE FDA Start: 04-18-2020 Total knee replacement ARTICULAR SURFACE FDA Start: 04-18-2020 Total knee replacement DOUGH,CEMENT 6191-1-010 FDA Start: 04-18-2020 Total knee replacement DOUGH,CEMENT 6191-1-010 FDA Start: 04-18-2020 Total knee replacement FEMORAL COMPONENT FDA Start: 04-18-2020 Total knee replacement PATELLA 32MM FDA Start: 04-18-2020 Total knee replacement TIBIAL BASEPLATE FDA Start: 04-18-2020 Total knee replacement ARTICULAR SURFACE FDA Start: 04-18-2020 Total knee replacement DOUGH,CEMENT 6191-1-010 FDA Start: 04-18-2020 Total knee replacement DOUGH,CEMENT 6191-1-010 FDA Start: 04-18-2020 Total knee replacement FEMORAL COMPONENT FDA Start: 04-18-2020 Total knee replacement PATELLA 32MM FDA Start: 04-18-2020 Total knee replacement TIBIAL BASEPLATE FDA Start: 04-18-2020 STENT,URETERAL PIGTAIL 6FRX24 FDA Start: 12-31-2018 STENT,URETERAL PIGTAIL 6FRX24 FDA Start: 12-31-2018 STENT,URETERAL PIGTAIL 6FRX24 FDA Start: 12-31-2018 STENT,URETERAL PIGTAIL 6FRX24 FDA Start: 12-31-2018 STENT,URETERAL PIGTAIL 6FRX24 FDA Start: 12-31-2018 STENT,URETERAL PIGTAIL 6FRX24 FDA Start: 12-31-2018 STENT,URETERAL PIGTAIL 6FRX24 FDA Start: 12-31-2018 STENT,URETERAL PIGTAIL 6FRX24 FDA Start: 12-31-2018 STENT,URETERAL PIGTAIL 6FRX24 FDA Start: 12-31-2018 STENT,URETERAL PIGTAIL 6FRX24 FDA Start: 12-31-2018 STENT,URETERAL PIGTAIL 6FRX24 FDA Start: 12-31-2018 STENT,URETERAL PIGTAIL 6FRX24 FDA Start: 12-31-2018 STENT,URETERAL PIGTAIL 6FRX24 FDA Start: 12-31-2018 STENT,URETERAL PIGTAIL 6FRX24 FDA Start: 12-31-2018 STENT,URETERAL PIGTAIL 6FRX24 FDA Start: 12-31-2018 STENT,URETERAL PIGTAIL 6FRX24 FDA Start: 12-31-2018 STENT,URETERAL PIGTAIL 6FRX24 FDA Start: 12-31-2018 STENT,URETERAL PIGTAIL 6FRX24 FDA Start: 12-31-2018 STENT,URETERAL PIGTAIL 6FRX24 FDA Start: 12-31-2018 Goals Date Patient Goal Desired Activity /State Functional Status Date Assessment Result Facility 01-06-2022 Functional status Activity Ability Indepe ndent [facility] Work Phone: 01-05-2022 Functional status Ambulates [facility] Work Phone: Mental Status Date Assessment Result Facility 01-06-2022 Cognitive function Level Of Cons ciousness Awake;Alert;Appropriate;Follow s Commands [facility] Work Phone: 01-06-2022 Cognitive function Voice/Name [facility] Work Phone: Clinical Notes 09-01-2023 to 11-23-2024 Nursing Notes - Giselle Reyes RN - 11/05/2023 3:49 PM EDTNursing Notes - Giselle Reyes RN - 11/05/2023 3:49 PM EDTNursing Notes - Balwinder Henry RN - 11/05/2023 6:00 AM EDTDischarge Instructions Note Date & Type Note Facility 11-23-2024 Radiology Diagnostic study note [facility] Imaging Services [address] [place] [address] Abdomen Single View MR#: [id number] Acct: [id number] Name: JULIA MÁRQUEZ PONCHO Rep #: [id number] : 1945 F 79 From: Parmjit Rodriguez MD PCP: Dr. Jania Adkins MD Status: REG CL I Study:Abdomen Single View Date of Exam: 11/23/24 Exam# [id number] Ordering Dr: Elsie Fermin MD PROCEDURE: ABDOMEN SINGLE VIEW 11/23/2024 REASON FOR EXAM: CALCULUS OF KIDNEY TECHNIQUE: Procedure Code: RADABD Modality: DX Procedure: ABDOMEN SINGLE VIEW COMPARISON: 05/25/2024. FINDINGS: Calcific densities overlie the region of the gallbladder which may represent cholelithiasis. Calcific densities overlie the region of the right kidney which may represent nephrolithiasis. Nonspecific nonobstructive bowel gas pattern. No evidence of acute fracture or dislocation. Mild degenerative changes of bilateral hips. Degenerative changes of the partially visualized spine. Degenerative changes of the pubic symphysis. RAD/Abdomen Single View IMPRESSION: As above. Reading Location: [facility] CC: Dr. Jania Adkins MD; Dr. Garry Fermin MD ~ Digital Computer Systems Analyst: Signed [facility] 05-25-2024 Radiology Diagnostic study note [facility] Imaging Services [address] [place], [place] [id number] Abdomen Single View MR#: [id number] Acct: [id number] Name: JULIA MÁRQUEZ PONHCO Rep #: [id number] : 1945 F 78 From: Angie Matthew MD PCP: Dr. Joan Gomez MD Status: REG CLI Study:Abdomen Single View Date of Exam: 05/25/24 Exam# [id number] Ordering Dr: Manju Martinez PROCEDURE: ABDOMEN SINGLE VIEW REASON FOR EXAM: CALCULUS OF KIDNEY TECHNIQUE: Single view abdomen. COMPARISON: None FINDINGS: Bowel gas pattern is normal. No evidence of bowel obstruction. Calcifications project over the right kidney, largest measuring approximately 0.7 cm. Multiple calcifications project over the left hemiabdomen and pelvis The bones are unremarkable. RAD/Abdomen Single View IMPRESSION: Nonobstructing right nephrolithiasis. Probable phleboliths in the left hemiabdomen. Reading Location: [facility] CC: Dr. Joan Gomez MD; Manju Martinez ~ Digital Computer Systems Analyst: Signed [facility] 11-05-2023 Nurse Note AVS reviewed with patient. All questions answered. IV removed. Patient currently waiting on family for transportation home. [facility] 11-05-2023 Miscellaneous Notes AVS reviewed with patient. All questions answered. IV removed. Patient currently waiting on family for transportation home. Patient is resting in bed, no over night issues, pain controlled well with prn pain management, second assessment complete and no changes from previous assessment will continue monitoring. Problem: Adult Inpatient Plan of Care Goal: Plan of Care Review Outcome: Adequate for Discharge Goal: Patient-Specific Goal (Individualized) Outcome: Adequate for Discharge Goal: Absence of Hospital-Acquired Illness or Injury Outcome: Adequate for Discharge Goal: Optimal Comfort and Wellbeing Outcome: Adequate for Discharge Goal: Readiness for Transition of Care Outcome: Adequate for Discharge Problem: Adult Inpatient Plan of Care Goal: Plan of Care Review Outcome: Progressing Goal: Patient-Specific Goal (Individualized) Outcome: Progressing Goal: Absence of Hospital-Acquired Illness or Injury Outcome: Progressing Goal: Optimal Comfort and Wellbeing Outcome: Progressing Goal: Readiness for Transition of Care Outcome: Progressing No changes in this patients reassessment at this time otherwise note in chart. [facility] Plan of Care Julia Márquez is now s/p robotic cholecystectomy with ICG cholangiogram. - OK for CLD, ADAT - No antibiotics needed - OK for DVT ppx in 6 hours - Please obtain CBC, chem, LFTs tomorrow morning - We will continue to follow If there are any questions or concerns, please do not hesitate to page the director digital communications resident (on [employer]Genda: Surgery ([facility]) --> Acute Care Surgery & Trauma --> 1st Call Resident Con 24hrs). Fiona Iqbal MD General Surgery PGY5 Julia Márquez ([id number]) Operative Report Date 11/04/2023 PREOPERATIVE DIAGNOSIS: Gallstone pancreatitis [K85.10] POSTOPERATIVE DIAGNOSIS: Gallstone pancreatitis [K85.10] SURGEON: Surgeons and Role: * Jorge Jarrell MD - Primary SURGICAL STAFF: Ladle Filler: Amauri Calhoun RN Relief Ladle Filler: Ritika Walker RN Resident Assisting: Fiona Iqbal MD Box Printer: Fredi Barrett ANESTHESIA: General Anesthesia PROCEDURE: Robotic Cholecystectomy with Intraoperative Indocyanine Green (ICG) Cholangiogram INTRAOPERATIVE FINDINGS: No significant abnormalities and anatomy amenable to robotic cholecystectomy with ICG Cholangiography. ESTIMATED BLOOD LOSS: Minimal COMPLICATIONS: None SPECIMENS: Gallbladder sent to pathology. ID Type Source Tests Collected by Time Destination 1 : gallbladder Permanent SURG PATH SURG PATH REQUEST Jorge Jarrell MD 11/04/2023 1422 OPERATIVE INDICATIONS: Pt is a 78 y.o. female who presented with gallstone pancreatitis. The patient desires cholecystectomy. The risks, benefits and alternatives of the procedure were explained to the patient, including bleeding, infection, and possibility of injury to the common bile duct, and the patient agreed to proceed and signed informed consent in front of a witness. DESCRIPTION OF PROCEDURE: After preoperative identifying the patient in holding, the patient was brought to the operating room and placed supine on the operating table. Sequential compression devices were placed. After induction of general anesthesia, appropriate perioperative antibiotics were administered. The operative site was prepped and draped in the typical sterile fashion. A [facility] approved time out, where the name of the patient, the operation, and intended site was confirmed. The procedure was begun. We used a veress needle to insufflate in the LUQ. We then used a 8mm optiview port to gain access to the abdomen. We placed our 3 other ports and the robot was introduced into the field and docked. The gallbladder appeared normal. The gall bladder was grasped and lifted superiorly. Utilizing Firefly technology and with the patient having been previously administered Indocyanine Green (ICG) Dye, the cystic duct and common bile duct were visualized to help with dissection and in the protection of the common bile duct. Adhesions to the infundibulum were taken down bluntly and with electrocautery. With traction on the infundibulum, the peritoneum was opened to separate the gall bladder neck from the liver to provide the safe view. The cystic duct and artery were identified and cleared. Anatomy was again confirmed utilizing Firefly and ICG fluorescent imaging. The duct was secured proximally with two Hem-o-Jason clips and distally with one clip. The cystic artery was also identified, cleared and clipped with one Hem-o-Jason clip. The artery and the cystic duct were divided with the hook cautery. We could see the artery branching into a posterior and anterior branch, which were both ligated with a clip and cautery. The gallbladder was removed from the hepatic bed utilizing cautery. It was removed via an endocatch bag. Hemostasis in the baldo and hepatic bed were assured. Irrigation was performed and evacuated. The left upper quadrant port was closed with an 0 PDS suture. The lateral ports were removed under direct vision and the abdomen was desufflated. Skin was closed with absorbable sutures and Dermabond skin sealant. The patient tolerated the procedure well. After confirming twice that the sponge, needle, and instrument counts were corrected the procedure was terminated, the patient was extubated and transferred to the recovery room in stable condition. I was present for the entirety of the operation. DISPOSITION: Stable to PACU. PROCEDURAL BILLING: Procedure: CHOLECYSTECTOMY W/ CHOLANGIOGRAPHY LAPAROSCOPIC CPT(R) Code: 15523 - [place] LAPS SURG CHOLECYSTECTOMY W/CHOLANGIOGRAPHY Electronically Signed By: Jorge Jarrell MD 11/04/2023 3:22 PM Julia Márquez ([id number]) PRE OPERATIVE DIAGNOSIS Gallstone pancreatitis [K85.10] POST OPERATIVE DIAGNOSIS Gallstone pancreatitis [K85.10] PROCEDURE PERFORMED Procedure(s) (LRB): CHOLECYSTECTOMY W/ CHOLANGIOGRAPHY LAPAROSCOPIC (N/A) PRIMARY CLOSURE Yes INTRAOPERATIVE FINDINGS No evidence of cholecystitis SURGEON Surgeons and Role: * Jorge Jarrell MD - Primary ANESTHESIOLOGIST Anesthesiologist: West Stewart MD ENGINEERING CLERK: Amber Dillard APRN-ENGINEERING CLERK Torch Brazer: MICK Mccord SURGICAL STAFF Ladle Filler: Amauri Calhoun RN Relief Ladle Filler: Ritika Walker RN Resident Assisting: Fiona Iqbal MD Box Printer: Fredi Hyde COMPLICATIONS None ESTIMATED BLOOD LOSS Minimal SPECIMENS No specimen sent ID Type Source Tests Collected by Time Destination 1 : gallbladder Permanent SURG PATH SURG PATH REQUEST Jorge Jarrell MD 11/04/2023 1422 Jorge Jarrell MD November 04, 2023 3:21 PM ISBAR handoff procedure completed with anesthesia staff MICK Ospina and surgery RN Phan. Patient stable, no distress, transferred to surgery with OR personnel. food and beverage service manager met with patient to discuss plans at discharge. Julia Márquez verified her demographics, has medicare insurance with prescription benefits and her PCP is Joan Gomez . She does not have a HPOA, lives alone and ambulates independently. She will have transportation home at discharge. Discharge Planning Patient Assessment Admission Assessment Patient Assessment Completed: Initial Expected Discharge Disposition: Home Reason for Admission: Pancreatitis Is the patient able to participate in the assessment?: Yes Information source: Patient, Review of Medical Record Demographics Verified and Updated: Yes Has the patient been admitted to any hospital in the last 30 days?: No Advanced Care Planning Has the patient completed Advance Directives?: Not Completed Referral to Social Work for Advance Care Planning? : Patient Declines Legal Next of Kin Does the patient have a Guardian?: No Spouse: No Adult Child(kvng), List All Adult Children: Yes Name and Contact information: Sabiha Jordan [phone] Would you like to add additional adult children?: Yes Name and Contact information: Tere Flower [phone] Parent(s) - List All Living Parents: No Adult Sibling(s), List All Adult Siblings: No Referral to Social Work to Identify Legal Next of Kin?: No Reviewed and Updated in Demographics? : Yes Outpatient Providers Does patient have a primary care physician? : Yes When was the patient's last PCP visit?: > 30 days Does the patient follow any specialists?: No Reviewed and updated Care Team?: Yes Patient Care Team: Joan Gomez MD as PCP - General (Family Medicine) Environment/Caregivers Is the patient from a facility or correction?: No Patient lives with: Alone Living Environment: House How many steps does the patient have to navigate to enter or inside the home? : 0 Does the patient have a first floor set-up with bed and bathroom?: Yes Patient Caregiving Responsibilities: Self Patient-identified caregiver/support network: Family Who does the patient identify as a teachable caregiver(s)?: Child(kvng) - Independent Services Does the patient use a home health or hospice agency?: No Does the patient use any community programs or services?: No Does patient use DME? : walker, bedside commode, shower seat DME provider name and contact: unknown Does the patient use oxygen?: No Does patient use medical supplies? : none Anticipated Changes Related to Illness/Injury? : No Initial ADLs Prior to Arrival What is the patient's baseline physical functioning prior to this acute illness?: independent What is the patient's baseline cognitive functioning prior to this acute illness?: independent Is the patient's baseline functioning changed by this acute illness? : No Concerns with patient being able to care for themselves at home? : No Are there therapy or specialists consults?: No Does the patient's home require any home modifications for discharge? : No CM to recommend therapy or other consults? : No Medication Management Does the patient have prescription insurance coverage? : Yes Is the patient on Anticoagulation? : No [facility] [place] [address] [phone] [facility] [id number] Health Care Marketing Specialist Does the patient or outside dealer sales representative express financial concerns? : No Employed?: No Coping/Stress Concerns about patient s coping and stress?: No Concerns about patient s caregiver s coping and stress?: No Identified Caregiver Values and Beliefs Cultural or jew practices that may impact discharge planning and/or medical care?: No Initial Discharge Planning Expected Discharge Disposition: Home Transportation Available for Discharge: Family or Friend Anticipated DME: none Anticipated Services at Discharge: Outpatient follow up Patient Assessment Completed: Initial Expected Discharge Date: 11/06/2023 Discharge Planning Summary Patient to discharge home with self care and follow up appointment. Patient has denied any needs for HHC or DME services at this time. Patient reports family will transport home at discharge. Care Management Plan Plan to discharge home with self care and follow up appointments. Signed, Argelia TRUJILLO RN Clinical Special Services Supervisor/ Float Patient is resting in bed, no assessment changes unless it's mentioned in the flow sheet, NPO for possible procedure this morning. Problem: Adult Inpatient Plan of Care Goal: Plan of Care Review Outcome: Progressing Goal: Patient-Specific Goal (Individualized) Outcome: Progressing Goal: Absence of Hospital-Acquired Illness or Injury Outcome: Progressing Goal: Optimal Comfort and Wellbeing Outcome: Progressing Goal: Readiness for Transition of Care Outcome: Progressing Problem: Adult Inpatient Plan of Care Goal: Plan of Care Review 11/03/20232239 by Diandra Saunders RN Outcome: Progressing 11/03/2023 171 by Diandra Saunders RN Outcome: Progressing Goal: Patient-Specific Goal (Individualized) 11/03/20232239 by Diandra Saunders RN Outcome: Progressing 11/03/2023 1716 by Diandra Saunders RN Outcome: Progressing Goal: Absence of Hospital-Acquired Illness or Injury 11/03/20230 by Diandra Saunders RN Outcome: Progressing 11/03/2023 1716 by Diandra Saunders RN Outcome: Progressing Goal: Optimal Comfort and Wellbeing 11/03/2023 2240 by Diandra Saunders RN Outcome: Progressing 11/03/2023 1716 by Diandra Saunders RN Outcome: Progressing Goal: Readiness for Transition of Care 11/03/2023 2240 by Diandra Saunders RN Outcome: Progressing 11/03/2023 1716 by Diandra Saunders RN Outcome: Progressing No changes in this patients reassessment otherwise noted in chart. Problem: Adult Inpatient Plan of Care Goal: Plan of Care Review Outcome: Progressing Goal: Patient-Specific Goal (Individualized) Outcome: Progressing Goal: Absence of Hospital-Acquired Illness or Injury Outcome: Progressing Goal: Optimal Comfort and Wellbeing Outcome: Progressing Goal: Readiness for Transition of Care Outcome: Progressing No changes in this patients reassessment at this time otherwise noted in chart This rn consulted for PIV placement through ultrasound. PIV successfully placed via ultrasound guidance. Primary rn made aware. Second assessment completed with no changes from previous assessment.Pt resting well with call light in reach.Bed in lowest position and locked. Problem: Adult Inpatient Plan of Care Goal: Plan of Care Review Outcome: Progressing Goal: Patient-Specific Goal (Individualized) Outcome: Progressing Goal: Absence of Hospital-Acquired Illness or Injury Outcome: Progressing Goal: Optimal Comfort and Wellbeing Outcome: Progressing Goal: Readiness for Transition of Care Outcome: Progressing Second assessment completed, No acute changes noted from initial assessment. Patient safely resting in bed. Call light at reach and bed in low position. Problem: Adult Inpatient Plan of Care Goal: Plan of Care Review Outcome: Progressing Goal: Patient-Specific Goal (Individualized) Outcome: Progressing Goal: Absence of Hospital-Acquired Illness or Injury Outcome: Progressing Goal: Optimal Comfort and Wellbeing Outcome: Progressing Goal: Readiness for Transition of Care Outcome: Progressing Reassessed patient's vitals and Blood pressure is within normal limits. Patient is sitting on the chair relaxed and watching TV. TIMBER INSPECTOR alerted me me of blood pressure is elevated, Reached out to the provider Dr. Sharma and new orders were received. Administer Blood pressure meds per order and will reassess. Second assessment completed with no changes from previous assessment.Pt resting well with call light in reach.Bed in lowest position and locked. Problem: Adult Inpatient Plan of Care Goal: Plan of Care Review Outcome: Progressing Goal: Patient-Specific Goal (Individualized) Outcome: Progressing Goal: Absence of Hospital-Acquired Illness or Injury Outcome: Progressing Goal: Optimal Comfort and Wellbeing Outcome: Progressing Goal: Readiness for Transition of Care Outcome: Progressing documented in this encounter [facility] 11-05-2023 Miscellaneous Notes AVS reviewed with patient. All questions answered. IV removed. Patient currently waiting on family for transportation home. Patient is resting in bed, no over night issues, pain controlled well with prn pain management, second assessment complete and no changes from previous assessment will continue monitoring. Problem: Adult Inpatient Plan of Care Goal: Plan of Care Review Outcome: Adequate for Discharge Goal: Patient-Specific Goal (Individualized) Outcome: Adequate for Discharge Goal: Absence of Hospital-Acquired Illness or Injury Outcome: Adequate for Discharge Goal: Optimal Comfort and Wellbeing Outcome: Adequate for Discharge Goal: Readiness for Transition of Care Outcome: Adequate for Discharge Problem: Adult Inpatient Plan of Care Goal: Plan of Care Review Outcome: Progressing Goal: Patient-Specific Goal (Individualized) Outcome: Progressing Goal: Absence of Hospital-Acquired Illness or Injury Outcome: Progressing Goal: Optimal Comfort and Wellbeing Outcome: Progressing Goal: Readiness for Transition of Care Outcome: Progressing No changes in this patients reassessment at this time otherwise note in chart. [facility] Plan of Care Julia Márquez is now s/p robotic cholecystectomy with ICG cholangiogram. - OK for CLD, ADAT - No antibiotics needed - OK for DVT ppx in 6 hours - Please obtain CBC, chem, LFTs tomorrow morning - We will continue to follow If there are any questions or concerns, please do not hesitate to page the director digital communications resident (on [employer]: Surgery ([facility]) --> Acute Care Surgery & Trauma --> 1st Call Resident Con 24hrs). Fiona Iqbal MD General Surgery PGY5 Julia Márquez ([id number]) Operative Report Date 11/04/2023 PREOPERATIVE DIAGNOSIS: Gallstone pancreatitis [K85.10] POSTOPERATIVE DIAGNOSIS: Gallstone pancreatitis [K85.10] SURGEON: Surgeons and Role: * Jorge Jarrell MD - Primary SURGICAL STAFF: Ladle Filler: Amauri Calhoun RN Relief Ladle Filler: Ritika Walker RN Resident Assisting: Fiona Iqbal MD Box Printer: Fredi Hyde ANESTHESIA: General Anesthesia PROCEDURE: Robotic Cholecystectomy with Intraoperative Indocyanine Green (ICG) Cholangiogram INTRAOPERATIVE FINDINGS: No significant abnormalities and anatomy amenable to robotic cholecystectomy with ICG Cholangiography. ESTIMATED BLOOD LOSS: Minimal COMPLICATIONS: None SPECIMENS: Gallbladder sent to pathology. ID Type Source Tests Collected by Time Destination 1 : gallbladder Permanent SURG PATH SURG PATH REQUEST Jorge Jarrell MD 11/04/2023 1422 OPERATIVE INDICATIONS: Pt is a 78 y.o. female who presented with gallstone pancreatitis. The patient desires cholecystectomy. The risks, benefits and alternatives of the procedure were explained to the patient, including bleeding, infection, and possibility of injury to the common bile duct, and the patient agreed to proceed and signed informed consent in front of a witness. DESCRIPTION OF PROCEDURE: After preoperative identifying the patient in holding, the patient was brought to the operating room and placed supine on the operating table. Sequential compression devices were placed. After induction of general anesthesia, appropriate perioperative antibiotics were administered. The operative site was prepped and draped in the typical sterile fashion. A [facility] approved time out, where the name of the patient, the operation, and intended site was confirmed. The procedure was begun. We used a veress needle to insufflate in the LUQ. We then used a 8mm optiview port to gain access to the abdomen. We placed our 3 other ports and the robot was introduced into the field and docked. The gallbladder appeared normal. The gall bladder was grasped and lifted superiorly. Utilizing Firefly technology and with the patient having been previously administered Indocyanine Green (ICG) Dye, the cystic duct and common bile duct were visualized to help with dissection and in the protection of the common bile duct. Adhesions to the infundibulum were taken down bluntly and with electrocautery. With traction on the infundibulum, the peritoneum was opened to separate the gall bladder neck from the liver to provide the safe view. The cystic duct and artery were identified and cleared. Anatomy was again confirmed utilizing Firefly and ICG fluorescent imaging. The duct was secured proximally with two Hem-o-Jason clips and distally with one clip. The cystic artery was also identified, cleared and clipped with one Hem-o-Jason clip. The artery and the cystic duct were divided with the hook cautery. We could see the artery branching into a posterior and anterior branch, which were both ligated with a clip and cautery. The gallbladder was removed from the hepatic bed utilizing cautery. It was removed via an endocatch bag. Hemostasis in the baldo and hepatic bed were assured. Irrigation was performed and evacuated. The left upper quadrant port was closed with an 0 PDS suture. The lateral ports were removed under direct vision and the abdomen was desufflated. Skin was closed with absorbable sutures and Dermabond skin sealant. The patient tolerated the procedure well. After confirming twice that the sponge, needle, and instrument counts were corrected the procedure was terminated, the patient was extubated and transferred to the recovery room in stable condition. I was present for the entirety of the operation. DISPOSITION: Stable to PACU. PROCEDURAL BILLING: Procedure: CHOLECYSTECTOMY W/ CHOLANGIOGRAPHY LAPAROSCOPIC CPT(R) Code: 36633 - [place] LAPS SURG CHOLECYSTECTOMY W/CHOLANGIOGRAPHY Electronically Signed By: Jorge Jarrell MD 11/04/2023 3:22 PM Julia Márquez ([id number]) PRE OPERATIVE DIAGNOSIS Gallstone pancreatitis [K85.10] POST OPERATIVE DIAGNOSIS Gallstone pancreatitis [K85.10] PROCEDURE PERFORMED Procedure(s) (LRB): CHOLECYSTECTOMY W/ CHOLANGIOGRAPHY LAPAROSCOPIC (N/A) PRIMARY CLOSURE Yes INTRAOPERATIVE FINDINGS No evidence of cholecystitis SURGEON Surgeons and Role: * Jorge Jarrell MD - Primary ANESTHESIOLOGIST Anesthesiologist: West Stewart MD ENGINEERING CLERK: Amber Dillard APRN-ENGINEERING CLERK Torch Brazer: MICK Mccord SURGICAL STAFF Ladle Filler: Amauri Calhoun RN Relief Ladle Filler: Ritika Walker RN Resident Assisting: Fiona Iqbal MD Box Printer: Fredi Hyde COMPLICATIONS None ESTIMATED BLOOD LOSS Minimal SPECIMENS No specimen sent ID Type Source Tests Collected by Time Destination 1 : gallbladder Permanent SURG PATH SURG PATH REQUEST Jorge Jarrell MD 11/04/2023 1422 Jorge Jarrell MD November 04, 2023 3:21 PM ISBAR handoff procedure completed with anesthesia staff MICK Ospina and surgery RN Phan. Patient stable, no distress, transferred to surgery with OR personnel. food and beverage service manager met with patient to discuss plans at discharge. Julia Márquez verified her demographics, has medicare insurance with prescription benefits and her PCP is Joan Gomez . She does not have a HPOA, lives alone and ambulates independently. She will have transportation home at discharge. Discharge Planning Patient Assessment Admission Assessment Patient Assessment Completed: Initial Expected Discharge Disposition: Home Reason for Admission: Pancreatitis Is the patient able to participate in the assessment?: Yes Information source: Patient, Review of Medical Record Demographics Verified and Updated: Yes Has the patient been admitted to any hospital in the last 30 days?: No Advanced Care Planning Has the patient completed Advance Directives?: Not Completed Referral to Social Work for Advance Care Planning? : Patient Declines Legal Next of Kin Does the patient have a Guardian?: No Spouse: No Adult Child(kvng), List All Adult Children: Yes Name and Contact information: Sabiha Jordan [phone] Would you like to add additional adult children?: Yes Name and Contact information: Tere Flower [phone] Parent(s) - List All Living Parents: No Adult Sibling(s), List All Adult Siblings: No Referral to Social Work to Identify Legal Next of Kin?: No Reviewed and Updated in Demographics? : Yes Outpatient Providers Does patient have a primary care physician? : Yes When was the patient's last PCP visit?: > 30 days Does the patient follow any specialists?: No Reviewed and updated Care Team?: Yes Patient Care Team: Joan Gomez MD as PCP - General (Family Medicine) Environment/Caregivers Is the patient from a facility or correction?: No Patient lives with: Alone Living Environment: House How many steps does the patient have to navigate to enter or inside the home? : 0 Does the patient have a first floor set-up with bed and bathroom?: Yes Patient Caregiving Responsibilities: Self Patient-identified caregiver/support network: Family Who does the patient identify as a teachable caregiver(s)?: Child(kvng) - Independent Services Does the patient use a home health or hospice agency?: No Does the patient use any community programs or services?: No Does patient use DME? : walker, bedside commode, shower seat DME provider name and contact: unknown Does the patient use oxygen?: No Does patient use medical supplies? : none Anticipated Changes Related to Illness/Injury? : No Initial ADLs Prior to Arrival What is the patient's baseline physical functioning prior to this acute illness?: independent What is the patient's baseline cognitive functioning prior to this acute illness?: independent Is the patient's baseline functioning changed by this acute illness? : No Concerns with patient being able to care for themselves at home? : No Are there therapy or specialists consults?: No Does the patient's home require any home modifications for discharge? : No CM to recommend therapy or other consults? : No Medication Management Does the patient have prescription insurance coverage? : Yes Is the patient on Anticoagulation? : No [facility] [place] [phone] [facility] [address] [facility] [address] Health Care Marketing Specialist Does the patient or outside dealer sales representative express financial concerns? : No Employed?: No Coping/Stress Concerns about patient s coping and stress?: No Concerns about patient s caregiver s coping and stress?: No Identified Caregiver Values and Beliefs Cultural or jew practices that may impact discharge planning and/or medical care?: No Initial Discharge Planning Expected Discharge Disposition: Home Transportation Available for Discharge: Family or Friend Anticipated DME: none Anticipated Services at Discharge: Outpatient follow up Patient Assessment Completed: Initial Expected Discharge Date: 11/06/2023 Discharge Planning Summary Patient to discharge home with self care and follow up appointment. Patient has denied any needs for HHC or DME services at this time. Patient reports family will transport home at discharge. Care Management Plan Plan to discharge home with self care and follow up appointments. Signed, Argelia TRUJILLO RN Clinical Special Services Supervisor/ Float Patient is resting in bed, no assessment changes unless it's mentioned in the flow sheet, NPO for possible procedure this morning. Problem: Adult Inpatient Plan of Care Goal: Plan of Care Review Outcome: Progressing Goal: Patient-Specific Goal (Individualized) Outcome: Progressing Goal: Absence of Hospital-Acquired Illness or Injury Outcome: Progressing Goal: Optimal Comfort and Wellbeing Outcome: Progressing Goal: Readiness for Transition of Care Outcome: Progressing Problem: Adult Inpatient Plan of Care Goal: Plan of Care Review 11/03/2023 2240 by Diandra Saunders RN Outcome: Progressing 11/03/2023 1716 by Diandra Saunders RN Outcome: Progressing Goal: Patient-Specific Goal (Individualized) 11/03/2023 2240 by Diandra Saunders RN Outcome: Progressing 11/03/2023 1716 by Diandra Saunders RN Outcome: Progressing Goal: Absence of Hospital-Acquired Illness or Injury 11/03/2023 2240 by Diandra Saunders RN Outcome: Progressing 11/03/2023 1716 by Diandra Saunders RN Outcome: Progressing Goal: Optimal Comfort and Wellbeing 11/03/2023 2240 by Diandra Saunders RN Outcome: Progressing 11/03/2023 1716 by Diandra Saunders RN Outcome: Progressing Goal: Readiness for Transition of Care 11/03/2023 2240 by Diandra Saunders RN Outcome: Progressing 11/03/2023 1716 by Diandra Saunders RN Outcome: Progressing No changes in this patients reassessment otherwise noted in chart. Problem: Adult Inpatient Plan of Care Goal: Plan of Care Review Outcome: Progressing Goal: Patient-Specific Goal (Individualized) Outcome: Progressing Goal: Absence of Hospital-Acquired Illness or Injury Outcome: Progressing Goal: Optimal Comfort and Wellbeing Outcome: Progressing Goal: Readiness for Transition of Care Outcome: Progressing No changes in this patients reassessment at this time otherwise noted in chart This rn consulted for PIV placement through ultrasound. PIV successfully placed via ultrasound guidance. Primary rn made aware. Second assessment completed with no changes from previous assessment.Pt resting well with call light in reach.Bed in lowest position and locked. Problem: Adult Inpatient Plan of Care Goal: Plan of Care Review Outcome: Progressing Goal: Patient-Specific Goal (Individualized) Outcome: Progressing Goal: Absence of Hospital-Acquired Illness or Injury Outcome: Progressing Goal: Optimal Comfort and Wellbeing Outcome: Progressing Goal: Readiness for Transition of Care Outcome: Progressing Second assessment completed, No acute changes noted from initial assessment. Patient safely resting in bed. Call light at reach and bed in low position. Problem: Adult Inpatient Plan of Care Goal: Plan of Care Review Outcome: Progressing Goal: Patient-Specific Goal (Individualized) Outcome: Progressing Goal: Absence of Hospital-Acquired Illness or Injury Outcome: Progressing Goal: Optimal Comfort and Wellbeing Outcome: Progressing Goal: Readiness for Transition of Care Outcome: Progressing Reassessed patient's vitals and Blood pressure is within normal limits. Patient is sitting on the chair relaxed and watching TV. TIMBER INSPECTOR alerted me me of blood pressure is elevated, Reached out to the provider Dr. Sharma and new orders were received. Administer Blood pressure meds per order and will reassess. Second assessment completed with no changes from previous assessment.Pt resting well with call light in reach.Bed in lowest position and locked. Problem: Adult Inpatient Plan of Care Goal: Plan of Care Review Outcome: Progressing Goal: Patient-Specific Goal (Individualized) Outcome: Progressing Goal: Absence of Hospital-Acquired Illness or Injury Outcome: Progressing Goal: Optimal Comfort and Wellbeing Outcome: Progressing Goal: Readiness for Transition of Care Outcome: Progressing documented in this encounter [facility] 11-05-2023 History of Presen t illness Narrative Department of Pharmacy Medication Reconciliation Note Patient: Julia Mráquez Room/Bed: [facility] I have reviewed the patient's discharge medication list. The patient's medication list is correct and accurate to the best of my knowledge. Medication List START taking these medications Acetaminophen 325 MG tablet Commonly known as: TYLENOL Take 2 tablets by mouth every 6 hours as needed. oxyCODONE 5 MG TABS Commonly known as: ROXICODONE Take 1 tablet by mouth every 6 hours as needed for Moderate Pain or Severe Pain for up to 3 days. CONTINUE taking these medications amLODIPine 5 MG TABS Commonly known as: NORVASC Atenolol 100 MG TABS Commonly known as: TENORMIN Atorvastatin 20 MG TABS Commonly known as: LIPITOR Levothyroxine 150 MCG TABS Commonly known as: SYNTHROID ramipril 10 MG CAPS Commonly known as: ALTACE traZODone 50 MG TABS Commonly known as: DESYREL Where to Get Your Medications These medications were sent to [facility] [place] [address] - [id number] [facility] [id number] oxyCODONE 5 MG TABS Please feel free to contact me or the pharmacy with any further questions. Name: Sergio Siegel [facility] Phone #: [phone] Pager: [phone] Date/Time: 11/05/2023 2:17 PM Time Spent: 3 minutes Final Discharge Planning and Transportation Final Discharge Planning Discharge home with self care and follow up appointments. Patient had denied any HHC or DME needs at this time. Plan Plan to discharge home with self care and follow up appointments. Transportation Patient has private transportation home provided by family CM had conversation with patient/caregiver related to specialty care follow-up. Barriers identified: None Signed, Argelia TRUJILLO, RN Clinical Special Services Supervisor/ Float Feeling well post op. Tolerating diet. LFTs normal. Ok for discharge today. We discussed precautions going home. Minimal tenderness on exam. Lab Results Component Value Date ALT 99 (H) 11/05/2023 AST 35 11/05/2023 ALKPHOS 100 11/05/2023 BILITOTAL 0.8 11/05/2023 BILIDIRECT 0.2 11/05/2023 Images from the original note were not included. SURGERY PROGRESS NOTE SUBJECTIVE: No acute interval events. POD1 robotic dagoberto with IOC. Tolerating diet, labs improving, passing gas. No nausea. Port site bruising. OBJECTIVE: Temp: [97.4 F (36.3 C)-98.7 F (37.1 C)] 98.1 F (36.7 C) Pulse (Heart Rate): [53-75] 53 Resp Rate: [12-18] 16 BP: (130-181)/(58-86) 130/63 O2 Sat (%): [92 %-100 %] 96 % Weight: [91.2 kg (201 lb)] 91.2 kg (201 lb) O2 Sat (%): [92 %-100 %] 96 % O2 Device: room air Flow (L/min): [2-6] 2 I&O Intake/Output Summary (Last 24 hours) at 11/05/2023 0844 Last data filed at 11/05/2023 0600 Gross per 24 hour Intake 2671.95 ml Output 25 ml Net 2646.95 ml Physical Exam General: Awake, alert, in NAD. Resting comfortably in bed. Cardiovascular: Regular rate. hemodynamically stable. Pulmonary: Normal respiratory effort. Equal chest rise. Abdomen: Soft, mild RUQ-tenderness, non-distended, no rebound/guarding/rigidity or other signs of peritonitis Extremities: Warm and well perfused with gross sensation and motor intact Labs: WBC/Hgb/Hct/Plts: 8.73/12.1/37.7/231 (11/04 240) Na/K+/Phos/Mg/Ca: 138/3.8/--/1.7/-- (11/04 240) Bun/Creat/Cl/CO2/Glucose: 14/0.99/106/22/162 (11/04 240) Lab Results Component Value Date ALT 99 (H) 11/05/2023 AST 35 11/05/2023 ALKPHOS 100 11/05/2023 BILITOTAL 0.8 11/05/2023 BILIDIRECT 0.2 11/05/2023 ASSESSMENT/PLAN: Julia Márquez is a 78 y.o. femalee with PMH HTN, hypothyroidism, HLD, aortic valve stenosis, IBS who presents with abdominal pain, nausea, and vomiting found to have gallstone pancreatitis. Now POD1 robotic cholecystectomy with ICG cholangiogram on 11/03. Plan: - ADAT - wound care and activity instructions in AVS - post-op follow up to be arranged by our service - OK to discharge from ACS perspective - ACS will sign off at this time. Please do not hesitate to reach out with further concerns. Please page the [facility] General Surgery pager [phone]) with questions or concerns. (Found in QGenda / WebExchange) ALL URGENT ISSUES SHOULD BE PAGED TO THE ABOVE PAGER - IHIS chat is not a reliable method of communication with a surgical service at any time. - The person who wrote this note may be in the operating room, off service, post call, or otherwise unavailable. Jacek Ortiz MD General Surgery Images from the original note were not included. SURGERY PROGRESS NOTE SUBJECTIVE: No acute interval events. Afebrile and hemodynamically stable on room air. Reports feeling well this morning. Tolerating CLD with no nausea or vomiting. Passing gas, no BM since (10/30). Denies abdominal pain. LFTs downtrending. Discussed that we may operate today and she stated in the past she has had trouble with anesthesia regarding being confused post op and difficulty waking up. OBJECTIVE: Temp: [97.5 F (36.4 C)-98.1 F (36.7 C)] 98.1 F (36.7 C) Pulse (Heart Rate): [52-66] 56 Resp Rate: [14-22] 18 BP: (158-192)/(74-86) 158/80 O2 Sat (%): [95 %-98 %] 98 % O2 Sat (%): [95 %-98 %] 98 % O2 Device: room air I&O Intake/Output Summary (Last 24 hours) at 11/04/2023 1048 Last data filed at 11/04/2023 0920 Gross per 24 hour Intake 2591.66 ml Output -- Net 2591.66 ml Physical Exam General: Awake, alert, in NAD. Resting comfortably in bed. Cardiovascular: Regular rate. hemodynamically stable. Pulmonary: Normal respiratory effort. Equal chest rise. Abdomen: Soft, mild RUQ-tenderness, non-distended, no rebound/guarding/rigidity or other signs of peritonitis Extremities: Warm and well perfused with gross sensation and motor intact Labs: WBC/Hgb/Hct/Plts: 6.02/13.0/40.1/241 (11/04 531) Na/K+/Phos/Mg/Ca: 141/3.7/--/1.8/-- (11/04 531) Bun/Creat/Cl/CO2/Glucose: 9/1.05/108/22/82 (11/04 531) Ptt/Pt/Inr: --/13.7/1.1 (11/04 531) Lab Results Component Value Date ALT 143 (H) 11/04/2023 AST 42 (H) 11/04/2023 ALKPHOS 117 11/04/2023 BILITOTAL 1.2 11/04/2023 BILIDIRECT 0.3 (H) 11/04/2023 ASSESSMENT/PLAN: Julia Márquez is a 78 y.o. femalee with PMH HTN, hypothyroidism, HLD, aortic valve stenosis, IBS who presents with abdominal pain, nausea, and vomiting found to have gallstone pancreatitis. Plan: - Will plan for Robotic cholecystectomy with IOC today 11/04/23, pending OR availability - Consent obtained and uploaded to chart - Please trend daily LFTs - Please ensure NPO @ MN with mIVF and full set of am labs including updated T&S - Remainder of balance of care per primary team Please page the [facility] General Surgery pager [phone]) with questions or concerns. (Found in QGenda / WebExchange) ALL URGENT ISSUES SHOULD BE PAGED TO THE ABOVE PAGER - IHIS chat is not a reliable method of communication with a surgical service at any time. - The person who wrote this note may be in the operating room, off service, post call, or otherwise unavailable. Jacek Ortiz MD General Surgery Hospital Medicine Progress Note Patient: Julia Márquez, : 1945, Impression / Plan 78 year old female with a h/o HTN/DLD, hypothyroidism, nephrolithiasis, left nephrectomy, recently diagnosed cholelithiasis, admitted to an OSH on 11-01-23 or worsening abdominal pain, n/v, transferred to [facility] for further evaluation. Gallstone pancreatitis: -Presented to [place] ED on 11-01-23 for abdominal pain, n/v. Initially went to PCP about 2 weeks ago for chest/abdominal pain that was worse with eating. She said she had an ECG that was okay and a RUQ US and was told that she has gallstones and was supposed to see a surgeon this Saturday about a cholecystectomy. However on the day of presentation, her pain worsened and she developed n/v. -OSH labs: white count of 11.6. Total bilirubin is 3.8, direct bilirubin was 2.6, AST was 431, ALT was 539, alk-phos was 205, total protein was 7.4, and lipase was greater than 5000. Urinalysis showed negative nitrites negative bilirubin, mild amount of leuk esterase, no squamous cells, no white blood cells, no bacteria. -OSH imaging: CT abd/pelvis without contrast on 11-01-23: diffuse peripancreatic inflammation consistent with pancreatitis. No non contrast evidence of joel pancreatic necrosis. Cholelithiasis with gallbladder distension, no apparent CT ductal stone. Non obstructive right nephrolithiasis. Hepatic steatosis and hepatomegaly. -RUQ US from 10-21-23: Gallbladder upper normal in size at 7.2cm. Multiple small gravel like shadowing stones layer int he dependent portion of the gallbladder. No pericholecystic fluid. CBD 7mm in diameter, normal in size and no CBD stones noted. Mild degree of pancreatitis in the pancreatic body/tail. Main pancreatic duct not dilated. No pancreatic pseudocyst or peripancreatic fluid noted. -will continue with IV fluids, IV antiemetics, IV Dilaudid. -Will continue with IV PPI -clear liquid, advance as tolerated -gen surg consulted- s/p lap cholecystectomy with intraoperative cholangiogram today. No significant abnormalities noted. Okay for clear liquid diet, advance as tolerated. -no fevers, mild leukocytosis on admission to OSH. No jaundice. No radiologic evidence of acute cholecystitis, cholangitis, infected pancreatitis. Will stop IV zosyn. HTN/DLD -c/w home amlodipine and atenelol. Holding ramipiril in setting of CLEMENTE -Hold home statin due to transaminase elevation. CLEMENTE: improving - Baseline creatinine unclear. Will trend creatinine daily. Avoid nephrotoxins and renally dose medications. Anticipate improvement with aggressive fluid resuscitation. No obstructive stone seen on exam, and UA did not suggest infection. Hiatal hernia: -Seen incidentally on imaging of the outside hospital as well. Will continue with IV PPI Insomnia -Continue home trazodone. History of nephrolithiasis. -No obstructing stone seen on exam and no blood in UA. Will monitor. Complexity Obesity Body mass index is 35.75 kg/m . - Follow with PCP for dietary and lifestyle modifications. Hypothyroidism - Continue thyroid replacement Any conditions listed below are present on admission unless otherwise specified. Medical Readiness For Discharge: DVT prophylaxis with lovenox subcutaneous Anticipated Disposition: home Code status is Full Code Interval History / Subjective Seen prior to OR today. Her daughters were in the room. She was doing well. No n/v, passing gas. Denied abdominal pain. Objective Temp: [97.5 F (36.4 C)-98.1 F (36.7 C)] 98.1 F (36.7 C) Pulse (Heart Rate): [52-66] 56 Resp Rate: [14-22] 18 BP: (158-192)/(74-86) 158/80 O2 Sat (%): [95 %-98 %] 98 % Physical Exam Gen: A, A, NAD ENT: MMM Resp: CTA bilat, normal effort Cardio: RRR, normal S1, S2, + systolic murmur (chronic per patient). No RODOLFO GI: Soft, non distended Psych: Ox3, appropriate affect and cognition Data Review WBC/Hgb/Hct/Plts: 6.02/13.0/40.1/241 (11/04 531) Na/K+/Phos/Mg/Ca: 141/3.7/--/1.8/-- (11/04 531) Bun/Creat/Cl/CO2/Glucose: 9/1.05/108/22/82 (11/04 531) Ptt/Pt/Inr: --/13.7/1.1 (11/04 531) Images from the original note were not included. SURGERY PROGRESS NOTE SUBJECTIVE: No acute interval events. Afebrile and hemodynamically stable on room air. Reports feeling well this morning. Tolerating CLD with no nausea or vomiting. Passing gas, no BM since (10/30). Denies abdominal pain. LFTs downtrending. OBJECTIVE: Temp: [97.2 F (36.2 C)-98.1 F (36.7 C)] 98 F (36.7 C) Pulse (Heart Rate): [52-62] 52 Resp Rate: [16-21] 21 BP: (131-169)/(59-74) 169/74 O2 Sat (%): [94 %-97 %] 95 % O2 Sat (%): [94 %-97 %] 95 % O2 Device: room air I&O Intake/Output Summary (Last 24 hours) at 11/03/2023 1340 Last data filed at 11/03/2023 1334 Gross per 24 hour Intake 3367.76 ml Output -- Net 3367.76 ml Physical Exam General: Awake, alert, in NAD. Resting comfortably in bed. Cardiovascular: Regular rate. hemodynamically stable. Pulmonary: Normal respiratory effort. Equal chest rise. Abdomen: Soft, non-tender, non-distended, no rebound/guarding/rigidity or other signs of peritonitis Extremities: Warm and well perfused with gross sensation and motor intact Labs: WBC/Hgb/Hct/Plts: 6.60/12.0/37.3/202 (11/02 453) Na/K+/Phos/Mg/Ca: 139/4.1/--/1.8/-- (11/02 113) Bun/Creat/Cl/CO2/Glucose: 12/.27/107/22/103 (11/02 113) Lab Results Component Value Date ALT 193 (H) 11/03/2023 AST 69 (H) 11/03/2023 ALKPHOS 123 11/03/2023 BILITOTAL 1.2 11/03/2023 BILIDIRECT 0.2 11/03/2023 ASSESSMENT/PLAN: Julia Márquez is a 78 y.o. femalee with PMH HTN, hypothyroidism, HLD, aortic valve stenosis, IBS who presents with abdominal pain, nausea, and vomiting found to have gallstone pancreatitis. Plan: - Will plan for cholecystectomy with [facility] tomorrow, 11/04/23, pending OR availability - Consent obtained and uploaded to chart - Please trend daily LFTs - Please ensure NPO @ MN with mIVF and full set of am labs including updated T&S - Remainder of balance of care per primary team Please page the [facility] General Surgery pager [phone]) with questions or concerns. (Found in QGenda / WebExchange) ALL URGENT ISSUES SHOULD BE PAGED TO THE ABOVE PAGER - IHIS chat is not a reliable method of communication with a surgical service at any time. - The person who wrote this note may be in the operating room, off service, post call, or otherwise unavailable. Aurelio Jara MD General Surgery Associated attestation - Jorge Jarrell MD - 11/03/2023 9:37 PM EDT Attending Attestation: I saw and examined Julia Márquez on rounds 11/03/2023. I have reviewed, edited, and agree with the resident's note above. LFTs improving, with minimal abdominal symptoms. Plan for dagoberto Jorge Jarrell MD [facility] Medicine Progress Note Patient: Julia Márquez, : 1945, Impression / Plan 78 year old female with a h/o HTN/DLD, hypothyroidism, nephrolithiasis, left nephrectomy, recently diagnosed cholelithiasis, admitted to an OSH on 11-01-23 or worsening abdominal pain, n/v, transferred to [facility] for further evaluation. Gallstone pancreatitis: -Presented to [place] ED on 11-01-23 for abdominal pain, n/v. Initially went to PCP about 2 weeks ago for chest/abdominal pain that was worse with eating. She said she had an ECG that was okay and a RUQ US and was told that she has gallstones and was supposed to see a surgeon this Saturday about a cholecystectomy. However on the day of presentation, her pain worsened and she developed n/v. -OSH labs: white count of 11.6. Total bilirubin is 3.8, direct bilirubin was 2.6, AST was 431, ALT was 539, alk-phos was 205, total protein was 7.4, and lipase was greater than 5000. Urinalysis showed negative nitrites negative bilirubin, mild amount of leuk esterase, no squamous cells, no white blood cells, no bacteria. -OSH imaging: CT abd/pelvis without contrast on 11-01-23: diffuse peripancreatic inflammation consistent with pancreatitis. No non contrast evidence of joel pancreatic necrosis. Cholelithiasis with gallbladder distension, no apparent CT ductal stone. Non obstructive right nephrolithiasis. Hepatic steatosis and hepatomegaly. -RUQ US from 10-21-23: Gallbladder upper normal in size at 7.2cm. Multiple small gravel like shadowing stones layer int he dependent portion of the gallbladder. No pericholecystic fluid. CBD 7mm in diameter, normal in size and no CBD stones noted. Mild degree of pancreatitis in the pancreatic body/tail. Main pancreatic duct not dilated. No pancreatic pseudocyst or peripancreatic fluid noted. -will continue with IV fluids, IV antiemetics, IV Dilaudid. -Will continue with IV PPI -clear liquid, advance as tolerated -gen surg consulted- planning for cholecystectomy with IOC on 11-04-23. NPO at midnight. -no fevers, mild leukocytosis on admission to OSH. No jaundice. No radiologic evidence of acute cholecystitis, cholangitis, infected pancreatitis. Will stop IV zosyn. HTN/DLD -c/w home amlodipine and atenelol. Holding ramipiril in setting of CLEMENTE -Hold home statin due to transaminase elevation. CLEMENTE: improving - Baseline creatinine unclear. Will trend creatinine daily. Avoid nephrotoxins and renally dose medications. Anticipate improvement with aggressive fluid resuscitation. No obstructive stone seen on exam, and UA did not suggest infection. Hiatal hernia: -Seen incidentally on imaging of the outside hospital as well. Will continue with IV PPI Insomnia -Continue home trazodone. History of nephrolithiasis. -No obstructing stone seen on exam and no blood in UA. Will monitor. Complexity Obesity Body mass index is 35.75 kg/m . - Follow with PCP for dietary and lifestyle modifications. Hypothyroidism - Continue thyroid replacement Any conditions listed below are present on admission unless otherwise specified. Medical Readiness For Discharge: DVT prophylaxis with lovenox subcutaneous Anticipated Disposition: home Code status is Full Code Interval History / Subjective Feels well this morning. She has been walking around the unit. Denies abdominal pain, n/v. Passing gas. Objective Temp: [97.2 F (36.2 C)-98.1 F (36.7 C)] 97.8 F (36.6 C) Pulse (Heart Rate): [53-62] 57 Resp Rate: [16-21] 21 BP: (131-163)/(59-74) 159/74 O2 Sat (%): [94 %-97 %] 95 % Physical Exam Gen: A, A, NAD ENT: MMM Resp: CTA bilat, normal effort Cardio: RRR, normal S1, S2, + systolic murmur (chronic per patient). No RODOLFO GI: Soft, non distended, mild epigastric/RUQ pain with palpation Psych: Ox3, appropriate affect and cognition Data Review WBC/Hgb/Hct/Plts: 6.60/12.0/37.3/202 (11/02 0454) Na/K+/Phos/Mg/Ca: 139/4.1/--/1.8/-- (11/02 011) Bun/Creat/Cl/CO2/Glucose: 12/.27/107/22/103 (11/02 011) Department of Pharmacy Admission Medication Reconciliation Note Patient: Julia Márquez Room/Bed: [facility] I have reviewed the patient's home medication list with the following sources Dispense Report. The home medication list status is: complete. A call to the pharmacy was not needed because the information compiled from listed sources corroborates the patient/caregiver interview. All changes to the home medication list have been updated in IHIS. Updated [facility] Med List: Prior to Admission Medications Prescriptions Atenolol 100 MG tablet Sig: Take 1 tablet by mouth daily. Atorvastatin 20 MG tablet Sig: Take 1 tablet by mouth daily. Levothyroxine 150 MCG tablet Sig: Take 1 tablet by mouth every morning before breakfast. amLODIPine 5 MG tablet Sig: Take 1 tablet by mouth daily. ramipril 10 MG capsule Sig: Take 1 capsule by mouth daily. traZODone 50 MG tablet Sig: Take 1 tablet by mouth At bedtime. Facility-Administered Medications: None Added to Home Medications: None Deleted from Home Medications: None Edits to Home Medications: None Other Comments: The patient's allergies were not reviewed at this time. Ramipril is non formulary - 10 mg would convert to lisinopril 40 mg daily Please feel free to contact me with any further questions. Name: Sergio Siegel RPH Phone #: [phone] Date/Time: 11/02/2023 10:20 AM Time Spent: 10 minutes Physical Therapy Screen and Discharge Note 11/02/2023 PT Therapy Completed: Screen PT entered pt's room and found the patient standing and aboput to leave the room pushing her IV pole. Patient states she was brushing her teeth and getting her robe on. NO skilled PT/OT needs observed. Will remove pt from caseload. Thank you, Libia Marroquin PT Time In: 949 Time Out: 950 Total Visit Time: 1 minutes Total Treatment Time (skilled, billable minutes): 0 minutes [facility] Medicine Progress Note Patient: Julia Márquez, : 1945, Impression / Plan 78 year old female with a h/o HTN/DLD, hypothyroidism, nephrolithiasis, left nephrectomy, recently diagnosed cholelithiasis, admitted to an OSH on 11-01-23 or worsening abdominal pain, n/v, transferred to [facility] for further evaluation. Gallstone pancreatitis: -Presented to [place] ED on 11-01-23 for abdominal pain, n/v. Initially went to PCP about 2 weeks ago for chest/abdominal pain that was worse with eating. She said she had an ECG that was okay and a RUQ US and was told that she has gallstones and was supposed to see a surgeon this Saturday about a cholecystectomy. However on the day of presentation, her pain worsened and she developed n/v. -OSH labs: white count of 11.6. Total bilirubin is 3.8, direct bilirubin was 2.6, AST was 431, ALT was 539, alk-phos was 205, total protein was 7.4, and lipase was greater than 5000. Urinalysis showed negative nitrites negative bilirubin, mild amount of leuk esterase, no squamous cells, no white blood cells, no bacteria. -OSH imaging: CT abd/pelvis without contrast on 11-01-23: diffuse peripancreatic inflammation consistent with pancreatitis. No non contrast evidence of joel pancreatic necrosis. Cholelithiasis with gallbladder distension, no apparent CT ductal stone. Non obstructive right nephrolithiasis. Hepatic steatosis and hepatomegaly. -RUQ US from 10-21-23: Gallbladder upper normal in size at 7.2cm. Multiple small gravel like shadowing stones layer int he dependent portion of the gallbladder. No pericholecystic fluid. CBD 7mm in diameter, normal in size and no CBD stones noted. Mild degree of pancreatitis in the pancreatic body/tail. Main pancreatic duct not dilated. No pancreatic pseudocyst or peripancreatic fluid noted. -will continue with IV fluids, IV antiemetics, IV Dilaudid. -Will continue with IV PPI -clear liquid, advance as tolerated -gen surg consulted- planning for ERCP versus cholecystectomy early this week. -no fevers, mild leukocytosis on admission to OSH. No jaundice. No radiologic evidence of acute cholecystitis, cholangitis, infected pancreatitis. Will stop IV zosyn. HTN/DLD -c/w home amlodipine and atenelol. Holding ramipiril in setting of CLEMENTE -Hold home statin due to transaminase elevation. CLEMENTE: - Baseline creatinine unclear. Will trend creatinine daily. Avoid nephrotoxins and renally dose medications. Anticipate improvement with aggressive fluid resuscitation. No obstructive stone seen on exam, and UA did not suggest infection. Hiatal hernia: -Seen incidentally on imaging of the outside hospital as well. Will continue with IV PPI Insomnia -Continue home trazodone. History of nephrolithiasis. -No obstructing stone seen on exam and no blood in UA. Will monitor. Complexity Obesity Body mass index is 35.75 kg/m . - Follow with PCP for dietary and lifestyle modifications. Hypothyroidism - Continue thyroid replacement Any conditions listed below are present on admission unless otherwise specified. Medical Readiness For Discharge: DVT prophylaxis with lovenox subcutaneous Anticipated Disposition: home Code status is Full Code Interval History / Subjective Presented to [place] [facility] ED on 11-01-23 for abdominal pain, n/v. Initially went to PCP about 2 weeks ago for chest/abdominal pain that was worse with eating. She said she had an ECG that was okay and a RUQ US and was told that she has gallstones and was supposed to see a surgeon this Saturday about a cholecystectomy. However on the day of presentation, her pain worsened and she developed n/v. Currently denies abdominal pain OSH records: CT abd/pelvis without contrast on 11-01-23: diffuse peripancreatic inflammation consistent with pancreatitis. No non contrast evidence of joel pancreatic necrosis. Cholelithiasis with gallbladder distension, no apparent CT ductal stone. Non obstructive right nephrolithiasis. Hepatic steatosis and hepatomegaly. Meds given prior to arrival: IV dilaudid, PPI, zosyn, zofran, fluids, synthroid ramipril, atenolol, amlodipine, 10-31-23: CBC: 11.6/14.1/43.8/294. Chem7: 138/4.1/106/22/16/1.39 T bili 3.80, D bili 2.60, AST 431, ALT 539, alk phos 205, alb 3.7. Lipase >5,000. UA: neg ketones, neg nitrite, 0-5 WBC, 0-5 RBC. RUQ US from 10-21-23: Gallbladder upper normal in size at 7.2cm. Multiple small gravel like shadowing stones layer int he dependent portion of the gallbladder. No pericholecystic fluid. CBD 7mm in diameter, normal in size and no CBD stones noted. Mild degree of pancreatitis in the pancreatic body/tail. Main pancreatic duct not dilated. No pancreatic pseudocyst or peripancreatic fluid noted. Objective Temp: [97 F (36.1 C)-97.6 F (36.4 C)] 97.4 F (36.3 C) Pulse (Heart Rate): [55-101] 55 Resp Rate: [16-17] 16 BP: (139-180)/(66-86) 141/66 O2 Sat (%): [93 %-98 %] 97 % Weight: [91.5 kg (201 lb 12.8 oz)] 91.5 kg (201 lb 12.8 oz) Physical Exam Gen: A, A, NAD ENT: MMM Resp: CTA bilat, normal effort Cardio: RRR, normal S1, S2, + systolic murmur (chronic per patient). No RODOLFO GI: Soft, non distended, mild epigastric/RUQ pain with palpation Psych: Ox3, appropriate affect and cognition Data Review WBC/Hgb/Hct/Plts: 7.13/12.5/41.2/201 (11/01 309) Na/K+/Phos/Mg/Ca: 141/3.8/3.3/1.9/9.0 (11/01 309) Bun/Creat/Cl/CO2/Glucose: 17/1.42/111/21/100 (11/01 309) Ptt/Pt/Inr: 26.6/14.3/1.1 (11/01 309) Department of Pharmacy Outside Facility Transfer Note Patient: Julia Márquez Room/Bed: Patient has transferred from the Emergency Department at [facility] . I have contacted the facility and confirmed the following antimicrobial, antiepileptic, and anticoagulant medications were received by the patient prior to arrival at [facility]: Antimicrobials: zosyn 4.5 g IV @ 0212 on 10/31 Please feel free to contact me with any further questions. Name: Danni Padilla RPH Phone #: [phone] Date/Time: 11/01/2023 8:04 PM documented in this encounter [facility] 11-05-2023 History of Presen t illness Narrative Department of Pharmacy Medication Reconciliation Note Patient: Julia Márquez Room/Bed: [facility]03/11 I have reviewed the patient's discharge medication list. The patient's medication list is correct and accurate to the best of my knowledge. Medication List START taking these medications Acetaminophen 325 MG tablet Commonly known as: TYLENOL Take 2 tablets by mouth every 6 hours as needed. oxyCODONE 5 MG TABS Commonly known as: ROXICODONE Take 1 tablet by mouth every 6 hours as needed for Moderate Pain or Severe Pain for up to 3 days. CONTINUE taking these medications amLODIPine 5 MG TABS Commonly known as: NORVASC Atenolol 100 MG TABS Commonly known as: TENORMIN Atorvastatin 20 MG TABS Commonly known as: LIPITOR Levothyroxine 150 MCG TABS Commonly known as: SYNTHROID ramipril 10 MG CAPS Commonly known as: ALTACE traZODone 50 MG TABS Commonly known as: DESYREL Where to Get Your Medications These medications were sent to [facility] [place] [phone] - [id number] [facility] [id number] oxyCODONE 5 MG TABS Please feel free to contact me or the pharmacy with any further questions. Name: Sergio Siegel RPH Phone #: [phone] Pager: [phone] Date/Time: 11/05/2023 2:17 PM Time Spent: 3 minutes Final Discharge Planning and Transportation Final Discharge Planning Discharge home with self care and follow up appointments. Patient had denied any HHC or DME needs at this time. Plan Plan to discharge home with self care and follow up appointments. Transportation Patient has private transportation home provided by family CM had conversation with patient/caregiver related to specialty care follow-up. Barriers identified: None Signed, Argelia TRUJILLO RN Clinical Special Services Supervisor/ Float Feeling well post op. Tolerating diet. LFTs normal. Ok for discharge today. We discussed precautions going home. Minimal tenderness on exam. Lab Results Component Value Date ALT 99 (H) 11/05/2023 AST 35 11/05/2023 ALKPHOS 100 11/05/2023 BILITOTAL 0.8 11/05/2023 BILIDIRECT 0.2 11/05/2023 Images from the original note were not included. SURGERY PROGRESS NOTE SUBJECTIVE: No acute interval events. POD1 robotic dagoberto with IOC. Tolerating diet, labs improving, passing gas. No nausea. Port site bruising. OBJECTIVE: Temp: [97.4 F (36.3 C)-98.7 F (37.1 C)] 98.1 F (36.7 C) Pulse (Heart Rate): [53-75] 53 Resp Rate: [12-18] 16 BP: (130-181)/(58-86) 130/63 O2 Sat (%): [92 %-100 %] 96 % Weight: [91.2 kg (201 lb)] 91.2 kg (201 lb) O2 Sat (%): [92 %-100 %] 96 % O2 Device: room air Flow (L/min): [2-6] 2 I&O Intake/Output Summary (Last 24 hours) at 11/05/2023 0844 Last data filed at 11/05/2023 0600 Gross per 24 hour Intake 2671.95 ml Output 25 ml Net 2646.95 ml Physical Exam General: Awake, alert, in NAD. Resting comfortably in bed. Cardiovascular: Regular rate. hemodynamically stable. Pulmonary: Normal respiratory effort. Equal chest rise. Abdomen: Soft, mild RUQ-tenderness, non-distended, no rebound/guarding/rigidity or other signs of peritonitis Extremities: Warm and well perfused with gross sensation and motor intact Labs: WBC/Hgb/Hct/Plts: 8.73/12.1/37.7/231 (11/04 240) Na/K+/Phos/Mg/Ca: 138/3.8/--/1.7/-- (11/04 240) Bun/Creat/Cl/CO2/Glucose: 14/0.99/106/22/162 (11/04 240) Lab Results Component Value Date ALT 99 (H) 11/05/2023 AST 35 11/05/2023 ALKPHOS 100 11/05/2023 BILITOTAL 0.8 11/05/2023 BILIDIRECT 0.2 11/05/2023 ASSESSMENT/PLAN: Julia Márquez is a 78 y.o. femalee with PMH HTN, hypothyroidism, HLD, aortic valve stenosis, IBS who presents with abdominal pain, nausea, and vomiting found to have gallstone pancreatitis. Now POD1 robotic cholecystectomy with ICG cholangiogram on 11/03. Plan: - ADAT - wound care and activity instructions in AVS - post-op follow up to be arranged by our service - OK to discharge from ACS perspective - ACS will sign off at this time. Please do not hesitate to reach out with further concerns. Please page the [facility] General Surgery pager [phone] with questions or concerns. (Found in QGenda / WebExchange) ALL URGENT ISSUES SHOULD BE PAGED TO THE ABOVE PAGER - IHIS chat is not a reliable method of communication with a surgical service at any time. - The person who wrote this note may be in the operating room, off service, post call, or otherwise unavailable. Jacek Ortiz MD General Surgery Images from the original note were not included. SURGERY PROGRESS NOTE SUBJECTIVE: No acute interval events. Afebrile and hemodynamically stable on room air. Reports feeling well this morning. Tolerating CLD with no nausea or vomiting. Passing gas, no BM since (10/30). Denies abdominal pain. LFTs downtrending. Discussed that we may operate today and she stated in the past she has had trouble with anesthesia regarding being confused post op and difficulty waking up. OBJECTIVE: Temp: [97.5 F (36.4 C)-98.1 F (36.7 C)] 98.1 F (36.7 C) Pulse (Heart Rate): [52-66] 56 Resp Rate: [14-22] 18 BP: (158-192)/(74-86) 158/80 O2 Sat (%): [95 %-98 %] 98 % O2 Sat (%): [95 %-98 %] 98 % O2 Device: room air I&O Intake/Output Summary (Last 24 hours) at 11/04/2023 1048 Last data filed at 11/04/2023 0920 Gross per 24 hour Intake 2591.66 ml Output -- Net 2591.66 ml Physical Exam General: Awake, alert, in NAD. Resting comfortably in bed. Cardiovascular: Regular rate. hemodynamically stable. Pulmonary: Normal respiratory effort. Equal chest rise. Abdomen: Soft, mild RUQ-tenderness, non-distended, no rebound/guarding/rigidity or other signs of peritonitis Extremities: Warm and well perfused with gross sensation and motor intact Labs: WBC/Hgb/Hct/Plts: 6.02/13.0/40.1/241 (11/04 531) Na/K+/Phos/Mg/Ca: 141/3.7/--/1.8/-- (11/04 531) Bun/Creat/Cl/CO2/Glucose: 9/1.05/108/22/82 (11/04 531) Ptt/Pt/Inr: --/13.7/1.1 (11/04 531) Lab Results Component Value Date ALT 143 (H) 11/04/2023 AST 42 (H) 11/04/2023 ALKPHOS 117 11/04/2023 BILITOTAL 1.2 11/04/2023 BILIDIRECT 0.3 (H) 11/04/2023 ASSESSMENT/PLAN: Julia Márquez is a 78 y.o. femalee with PMH HTN, hypothyroidism, HLD, aortic valve stenosis, IBS who presents with abdominal pain, nausea, and vomiting found to have gallstone pancreatitis. Plan: - Will plan for Robotic cholecystectomy with IOC today 11/04/23, pending OR availability - Consent obtained and uploaded to chart - Please trend daily LFTs - Please ensure NPO @ MN with mIVF and full set of am labs including updated T&S - Remainder of balance of care per primary team Please page the [facility] General Surgery pager [phone] with questions or concerns. (Found in QGenda / WebExchange) ALL URGENT ISSUES SHOULD BE PAGED TO THE ABOVE PAGER - IHIS chat is not a reliable method of communication with a surgical service at any time. - The person who wrote this note may be in the operating room, off service, post call, or otherwise unavailable. Jacek Ortiz MD General Surgery Hospital Medicine Progress Note Patient: Julia Márquez, : 1945, Impression / Plan 78 year old female with a h/o HTN/DLD, hypothyroidism, nephrolithiasis, left nephrectomy, recently diagnosed cholelithiasis, admitted to an OSH on 11-01-23 or worsening abdominal pain, n/v, transferred to [facility] for further evaluation. Gallstone pancreatitis: -Presented to [place] ED on 11-01-23 for abdominal pain, n/v. Initially went to PCP about 2 weeks ago for chest/abdominal pain that was worse with eating. She said she had an ECG that was okay and a RUQ US and was told that she has gallstones and was supposed to see a surgeon this Saturday about a cholecystectomy. However on the day of presentation, her pain worsened and she developed n/v. -OSH labs: white count of 11.6. Total bilirubin is 3.8, direct bilirubin was 2.6, AST was 431, ALT was 539, alk-phos was 205, total protein was 7.4, and lipase was greater than 5000. Urinalysis showed negative nitrites negative bilirubin, mild amount of leuk esterase, no squamous cells, no white blood cells, no bacteria. -OSH imaging: CT abd/pelvis without contrast on 11-01-23: diffuse peripancreatic inflammation consistent with pancreatitis. No non contrast evidence of joel pancreatic necrosis. Cholelithiasis with gallbladder distension, no apparent CT ductal stone. Non obstructive right nephrolithiasis. Hepatic steatosis and hepatomegaly. -RUQ US from 10-21-23: Gallbladder upper normal in size at 7.2cm. Multiple small gravel like shadowing stones layer int he dependent portion of the gallbladder. No pericholecystic fluid. CBD 7mm in diameter, normal in size and no CBD stones noted. Mild degree of pancreatitis in the pancreatic body/tail. Main pancreatic duct not dilated. No pancreatic pseudocyst or peripancreatic fluid noted. -will continue with IV fluids, IV antiemetics, IV Dilaudid. -Will continue with IV PPI -clear liquid, advance as tolerated -gen surg consulted- s/p lap cholecystectomy with intraoperative cholangiogram today. No significant abnormalities noted. Okay for clear liquid diet, advance as tolerated. -no fevers, mild leukocytosis on admission to OSH. No jaundice. No radiologic evidence of acute cholecystitis, cholangitis, infected pancreatitis. Will stop IV zosyn. HTN/DLD -c/w home amlodipine and atenelol. Holding ramipiril in setting of CLEMENTE -Hold home statin due to transaminase elevation. CLEMENTE: improving - Baseline creatinine unclear. Will trend creatinine daily. Avoid nephrotoxins and renally dose medications. Anticipate improvement with aggressive fluid resuscitation. No obstructive stone seen on exam, and UA did not suggest infection. Hiatal hernia: -Seen incidentally on imaging of the outside hospital as well. Will continue with IV PPI Insomnia -Continue home trazodone. History of nephrolithiasis. -No obstructing stone seen on exam and no blood in UA. Will monitor. Complexity Obesity Body mass index is 35.75 kg/m . - Follow with PCP for dietary and lifestyle modifications. Hypothyroidism - Continue thyroid replacement Any conditions listed below are present on admission unless otherwise specified. Medical Readiness For Discharge: DVT prophylaxis with lovenox subcutaneous Anticipated Disposition: home Code status is Full Code Interval History / Subjective Seen prior to OR today. Her daughters were in the room. She was doing well. No n/v, passing gas. Denied abdominal pain. Objective Temp: [97.5 F (36.4 C)-98.1 F (36.7 C)] 98.1 F (36.7 C) Pulse (Heart Rate): [52-66] 56 Resp Rate: [14-22] 18 BP: (158-192)/(74-86) 158/80 O2 Sat (%): [95 %-98 %] 98 % Physical Exam Gen: A, A, NAD ENT: MMM Resp: CTA bilat, normal effort Cardio: RRR, normal S1, S2, + systolic murmur (chronic per patient). No RODOLFO GI: Soft, non distended Psych: Ox3, appropriate affect and cognition Data Review WBC/Hgb/Hct/Plts: 6.02/13.0/40.1/241 (11/04 531) Na/K+/Phos/Mg/Ca: 141/3.7/--/1.8/-- (11/04 531) Bun/Creat/Cl/CO2/Glucose: 9/1.05/108/22/82 (11/04 531) Ptt/Pt/Inr: --/13.7/1.1 (11/04 531) Images from the original note were not included. SURGERY PROGRESS NOTE SUBJECTIVE: No acute interval events. Afebrile and hemodynamically stable on room air. Reports feeling well this morning. Tolerating CLD with no nausea or vomiting. Passing gas, no BM since (10/30). Denies abdominal pain. LFTs downtrending. OBJECTIVE: Temp: [97.2 F (36.2 C)-98.1 F (36.7 C)] 98 F (36.7 C) Pulse (Heart Rate): [52-62] 52 Resp Rate: [16-21] 21 BP: (131-169)/(59-74) 169/74 O2 Sat (%): [94 %-97 %] 95 % O2 Sat (%): [94 %-97 %] 95 % O2 Device: room air I&O Intake/Output Summary (Last 24 hours) at 11/03/2023 1340 Last data filed at 11/03/2023 1334 Gross per 24 hour Intake 3367.76 ml Output -- Net 3367.76 ml Physical Exam General: Awake, alert, in NAD. Resting comfortably in bed. Cardiovascular: Regular rate. hemodynamically stable. Pulmonary: Normal respiratory effort. Equal chest rise. Abdomen: Soft, non-tender, non-distended, no rebound/guarding/rigidity or other signs of peritonitis Extremities: Warm and well perfused with gross sensation and motor intact Labs: WBC/Hgb/Hct/Plts: 6.60/12.0/37.3/202 (11/02 453) Na/K+/Phos/Mg/Ca: 139/4.1/--/1.8/-- (11/02 113) Bun/Creat/Cl/CO2/Glucose: 12.27/107/22/103 (11/02 113) Lab Results Component Value Date ALT 193 (H) 11/03/2023 AST 69 (H) 11/03/2023 ALKPHOS 123 11/03/2023 BILITOTAL 1.2 11/03/2023 BILIDIRECT 0.2 11/03/2023 ASSESSMENT/PLAN: Julia Márquez is a 78 y.o. femalee with PMH HTN, hypothyroidism, HLD, aortic valve stenosis, IBS who presents with abdominal pain, nausea, and vomiting found to have gallstone pancreatitis. Plan: - Will plan for cholecystectomy with [facility] tomorrow, 11/04/23, pending OR availability - Consent obtained and uploaded to chart - Please trend daily LFTs - Please ensure NPO @ MN with mIVF and full set of am labs including updated T&S - Remainder of balance of care per primary team Please page the [facility] General Surgery pager [phone] with questions or concerns. (Found in QGenda / WebExchange) ALL URGENT ISSUES SHOULD BE PAGED TO THE ABOVE PAGER - IHIS chat is not a reliable method of communication with a surgical service at any time. - The person who wrote this note may be in the operating room, off service, post call, or otherwise unavailable. Aurelio Jara MD General Surgery Associated attestation - Jorge Jarrell MD - 11/03/2023 9:37 PM EDT Attending Attestation: I saw and examined Julia Márquez on rounds 11/03/2023. I have reviewed, edited, and agree with the resident's note above. LFTs improving, with minimal abdominal symptoms. Plan for dagoberto Jorge Jarrell MD Hospital Medicine Progress Note Patient: Julia Márquez, : 1945, Impression / Plan 78 year old female with a h/o HTN/DLD, hypothyroidism, nephrolithiasis, left nephrectomy, recently diagnosed cholelithiasis, admitted to an OSH on 11-01-23 or worsening abdominal pain, n/v, transferred to [facility] for further evaluation. Gallstone pancreatitis: -Presented to [place] ED on 11-01-23 for abdominal pain, n/v. Initially went to PCP about 2 weeks ago for chest/abdominal pain that was worse with eating. She said she had an ECG that was okay and a RUQ US and was told that she has gallstones and was supposed to see a surgeon this Saturday about a cholecystectomy. However on the day of presentation, her pain worsened and she developed n/v. -OSH labs: white count of 11.6. Total bilirubin is 3.8, direct bilirubin was 2.6, AST was 431, ALT was 539, alk-phos was 205, total protein was 7.4, and lipase was greater than 5000. Urinalysis showed negative nitrites negative bilirubin, mild amount of leuk esterase, no squamous cells, no white blood cells, no bacteria. -OSH imaging: CT abd/pelvis without contrast on 11-01-23: diffuse peripancreatic inflammation consistent with pancreatitis. No non contrast evidence of joel pancreatic necrosis. Cholelithiasis with gallbladder distension, no apparent CT ductal stone. Non obstructive right nephrolithiasis. Hepatic steatosis and hepatomegaly. -RUQ US from 10-21-23: Gallbladder upper normal in size at 7.2cm. Multiple small gravel like shadowing stones layer int he dependent portion of the gallbladder. No pericholecystic fluid. CBD 7mm in diameter, normal in size and no CBD stones noted. Mild degree of pancreatitis in the pancreatic body/tail. Main pancreatic duct not dilated. No pancreatic pseudocyst or peripancreatic fluid noted. -will continue with IV fluids, IV antiemetics, IV Dilaudid. -Will continue with IV PPI -clear liquid, advance as tolerated -gen surg consulted- planning for cholecystectomy with IOC on 11-04-23. NPO at midnight. -no fevers, mild leukocytosis on admission to OSH. No jaundice. No radiologic evidence of acute cholecystitis, cholangitis, infected pancreatitis. Will stop IV zosyn. HTN/DLD -c/w home amlodipine and atenelol. Holding ramipiril in setting of CLEMENTE -Hold home statin due to transaminase elevation. CLEMENTE: improving - Baseline creatinine unclear. Will trend creatinine daily. Avoid nephrotoxins and renally dose medications. Anticipate improvement with aggressive fluid resuscitation. No obstructive stone seen on exam, and UA did not suggest infection. Hiatal hernia: -Seen incidentally on imaging of the outside hospital as well. Will continue with IV PPI Insomnia -Continue home trazodone. History of nephrolithiasis. -No obstructing stone seen on exam and no blood in UA. Will monitor. Complexity Obesity Body mass index is 35.75 kg/m . - Follow with PCP for dietary and lifestyle modifications. Hypothyroidism - Continue thyroid replacement Any conditions listed below are present on admission unless otherwise specified. Medical Readiness For Discharge: DVT prophylaxis with lovenox subcutaneous Anticipated Disposition: home Code status is Full Code Interval History / Subjective Feels well this morning. She has been walking around the unit. Denies abdominal pain, n/v. Passing gas. Objective Temp: [97.2 F (36.2 C)-98.1 F (36.7 C)] 97.8 F (36.6 C) Pulse (Heart Rate): [53-62] 57 Resp Rate: [16-21] 21 BP: (131-163)/(59-74) 159/74 O2 Sat (%): [94 %-97 %] 95 % Physical Exam Gen: A, A, NAD ENT: MMM Resp: CTA bilat, normal effort Cardio: RRR, normal S1, S2, + systolic murmur (chronic per patient). No RODOLFO GI: Soft, non distended, mild epigastric/RUQ pain with palpation Psych: Ox3, appropriate affect and cognition Data Review WBC/Hgb/Hct/Plts: 6.60/12.0/37.3/202 (11/02 453) Na/K+/Phos/Mg/Ca: 139/4.1/--/1.8/-- (11/02 113) Bun/Creat/Cl/CO2/Glucose: 12.27/107/22/103 (11/02 113) Department of Pharmacy Admission Medication Reconciliation Note Patient: Julia Márquez Room/Bed: [facility]/ I have reviewed the patient's home medication list with the following sources Dispense Report. The home medication list status is: complete. A call to the pharmacy was not needed because the information compiled from listed sources corroborates the patient/caregiver interview. All changes to the home medication list have been updated in IS. Updated [facility] Med List: Prior to Admission Medications Prescriptions Atenolol 100 MG tablet Sig: Take 1 tablet by mouth daily. Atorvastatin 20 MG tablet Sig: Take 1 tablet by mouth daily. Levothyroxine 150 MCG tablet Sig: Take 1 tablet by mouth every morning before breakfast. amLODIPine 5 MG tablet Sig: Take 1 tablet by mouth daily. ramipril 10 MG capsule Sig: Take 1 capsule by mouth daily. traZODone 50 MG tablet Sig: Take 1 tablet by mouth At bedtime. Facility-Administered Medications: None Added to Home Medications: None Deleted from Home Medications: None Edits to Home Medications: None Other Comments: The patient's allergies were not reviewed at this time. Ramipril is non formulary - 10 mg would convert to lisinopril 40 mg daily Please feel free to contact me with any further questions. Name: Sergio Siegel Adolfo Phone #: [phone] Date/Time: 11/02/2023 10:20 AM Time Spent: 10 minutes Physical Therapy Screen and Discharge Note 11/02/2023 PT Therapy Completed: Screen PT entered pt's room and found the patient standing and aboput to leave the room pushing her IV pole. Patient states she was brushing her teeth and getting her robe on. NO skilled PT/OT needs observed. Will remove pt from caseload. Thank you, Libia Marroquin, PT Time In: 949 Time Out: 950 Total Visit Time: 1 minutes Total Treatment Time (skilled, billable minutes): 0 minutes Hospital Medicine Progress Note Patient: Julia Márquez, : 1945, Impression / Plan 78 year old female with a h/o HTN/DLD, hypothyroidism, nephrolithiasis, left nephrectomy, recently diagnosed cholelithiasis, admitted to an OSH on 11-01-23 or worsening abdominal pain, n/v, transferred to [facility] for further evaluation. Gallstone pancreatitis: -Presented to [place] ED on 11-01-23 for abdominal pain, n/v. Initially went to PCP about 2 weeks ago for chest/abdominal pain that was worse with eating. She said she had an ECG that was okay and a RUQ US and was told that she has gallstones and was supposed to see a surgeon this Saturday about a cholecystectomy. However on the day of presentation, her pain worsened and she developed n/v. -OSH labs: white count of 11.6. Total bilirubin is 3.8, direct bilirubin was 2.6, AST was 431, ALT was 539, alk-phos was 205, total protein was 7.4, and lipase was greater than 5000. Urinalysis showed negative nitrites negative bilirubin, mild amount of leuk esterase, no squamous cells, no white blood cells, no bacteria. -OSH imaging: CT abd/pelvis without contrast on 11-01-23: diffuse peripancreatic inflammation consistent with pancreatitis. No non contrast evidence of joel pancreatic necrosis. Cholelithiasis with gallbladder distension, no apparent CT ductal stone. Non obstructive right nephrolithiasis. Hepatic steatosis and hepatomegaly. -RUQ US from 10-21-23: Gallbladder upper normal in size at 7.2cm. Multiple small gravel like shadowing stones layer int he dependent portion of the gallbladder. No pericholecystic fluid. CBD 7mm in diameter, normal in size and no CBD stones noted. Mild degree of pancreatitis in the pancreatic body/tail. Main pancreatic duct not dilated. No pancreatic pseudocyst or peripancreatic fluid noted. -will continue with IV fluids, IV antiemetics, IV Dilaudid. -Will continue with IV PPI -clear liquid, advance as tolerated -gen surg consulted- planning for ERCP versus cholecystectomy early this week. -no fevers, mild leukocytosis on admission to OSH. No jaundice. No radiologic evidence of acute cholecystitis, cholangitis, infected pancreatitis. Will stop IV zosyn. HTN/DLD -c/w home amlodipine and atenelol. Holding ramipiril in setting of CLEMENTE -Hold home statin due to transaminase elevation. CLEMENTE: - Baseline creatinine unclear. Will trend creatinine daily. Avoid nephrotoxins and renally dose medications. Anticipate improvement with aggressive fluid resuscitation. No obstructive stone seen on exam, and UA did not suggest infection. Hiatal hernia: -Seen incidentally on imaging of the outside hospital as well. Will continue with IV PPI Insomnia -Continue home trazodone. History of nephrolithiasis. -No obstructing stone seen on exam and no blood in UA. Will monitor. Complexity Obesity Body mass index is 35.75 kg/m . - Follow with PCP for dietary and lifestyle modifications. Hypothyroidism - Continue thyroid replacement Any conditions listed below are present on admission unless otherwise specified. Medical Readiness For Discharge: DVT prophylaxis with lovenox subcutaneous Anticipated Disposition: home Code status is Full Code Interval History / Subjective Presented to [place] ED on 11-01-23 for abdominal pain, n/v. Initially went to PCP about 2 weeks ago for chest/abdominal pain that was worse with eating. She said she had an ECG that was okay and a RUQ US and was told that she has gallstones and was supposed to see a surgeon this Saturday about a cholecystectomy. However on the day of presentation, her pain worsened and she developed n/v. Currently denies abdominal pain OSH records: CT abd/pelvis without contrast on 11-01-23: diffuse peripancreatic inflammation consistent with pancreatitis. No non contrast evidence of joel pancreatic necrosis. Cholelithiasis with gallbladder distension, no apparent CT ductal stone. Non obstructive right nephrolithiasis. Hepatic steatosis and hepatomegaly. Meds given prior to arrival: IV dilaudid, PPI, zosyn, zofran, fluids, synthroid ramipril, atenolol, amlodipine, 10-31-23: CBC: 11.6/14.1/43.8/294. Chem7: 138/4.1/106/22/16/1.39 T bili 3.80, D bili 2.60, AST 431, ALT 539, alk phos 205, alb 3.7. Lipase >5,000. UA: neg ketones, neg nitrite, 0-5 WBC, 0-5 RBC. RUQ US from 10-21-23: Gallbladder upper normal in size at 7.2cm. Multiple small gravel like shadowing stones layer int he dependent portion of the gallbladder. No pericholecystic fluid. CBD 7mm in diameter, normal in size and no CBD stones noted. Mild degree of pancreatitis in the pancreatic body/tail. Main pancreatic duct not dilated. No pancreatic pseudocyst or peripancreatic fluid noted. Objective Temp: [97 F (36.1 C)-97.6 F (36.4 C)] 97.4 F (36.3 C) Pulse (Heart Rate): [55-101] 55 Resp Rate: [16-17] 16 BP: (139-180)/(66-86) 141/66 O2 Sat (%): [93 %-98 %] 97 % Weight: [91.5 kg (201 lb 12.8 oz)] 91.5 kg (201 lb 12.8 oz) Physical Exam Gen: A, A, NAD ENT: MMM Resp: CTA bilat, normal effort Cardio: RRR, normal S1, S2, + systolic murmur (chronic per patient). No RODOLFO GI: Soft, non distended, mild epigastric/RUQ pain with palpation Psych: Ox3, appropriate affect and cognition Data Review WBC/Hgb/Hct/Plts: 7.13/12.5/41.2/201 (11/01 309) Na/K+/Phos/Mg/Ca: 141/3.8/3.3/1.9/9.0 (11/01 309) Bun/Creat/Cl/CO2/Glucose: 17/1.42/111/21/100 (11/01 309) Ptt/Pt/Inr: 26.6/14.3/1.1 (11/01 309) Department of Pharmacy Outside Facility Transfer Note Patient: Julia Márquez Room/Bed: [facility] Patient has transferred from the Emergency Department at [facility] . I have contacted the facility and confirmed the following antimicrobial, antiepileptic, and anticoagulant medications were received by the patient prior to arrival at [facility]: Antimicrobials: zosyn 4.5 g IV @ 0212 on 10/31 Please feel free to contact me with any further questions. Name: Danni Padilla RPH Phone #: [phone] Date/Time: 11/01/2023 8:04 PM documented in this [facility] Hospital course Narrative Hospital Medicine Discharge Summary Patient: Julia Márquez, : 1945, Admission Details Admit Date 11/01/2023 Discharge Date 11/05/2023 Inpatient Days 4 Primary Diagnoses Gallstone pancreatitis Action Items Follow up gallbladder surg pathology Follow up with surgery (service to arrange) PCP follow, repeat LFTs at that time Summary of Hospitalization Dear Doctors, I recently had the opportunity to care for Julia Márquez during her recent hospital stay at [facility]. As you may know, Julia Márquez is a 78 year old female with a h/o HTN/DLD, hypothyroidism, nephrolithiasis, left nephrectomy, recently diagnosed cholelithiasis, admitted to an OSH on 11-01-23 or worsening abdominal pain, n/v, transferred to [facility] for further evaluation. Found to have gallstone pancreatitis s/p lap cholecystectomy with intraoperative cholangiogram with gen surg on 11-04-23 (no significant abnormalities noted). LFTs significantly improved on the day of discharge. Hospital course c/b CLEMENTE on admission which resolved with fluids. Home medications were continued on discharge. On the day of discharge, she was tolerating a diet, no n/v, minimal abdominal soreness. BMI: 35.7 Obesity - Follow with PCP for dietary and lifestyle modifications Upon discharge the patient's code was Full Code Please see the remainder of this document for relevant data from this admission as well as the patient's discharge instructions and follow-up appointments. An electronic copy of the patient's records can be obtained via [facility] at [email or web address] It has been my pleasure participating in this patient's care. Please contact me with any questions or concerns regarding her hospital stay. The total time of discharge was 25 minutes. Sincerely, Farrah Virk MD Division of Hospital Medicine Relevant Data from this Admission Temp: [97.4 F (36.3 C)-98.7 F (37.1 C)] 97.6 F (36.4 C) Pulse (Heart Rate): [53-75] 56 Resp Rate: [12-18] 16 BP: (130-181)/(58-86) 144/65 O2 Sat (%): [92 %-100 %] 96 % Weight: [91.2 kg (201 lb)] 91.2 kg (201 lb) Physical Exam Gen: Alert, Awake, NAD Eyes: no icterus ENT: MMM, trachea midline Resp: CTA & P, normal respiratory effort Cardio: RRR, normal S1, S2, no M/R/G. No RODOLFO. GI: Soft, minimal tenderness with palpation, no peritoneal signs Psych: Ox3, appropriate affect and cognition Recent Labs 11/04/23 0532 11/05/23 0241 WBC 6.02 8.73 HGB 13.0 12.1 PLATELET 241 231 SODIUM 141 138 POTASSIUM 3.7 3.8 CO2 22 22 ANIONGAP 15 14 BUN 9 14 CREATSERUM 1.05 0.99 MAGNESIUM 1.8 1.7 AST 42* 35 ALT 143* 99* ALKPHOS 117 100 BILITOTAL 1.2 0.8 BILIDIRECT 0.3* 0.2 INR 1.1 -- Patient Instructions No future appointments. No follow-up provider specified. Medication List for when you go home START taking these medications Morning Afternoon Evening Bedtime As Needed Acetaminophen 325 MG tablet Take 2 tablets by mouth every 6 hours as needed. Commonly known as: TYLENOL Last time this was given: 650 mg on November 05, 2023 10:18 AM oxyCODONE 5 MG TABS Take 1 tablet by mouth every 6 hours as needed for Moderate Pain or Severe Pain for up to 3 days. Commonly known as: ROXICODONE For diagnoses: Gallstone pancreatitis CONTINUE taking these medications Morning Afternoon Evening Bedtime As Needed amLODIPine 5 MG TABS Take 1 tablet by mouth daily. Commonly known as: NORVASC Last time this was given: 5 mg on November 05, 2023 8:54 AM Atenolol 100 MG TABS Take 1 tablet by mouth daily. Commonly known as: TENORMIN Last time this was given: 100 mg on November 05, 2023 8:54 AM Atorvastatin 20 MG TABS Take 1 tablet by mouth daily. Commonly known as: LIPITOR Levothyroxine 150 MCG TABS Take 1 tablet by mouth every morning before breakfast. Commonly known as: SYNTHROID Last time this was given: 150 mcg on November 05, 2023 5:59 AM ramipril 10 MG CAPS Take 1 capsule by mouth daily. Commonly known as: ALTACE traZODone 50 MG TABS Take 1 tablet by mouth At bedtime. Commonly known as: DESYREL Last time this was given: 50 mg on November 04, 2023 10:56 PM documented in this encounter [facility] 11-05-2023 Hospital course Narrative Hospital Medicine Discharge Summary Patient: Julia Márquez, : 1945, Admission Details Admit Date 11/01/2023 Discharge Date 11/05/2023 Inpatient Days 4 Primary Diagnoses Gallstone pancreatitis Action Items Follow up gallbladder surg pathology Follow up with surgery (service to arrange) PCP follow, repeat LFTs at that time Summary of Hospitalization Dear Doctors, I recently had the opportunity to care for Julia Márquez during her recent hospital stay at [facility]. As you may know, Julia Márquez is a 78 year old female with a h/o HTN/DLD, hypothyroidism, nephrolithiasis, left nephrectomy, recently diagnosed cholelithiasis, admitted to an OSH on 11-01-23 or worsening abdominal pain, n/v, transferred to [facility] for further evaluation. Found to have gallstone pancreatitis s/p lap cholecystectomy with intraoperative cholangiogram with gen surg on 11-04-23 (no significant abnormalities noted). LFTs significantly improved on the day of discharge. Hospital course c/b CLEMENTE on admission which resolved with fluids. Home medications were continued on discharge. On the day of discharge, she was tolerating a diet, no n/v, minimal abdominal soreness. BMI: 35.7 Obesity - Follow with PCP for dietary and lifestyle modifications Upon discharge the patient's code was Full Code Please see the remainder of this document for relevant data from this admission as well as the patient's discharge instructions and follow-up appointments. An electronic copy of the patient's records can be obtained via [facility] at [email or web address] It has been my pleasure participating in this patient's care. Please contact me with any questions or concerns regarding her hospital stay. The total time of discharge was 25 minutes. Sincerely, Farrah Virk MD Division of Hospital Medicine Relevant Data from this Admission Temp: [97.4 F (36.3 C)-98.7 F (37.1 C)] 97.6 F (36.4 C) Pulse (Heart Rate): [53-75] 56 Resp Rate: [12-18] 16 BP: (130-181)/(58-86) 144/65 O2 Sat (%): [92 %-100 %] 96 % Weight: [91.2 kg (201 lb)] 91.2 kg (201 lb) Physical Exam Gen: Alert, Awake, NAD Eyes: no icterus ENT: MMM, trachea midline Resp: CTA & P, normal respiratory effort Cardio: RRR, normal S1, S2, no M/R/G. No RODOLFO. GI: Soft, minimal tenderness with palpation, no peritoneal signs Psych: Ox3, appropriate affect and cognition Recent Labs 11/04/23 0532 11/05/23 0241 WBC 6.02 8.73 HGB 13.0 12.1 PLATELET 241 231 SODIUM 141 138 POTASSIUM 3.7 3.8 CO2 22 22 ANIONGAP 15 14 BUN 9 14 CREATSERUM 1.05 0.99 MAGNESIUM 1.8 1.7 AST 42* 35 ALT 143* 99* ALKPHOS 117 100 BILITOTAL 1.2 0.8 BILIDIRECT 0.3* 0.2 INR 1.1 -- Patient Instructions No future appointments. No follow-up provider specified. Medication List for when you go home START taking these medications Morning Afternoon Evening Bedtime As Needed Acetaminophen 325 MG tablet Take 2 tablets by mouth every 6 hours as needed. Commonly known as: TYLENOL Last time this was given: 650 mg on November 05, 2023 10:18 AM oxyCODONE 5 MG TABS Take 1 tablet by mouth every 6 hours as needed for Moderate Pain or Severe Pain for up to 3 days. Commonly known as: ROXICODONE For diagnoses: Gallstone pancreatitis CONTINUE taking these medications Morning Afternoon Evening Bedtime As Needed amLODIPine 5 MG TABS Take 1 tablet by mouth daily. Commonly known as: NORVASC Last time this was given: 5 mg on November 05, 2023 8:54 AM Atenolol 100 MG TABS Take 1 tablet by mouth daily. Commonly known as: TENORMIN Last time this was given: 100 mg on November 05, 2023 8:54 AM Atorvastatin 20 MG TABS Take 1 tablet by mouth daily. Commonly known as: LIPITOR Levothyroxine 150 MCG TABS Take 1 tablet by mouth every morning before breakfast. Commonly known as: SYNTHROID Last time this was given: 150 mcg on November 05, 2023 5:59 AM ramipril 10 MG CAPS Take 1 capsule by mouth daily. Commonly known as: ALTACE traZODone 50 MG TABS Take 1 tablet by mouth At bedtime. Commonly known as: DESYREL Last time this was given: 50 mg on November 04, 2023 10:56 PM documented in this encounter [facility] 11-05-2023 Hospital Discharg e jenny Powell RN - 11/05/2023 8:50 AM EDT Patient Experience Survey Reminder You may receive a survey in the mail within a few weeks regarding your hospitalization. This helps us to improve the care and services we provide at [facility]. We truly appreciate you taking the time to fill this out. We particularly welcome any specific comments you may have (good or bad!) regarding your experience at [facility] so that we may use them to continue to strive towards excellence for our patients. Prevent Constipation While Taking Prescription Pain Medication: - Take your stool softener as prescribed to help prevent constipation. It does not cause loose stools or diarrhea. - Do not stop taking the stool softener while you are still taking your prescription pain medication. - Prescription pain medication and physical inactivity commonly cause constipation. - Be active, get out of bed, walk several times a day and sit in a cushioned chair to rest as needed. - Drink 6-8 cups of fluid daily and eat plenty of fruits, vegetables, juices. - You may need to take a laxative if you cannot have a bowel movement. - Contact your doctor if you cannot have a bowel movement after 3 days. - Patient Education Link: Constipation and Opioid (Pain Medicine) Use https://patienteducation.osum.e du/Documents/constip.pdf [email or web address] ,C,176 Activity. Post- Op Mobility Instructions: Relieve Post-operative Laproscopic Surgery Discomfort: - Post-op shoulder, chest or abdominal discomfort is common after laproscopic surgery. - Discomfort is due to CO2 gas infused into abdomen during surgery and gradually disappears in a few days. - The gas irritates nerve endings which cause patients to have varying reports of discomfort. - Symptoms usually resolve in 48-72hrs. Some people report changing positions sitting/lying and applying a warm heating pad provides some relief. Low Impact Activities. Avoid Strenuous Activities x 6wks: - Protect your incisions. Avoid activities in which your abdomen/incision(s) could be impacted or injured. - Avoid strenuous activities that would increase your heart rate, your breathing rate or cause you to perspire. - Avoid lifting, pushing or pulling anything that weighs more than 10 pounds. - Avoid bending or twisting at the waist. - Walk to maintain your muscle tone, general conditioning and cardiovascular health. Activity Recommendations. Post-Operative Abdominal Surgery x 6wks: - Do not operate a motor vehicle, machinery or mechanical equipment while taking prescription pain medications. - Daytime activity is important to help you maintain restful sleep patterns. - Get out of bed, walk and sit in a cushioned chair to rest as needed. - Take short low intensity walks increasing duration/distance as tolerated. - Plan activities to limit stair climbing to save energy and reduce your falls risk. - Maintain restrictions for a minimum of 2 weeks or until f/u appointment. - You may need to limit activities for up to 6 weeks after surgery. Discharge Diet: Resume- Regular Diet; Modifiers- No New Restrictions; Liquid Consistancy- Thin: Prevent Abdominal Discomfort Due to Gas. Limit or Avoid: - Goal: To avoid foods, beverages and behaviors which increase abdominal distension and can cause pain and discomfort. - Limit swallowed air. DO NOT use straws, slurp food, chew gum or tobacco or suck on ice all which increase air/gas buildup. - Avoid all carbonated beverages for the first 2 weeks after surgery (sodas and alcohol). - Avoid foods increase stomach gas and distention (corn, dried beans, peas, lentils, onions, broccoli, cauliflower and any food from the cabbage family. - Limit sweets or high-sugar items as these may cause cramping and abdominal pain. - Avoid high-fat foods. - Patient Education Link: How to Get Rid of Gas after Surgery https://patienteducation.[facility].e du/Documents/kes4yuz.pdf Dietary Guidelines for Controlling Abdominal Gas https://patienteducation.[facility].e du/Documents/rkvoweq-hx-oga.pdf Airway Management and Care: Incentive Spirometer (IS) or [place] and Cough and Deep Breathing: - Continue to use the IS as instructed after your discharge. - This is essential to help prevent respiratory infections and pneumonia. - Minimum use: Complete a set of 10 deep slow breaths every hour. - This helps by producing a cough to help clear the lungs of mucous. - If you experience chest or abdomen pain you can hug a pillow when coughing. - Hugging a pillow will support and limit your discomfort when coughing. - Patient Education Link: How to Use an Incentive Spirometer https://patienteducation.VYou.Elders[employer] du/Documents/in-sp-mouth.pdf Prevent Health Care-Associated Pneumonia http://Rated People/3, S,79855 Atelectasis http://OnForce.Hyper9/82 ,S,128158ir http://Rated People/3, S,65526 Airway Clearance: Coughing Techniques http://VYou.[employer].Hyper9/3, S,47322 Coughing http://Rated People/3, S,39169 Wound(s) Care Management and Hygiene: Laproscopic Surgery Incision Site Care: - Present On Admission: NO; Indication: s/p robotic cholecystectomy; - Care: Keep incisions clean and dry. On post-op day #3 remove any remaining gauze dressing(s) and cleanse your incision sites. - Cleanse: Wash incisions with soap and water once daily, you may shower but no tub baths; do not submerge your incision in water. - Let soap and water rinse over lap sites to cleanse sites. Do not scrub, scratch or pick at your incision(s). - Keep lap sites clean, do not apply ointments to your incision(s). - Sutures/vanessa if present will be removed at post-op follow-up appointments. Notify Physician. When to Call: Call 911 If you Experience a Sudden Onset of These Symptoms: - Chest pain- Sustained Chest pain. - Breathing Difficulty- or shortness of breath not provoked by increased activity. - Seizure-like Activity- new uncontrolled involuntary shaking or body movements. - Worst headache of life Sudden onset very intense headache - Sudden onset of numbness or loss of muscle control. - Sudden loss of control over your bladder or bowel function. Problems with Bleeding from Incision Site: - Apply direct pressure and call your doctors office if you have: - Signs of bleeding or oozing, draining blood that pulsates, increases or does not stop. - Swelling or bruising near or under your incision. - Your incision/wound opens up or gets larger. - Call 911 if you experience heavy bleeding. Symptoms of Bleeding, Internal - Increasing abdominal pain or cramps. vomiting blood - Bright red blood in vomit or passing bright red blood from your rectum - Confusion or feeling dizzy or faint as if blacking out. - Feeling unexplained weakness, fatigue or shortness of breath. - Skin looking pale, increasingly cold extremities, hands and feet. - Unexplained rapid pulse, drop in blood pressure, decreased urine output. - Signs of slow blood loss such as: - Dark red or black tarry bowel movements - Vomiting dark blood that looks like coffee grounds - Urine that appears pink, red or dark as if cola colored. Post-Operative Problems with your Incision or Wound: - Call your doctor or nurse if you have: - Signs of Bleeding or oozing blood that increases or does not stop. - Swelling or bruising near or under your incision. Unexplained swelling at the surgical site. - Your incision/wound opens up or gets larger. - Surgical site warmer to the touch than surrounding tissues. Symptoms of Infection: - Changes in drainage from a incision or drain such as the amount, the color or odor. - Normal drainage to change from bloody to pink then clear that drys to a pale yellow color. - The skin around an incision or drain feels warm/hot or has red streaks - Incision or wound edges that separate and begin to open up as the sutures/vanessa fail. - You develop a temperature greater than 100.5. - You experience an unexplained increase in your level of pain/discomfort. - When in doubt call the contact the provider using the phone numbers provided to you in this AVS (After Visit Summary) Nausea and Vomiting: - You vomit more than 2 times a day or each time you eat/drink. - Nausea prevents you from eating or drinking for more than 1 day. - You are unable to tolerate your prescription medications due to nausea. - You are unable to eat or drink or you are vomiting more than once a day. Constipation: - Drink lots of water and take your stool softener as prescribed. - You may need an xkbe-kqs-xcjldjg product to help maintain regular bowel function. - Call the office if you cannot have a bowel movement after 3 days. Problems with Urination: - You experience difficulty urinating or are unable to urinate. - You have been unable to urinate for over 6hrs and have abdominal pain. - You experience burning or painful urination. - Color changes- you have dark or blood tinged urine, your urine appears cloudy - Odor changes- your urine develops a bad odor. - You experience a loss of bladder control (incontinence) or an urgent need to urinate more often. Deep Vein Thrombosis Symptoms: - Tender, swollen or reddened areas anywhere in your leg. - Numbness or tingling in your lower leg or calf, or at the top of your leg or groin - Skin on you leg looks pale or blue or feels cold to touch - Chest pain or have trouble breathing - Fever or chills Notify Physician. Who to Call: Emergencies- Call 911 and ask to go the nearest Emergency Room. Trauma/Emergency General Surgery - Questions M-F 8a-4:00p. p [phone] For non-emergency questions - Eves, weekends and holidays call p [phone] and ask the vertical lathe operator to page the Trauma/Emergency General Surgery resident director digital communications. - Clinical Casemanager: James Ray RN. [phone]. Personal Responsibilities: Driving Restriction: - You should not return to driving at this time. - Your doctor will discuss recommendations at your follow-up appointment. - You should have a relative or friend bring you to your follow-up appointment(s). - Do not operate a motor vehicle while taking new prescription medications. - Your new medication(s) may impair your ability to operate a vehicle safely. Return To Work (RTW) Recommendations: - Ask your doctor when you can RTW and if you have any physical restrictions. Documentation Requests from Insurance or Employer: - Your CCM, SW sales facilitator can provide you with a work excuse. - Family Medical Leave, Short Term Disability or other documents can be sent to your casemanager or clinic staff for completion. - Fax documents with your full name, date of and medical record number to clinic [phone]. Incude a return fax number. - Anticipate < 10 business days for document completion. To Request Your Medical Records: [facility] Department of Medical Information Management: - The care you receive at [facility] is documented on your Electronic Medical Record (EMR) - You may request information from your medical record or participate in your care through [employer], which provides a portion of your overall medical record and offers communication services with your providers offices. - To request information from your medical record: Download, complete and return this authorization form: http://[email or web address]/~/catarina castilloquyen/Files/[facility]/Patient -Care/Debxavs-ejd-Cesyexr-Guide/ Medical-Records/Authorization-fo p-Jfufwqv-nl-Medical-Information .pdf?la=en [facility] Medical Information Management Office: - [facility] at [phone] Mon- Sat 8am- 7pm - [facility] at [phone] Mon-Sat 8am- 7pm For Copies of [facility] Digital Radiologic Imaging on DVD Contact: - [facility] Department of Radiology Imaging Informatics PACS - PACS- Picture Archiving and Communications Systems [facility] - p [phone]. Hours Mon-Fri 9:00am to 3:00pm Personal Health Information: - Carry an up to date list of all of your medicines in your wallet or purse in case of an emergency. - Include both prescriptions and over the counter medicines and any vitamin or herbal products you use. - Be sure you share your medicine list with all of your doctors, including your dentist. - Keep your medicine list up to date anytime you have a medicine stopped or started, or if a dose changes. - Keep a list of emergency contact persons whom you want contacted in the event of an emergency. Important Information for Follow-up Appointments: Please be prepared for your appointments: - Please arrive 15 minutes early for new patient registration and any tests/scans. Items to bring with you: - For your appointments please bring your photo ID and your insurance card. - Bring rivero, check or credit card for any insurance co-pays. - Bring a list of your current medications (names, dose, when taken). - Bring a list of all your current health care providers. - You should also bring a copy of your hospital discharge instructions. Determine coverage: - It is your responsibility to check that this appointment is covered by your insurance. - If the appointment requires prior-authorization or physician referral, you must bring that prior-authorization # or paperwork to your visit. - You need to verify if the doctor you are scheduled to see is a participant in your insurance plan by calling your carrier. - If your insurance will not authorize this visit or you have no insurance coverage, you will need to make a rivero payment at the time of the appointment. [facility] Clinic Follow-up Appointments: Driving and Parking Recommendations for Follow-up Appointments: - See the first page of this AVS (After Visit Summary) for your scheduled and/or recommended follow-up appointments. - Always call to verify all appointments 2-3 days prior to the appointment. - Always verify the location of your follow-up appointments. There are multiple clinic locations. - Always verify the date, time and location of all previously scheduled appointments. - http://[facility] ient-care/kfswgjzbw-obl-dbhwqon. [facility] Medical [place] Map: http://[facility]/~/catarina michael/Files/Shared/Locations/Berny ing-Directions/[facility]/Mspbaqu-Wvxukr-Yal.pdf?la=en Emergency General Surgery / Acute Care Surgery Clinic 1st Floor [facility]: http://[facility]/sixto ient-care/fszoxskcf-khe-vznglmr/ [facility] http://[email or web address]/~/catarina michael/Files/Shared/Locations/iv ing-Directions/[facility]/D ri_Dir_[facility].pdf The following attachments cannot be sent through Care Everywhere.Cholecystectomy: Post-op (Saudi Arabian)documented in this encounter [facility] 11-05-2023 Hospital Discharg e jenny Powell RN - 11/05/2023 8:50 AM EDT Patient Experience Survey Reminder You may receive a survey in the mail within a few weeks regarding your hospitalization. This helps us to improve the care and services we provide at [facility]. We truly appreciate you taking the time to fill this out. We particularly welcome any specific comments you may have (good or bad!) regarding your experience at [facility] so that we may use them to continue to strive towards excellence for our patients. Prevent Constipation While Taking Prescription Pain Medication: - Take your stool softener as prescribed to help prevent constipation. It does not cause loose stools or diarrhea. - Do not stop taking the stool softener while you are still taking your prescription pain medication. - Prescription pain medication and physical inactivity commonly cause constipation. - Be active, get out of bed, walk several times a day and sit in a cushioned chair to rest as needed. - Drink 6-8 cups of fluid daily and eat plenty of fruits, vegetables, juices. - You may need to take a laxative if you cannot have a bowel movement. - Contact your doctor if you cannot have a bowel movement after 3 days. - Patient Education Link: Constipation and Opioid (Pain Medicine) Use https://patienteducation.VYou.Elderscan du/Documents/constip.pdf http://VYou.Prevoty/22 ,C,176 Activity. Post- Op Mobility Instructions: Relieve Post-operative Laproscopic Surgery Discomfort: - Post-op shoulder, chest or abdominal discomfort is common after laproscopic surgery. - Discomfort is due to CO2 gas infused into abdomen during surgery and gradually disappears in a few days. - The gas irritates nerve endings which cause patients to have varying reports of discomfort. - Symptoms usually resolve in 48-72hrs. Some people report changing positions sitting/lying and applying a warm heating pad provides some relief. Low Impact Activities. Avoid Strenuous Activities x 6wks: - Protect your incisions. Avoid activities in which your abdomen/incision(s) could be impacted or injured. - Avoid strenuous activities that would increase your heart rate, your breathing rate or cause you to perspire. - Avoid lifting, pushing or pulling anything that weighs more than 10 pounds. - Avoid bending or twisting at the waist. - Walk to maintain your muscle tone, general conditioning and cardiovascular health. Activity Recommendations. Post-Operative Abdominal Surgery x 6wks: - Do not operate a motor vehicle, machinery or mechanical equipment while taking prescription pain medications. - Daytime activity is important to help you maintain restful sleep patterns. - Get out of bed, walk and sit in a cushioned chair to rest as needed. - Take short low intensity walks increasing duration/distance as tolerated. - Plan activities to limit stair climbing to save energy and reduce your falls risk. - Maintain restrictions for a minimum of 2 weeks or until f/u appointment. - You may need to limit activities for up to 6 weeks after surgery. Discharge Diet: Resume- Regular Diet; Modifiers- No New Restrictions; Liquid Consistancy- Thin: Prevent Abdominal Discomfort Due to Gas. Limit or Avoid: - Goal: To avoid foods, beverages and behaviors which increase abdominal distension and can cause pain and discomfort. - Limit swallowed air. DO NOT use straws, slurp food, chew gum or tobacco or suck on ice all which increase air/gas buildup. - Avoid all carbonated beverages for the first 2 weeks after surgery (sodas and alcohol). - Avoid foods increase stomach gas and distention (corn, dried beans, peas, lentils, onions, broccoli, cauliflower and any food from the cabbage family. - Limit sweets or high-sugar items as these may cause cramping and abdominal pain. - Avoid high-fat foods. - Patient Education Link: How to Get Rid of Gas after Surgery https://patienteducaProxeon.VYou.[employer]/Documents/haf4aef.pdf Dietary Guidelines for Controlling Abdominal Gas https://patienteducaProxeon.VYou.[employer]/Documents/vkpvsse-cj-ojk.pdf Airway Management and Care: Incentive Spirometer (IS) or Voldyne and Cough and Deep Breathing: - Continue to use the IS as instructed after your discharge. - This is essential to help prevent respiratory infections and pneumonia. - Minimum use: Complete a set of 10 deep slow breaths every hour. - This helps by producing a cough to help clear the lungs of mucous. - If you experience chest or abdomen pain you can hug a pillow when coughing. - Hugging a pillow will support and limit your discomfort when coughing. - Patient Education Link: How to Use an Incentive Spirometer https://patienteducaProxeon.Wellsphere/Documents/in-sp-mouth.pdf Prevent Health Care-Associated Pneumonia http://Rated People/3, S,58034 Atelectasis http://Rated People/82 ,S,647679re http://oseduplanet KK.Prevoty/3, S,03858 Airway Clearance: Coughing Techniques http://osumIntellitect [employer] Holdings.[employer].Hyper9/3, S,85874 Coughing http://oseduplanet KK.Prevoty/3, S,73442 Wound(s) Care Management and Hygiene: Laproscopic Surgery Incision Site Care: - Present On Admission: NO; Indication: s/p robotic cholecystectomy; - Care: Keep incisions clean and dry. On post-op day #3 remove any remaining gauze dressing(s) and cleanse your incision sites. - Cleanse: Wash incisions with soap and water once daily, you may shower but no tub baths; do not submerge your incision in water. - Let soap and water rinse over lap sites to cleanse sites. Do not scrub, scratch or pick at your incision(s). - Keep lap sites clean, do not apply ointments to your incision(s). - Sutures/vanessa if present will be removed at post-op follow-up appointments. Notify Physician. When to Call: Call 911 If you Experience a Sudden Onset of These Symptoms: - Chest pain- Sustained Chest pain. - Breathing Difficulty- or shortness of breath not provoked by increased activity. - Seizure-like Activity- new uncontrolled involuntary shaking or body movements. - Worst headache of life Sudden onset very intense headache - Sudden onset of numbness or loss of muscle control. - Sudden loss of control over your bladder or bowel function. Problems with Bleeding from Incision Site: - Apply direct pressure and call your doctors office if you have: - Signs of bleeding or oozing, draining blood that pulsates, increases or does not stop. - Swelling or bruising near or under your incision. - Your incision/wound opens up or gets larger. - Call 911 if you experience heavy bleeding. Symptoms of Bleeding, Internal - Increasing abdominal pain or cramps. vomiting blood - Bright red blood in vomit or passing bright red blood from your rectum - Confusion or feeling dizzy or faint as if blacking out. - Feeling unexplained weakness, fatigue or shortness of breath. - Skin looking pale, increasingly cold extremities, hands and feet. - Unexplained rapid pulse, drop in blood pressure, decreased urine output. - Signs of slow blood loss such as: - Dark red or black tarry bowel movements - Vomiting dark blood that looks like coffee grounds - Urine that appears pink, red or dark as if cola colored. Post-Operative Problems with your Incision or Wound: - Call your doctor or nurse if you have: - Signs of Bleeding or oozing blood that increases or does not stop. - Swelling or bruising near or under your incision. Unexplained swelling at the surgical site. - Your incision/wound opens up or gets larger. - Surgical site warmer to the touch than surrounding tissues. Symptoms of Infection: - Changes in drainage from a incision or drain such as the amount, the color or odor. - Normal drainage to change from bloody to pink then clear that drys to a pale yellow color. - The skin around an incision or drain feels warm/hot or has red streaks - Incision or wound edges that separate and begin to open up as the sutures/vanessa fail. - You develop a temperature greater than 100.5. - You experience an unexplained increase in your level of pain/discomfort. - When in doubt call the contact the provider using the phone numbers provided to you in this AVS (After Visit Summary) Nausea and Vomiting: - You vomit more than 2 times a day or each time you eat/drink. - Nausea prevents you from eating or drinking for more than 1 day. - You are unable to tolerate your prescription medications due to nausea. - You are unable to eat or drink or you are vomiting more than once a day. Constipation: - Drink lots of water and take your stool softener as prescribed. - You may need an obxb-mfx-vzxvykq product to help maintain regular bowel function. - Call the office if you cannot have a bowel movement after 3 days. Problems with Urination: - You experience difficulty urinating or are unable to urinate. - You have been unable to urinate for over 6hrs and have abdominal pain. - You experience burning or painful urination. - Color changes- you have dark or blood tinged urine, your urine appears cloudy - Odor changes- your urine develops a bad odor. - You experience a loss of bladder control (incontinence) or an urgent need to urinate more often. Deep Vein Thrombosis Symptoms: - Tender, swollen or reddened areas anywhere in your leg. - Numbness or tingling in your lower leg or calf, or at the top of your leg or groin - Skin on you leg looks pale or blue or feels cold to touch - Chest pain or have trouble breathing - Fever or chills Notify Physician. Who to Call: Emergencies- Call 911 and ask to go the nearest Emergency Room. Trauma/Emergency General Surgery - Questions M-F 8a-4:00p. p [phone] For non-emergency questions - Eves, weekends and holidays call p [phone] and ask the vertical lathe operator to page the Trauma/Emergency General Surgery resident director digital communications. - Clinical Casemanager: James Ray RN. [phone]. Personal Responsibilities: Driving Restriction: - You should not return to driving at this time. - Your doctor will discuss recommendations at your follow-up appointment. - You should have a relative or friend bring you to your follow-up appointment(s). - Do not operate a motor vehicle while taking new prescription medications. - Your new medication(s) may impair your ability to operate a vehicle safely. Return To Work (RTW) Recommendations: - Ask your doctor when you can RTW and if you have any physical restrictions. Documentation Requests from Insurance or Employer: - Your CCM, SW sales facilitator can provide you with a work excuse. - Family Medical Leave, Short Term Disability or other documents can be sent to your casemanager or clinic staff for completion. - Fax documents with your full name, date of and medical record number to clinic [phone]. Incude a return fax number. - Anticipate < 10 business days for document completion. To Request Your Medical Records: [facility] Department of Medical Information Management: - The care you receive at [facility] is documented on your Electronic Medical Record (EMR) - You may request information from your medical record or participate in your care through [employer], which provides a portion of your overall medical record and offers communication services with your providers offices. - To request information from your medical record: Download, complete and return this authorization form: http://[email or web address]/~/catarina michael/Files/[facility]/Patient -Care/Pwcshiq-jny-Jqihsqa-Guide/ Medical-Records/Authorization-fo v-Yywkqwi-qp-Medical-Information .pdf?la=en [facility] Medical Information Management Office: - [facility] at [phone] Mon- Sat 8am- 7pm - [facility] at [phone] Mon-Sat 8am- 7pm For Copies of [facility] Digital Radiologic Imaging on DVD Contact: - [facility] Department of Radiology Imaging Informatics PACS - PACS- Picture Archiving and Communications Systems [facility] - p [phone]. Hours Mon-Fri 9:00am to 3:00pm Personal Health Information: - Carry an up to date list of all of your medicines in your wallet or purse in case of an emergency. - Include both prescriptions and over the counter medicines and any vitamin or herbal products you use. - Be sure you share your medicine list with all of your doctors, including your dentist. - Keep your medicine list up to date anytime you have a medicine stopped or started, or if a dose changes. - Keep a list of emergency contact persons whom you want contacted in the event of an emergency. Important Information for Follow-up Appointments: Please be prepared for your appointments: - Please arrive 15 minutes early for new patient registration and any tests/scans. Items to bring with you: - For your appointments please bring your photo ID and your insurance card. - Bring rivero, check or credit card for any insurance co-pays. - Bring a list of your current medications (names, dose, when taken). - Bring a list of all your current health care providers. - You should also bring a copy of your hospital discharge instructions. Determine coverage: - It is your responsibility to check that this appointment is covered by your insurance. - If the appointment requires prior-authorization or physician referral, you must bring that prior-authorization # or paperwork to your visit. - You need to verify if the doctor you are scheduled to see is a participant in your insurance plan by calling your carrier. - If your insurance will not authorize this visit or you have no insurance coverage, you will need to make a rivero payment at the time of the appointment. [facility] Clinic Follow-up Appointments: Driving and Parking Recommendations for Follow-up Appointments: - See the first page of this AVS (After Visit Summary) for your scheduled and/or recommended follow-up appointments. - Always call to verify all appointments 2-3 days prior to the appointment. - Always verify the location of your follow-up appointments. There are multiple clinic locations. - Always verify the date, time and location of all previously scheduled appointments. - http://[facility]/[place]o ient-care/wuhkpbyej-xcd-jokwvus. [facility] [place] Map: http://[facility]/~/catarina michael/Files/Shared/Locations/iv ing-Directions/[facility]/Myrnndj-Clhflg-Hrv.pdf?la=en Emergency General Surgery / Acute Care Surgery Clinic 1st Floor [facility]: http://[facility]/[place]xto ient-care/zumkplbbs-dux-qxynckx/ [facility] http://[facility]/~/catarina castilloia/Files/Shared/Locations/Driv ing-Directions/[facility]/D ri_Dir_[facility].pdf The following attachments cannot be sent through Care Everywhere.Cholecystectomy: Post-op (S[place] Arabian)documented in this encounter [facility] 11-05-2023 Nurse Note Patient is resting in bed, no over night issues, pain controlled well with prn pain management, second assessment complete and no changes from previous assessment will continue monitoring. [facility] 11-05-2023 Plan of care note Problem: Adult Inpatient Plan of Care Goal: Plan of Care Review Outcome: Adequate for Discharge Goal: Patient-Specific Goal (Individualized) Outcome: Adequate for Discharge Goal: Absence of Hospital-Acquired Illness or Injury Outcome: Adequate for Discharge Goal: Optimal Comfort and Wellbeing Outcome: Adequate for Discharge Goal: Readiness for Transition of Care Outcome: Adequate for Discharge [facility] 08-26-2024 Plan of care note Problem: Adult Inpatient Plan of Care Goal: Plan of Care Review Outcome: Progressing Goal: Patient-Specific Goal (Individualized) Outcome: Progressing Goal: Absence of Hospital-Acquired Illness or Injury Outcome: Progressing Goal: Optimal Comfort and Wellbeing Outcome: Progressing Goal: Readiness for Transition of Care Outcome: Progressing No changes in this patients reassessment at this time otherwise note in chart. [facility] 11-04-2023 Nurse Surgical operation note Report given to PHOTOGRAMMETRY AIRPLANE PILOT. PHOTOGRAMMETRY AIRPLANE PILOT voiced understanding and had no further questions at this time. Amauri Calhoun RN [facility] 11-04-2023 Nurse Note Report given to PHOTOGRAMMETRY AIRPLANE PILOT. PHOTOGRAMMETRY AIRPLANE PILOT voiced understanding and had no further questions at this time. Amauri Calhoun RN documented in this encounter [facility] 11-04-2023 Nurse Note Report given to PHOTOGRAMMETRY AIRPLANE PILOT. PHOTOGRAMMETRY AIRPLANE PILOT voiced understanding and had no further questions at this time. Amauri Calhoun RN documented in this encounter [facility] 11-04-2023 Plan of care note [facility] Plan of Care Julia Márquez is now s/p robotic cholecystectomy with ICG cholangiogram. - OK for CLD, ADAT - No antibiotics needed - OK for DVT ppx in 6 hours - Please obtain CBC, chem, LFTs tomorrow morning - We will continue to follow If there are any questions or concerns, please do not hesitate to page the director digital communications resident (on QGenda: Surgery ([facility]) --> Acute Care Surgery & Trauma --> 1st Call Resident Con 24hrs). Fiona Iqbal MD General Surgery PGY5 [facility] Work Phone: 11-04-2023 Surgery Postoperative evaluation and management note Julia Márquez ([id number]) Operative Report Date 11/04/2023 PREOPERATIVE DIAGNOSIS: Gallstone pancreatitis [K85.10] POSTOPERATIVE DIAGNOSIS: Gallstone pancreatitis [K85.10] SURGEON: Surgeons and Role: * Jorge Jarrell MD - Primary SURGICAL STAFF: Ladle Filler: Amauri Calhoun RN Relief Ladle Filler: Ritika Walker RN Resident Assisting: Fiona Iqbal MD Box Printer: Fredi Barrett ANESTHESIA: General Anesthesia PROCEDURE: Robotic Cholecystectomy with Intraoperative Indocyanine Green (ICG) Cholangiogram INTRAOPERATIVE FINDINGS: No significant abnormalities and anatomy amenable to robotic cholecystectomy with ICG Cholangiography. ESTIMATED BLOOD LOSS: Minimal COMPLICATIONS: None SPECIMENS: Gallbladder sent to pathology. ID Type Source Tests Collected by Time Destination 1 : gallbladder Permanent SURG PATH SURG PATH REQUEST Jorge Jarrell MD 11/04/2023 1422 OPERATIVE INDICATIONS: Pt is a 78 y.o. female who presented with gallstone pancreatitis. The patient desires cholecystectomy. The risks, benefits and alternatives of the procedure were explained to the patient, including bleeding, infection, and possibility of injury to the common bile duct, and the patient agreed to proceed and signed informed consent in front of a witness. DESCRIPTION OF PROCEDURE: After preoperative identifying the patient in holding, the patient was brought to the operating room and placed supine on the operating table. Sequential compression devices were placed. After induction of general anesthesia, appropriate perioperative antibiotics were administered. The operative site was prepped and draped in the typical sterile fashion. A [facility] approved time out, where the name of the patient, the operation, and intended site was confirmed. The procedure was begun. We used a veress needle to insufflate in the LUQ. We then used a 8mm optiview port to gain access to the abdomen. We placed our 3 other ports and the robot was introduced into the field and docked. The gallbladder appeared normal. The gall bladder was grasped and lifted superiorly. Utilizing Firefly technology and with the patient having been previously administered Indocyanine Green (ICG) Dye, the cystic duct and common bile duct were visualized to help with dissection and in the protection of the common bile duct. Adhesions to the infundibulum were taken down bluntly and with electrocautery. With traction on the infundibulum, the peritoneum was opened to separate the gall bladder neck from the liver to provide the safe view. The cystic duct and artery were identified and cleared. Anatomy was again confirmed utilizing Firefly and ICG fluorescent imaging. The duct was secured proximally with two Hem-o-Jason clips and distally with one clip. The cystic artery was also identified, cleared and clipped with one Hem-o-Jason clip. The artery and the cystic duct were divided with the hook cautery. We could see the artery branching into a posterior and anterior branch, which were both ligated with a clip and cautery. The gallbladder was removed from the hepatic bed utilizing cautery. It was removed via an endocatch bag. Hemostasis in the baldo and hepatic bed were assured. Irrigation was performed and evacuated. The left upper quadrant port was closed with an 0 PDS suture. The lateral ports were removed under direct vision and the abdomen was desufflated. Skin was closed with absorbable sutures and Dermabond skin sealant. The patient tolerated the procedure well. After confirming twice that the sponge, needle, and instrument counts were corrected the procedure was terminated, the patient was extubated and transferred to the recovery room in stable condition. I was present for the entirety of the operation. DISPOSITION: Stable to PACU. PROCEDURAL BILLING: Procedure: CHOLECYSTECTOMY W/ CHOLANGIOGRAPHY LAPAROSCOPIC CPT(R) Code: 98614 - [place] LAPS SURG CHOLECYSTECTOMY W/CHOLANGIOGRAPHY Electronically Signed By: Jorge Jarrell MD 11/04/2023 3:22 PM [facility] 11-04-2023 Surgery Postoperative evaluation and management note Julia Márquez ([id number]) PRE OPERATIVE DIAGNOSIS Gallstone pancreatitis [K85.10] POST OPERATIVE DIAGNOSIS Gallstone pancreatitis [K85.10] PROCEDURE PERFORMED Procedure(s) (LRB): CHOLECYSTECTOMY W/ CHOLANGIOGRAPHY LAPAROSCOPIC (N/A) PRIMARY CLOSURE Yes INTRAOPERATIVE FINDINGS No evidence of cholecystitis SURGEON Surgeons and Role: * Jorge Jarrell MD - Primary ANESTHESIOLOGIST Anesthesiologist: West Stewart MD ENGINEERING CLERK: Amber Dillard APRN-ENGINEERING CLERK Torch Brazer: MICK Mccord SURGICAL STAFF Ladle Filler: Amauri Calhoun RN Relief Ladle Filler: Ritika Walker RN Resident Assisting: Fiona Iqbal MD Box Printer: Fredi Hyde COMPLICATIONS None ESTIMATED BLOOD LOSS Minimal SPECIMENS No specimen sent ID Type Source Tests Collected by Time Destination 1 : gallbladder Permanent SURG PATH SURG PATH REQUEST Jorge Jarrell MD 11/04/2023 1422 Jorge Jarrell MD November 04, 2023 3:21 PM [facility] 11-04-2023 Nurse Note ISBAR handoff procedure completed with anesthesia staff MICK Ospina and surgery RN Phan. Patient stable, no distress, transferred to surgery with OR personnel. [facility] 11-04-2023 Nurse Note food and beverage service manager met with patient to discuss plans at discharge. Julia Márquez verified her demographics, has medicare insurance with prescription benefits and her PCP is Joan Gomez . She does not have a HPOA, lives alone and ambulates independently. She will have transportation home at discharge. Discharge Planning Patient Assessment Admission Assessment Patient Assessment Completed: Initial Expected Discharge Disposition: Home Reason for Admission: Pancreatitis Is the patient able to participate in the assessment?: Yes Information source: Patient, Review of Medical Record Demographics Verified and Updated: Yes Has the patient been admitted to any hospital in the last 30 days?: No Advanced Care Planning Has the patient completed Advance Directives?: Not Completed Referral to Social Work for Advance Care Planning? : Patient Declines Legal Next of Kin Does the patient have a Guardian?: No Spouse: No Adult Child(kvng), List All Adult Children: Yes Name and Contact information: Sabiha Jordan [phone] Would you like to add additional adult children?: Yes Name and Contact information: Tere Flower [phone] Parent(s) - List All Living Parents: No Adult Sibling(s), List All Adult Siblings: No Referral to Social Work to Identify Legal Next of Kin?: No Reviewed and Updated in Demographics? : Yes Outpatient Providers Does patient have a primary care physician? : Yes When was the patient's last PCP visit?: > 30 days Does the patient follow any specialists?: No Reviewed and updated Care Team?: Yes Patient Care Team: Joan Gomez MD as PCP - General (Family Medicine) Environment/Caregivers Is the patient from a facility or correction?: No Patient lives with: Alone Living Environment: House How many steps does the patient have to navigate to enter or inside the home? : 0 Does the patient have a first floor set-up with bed and bathroom?: Yes Patient Caregiving Responsibilities: Self Patient-identified caregiver/support network: Family Who does the patient identify as a teachable caregiver(s)?: Child(kvng) - Independent Services Does the patient use a home health or hospice agency?: No Does the patient use any community programs or services?: No Does patient use DME? : walker, bedside commode, shower seat DME provider name and contact: unknown Does the patient use oxygen?: No Does patient use medical supplies? : none Anticipated Changes Related to Illness/Injury? : No Initial ADLs Prior to Arrival What is the patient's baseline physical functioning prior to this acute illness?: independent What is the patient's baseline cognitive functioning prior to this acute illness?: independent Is the patient's baseline functioning changed by this acute illness? : No Concerns with patient being able to care for themselves at home? : No Are there therapy or specialists consults?: No Does the patient's home require any home modifications for discharge? : No CM to recommend therapy or other consults? : No Medication Management Does the patient have prescription insurance coverage? : Yes Is the patient on Anticoagulation? : No [facility] [phone] [facility] [address] [facility] [id number] Health Care Marketing Specialist Does the patient or outside dealer sales representative express financial concerns? : No Employed?: No Coping/Stress Concerns about patient s coping and stress?: No Concerns about patient s caregiver s coping and stress?: No Identified Caregiver Values and Beliefs Cultural or jew practices that may impact discharge planning and/or medical care?: No Initial Discharge Planning Expected Discharge Disposition: Home Transportation Available for Discharge: Family or Friend Anticipated DME: none Anticipated Services at Discharge: Outpatient follow up Patient Assessment Completed: Initial Expected Discharge Date: 11/06/2023 Discharge Planning Summary Patient to discharge home with self care and follow up appointment. Patient has denied any needs for HHC or DME services at this time. Patient reports family will transport home at discharge. Care Management Plan Plan to discharge home with self care and follow up appointments. Signed, Argelia TRUJILLO, RN Clinical Special Services Supervisor/ Float [facility] 11-04-2023 Nurse Note Patient is resting in bed, no assessment changes unless it's mentioned in the flow sheet, NPO for possible procedure this morning. [facility] 11-04-2023 Plan of care note Problem: Adult Inpatient Plan of Care Goal: Plan of Care Review Outcome: Progressing Goal: Patient-Specific Goal (Individualized) Outcome: Progressing Goal: Absence of Hospital-Acquired Illness or Injury Outcome: Progressing Goal: Optimal Comfort and Wellbeing Outcome: Progressing Goal: Readiness for Transition of Care Outcome: Progressing [facility] 11-03-2023 Plan of care note Problem: Adult Inpatient Plan of Care Goal: Plan of Care Review 11/03/2023 224 by Diandra Saunders RN Outcome: Progressing 11/03/2023 1716 by Diandra Saunders RN Outcome: Progressing Goal: Patient-Specific Goal (Individualized) 11/03/[id number] by Diandra Saunders RN Outcome: Progressing 11/03/2023 1716 by Diandra Saunders RN Outcome: Progressing Goal: Absence of Hospital-Acquired Illness or Injury 11/03/2023 224 by Diandra Saunders RN Outcome: Progressing 11/03/2023 1716 by Diandra Saunders RN Outcome: Progressing Goal: Optimal Comfort and Wellbeing 11/03/2023 2240 by Diandra Saunders RN Outcome: Progressing 11/03/2023 1716 by Diandra Saunders RN Outcome: Progressing Goal: Readiness for Transition of Care 11/03/2023 2240 by Diandra Saunders RN Outcome: Progressing 11/03/2023 1716 by Diandra Saunders RN Outcome: Progressing No changes in this patients reassessment otherwise noted in chart. [facility] 11-03-2023 Plan of care note Problem: Adult Inpatient Plan of Care Goal: Plan of Care Review Outcome: Progressing Goal: Patient-Specific Goal (Individualized) Outcome: Progressing Goal: Absence of Hospital-Acquired Illness or Injury Outcome: Progressing Goal: Optimal Comfort and Wellbeing Outcome: Progressing Goal: Readiness for Transition of Care Outcome: Progressing No changes in this patients reassessment at this time otherwise noted in chart [facility] 11-03-2023 Nurse Note This rn consulted for PIV placement through ultrasound. PIV successfully placed via ultrasound guidance. Primary rn made aware. [facility] 11-03-2023 Nurse Note Second assessment completed with no changes from previous assessment.Pt resting well with call light in reach.Bed in lowest position and locked. [facility] 11-03-2023 Plan of care note Problem: Adult Inpatient Plan of Care Goal: Plan of Care Review Outcome: Progressing Goal: Patient-Specific Goal (Individualized) Outcome: Progressing Goal: Absence of Hospital-Acquired Illness or Injury Outcome: Progressing Goal: Optimal Comfort and Wellbeing Outcome: Progressing Goal: Readiness for Transition of Care Outcome: Progressing [facility] 11-02-2023 Nurse Note Second assessment completed, No acute changes noted from initial assessment. Patient safely resting in bed. Call light at reach and bed in low position. [facility] 11-02-2023 Plan of care note Problem: Adult Inpatient Plan of Care Goal: Plan of Care Review Outcome: Progressing Goal: Patient-Specific Goal (Individualized) Outcome: Progressing Goal: Absence of Hospital-Acquired Illness or Injury Outcome: Progressing Goal: Optimal Comfort and Wellbeing Outcome: Progressing Goal: Readiness for Transition of Care Outcome: Progressing [facility] 11-02-2023 Nurse Note Reassessed patient's vitals and Blood pressure is within normal limits. Patient is sitting on the chair relaxed and watching TV. [facility] 11-02-2023 Consult note Associated Order (s): IP CONSULT TO SURGERY - GENERAL (EMERGENT) ACS Surgery Consult Note Patient: Julia Márquez Date: 11/02/2023 2:01 PM Consulting Service: HME Reason for Consult: gallstone pancreatitis HPI: Julia Márquez is a 78 y.o. female with PMH HTN, hypothyroidism, HLD, aortic valve stenosis, IBS who presents with abdominal pain, nausea, and vomiting. ACS surgery is consulted to evaluate for gallstone pancreatitis. Patient reports right upper quadrant abdominal pain first started 2-3 weeks ago. She saw her PCP at this time and was referred to a local general surgeon, however pain worsened in the past few days thus she presented to ED. Patient reports pain was initially intermittent over the past few weeks, however acutely worsened 3 days prior to presentation and was more constant in nature. She additionally reports nausea and vomiting for one day prior to presentation. Upon presentation to [facility] ED, patient afebrile and hemodynamically stable. Initial labs notable for lipase >5000, AST 431, ALT 539, ALP 205, Tbili 3.8, Dbili 2.6, WBC 11.6. CT of the abdomen demonstrated gallbladder distention and cholelithiasis with no surrounding inflammation or biliary ductal dilation as well as diffuse inflammation surrounding the pancreas. She was subsequently transferred to [facility] for further management. Patient reports pain is significantly improved, denies further nausea or vomiting. The patient is not anticoagulated. The patient is not on steroids or chemotherapy. REVIEW OF SYSTEMS: (all positives in bold, otherwise negative) GENERAL: fever, chills, weight loss, fatigue, night sweats EYES: blurry vision, eye pain HENT: headache, hearing loss, sore throat, dysphagia, sinus pain CARDIO: chest pain, palpitations, orthopnea PULM: shortness of breath, wheezing, cough, sputum, hemoptysis GI: nausea, vomiting, diarrhea, abdominal pain, blood in stool : urinary frequency, urgency, dysuria, urethral discharge MSK: joint pain, back pain, swelling SKIN: rash, redness HEME: easy bruising, bleeding Medical History PAST MEDICAL/SURGICAL HISTORY has a past medical history of Gallstone, HTN (hypertension), IBS (irritable bowel syndrome), and Nephrolithiasis. has a past surgical history that includes nephrectomy and arthroscopy knee. MEDS Current Outpatient Medications Medication Instructions amLODIPine (NORVASC) 5 mg, Oral, DAILY Atenolol (TENORMIN) 100 mg, Oral, DAILY Atorvastatin (LIPITOR) 20 mg, Oral, DAILY Levothyroxine (SYNTHROID) 150 mcg, Oral, DAILY BEFORE BREAKFAST ramipril (ALTACE) 10 mg, Oral, DAILY traZODone (DESYREL) 50 mg, Oral, AT BEDTIME FAMILY HISTORY Her family history includes Diabetes in her mother; Hypertension in her father and mother; Myocardial Infarction in her father and mother. SOCIAL HISTORY reports that she has never smoked. She has never used smokeless tobacco. She reports that she does not drink alcohol and does not use drugs. ALLERGIES Vince rxcqbi-fipvgmhvsoz-qaxaah latex [wound dressing adhesive], Demerol hcl [meperidine], Iodine, and Latex Vitals/Physical Exam VITALS: Temp: [97 F (36.1 C)-97.7 F (36.5 C)] 97.7 F (36.5 C) Pulse (Heart Rate): [55-101] 55 Resp Rate: [16-18] 18 BP: (139-199)/(66-94) 163/73 O2 Sat (%): [93 %-98 %] 96 % Weight: [91.5 kg (201 lb 12.8 oz)] 91.5 kg (201 lb 12.8 oz) O2 Sat (%): 96 % (11/01 1200) O2 Device: room air (11/01 1200) PHYSICAL EXAM Constitutional: No acute distress. HEENT: Head normocephalic, atraumatic. Cardiovascular: Regular rate and rhythm. Pulmonary/Chest: Unlabored breathing on room air. Abdomen: Soft, non-distended, mild epigastric/RUQ tenderness to palpation with no rebound, guarding, or signs of peritonitis. Extremities: Moving all extremities equally and purposefully. Neurological: Alert, oriented. No gross deficits. Skin: No rash noted. Psychiatric: Mood, affect, and memory normal. Labs/Imaging LABS: Recent Labs 11/02/23309 WBC 7.13 HGB 12.5 PLATELET 201 CREATSERUM 1.42* INR 1.1 CRP 18.48* Recent Labs 11/02/23309 SODIUM 141 POTASSIUM 3.8 CHLORIDE 111* CO2 21 BUN 17 CREATSERUM 1.42* MAGNESIUM 1.9 PHOSPHORUS 3.3 Recent Labs 11/02/23309 PT 14.3* PTT 26.6 INR 1.1 Recent Labs 11/02/230 AST 141* ALT 292* BILITOTAL 1.5* BILIDIRECT 0.4* ALBUMIN 3.9 ALKPHOS 139* IMAGING No orders to display Assessment/Plan Julia Márquez is a 78 y.o. female with PMH HTN, hypothyroidism, HLD, aortic valve stenosis, IBS who presents with abdominal pain, nausea, and vomiting found to have gallstone pancreatitis. LFTs reassuring today and down trending, exam with vastly improved abdominal pain. Plan: - No acute surgical intervention indicated at si time - Recommend conservative management of acute pancreatitis per protocol - Will plan for ERCP vs cholecystectomy likely early this upcoming week - Please obtain daily LFTs - Okay for regular diet, please ensure NPO @ CT tomorrow, 11/02 - Remainder of balance of care per primary team The plan was discussed with attending Dr. Jarrell. Thank you for the consultation and the opportunity to participate in the care of this patient. Aurelio Jara MD General Surgery PGY-2 [id number] Associated attestation - Jorge Jarrell MD - 11/03/2023 10:03 AM EDT Attending Attestation: I saw and examined Julia Márquez on rounds 11/02/2023. I have reviewed, edited, and agree with the resident's note above. Concern for gallstone pancreatitis. Follow LFTs, based on resolution will plan timing of cholecystectomy. Jorge Jarrell MD [facility] 11-02-2023 Consult note Associated Order (s): IP CONSULT TO SURGERY - GENERAL (EMERGENT) ACS Surgery Consult Note Patient: Julia Márquez Date: 11/02/2023 2:01 PM Consulting Service: HME Reason for Consult: gallstone pancreatitis HPI: Julia Márquez is a 78 y.o. female with PMH HTN, hypothyroidism, HLD, aortic valve stenosis, IBS who presents with abdominal pain, nausea, and vomiting. ACS surgery is consulted to evaluate for gallstone pancreatitis. Patient reports right upper quadrant abdominal pain first started 2-3 weeks ago. She saw her PCP at this time and was referred to a local general surgeon, however pain worsened in the past few days thus she presented to ED. Patient reports pain was initially intermittent over the past few weeks, however acutely worsened 3 days prior to presentation and was more constant in nature. She additionally reports nausea and vomiting for one day prior to presentation. Upon presentation to [facility] ED, patient afebrile and hemodynamically stable. Initial labs notable for lipase >5000, AST 431, ALT 539, ALP 205, Tbili 3.8, Dbili 2.6, WBC 11.6. CT of the abdomen demonstrated gallbladder distention and cholelithiasis with no surrounding inflammation or biliary ductal dilation as well as diffuse inflammation surrounding the pancreas. She was subsequently transferred to [facility] for further management. Patient reports pain is significantly improved, denies further nausea or vomiting. The patient is not anticoagulated. The patient is not on steroids or chemotherapy. REVIEW OF SYSTEMS: (all positives in bold, otherwise negative) GENERAL: fever, chills, weight loss, fatigue, night sweats EYES: blurry vision, eye pain HENT: headache, hearing loss, sore throat, dysphagia, sinus pain CARDIO: chest pain, palpitations, orthopnea PULM: shortness of breath, wheezing, cough, sputum, hemoptysis GI: nausea, vomiting, diarrhea, abdominal pain, blood in stool : urinary frequency, urgency, dysuria, urethral discharge MSK: joint pain, back pain, swelling SKIN: rash, redness HEME: easy bruising, bleeding Medical History PAST MEDICAL/SURGICAL HISTORY has a past medical history of Gallstone, HTN (hypertension), IBS (irritable bowel syndrome), and Nephrolithiasis. has a past surgical history that includes nephrectomy and arthroscopy knee. MEDS Current Outpatient Medications Medication Instructions amLODIPine (NORVASC) 5 mg, Oral, DAILY Atenolol (TENORMIN) 100 mg, Oral, DAILY Atorvastatin (LIPITOR) 20 mg, Oral, DAILY Levothyroxine (SYNTHROID) 150 mcg, Oral, DAILY BEFORE BREAKFAST ramipril (ALTACE) 10 mg, Oral, DAILY traZODone (DESYREL) 50 mg, Oral, AT BEDTIME FAMILY HISTORY Her family history includes Diabetes in her mother; Hypertension in her father and mother; Myocardial Infarction in her father and mother. SOCIAL HISTORY reports that she has never smoked. She has never used smokeless tobacco. She reports that she does not drink alcohol and does not use drugs. ALLERGIES Vince qjayum-fwsoavicqzq-qqinrq latex [wound dressing adhesive], Demerol hcl [meperidine], Iodine, and Latex Vitals/Physical Exam VITALS: Temp: [97 F (36.1 C)-97.7 F (36.5 C)] 97.7 F (36.5 C) Pulse (Heart Rate): [55-101] 55 Resp Rate: [16-18] 18 BP: (139-199)/(66-94) 163/73 O2 Sat (%): [93 %-98 %] 96 % Weight: [91.5 kg (201 lb 12.8 oz)] 91.5 kg (201 lb 12.8 oz) O2 Sat (%): 96 % (11/02 1199) O2 Device: room air (11/02 1199) PHYSICAL EXAM Constitutional: No acute distress. HEENT: Head normocephalic, atraumatic. Cardiovascular: Regular rate and rhythm. Pulmonary/Chest: Unlabored breathing on room air. Abdomen: Soft, non-distended, mild epigastric/RUQ tenderness to palpation with no rebound, guarding, or signs of peritonitis. Extremities: Moving all extremities equally and purposefully. Neurological: Alert, oriented. No gross deficits. Skin: No rash noted. Psychiatric: Mood, affect, and memory normal. Labs/Imaging LABS: Recent Labs 11/02/23309 WBC 7.13 HGB 12.5 PLATELET 201 CREATSERUM 1.42* INR 1.1 CRP 18.48* Recent Labs 11/02/23309 SODIUM 141 POTASSIUM 3.8 CHLORIDE 111* CO2 21 BUN 17 CREATSERUM 1.42* MAGNESIUM 1.9 PHOSPHORUS 3.3 Recent Labs 11/02/23309 PT 14.3* PTT 26.6 INR 1.1 Recent Labs 11/02/23309 AST 141* ALT 292* BILITOTAL 1.5* BILIDIRECT 0.4* ALBUMIN 3.9 ALKPHOS 139* IMAGING No orders to display Assessment/Plan Julia Márquez is a 78 y.o. female with PMH HTN, hypothyroidism, HLD, aortic valve stenosis, IBS who presents with abdominal pain, nausea, and vomiting found to have gallstone pancreatitis. LFTs reassuring today and down trending, exam with vastly improved abdominal pain. Plan: - No acute surgical intervention indicated at si time - Recommend conservative management of acute pancreatitis per protocol - Will plan for ERCP vs cholecystectomy likely early this upcoming week - Please obtain daily LFTs - Okay for regular diet, please ensure NPO @ [place] tomorrow, 11/02 - Remainder of balance of care per primary team The plan was discussed with attending Dr. Jarrell. Thank you for the consultation and the opportunity to participate in the care of this patient. Aruelio Jara MD General Surgery PGY-2 [id number] Associated attestation - Jorge Jarrell MD - 11/03/2023 10:03 AM EDT Attending Attestation: I saw and examined Julia Márquez on rounds 11/02/2023. I have reviewed, edited, and agree with the resident's note above. Concern for gallstone pancreatitis. Follow LFTs, based on resolution will plan timing of cholecystectomy. Jorge Jarrell MD documented in this encounter [facility] 11-02-2023 Consult note Associated Order (s): IP CONSULT TO SURGERY - GENERAL (EMERGENT) ACS Surgery Consult Note Patient: Julia Márquez Date: 11/02/2023 2:01 PM Consulting Service: HME Reason for Consult: gallstone pancreatitis HPI: Julia Márquez is a 78 y.o. female with PMH HTN, hypothyroidism, HLD, aortic valve stenosis, IBS who presents with abdominal pain, nausea, and vomiting. ACS surgery is consulted to evaluate for gallstone pancreatitis. Patient reports right upper quadrant abdominal pain first started 2-3 weeks ago. She saw her PCP at this time and was referred to a local general surgeon, however pain worsened in the past few days thus she presented to ED. Patient reports pain was initially intermittent over the past few weeks, however acutely worsened 3 days prior to presentation and was more constant in nature. She additionally reports nausea and vomiting for one day prior to presentation. Upon presentation to [facility] ED, patient afebrile and hemodynamically stable. Initial labs notable for lipase >5000, AST 431, ALT 539, ALP 205, Tbili 3.8, Dbili 2.6, WBC 11.6. CT of the abdomen demonstrated gallbladder distention and cholelithiasis with no surrounding inflammation or biliary ductal dilation as well as diffuse inflammation surrounding the pancreas. She was subsequently transferred to [facility] for further management. Patient reports pain is significantly improved, denies further nausea or vomiting. The patient is not anticoagulated. The patient is not on steroids or chemotherapy. REVIEW OF SYSTEMS: (all positives in bold, otherwise negative) GENERAL: fever, chills, weight loss, fatigue, night sweats EYES: blurry vision, eye pain HENT: headache, hearing loss, sore throat, dysphagia, sinus pain CARDIO: chest pain, palpitations, orthopnea PULM: shortness of breath, wheezing, cough, sputum, hemoptysis GI: nausea, vomiting, diarrhea, abdominal pain, blood in stool : urinary frequency, urgency, dysuria, urethral discharge MSK: joint pain, back pain, swelling SKIN: rash, redness HEME: easy bruising, bleeding Medical History PAST MEDICAL/SURGICAL HISTORY has a past medical history of Gallstone, HTN (hypertension), IBS (irritable bowel syndrome), and Nephrolithiasis. has a past surgical history that includes nephrectomy and arthroscopy knee. MEDS Current Outpatient Medications Medication Instructions amLODIPine (NORVASC) 5 mg, Oral, DAILY Atenolol (TENORMIN) 100 mg, Oral, DAILY Atorvastatin (LIPITOR) 20 mg, Oral, DAILY Levothyroxine (SYNTHROID) 150 mcg, Oral, DAILY BEFORE BREAKFAST ramipril (ALTACE) 10 mg, Oral, DAILY traZODone (DESYREL) 50 mg, Oral, AT BEDTIME FAMILY HISTORY Her family history includes Diabetes in her mother; Hypertension in her father and mother; Myocardial Infarction in her father and mother. SOCIAL HISTORY reports that she has never smoked. She has never used smokeless tobacco. She reports that she does not drink alcohol and does not use drugs. ALLERGIES Vince pinswi-cmjvoxfwvoa-danxyo latex [wound dressing adhesive], Demerol hcl [meperidine], Iodine, and Latex Vitals/Physical Exam VITALS: Temp: [97 F (36.1 C)-97.7 F (36.5 C)] 97.7 F (36.5 C) Pulse (Heart Rate): [55-101] 55 Resp Rate: [16-18] 18 BP: (139-199)/(66-94) 163/73 O2 Sat (%): [93 %-98 %] 96 % Weight: [91.5 kg (201 lb 12.8 oz)] 91.5 kg (201 lb 12.8 oz) O2 Sat (%): 96 % (11/02 1199) O2 Device: room air (11/02 1199) PHYSICAL EXAM Constitutional: No acute distress. HEENT: Head normocephalic, atraumatic. Cardiovascular: Regular rate and rhythm. Pulmonary/Chest: Unlabored breathing on room air. Abdomen: Soft, non-distended, mild epigastric/RUQ tenderness to palpation with no rebound, guarding, or signs of peritonitis. Extremities: Moving all extremities equally and purposefully. Neurological: Alert, oriented. No gross deficits. Skin: No rash noted. Psychiatric: Mood, affect, and memory normal. Labs/Imaging LABS: Recent Labs 11/02/23309 WBC 7.13 HGB 12.5 PLATELET 201 CREATSERUM 1.42* INR 1.1 CRP 18.48* Recent Labs 11/02/23309 SODIUM 141 POTASSIUM 3.8 CHLORIDE 111* CO2 21 BUN 17 CREATSERUM 1.42* MAGNESIUM 1.9 PHOSPHORUS 3.3 Recent Labs 11/02/23309 PT 14.3* PTT 26.6 INR 1.1 Recent Labs 11/02/23309 AST 141* ALT 292* BILITOTAL 1.5* BILIDIRECT 0.4* ALBUMIN 3.9 ALKPHOS 139* IMAGING No orders to display Assessment/Plan Julia Márquez is a 78 y.o. female with PMH HTN, hypothyroidism, HLD, aortic valve stenosis, IBS who presents with abdominal pain, nausea, and vomiting found to have gallstone pancreatitis. LFTs reassuring today and down trending, exam with vastly improved abdominal pain. Plan: - No acute surgical intervention indicated at thsi time - Recommend conservative management of acute pancreatitis per protocol - Will plan for ERCP vs cholecystectomy likely early this upcoming week - Please obtain daily LFTs - Okay for regular diet, please ensure NPO @ [place] tomorrow, 11/02 - Remainder of balance of care per primary team The plan was discussed with attending Dr. Jarrell. Thank you for the consultation and the opportunity to participate in the care of this patient. Aurelio Jara MD General Surgery PGY-2 [id number] Associated attestation - Jorge Jarrell MD - 11/03/2023 10:03 AM EDT Attending Attestation: I saw and examined Julia Márquez on rounds 11/02/2023. I have reviewed, edited, and agree with the resident's note above. Concern for gallstone pancreatitis. Follow LFTs, based on resolution will plan timing of cholecystectomy. Jorge Jarrell MD documented in this encounter [facility] 11-02-2023 Nurse Note TIMBER INSPECTOR alerted me me of blood pressure is elevated, Reached out to the provider Dr. Sharma and new orders were received. Administer Blood pressure meds per order and will reassess. [facility] 11-02-2023 Nurse Note Second assessment completed with no changes from previous assessment.Pt resting well with call light in reach.Bed in lowest position and locked. [facility] 11-02-2023 Plan of care note Problem: Adult Inpatient Plan of Care Goal: Plan of Care Review Outcome: Progressing Goal: Patient-Specific Goal (Individualized) Outcome: Progressing Goal: Absence of Hospital-Acquired Illness or Injury Outcome: Progressing Goal: Optimal Comfort and Wellbeing Outcome: Progressing Goal: Readiness for Transition of Care Outcome: Progressing [facility] 11-01-2023 History and physical note Hospital Medicine Admission History & Physical Patient: Julia Márquez, : 1945, Date of face to face patient encounter: 11/01/2023 Impression / Plan Julia Márquez I s a 78 y.o. female with a past medical history of HTN, nephrolithiassis, left nephrectomy, and recently diagnosed gall stones, as well as IBS. She presents with acute abdominal pain and nausea in the setting of gallstone pancreatitis Gallstone pancreatitis. -will continue with IV fluids, IV antiemetics, IV Dilaudid. Will continue with IV ppi. Advance diet to clear liquid diet for this evening but make NPO at midnight in case a procedure over the weekend. Consult surgery for possible intervention though given her stability it may not be emergent. -we will continue IV Zosyn for time being though she was without fever and her exam is not tremendously consistent with cholecystitis. We will threshold to stop this. Hypertension. Blood pressure appears stable, likely can continue home medications in the morning they will verify with stability pressures overnight tonight. Would not resume ACEi given possible CLEMENTE Hiatal hernia. Seen incidentally on imaging of the outside hospital as well. Will continue with IV PPI Insomnia. Continue home trazodone. History of nephrolithiasis. No obstructing stone seen on exam and no blood in UA. Will monitor. Hyperlipidemia. Hold home statin due to transaminase elevation. Azotemia. Baseline creatinine unclear. Will trend creatinine daily. Avoid nephrotoxins and renally dose medications. Anticipate improvement with aggressive fluid resuscitation. No obstructive stone seen on exam, and UA did not suggest infection. Complexity. Obesity Body mass index is 35.75 kg/m . - Follow with PCP for dietary and lifestyle modifications. Hypothyroidism - Continue thyroid replacement Any conditions listed below are present on admission unless otherwise specified. . DVT prophylaxis with enoxaparin Anticipated Disposition: med surg Code status is full Chief Complaint Abdominal pain History of Presenting Illness Julia Márquez is a 78 y.o. female with a past medical history of HTN, nephrolithiassis, left nephrectomy, and recently diagnosed gall stones, as well as IBS She had plans for outpatient surgical eval for elective cholecystectomy, but developed 2 days of several R flank pain and abdominal pain with nausea and vomiting. Presented to local emergency department with a CT abdomen pelvis which showed diffuse peripancreatic inflammation but without clear evidence of pancreatic necrosis, as well as cholelithiasis with gallbladder distention but no ductal stones. Nonobstructive right-sided nephrolithiasis was seen as well. Hepatic steatosis was also observed. Lipase was 5000. She was started on IV fluids, antiemetics, and analgesia, as well as IV PPI and zosyn, and transferred for escalation of care for possible ERCP or cholecystectomy She did receive her home doses of ramipril atenolol amlodipine. RUQ US showed gall bladder in upper normal limit of seize, 3.8mm mthickness, with neg stovall sign, and no duct stones but some dependent stones in gallbladder body Labs at the outside hospital showed white count of 11.6, hemoglobin 14.1, platelets 294, and chemistry showed sodium 138, potassium 4.1, chloride 106, bicarb 22, BUN 16, creatinine 1.39, and glucose of 176. Baseline creatinine is unclear Calcium was 9.4. Total bilirubin is 3.8, direct bilirubin was 2.6, AST was 431, ALT was 539, alk-phos was 205, total protein was 7.4, and lipase was greater than 5000. Urinalysis showed negative nitrites negative bilirubin, mild amount of leuk esterase, no squamous cells, no white blood cells, no bacteria. Blood pressures were stable in the 110s to 130s and she remained afebrile. She also remained on room air. Of note BMI was 37.8, with a weight of 90 0.8 kg. Of note she does have a contact mental allergy, contrast iodinated contrast. A latex allergy. Demerol also causes a rash. She was allergic to nitrofurantoin though the manifestation is unclear. She avoids NSAIDs due to being having a solitary kidney. She may have a Bactrim allergy as well though the manifestation of that is also unclear. Review of Systems Review of Systems Constitutional: Positive for appetite change and fatigue. Negative for activity change, chills and fever. HENT: Negative for sore throat and trouble swallowing. Eyes: Negative for photophobia and visual disturbance. Respiratory: Negative for cough and shortness of breath. Cardiovascular: Negative for chest pain, palpitations and leg swelling. Gastrointestinal: Positive for nausea and vomiting. Negative for abdominal distention, abdominal pain, constipation and diarrhea. Endocrine: Negative for polyphagia and polyuria. Genitourinary: Positive for flank pain. Negative for decreased urine volume, dysuria and hematuria. Musculoskeletal: Negative for arthralgias, joint swelling and myalgias. Skin: Negative for color change, rash and wound. Allergic/Immunologic: Negative for food allergies and immunocompromised state. Neurological: Negative for dizziness, seizures, weakness and headaches. Hematological: Negative for adenopathy. Does not bruise/bleed easily. Psychiatric/Behavioral: Positive for sleep disturbance. Negative for dysphoric mood. The patient is not nervous/anxious. History Past Medical History: Diagnosis Date Gallstone HTN (hypertension) IBS (irritable bowel syndrome) Nephrolithiasis Past Surgical History: Procedure Laterality Date ARTHROSCOPY KNEE NEPHRECTOMY Social History she reports that she has never smoked. She has never used smokeless tobacco. She reports that she does not drink alcohol and does not use drugs. Family History family history includes Diabetes in her mother; Hypertension in her father and mother; Myocardial Infarction in her father and mother. Medications / Allergies Prior to Admission Medications Prescriptions Atenolol 100 MG tablet Sig: Take 1 tablet by mouth daily. Atorvastatin 20 MG tablet Sig: Take 1 tablet by mouth daily. Levothyroxine 150 MCG tablet Sig: Take 1 tablet by mouth every morning before breakfast. amLODIPine 5 MG tablet Sig: Take 1 tablet by mouth daily. ramipril 10 MG capsule Sig: Take 1 capsule by mouth daily. traZODone 50 MG tablet Sig: Take 1 tablet by mouth At bedtime. Facility-Administered Medications: None Allergies Allergen Reactions Vince Oojtlm-Uoypddcilrf-Gtgdpf Latex [Wound Dressing Adhesive] Hives Demerol Hcl [Meperidine] Hives Iodine airway closed up Latex Rash Objective Findings Pulse 101 Temp 97.6 F (36.4 C) (Oral) Resp 17 Ht 1.6 m (5' 3) Wt 91.5 kg (201 lb 12.8 oz) SpO2 98% BMI 35.75 kg/m Smoking Status Never Physical Exam Gen: Alert, Awake, NAD Eyes: PERRLA, EOMI, no icterus ENT: MMM, trachea midline Resp: CTA, normal respiratory effort Cardio: RRR, normal S1, S2, no M/R/G. No RODOLFO. GI: S/mild ttp in epigastrium/ND, NABS MS: No joint effusions or erythema Skin: No jaundice or rash Neuro: business support specialist 3-7, 9-11 intact and equal. Strength grossly equal in muscle groups of the bilateral UEs and LEs. Psych: Ox3, appropriate affect and cognition Data Review Kelly Schroeder MD Hospital Medicine [facility] 11-01-2023 History and physical note Hospital Medicine Admission History & Physical Patient: Julia Márquez, : 1945, Date of face to face patient encounter: 11/01/2023 Impression / Plan Julia Márquez I s a 78 y.o. female with a past medical history of HTN, nephrolithiassis, left nephrectomy, and recently diagnosed gall stones, as well as IBS. She presents with acute abdominal pain and nausea in the setting of gallstone pancreatitis Gallstone pancreatitis. -will continue with IV fluids, IV antiemetics, IV Dilaudid. Will continue with IV ppi. Advance diet to clear liquid diet for this evening but make NPO at midnight in case a procedure over the weekend. Consult surgery for possible intervention though given her stability it may not be emergent. -we will continue IV Zosyn for time being though she was without fever and her exam is not tremendously consistent with cholecystitis. We will threshold to stop this. Hypertension. Blood pressure appears stable, likely can continue home medications in the morning they will verify with stability pressures overnight tonight. Would not resume ACEi given possible CLEMENTE Hiatal hernia. Seen incidentally on imaging of the outside hospital as well. Will continue with IV PPI Insomnia. Continue home trazodone. History of nephrolithiasis. No obstructing stone seen on exam and no blood in UA. Will monitor. Hyperlipidemia. Hold home statin due to transaminase elevation. Azotemia. Baseline creatinine unclear. Will trend creatinine daily. Avoid nephrotoxins and renally dose medications. Anticipate improvement with aggressive fluid resuscitation. No obstructive stone seen on exam, and UA did not suggest infection. Complexity. Obesity Body mass index is 35.75 kg/m . - Follow with PCP for dietary and lifestyle modifications. Hypothyroidism - Continue thyroid replacement Any conditions listed below are present on admission unless otherwise specified. . DVT prophylaxis with enoxaparin Anticipated Disposition: med surg Code status is full Chief Complaint Abdominal pain History of Presenting Illness Julia Márquez is a 78 y.o. female with a past medical history of HTN, nephrolithiassis, left nephrectomy, and recently diagnosed gall stones, as well as IBS She had plans for outpatient surgical eval for elective cholecystectomy, but developed 2 days of several R flank pain and abdominal pain with nausea and vomiting. Presented to local emergency department with a CT abdomen pelvis which showed diffuse peripancreatic inflammation but without clear evidence of pancreatic necrosis, as well as cholelithiasis with gallbladder distention but no ductal stones. Nonobstructive right-sided nephrolithiasis was seen as well. Hepatic steatosis was also observed. Lipase was 5000. She was started on IV fluids, antiemetics, and analgesia, as well as IV PPI and zosyn, and transferred for escalation of care for possible ERCP or cholecystectomy She did receive her home doses of ramipril atenolol amlodipine. RUQ US showed gall bladder in upper normal limit of seize, 3.8mm mthickness, with neg stovall sign, and no duct stones but some dependent stones in gallbladder body Labs at the outside hospital showed white count of 11.6, hemoglobin 14.1, platelets 294, and chemistry showed sodium 138, potassium 4.1, chloride 106, bicarb 22, BUN 16, creatinine 1.39, and glucose of 176. Baseline creatinine is unclear Calcium was 9.4. Total bilirubin is 3.8, direct bilirubin was 2.6, AST was 431, ALT was 539, alk-phos was 205, total protein was 7.4, and lipase was greater than 5000. Urinalysis showed negative nitrites negative bilirubin, mild amount of leuk esterase, no squamous cells, no white blood cells, no bacteria. Blood pressures were stable in the 110s to 130s and she remained afebrile. She also remained on room air. Of note BMI was 37.8, with a weight of 90 0.8 kg. Of note she does have a contact mental allergy, contrast iodinated contrast. A latex allergy. Demerol also causes a rash. She was allergic to nitrofurantoin though the manifestation is unclear. She avoids NSAIDs due to being having a solitary kidney. She may have a Bactrim allergy as well though the manifestation of that is also unclear. Review of Systems Review of Systems Constitutional: Positive for appetite change and fatigue. Negative for activity change, chills and fever. HENT: Negative for sore throat and trouble swallowing. Eyes: Negative for photophobia and visual disturbance. Respiratory: Negative for cough and shortness of breath. Cardiovascular: Negative for chest pain, palpitations and leg swelling. Gastrointestinal: Positive for nausea and vomiting. Negative for abdominal distention, abdominal pain, constipation and diarrhea. Endocrine: Negative for polyphagia and polyuria. Genitourinary: Positive for flank pain. Negative for decreased urine volume, dysuria and hematuria. Musculoskeletal: Negative for arthralgias, joint swelling and myalgias. Skin: Negative for color change, rash and wound. Allergic/Immunologic: Negative for food allergies and immunocompromised state. Neurological: Negative for dizziness, seizures, weakness and headaches. Hematological: Negative for adenopathy. Does not bruise/bleed easily. Psychiatric/Behavioral: Positive for sleep disturbance. Negative for dysphoric mood. The patient is not nervous/anxious. History Past Medical History: Diagnosis Date Gallstone HTN (hypertension) IBS (irritable bowel syndrome) Nephrolithiasis Past Surgical History: Procedure Laterality Date ARTHROSCOPY KNEE NEPHRECTOMY Social History she reports that she has never smoked. She has never used smokeless tobacco. She reports that she does not drink alcohol and does not use drugs. Family History family history includes Diabetes in her mother; Hypertension in her father and mother; Myocardial Infarction in her father and mother. Medications / Allergies Prior to Admission Medications Prescriptions Atenolol 100 MG tablet Sig: Take 1 tablet by mouth daily. Atorvastatin 20 MG tablet Sig: Take 1 tablet by mouth daily. Levothyroxine 150 MCG tablet Sig: Take 1 tablet by mouth every morning before breakfast. amLODIPine 5 MG tablet Sig: Take 1 tablet by mouth daily. ramipril 10 MG capsule Sig: Take 1 capsule by mouth daily. traZODone 50 MG tablet Sig: Take 1 tablet by mouth At bedtime. Facility-Administered Medications: None Allergies Allergen Reactions Vince Uuifas-Prbvfjcogko-Iuufkq Latex [Wound Dressing Adhesive] Hives Demerol Hcl [Meperidine] Hives Iodine airway closed up Latex Rash Objective Findings Pulse 101 Temp 97.6 F (36.4 C) (Oral) Resp 17 Ht 1.6 m (5' 3) Wt 91.5 kg (201 lb 12.8 oz) SpO2 98% BMI 35.75 kg/m Smoking Status Never Physical Exam Gen: Alert, Awake, NAD Eyes: PERRLA, EOMI, no icterus ENT: MMM, trachea midline Resp: CTA, normal respiratory effort Cardio: RRR, normal S1, S2, no M/R/G. No RODOLFO. GI: S/mild ttp in epigastrium/ND, NABS MS: No joint effusions or erythema Skin: No jaundice or rash Neuro: business support specialist 3-7, 9-11 intact and equal. Strength grossly equal in muscle groups of the bilateral UEs and LEs. Psych: Ox3, appropriate affect and cognition Data Review Kelly Schroeder MD Hospital Medicine documented in this encounter [facility] 11-01-2023 History and physical note Hospital Medicine Admission History & Physical Patient: Julia Márquez, : 1945, Date of face to face patient encounter: 11/01/2023 Impression / Plan Julia Márquez I s a 78 y.o. female with a past medical history of HTN, nephrolithiassis, left nephrectomy, and recently diagnosed gall stones, as well as IBS. She presents with acute abdominal pain and nausea in the setting of gallstone pancreatitis Gallstone pancreatitis. -will continue with IV fluids, IV antiemetics, IV Dilaudid. Will continue with IV ppi. Advance diet to clear liquid diet for this evening but make NPO at midnight in case a procedure over the weekend. Consult surgery for possible intervention though given her stability it may not be emergent. -we will continue IV Zosyn for time being though she was without fever and her exam is not tremendously consistent with cholecystitis. We will threshold to stop this. Hypertension. Blood pressure appears stable, likely can continue home medications in the morning they will verify with stability pressures overnight tonight. Would not resume ACEi given possible CLEMENTE Hiatal hernia. Seen incidentally on imaging of the outside hospital as well. Will continue with IV PPI Insomnia. Continue home trazodone. History of nephrolithiasis. No obstructing stone seen on exam and no blood in UA. Will monitor. Hyperlipidemia. Hold home statin due to transaminase elevation. Azotemia. Baseline creatinine unclear. Will trend creatinine daily. Avoid nephrotoxins and renally dose medications. Anticipate improvement with aggressive fluid resuscitation. No obstructive stone seen on exam, and UA did not suggest infection. Complexity. Obesity Body mass index is 35.75 kg/m . - Follow with PCP for dietary and lifestyle modifications. Hypothyroidism - Continue thyroid replacement Any conditions listed below are present on admission unless otherwise specified. . DVT prophylaxis with enoxaparin Anticipated Disposition: med surg Code status is full Chief Complaint Abdominal pain History of Presenting Illness Julia Márquez is a 78 y.o. female with a past medical history of HTN, nephrolithiassis, left nephrectomy, and recently diagnosed gall stones, as well as IBS She had plans for outpatient surgical eval for elective cholecystectomy, but developed 2 days of several R flank pain and abdominal pain with nausea and vomiting. Presented to local emergency department with a CT abdomen pelvis which showed diffuse peripancreatic inflammation but without clear evidence of pancreatic necrosis, as well as cholelithiasis with gallbladder distention but no ductal stones. Nonobstructive right-sided nephrolithiasis was seen as well. Hepatic steatosis was also observed. Lipase was 5000. She was started on IV fluids, antiemetics, and analgesia, as well as IV PPI and zosyn, and transferred for escalation of care for possible ERCP or cholecystectomy She did receive her home doses of ramipril atenolol amlodipine. RUQ US showed gall bladder in upper normal limit of seize, 3.8mm mthickness, with neg stovall sign, and no duct stones but some dependent stones in gallbladder body Labs at the outside hospital showed white count of 11.6, hemoglobin 14.1, platelets 294, and chemistry showed sodium 138, potassium 4.1, chloride 106, bicarb 22, BUN 16, creatinine 1.39, and glucose of 176. Baseline creatinine is unclear Calcium was 9.4. Total bilirubin is 3.8, direct bilirubin was 2.6, AST was 431, ALT was 539, alk-phos was 205, total protein was 7.4, and lipase was greater than 5000. Urinalysis showed negative nitrites negative bilirubin, mild amount of leuk esterase, no squamous cells, no white blood cells, no bacteria. Blood pressures were stable in the 110s to 130s and she remained afebrile. She also remained on room air. Of note BMI was 37.8, with a weight of 90 0.8 kg. Of note she does have a contact mental allergy, contrast iodinated contrast. A latex allergy. Demerol also causes a rash. She was allergic to nitrofurantoin though the manifestation is unclear. She avoids NSAIDs due to being having a solitary kidney. She may have a Bactrim allergy as well though the manifestation of that is also unclear. Review of Systems Review of Systems Constitutional: Positive for appetite change and fatigue. Negative for activity change, chills and fever. HENT: Negative for sore throat and trouble swallowing. Eyes: Negative for photophobia and visual disturbance. Respiratory: Negative for cough and shortness of breath. Cardiovascular: Negative for chest pain, palpitations and leg swelling. Gastrointestinal: Positive for nausea and vomiting. Negative for abdominal distention, abdominal pain, constipation and diarrhea. Endocrine: Negative for polyphagia and polyuria. Genitourinary: Positive for flank pain. Negative for decreased urine volume, dysuria and hematuria. Musculoskeletal: Negative for arthralgias, joint swelling and myalgias. Skin: Negative for color change, rash and wound. Allergic/Immunologic: Negative for food allergies and immunocompromised state. Neurological: Negative for dizziness, seizures, weakness and headaches. Hematological: Negative for adenopathy. Does not bruise/bleed easily. Psychiatric/Behavioral: Positive for sleep disturbance. Negative for dysphoric mood. The patient is not nervous/anxious. History Past Medical History: Diagnosis Date Gallstone HTN (hypertension) IBS (irritable bowel syndrome) Nephrolithiasis Past Surgical History: Procedure Laterality Date ARTHROSCOPY KNEE NEPHRECTOMY Social History she reports that she has never smoked. She has never used smokeless tobacco. She reports that she does not drink alcohol and does not use drugs. Family History family history includes Diabetes in her mother; Hypertension in her father and mother; Myocardial Infarction in her father and mother. Medications / Allergies Prior to Admission Medications Prescriptions Atenolol 100 MG tablet Sig: Take 1 tablet by mouth daily. Atorvastatin 20 MG tablet Sig: Take 1 tablet by mouth daily. Levothyroxine 150 MCG tablet Sig: Take 1 tablet by mouth every morning before breakfast. amLODIPine 5 MG tablet Sig: Take 1 tablet by mouth daily. ramipril 10 MG capsule Sig: Take 1 capsule by mouth daily. traZODone 50 MG tablet Sig: Take 1 tablet by mouth At bedtime. Facility-Administered Medications: None Allergies Allergen Reactions Vince Sjtyem-Mdoibcdxhbn-Lejovi Latex [Wound Dressing Adhesive] Hives Demerol Hcl [Meperidine] Hives Iodine airway closed up Latex Rash Objective Findings Pulse 101 Temp 97.6 F (36.4 C) (Oral) Resp 17 Ht 1.6 m (5' 3) Wt 91.5 kg (201 lb 12.8 oz) SpO2 98% BMI 35.75 kg/m Smoking Status Never Physical Exam Gen: Alert, Awake, NAD Eyes: PERRLA, EOMI, no icterus ENT: MMM, trachea midline Resp: CTA, normal respiratory effort Cardio: RRR, normal S1, S2, no M/R/G. No RODOLFO. GI: S/mild ttp in epigastrium/ND, NABS MS: No joint effusions or erythema Skin: No jaundice or rash Neuro: business support specialist 3-7, 9-11 intact and equal. Strength grossly equal in muscle groups of the bilateral UEs and LEs. Psych: Ox3, appropriate affect and cognition Data Review Kelly Schroeder MD [facility] Medicine documented in this encounter [facility] 09-01-2023 Note HNO ID: [id number] Author: KATIE RICO APRN.DATA COLLECTION TECHNICIAN Service: ? Author Type: Nurse Practitioner Type: Progress Notes Filed: 09/01/2023 15:13 Note Text: Subjective HPI Julia presents today with complaint of 10 days of sinus pain and pressure, pnd and this morning both eyes were irritated. 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 Dr. Minor left COLONOSCOPY FLX DX W/COLLJ SPEC WHEN PFRMD 08/28/1999 Colonoscopy COLONOSCOPY FLX DX W/COLLJ SPEC WHEN PFRMD 08/01/2005 Colonoscopy COLONOSCOPY FLX DX W/COLLJ SPEC WHEN PFRMD 07/06/10 EGD TRANSORAL BIOPSY SINGLE/MULTIPLE 07/06/10 ESOPHAGOGASTRODUODENOSCOPY TRANSORAL DIAGNOSTIC 08/01/2005 EGD LITHOTRIPSY XTRCORP SHOCK WAVE 12/12/2007 Lithotripsy LITHOTRIPSY XTRCORP SHOCK WAVE 11/15/2010 Lithotripsy - right - [facility] - Dr. Camarillo LITHOTRIPSY XTRCORP SHOCK WAVE 12/21/2011 Lithotripsy - right - [facility] - NEPHRECTOMY PARTIAL 08/15/2011 Nephrectomy - left- Dr. Camarillo - [place] SALPINGO-OOPHORECTOMY COMPL/PRTL UNI/BI SPX Salpingo-oophorectomy TONSILLECTOMY PRIMARY/SECONDARY Tonsillectomy TOTAL ABDOMINAL HYSTERECT W/WO RMVL TUBE OVARY Hysterectomy, NEREYDA ALLERGIES Cinobac [Cinoxacin], Demerol [Meperidine (Pf)], Ivp Dye [Iodine], Latex, and Septra [Sulfamethoxazole-Trimethoprim] MEDICATIONS levothyroxine (SYNTHROID) 150 mcg tablet Take 1 tablet by mouth once daily. Take one tab daily, and additionally 1/2 tab WEEKLY ramipril (ALTACE) 10 mg capsule Take 1 capsule by mouth once daily. atenolol (TENORMIN) 100 mg tablet Take 1 tablet by mouth once daily. atorvastatin (LIPITOR) 20 mg tablet Take 1 tablet by mouth once daily. amLODIPine (NORVASC) 5 mg tablet Take 1 tablet by mouth once daily. fluticasone (FLONASE) 50 mcg/actuation nasal spray Use 2 Sprays in each nostril once daily. esomeprazole (NEXIUM) 40 mg capsule Take 1 capsule by mouth once daily. chlordiazePOXIDE-clidinium (LIBRAX) 5-2.5 mg per capsule Take 1 capsule by mouth twice daily as needed. traZODone (DESYREL) 50 mg tablet Take 1 tablet by mouth at bedtime as needed for Sedation. ALPRAZolam (XANAX) 0.5 mg tablet Take 1 tablet by mouth twice daily as needed. bacitracin 500 unit/gram ointment Apply 1 application to affected area twice daily. To hand lesion. triamcinolone acetonide 0.1 % cream Apply 1 application to affected area twice daily. Apply to affected area for rash/itching Potassium Citrate (UROCIT-K 15) 15 mEq TbER Take 15 mEq by mouth once daily. ranitidine (ZANTAC) 150 mg ORAL tablet Take by mouth once daily. Take one(1) tablet daily in the evening. FAMILY HISTORY Problem Relation Age of Onset Cancer Mother COLON Heart Mother CT Heart Father CT Diabetes Mother Social History Tobacco Use Smoking status: Never Smokeless tobacco: Never Substance Use Topics Alcohol use: No Drug use: No Review of Systems HENT: Positive for congestion and sinus pain. All other systems reviewed and are negative. Objective Physical Exam Vitals and nursing note reviewed. Constitutional: Appearance: Normal appearance. HENT: Head: Normocephalic and atraumatic. Right Ear: Tympanic membrane, ear canal and external ear normal. Left Ear: Tympanic membrane, ear canal and external ear normal. Nose: Congestion present. Mouth/Throat: Mouth: Mucous membranes are dry. Pharynx: Oropharynx is clear. Neurological: Mental Status: She is alert. ASSESSMENT/PLAN: 1. Bacterial sinusitis - ICD9: 473.9, 041.9, ICD10: J32.9, B96.89 - Will begin treatment with Amoxicillin for 5 days - Supportive care with plenty of fluids, rest, and analgesia prn. - Follow up in 3-5 days if symptoms persist or worsen. Katie Rico, PRODUCT SAFETY TECHNICIAN.[facility] 09-01-2023 History of Presen t illness Narrative Subjective HPI Julia presents today with complaint of 10 days of sinus pain and pressure, pnd and this morning both eyes were irritated. She is eating and drinking denies respiratory or any other symptoms/ PAST MEDICAL HISTORY Diagnosis Date Diaphragmatic hernia without mention of obstruction or gangrene Disorder of bone and cartilage, unspecified osteopenia Diverticulosis of colon (without mention of hemorrhage) Diverticulosis of colon (without mention of hemorrhage) Esophageal reflux Esophageal reflux Esophagitis, unspecified Irritable bowel syndrome Nonspecific (abnormal) findings on radiological and other examination of genitourinary organs 12/2007 left kidney is not functioning Other and unspecified hyperlipidemia PMH - PAST MEDICAL HISTORY OF fibromyalgia Unspecified essential hypertension Unspecified hypothyroidism Urinary calculus, unspecified Renal stones PAST SURGICAL HISTORY Procedure Laterality Date ADENOIDECTOMY PRIMARY <AGE 12 Adenoidectomy ARTHRP KNE CONDYLE&PLATU MEDIAL&LAT COMPARTMENTS 01/23/2010 Knee replacement, total [facility] Dr. Minor left COLONOSCOPY FLX DX W/COLLJ SPEC WHEN PFRMD 08/28/1999 Colonoscopy COLONOSCOPY FLX DX W/COLLJ SPEC WHEN PFRMD 08/01/2005 Colonoscopy COLONOSCOPY FLX DX W/COLLJ SPEC WHEN PFRMD 07/06/10 EGD TRANSORAL BIOPSY SINGLE/MULTIPLE 07/06/10 ESOPHAGOGASTRODUODENOSCOPY TRANSORAL DIAGNOSTIC 08/01/2005 EGD LITHOTRIPSY XTRCORP SHOCK WAVE 12/12/2007 Lithotripsy LITHOTRIPSY XTRCORP SHOCK WAVE 11/15/2010 Lithotripsy - right - [facility] - Dr. Camarillo LITHOTRIPSY XTRCORP SHOCK WAVE 12/21/2011 Lithotripsy - right - [facility] - NEPHRECTOMY PARTIAL 08/15/2011 Nephrectomy - left- Dr. Camarillo -Dr. Funes SALPINGO-OOPHORECTOMY COMPL/PRTL UNI/BI SPX Salpingo-oophorectomy TONSILLECTOMY PRIMARY/SECONDARY <AGE 12 Tonsillectomy TOTAL ABDOMINAL HYSTERECT W/WO RMVL TUBE OVARY Hysterectomy, NEREYDA ALLERGIES Cinobac [Cinoxacin], Demerol [Meperidine (Pf)], Ivp Dye [Iodine], Latex, and Septra [Sulfamethoxazole-Trimethoprim] MEDICATIONS levothyroxine (SYNTHROID) 150 mcg tablet Take 1 tablet by mouth once daily. Take one tab daily, and additionally 1/2 tab WEEKLY ramipril (ALTACE) 10 mg capsule Take 1 capsule by mouth once daily. atenolol (TENORMIN) 100 mg tablet Take 1 tablet by mouth once daily. atorvastatin (LIPITOR) 20 mg tablet Take 1 tablet by mouth once daily. amLODIPine (NORVASC) 5 mg tablet Take 1 tablet by mouth once daily. fluticasone (FLONASE) 50 mcg/actuation nasal spray Use 2 Sprays in each nostril once daily. esomeprazole (NEXIUM) 40 mg capsule Take 1 capsule by mouth once daily. chlordiazePOXIDE-clidinium (LIBRAX) 5-2.5 mg per capsule Take 1 capsule by mouth twice daily as needed. traZODone (DESYREL) 50 mg tablet Take 1 tablet by mouth at bedtime as needed for Sedation. ALPRAZolam (XANAX) 0.5 mg tablet Take 1 tablet by mouth twice daily as needed. bacitracin 500 unit/gram ointment Apply 1 application to affected area twice daily. To hand lesion. triamcinolone acetonide 0.1 % cream Apply 1 application to affected area twice daily. Apply to affected area for rash/itching Potassium Citrate (UROCIT-K 15) 15 mEq TbER Take 15 mEq by mouth once daily. ranitidine (ZANTAC) 150 mg ORAL tablet Take by mouth once daily. Take one(1) tablet daily in the evening. FAMILY HISTORY Problem Relation Age of Onset Cancer Mother COLON Heart Mother CT Heart Father CT Diabetes Mother Social History Tobacco Use Smoking status: Never Smokeless tobacco: Never Substance Use Topics Alcohol use: No Drug use: No Review of Systems HENT: Positive for congestion and sinus pain. All other systems reviewed and are negative. Objective Physical Exam Vitals and nursing note reviewed. Constitutional: Appearance: Normal appearance. HENT: Head: Normocephalic and atraumatic. Right Ear: Tympanic membrane, ear canal and external ear normal. Left Ear: Tympanic membrane, ear canal and external ear normal. Nose: Congestion present. Mouth/Throat: Mouth: Mucous membranes are dry. Pharynx: Oropharynx is clear. Neurological: Mental Status: She is alert. ASSESSMENT/PLAN: 1. Bacterial sinusitis - ICD9: 473.9, 041.9, ICD10: J32.9, B96.89 - Will begin treatment with Amoxicillin for 5 days - Supportive care with plenty of fluids, rest, and analgesia prn. - Follow up in 3-5 days if symptoms persist or worsen. Katie Rico APRN.DATA COLLECTION TECHNICIAN documented in this encounter [facility] Evaluation note No assessment inform ation available [facility] Work Phone: Evaluation note Diagnosis Onset Date Acute UTI acute Essential hypertension acute Intractable pain acute Urolithiasis acute Hypertension chronic [facility] Work Phone: Evaluation note* Diagnosis Bacterial sinusitis- Primary Unspecified sinusitis (chronic) [facility] Pancreatitis- Primary Acute pancreatitis Gallstone pancreatitis [facility] Pancreatitis- Primary Acute pancreatitis Gallstone pancreatitis Acute pancreatitis [facility] (Routine) Specialty Diagnoses / Procedures Referred By Maricel krishna Referred To Contact [address] [address] Referral ID Status Reason Start Date Expiration Date Visits Re quested Visits Authorized * (Routine) Specialty Diagnoses / Procedures Referred By Maricel krishna Referred To Contact [address] [address] Referral ID Status Reason Start Date Expiration Date Visits Re quested Visits Authorized * Unlisted Procedure Code (Routine) - New Request Specialty Diagnoses / Procedures Referred By Contac t Referred To Contact Procedures PLATELET MONITORING PER PROTOCOL Kelly Schroeder MD [address] [place] [id number] Referral ID Status Reason Start Date Expiration Date V isits Requested Visits Authorized [id number] New Request 11/01/2023 11/25/2024 1 1 * Unlisted Procedure Code (Routine) - New Request Specialty Diagnoses / Procedures Referred By Contac t Referred To Contact Procedures DVT/VTE RISK ASSESSMENT Kelly Schroeder MD [address] [place] [address] Referral ID Status Reason Start Date Expiration Date V isits Requested Visits Authorized [id number] New Request 11/01/2023 11/25/2024 1 1 [facility]No reason for referral information availableWMount [facility]. [facility] Work Phone: Reason for visit Narrative* Auth/Cert Specialty Diagnoses / Procedures Referred By Maricel krishna Referred To Contact Diagnoses Abd pain, cholelithiasis, pancreatitis. Amber Naik MD [address] [place] [address] [facility] [address] [place] [address] Referral ID Status Reason Start Date Expiration Date Visits Re quested Visits Authorized [id number] 1 1 [facility] Chief Complaint and Reason for Visit Chief Complaint CARDIAC MURMUR Pain in right shoulder Chief Complaint PRE OP Chief Complaint PRE OP STONE PROTOCAL HEMATURIA Chief Complaint PRE OP STONE PROTOCAL HEMATURIA right flank Chief Complaint PRE OP STONE PROTOCAL HEMATURIA PYELONEPHRITIS, KIDNEY STONE PYELONEPHRITIS, KIDNEY STONE PYELONEPHRITIS, KIDNEY STONE Reason for Visit Acute UTI Essential hypertension Intractable pain Urolithiasis Hypertension Chief Complaint PRE OP STONE PROTOCAL HEMATURIA PYELONEPHRITIS, KIDNEY STONE PYELONEPHRITIS, KIDNEY STONE PYELONEPHRITIS, KIDNEY STONE PYELONEPHRITIS, KIDNEY STONE Reason for Visit Acute UTI Essential hypertension Intractable pain Urolithiasis Hypertension Chief Complaint PRE OP STONE PROTOCAL HEMATURIA PYELONEPHRITIS, KIDNEY STONE PYELONEPHRITIS, KIDNEY STONE PYELONEPHRITIS, KIDNEY STONE PYELONEPHRITIS, KIDNEY STONE SCREENING Reason for Visit Acute UTI Essential hypertension Intractable pain Urolithiasis Hypertension Chief Complaint SCREENING KUB- Chief Complaint SCREENING Chief Complaint Admit Date KUB November 23, 2024 8:33am Family History No Family History Records Found Relationship Condition Age at Onset Recorded Date/T annie Unknown Family History?- Unknown April 212020 12:55pm Family History?Cance r, Diabetes, Heart Disease, Hypertension, - Unknown April 21, 2020 12:55pm Family History?Heart Disease Unknown April 08, 2020 12:01pm Relationship Condition Age at Onset Recorded Date/T annie Unknown Family History?- Unknown April 212020 11:55am Family History?Cance r, Diabetes, Heart Disease, Hypertension, - Unknown April 21, 2020 11:55am Family History?Heart Disease Unknown April 08, 2020 11:01am Advance Directives No Advanced Directives Records Found Advance Directive Response Recorded Date/ Time Advance Directives Yes February 10:34am Living Will No July 02, 2020 1:12pm Power of Donation Specialist No July 02 1:12pm Advance Directive Response Recorded Date/ Time Advance Directives Yes February 10:34am Living Will No January 02 3:09pm Power of Donation Specialist No January 02, 2022 3:09pm Advance Directive Response Recorded Date/ Time Name of Medical Power of Donation Specialist Tere Jordan January 02, 2022 6:39pm Advance Directives Yes February 10:34am Living Will Yes January 02 6:39pm Power of Donation Specialist Yes January 02, 2022 6:39pm Advance Directive Response Recorded Date/ Time Name of Medical Power of Donation Specialist Tere Jordan January 02, 2022 5:39pm Advance Directives Yes February 9:34am Living Will Yes January 02 5:39pm Power of Donation Specialist Yes January 02, 2022 5:39pm Advance Directive Response Recorded Date/ Time Advance Directives Yes February 9:34am Living Will Yes January 02 5:39pm Power of Donation Specialist Yes January 02, 2022 5:39pm Advance Directive Response Recorded Date/ Time Advance Directives Yes February 10:34am Living Will Yes January 02 6:39pm Power of Donation Specialist Yes January 02, 2022 6:39pm Documents on File Type Date Recorded Patient Rn Chronic Expl anation Advance Directive(s) 01/20/2010 9:47 PM Date Activated Date Inactivated Comments 11/01/2023 7:27 PM Advance Directive Response Recorded Date/ Time Advance Directives Yes February 10:34am Summary Purpose Additional Source Comments Goals (unrecognized section and content) Goals may be documented in a n alternate sectionGoals may be documented in an alternate sectionGoals may be documented in an alternate sectionGoals may be documented in an alternate sectionGoals may be documented in an alternate sectionGoals may be documented in an alternate sectionGoals may be documented in an alternate sectionGoals may be documented in an alternate sectionGoals may be documented in an alternate sectionGoals may be documented in an alternate sectionGoals may be documented in an alternate sectionGoals may be documented in an alternate sectionGoals may be documented in an alternate sectionGoals may be documented in an alternate section Care Teams (unrecognized sec tion and content) Team Status: Active Member Role Status Dates Dr. Joan Gomez MD Family Provider Active Dr. Joan Gomez MD Primary Care Provider Active Team Status: Inactive Member Role Status Dates Dr. Joan Gomez MD Primary Care Provider, Attendin g Provider Active Team Status: Inactive Member Role Status Dates Dr. Joan Gomez MD Primary Care Prov ider, Attending Provider, Referring Provider Active Team Status: Inactive Member Role Status Dates Dr. Joan Gomez MD Primary Care Provider Active Dr. Garry Fermin MD Attending Provider, Referr ing Provider Active Solar Mechanical Engineer Relationship Specialty Start Date End Date Joan Gomez [address] [facility] [address] [place] [phone] PCP - General Family Medicine 09/01/23 Solar Mechanical Engineer Relationship Specialty Start Date End Date Joan Gomez MD [address] [place] [address] PCP - General Family Medicine 11/03/23 Solar Mechanical Engineer Relationship Specialty Start Date End Date Joan Gomez MD [address] [place] [id number] PCP - General Family Medicine 11/03/23 Team Status: Active Member Role Status Dates Dr. Joan Gomez MD Primary Care Provider Active Team Status: Inactive Member Role Status Dates Dr. Joan Gomez MD Primary Care Provider Active Start: May 25, 2024 End: May 25, 2024 Manju Erie Attending Provider Active Start : May 25, 2024 End: May 25, 2024 Manju Erie Referring Provider Active Start : May 25, 2024 End: May 25, 2024 Team Status: Active Member Role Status Sabra Adkins MD Primary Care Provider Active Team Status: Inactive Member Role Status Sabra Adkins MD Primary Care Provider Active St art: July 14, 2024 End: July 14, 2024 Jania Adkins MD Attending Provider Active Start : July 14, 2024 End: July 14, 2024 Jania Adkins MD Referring Provider Active Start : July 14, 2024 End: July 14, 2024 Team Status: Active Member Role/Relationship Status Sabra Adkins MD Primary Care Provider Active Team Status: Inactive Member Role/Relationship Status Sabra Adkins MD Primary Care Provider Active St art: November 16, 2024 End: November 16, 2024 Dr. Garry Fermin MD Attending Provider Active Start: November 16, 2024 End: November 16, 2024 Dr. Garry Fermin MD Referring Provider Active Start: November 16, 2024 End: November 16, 2024 Team Status: Active Member Role/Relationship Status Sabra Adkins MD Primary care physician Active Team Status: Inactive Member Role/Relationship Status Sabra Adkins MD Primary care physician Active S tart: November 16, 2024 End: November 16, 2024 Dr. Garry Fermin MD Attending physician Active Start: November 16, 2024 End: November 16, 2024 Dr. Garry Fermin MD Referring Provider Active Start: November 16, 2024 End: November 16, 2024 Team Status: Inactive Member Role/Relationship Status Dates Jania Adkins MD Primary care physician Active S tart: November 23, 2024 End: November 23, 2024 Dr. Garry Fermin MD Attending physician Active Start: November 23, 2024 End: November 23, 2024 Dr. Garry Fermin MD Referring Provider Active Start: November 23, 2024 End: November 23, 2024 Source Comments (unrecognize d section and content) In the event this informatio n is protected by the Federal Confidentiality of Alcohol and Drug Abuse Patient Records regulations: The Federal rules restrict any use of the information to criminally investigate or prosecute any alcohol or drug abuse patient.[facility] Reason for Visit (unrecogniz ed section and content) Reason Comments Sinus Problem Sinus pain and press ure x 1 week INFORMATION SOURCE (unrecogn ized section and content) DATE CREATED AUTHOR 09/02/2023 [facility] DATE CREATED AUTHOR AUTHOR'S ORGANIZ ATION 11/28/2023 [facility] DATE CREATED AUTHOR AUTHOR'S ORGANIZ ATION 01/18/2025 [facility] Scheduled Active and Recently Administ ered Medications (unrecognized section and content) Medication Order 11/03/2023 11/04/2023 11/05/2023 amLODIPine (NORVASC) tablet 5 mg 5 mg, Oral, DAILY, First dose on 11/02/23 at 0900, Until Discontinued 0824 (Given - Provider: Diandra Saunders RN) 0840 (Given - Provider: Diandra Saunders RN)1233 (MAY Hold - Provider: Automatic Transfer - Reason: Transfer to a Procedural area)1656 ([facility] Unhold - Provider: Automatic Transfer) 0854 (Given - Provider: Giselle Reyes RN) Atenolol (TENORMIN) tablet 100 mg 100 mg, Oral, DAILY, First dose on 11/02/23 at 0900, Until Discontinued 0824 (Given - Provider: Diandra Saunders RN) 0840 (Given - Provider: Diandra Saunders RN)1233 (MAY Hold - Provider: Automatic Transfer - Reason: Transfer to a Procedural area)1656 ([facility] Unhold - Provider: Automatic Transfer) 0854 (Given - Provider: Giselle Reyes RN) Enoxaparin Sodium (LOVENOX) injection 40 mg 40 mg, Subcutaneous, DAILY, First dose on 11/02/23 at 0900, Until Discontinued, For SUBCUTANEOUS route ONLY: alternate injection sites between left and right abdominal wall, pinching location and avoiding area around navel. If unable to use abdominal sites, may use the front or side of thighs., Indications: DVT/PE prophylaxis 0823 (Not Given - Provider: Diandra Saunders RN - Reason: Patient/family refused) 0838 (Not Given - Provider: Diandra Saunders RN - Reason: Patient/family refused)1233 ([facility] Hold - Provider: Automatic Transfer - Reason: Transfer to a Procedural area)1656 ([facility] Unhold - Provider: Automatic Transfer) 0859 (Not Given - Provider: Giselle Reyes RN - Reason: Patient/family refused) hydrALAZINE (APRESOLINE) injection 5 mg (COMPLETED) 5 mg, Intravenous, ONCE, 1 dose, On Sat11/03/23 at 2345 2346 (Given - Provider: Balwinder Henry RN) Indocyanine green (IC-GREEN) topical/IV 2.5 mg (COMPLETED) 2.5 mg, Intravenous, ONCE, 1 dose, On 11/04/23 at 1445 1417 (Given - Provider: MICK Mccord) Levothyroxine (SYNTHROID) tablet 150 mcg 150 mcg, Oral, DAILY BEFORE BREAKFAST, First dose on 11/02/23 at 0600, Until Discontinued 0610 (Given - Provider: Shannan Leon RN) 0517 (Given - Provider: Balwinder Henry RN)1233 ([facility] Hold - Provider: Automatic Transfer - Reason: Transfer to a Procedural area)1656 ([facility] Unhold - Provider: Automatic Transfer) 0559 (Given - Provider: Balwinder Henry RN) Pantoprazole (PROTONIX) injection 40 mg 40 mg, Intravenous, DAILY, First dose on Sat11/02/23 at 0900, Until Discontinued, Dilute each 40 mg vial with 10 mL of NS. All bolus doses, whether 40 mg or 80 mg, should be administered over at least two minutes., Indications: GERD 0823 (Given - Provider: Diandra Saunders RN) 0840 (Given - Provider: Diandra Saunders RN)1233 ([facility] Hold - Provider: Automatic Transfer - Reason: Transfer to a Procedural area)1656 ([facility] Unhold - Provider: Automatic Transfer) 0854 (Given - Provider: Giselle Reyes RN) traZODone (DESYREL) tablet 50 mg 50 mg, Oral, DAILY AT BEDTIME, First dose on Sat11/01/23 at 2200, Until Discontinued 2307 (Given - Provider: Diandra Saunders RN - Comment: per patients request) 1233 ([facility] [place] Hold - Provider: Automatic Transfer - Reason: Transfer to a Procedural area)1656 ([facility] [place] Unhold - Provider: Automatic Transfer)2256 (Given - Provider: Balwinder Henry RN) Continuous Medication Order 11/03/2023 11/04/2023 11/05/2023 Lactated ringers IV solution (CANCELED) Intravenous, at 75 mL/hr, CONTINUOUS, Starting on Sat11/01/23 at 2030, Until Sat11/05/23 at 0835 0036 (Stopped - Provider: Diandra Saunders RN)0037 (Stopped - Provider: Diandra Saunders RN)0037 ($$New Bag$$ - Provider: Landon Lee RN)0100 (Paused - Provider: Diandra Saunders RN)0102 (Restarted - Provider: Diandra Saunders RN)0102 (Paused - Provider: Diandra Saunders RN)0104 (Restarted - Provider: Diandra Saunders RN)0104 (Paused - Provider: Diandra Saunders RN)0106 (Restarted - Provider: Diandra Saunders RN)0106 (Paused - Provider: Diandra Saunders RN)0109 (Restarted - Provider: Diandra Saunders RN)0109 (Paused - Provider: Diandra Saunders RN)0111 (Restarted - Provider: Diandra Saunders RN)0111 (Paused - Provider: Diandra Saunders RN)0114 (Restarted - Provider: Diandra Saunders RN)0355 (Paused - Provider: Diandra Saunders RN)0357 (Restarted - Provider: Diandra Saunders RN)0821 (Rate/Dose Verify - Provider: Diandra Saunders RN)1237 ($$New Bag$$ - Provider: Diandra Saunders RN)1714 (Rate/Dose Change - Provider: Diandra Saunders RN)2310 ($$New Bag$$ - Provider: Diandra Saunders RN) 0512 (Rate/Dose Verify - Provider: Balwinder Henry RN)0844 (Paused - Provider: Diandra Saunders RN)0847 (Restarted - Provider: Diandra Saunders RN)0920 (Rate/Dose Verify - Provider: Diandra Saunders RN)0923 ($$New Bag$$ - Provider: Diandra Saunders RN)1233 ([facility] Hold - Provider: Automatic Transfer - Reason: Transfer to a Procedural area)1656 ([facility] Unhold - Provider: Automatic Transfer)1759 ($$New Bag$$ - Provider: Diandra Saunders RN)1931 (Rate/Dose Change - Provider: Balwinder Henry RN) 0100 (Rate/Dose Verify - Provider: Balwinder Henry RN)0600 (Rate/Dose Verify - Provider: Balwinder Henyr RN)0623 ($$New Bag$$ - Provider: Balwinder Henry RN)0851 (Stopped - Provider: Giselle Reyes RN) PRN Medication Order 11/03/2023 11/04/2023 11/05/2023 Acetaminophen (TYLENOL) tablet 650 mg 650 mg, Oral, EVERY 6 HOURS NEEDED, Starting on Sat11/01/23 at 1927, Until Sat11/05/23 at 1912, Mild Pain, Oral temp > 100.4 F, Maximum dose of acetaminophen is 4000 mg from all sources in 24 hours. 0517 (Given - Provider: Balwinder Henry RN)1233 ([facility] Hold - Provider: Automatic Transfer - Reason: Transfer to a Procedural area)1656 ([facility] [place] Unhold - Provider: Automatic Transfer)1746 (Given - Provider: Diandra Saunders RN) 0030 (Given - Provider: Balwinder Henry RN)1018 (Given - Provider: Giselle Reyes, PAULA)1544 (Given - Provider: Giselle Reyes, RN) guaiFENesin (ROBITUSSIN) oral solution 400 mg 400 mg, Oral, EVERY 6 HOURS NEEDED, Starting on Sat11/01/23 at 1927, Until Sat11/05/23 at 1912, Cough, Congestion 1233 ([facility] [place] Hold - Provider: Automatic Transfer - Reason: Transfer to a Procedural area)165 ([facility] [place] Unhold - Provider: Automatic Transfer) hydrALAZINE (APRESOLINE) tablet 25 mg 25 mg, Oral, EVERY 8 HOURS NEEDED, Starting on Sat11/02/23 at 0816, Until Sat11/05/23 at 1912, Other, for systolic BP >175 2032 (Given - Provider: Diandra Saunders RN) 1233 ([facility] [place] Hold - Provider: Automatic Transfer - Reason: Transfer to a Procedural area)165 ([facility] [place] Unhold - Provider: Automatic Transfer)2039 (Given - Provider: Balwinder Henry RN) HYDROmorphone (DILAUDID) injection 0.2 mg(Linked Group 1) 0.2 mg, Intravenous, EVERY 3 HOURS NEEDED, Starting on Sat11/01/23 at 1930, Until Sat11/05/23 at 1912, Moderate Pain, Severe Pain, Use as initial dose. Higher dose may be administered if lower dose was previously documented as ineffective and did not result in adverse effects (RR<10, negative change in RASS of 2 or more). 1233 ([facility] [place] Hold - Provider: Automatic Transfer - Reason: Transfer to a Procedural area)1656 ([facility] [place] Unhold - Provider: Automatic Transfer)1730 (See Alternative - Provider: Diandra Saunders RN)2040 (See Alternative - Provider: Balwinder Henry RN) 003 (See Alternative - Provider: Balwinder Henry, PAULA) HYDROmorphone (DILAUDID) injection 0.5 mg(Linked Group 1) 0.5 mg, Intravenous, EVERY 3 HOURS NEEDED, Starting on Sat11/01/23 at 1930, Until Sat11/05/23 at 1912, Moderate Pain, Severe Pain, Higher dose may be administered if lower dose was previously documented as ineffective and did not result in adverse effects (RR<10, negative change in RASS of 2 or more). Decrease back to lower dose if patient has adverse effects or no PRN use in previous 12 hours. Hold for sedation. 1233 ([facility] [place] Hold - Provider: Automatic Transfer - Reason: Transfer to a Procedural area)165 ([facility] [place] Unhold - Provider: Automatic Transfer)1730 (Given - Provider: Diandra Saunders RN)2040 (Given - Provider: Balwinder Henry, PAULA) 0032 (Given - Provider: Balwinder Henry RN) HYDROmorphone (DILAUDID) injection 0.5 mg (CANCELED) 0.5 mg, Intravenous, EVERY 10 MINUTES NEEDED, 8 doses, Starting on Sat11/04/23 at 1532, Until Sat11/04/23 at 1656, Moderate Pain, Severe Pain, May give a total of 4mg in PACU., Recovery 1548 (Given - Provider: Dinora Devlin RN) Lidocaine-epinephrine 1%-1:789395 injection (CANCELED) NEEDED, Starting on Sat11/04/23 at 1524, Until Sat11/04/23 at 1534, Intra-op/Intra-Proc 1524 (Given - Provider: Fiona Iqbal MD) Melatonin tablet 6 mg 6 mg, Oral, DAILY AT BEDTIME NEEDED, Starting on Sat11/01/23 at 1927, Until Sat11/05/23 at 1912, Insomnia 1233 ([facility] [place] Hold - Provider: Automatic Transfer - Reason: Transfer to a Procedural area)165 ([facility] [place] Unhold - Provider: Automatic Transfer) 0156 (Given - Provider: Balwinder Henry, PAULA) Ondansetron (ZOFRAN) tablet 4 mg(Linked Group 2) 4 mg, Oral, EVERY 6 HOURS NEEDED, Starting on Sat11/01/23 at 1927, Until Sat11/05/23 at 1912, Nausea / Vomiting, 1st line for Nausea/Vomiting 1233 ([facility] [place] Hold - Provider: Automatic Transfer - Reason: Transfer to a Procedural area)165 ([facility] [place] Unhold - Provider: Automatic Transfer) Ondansetron 4mg/2ml (ZOFRAN) injection 4 mg(Linked Group 2) 4 mg, Intravenous, EVERY 6 HOURS NEEDED, Starting on Sat11/01/23 at 1927, Until Sat11/05/23 at 1912, Nausea / Vomiting, 1st line for Nausea/Vomiting 1233 ([facility] [place] Hold - Provider: Automatic Transfer - Reason: Transfer to a Procedural area)1655 ([facility] [place] Unhold - Provider: Automatic Transfer) Ondansetron 4mg/2ml (ZOFRAN) injection 4 mg (COMPLETED) 4 mg, Intravenous, ONCE NEEDED, 1 dose, Starting on Sat11/04/23 at 1532, Until Sat11/04/23 at 1621, Nausea / Vomiting, FIRST line antiemetic, Do not administer within 6 hours of intra-operative dose., Recovery 1621 (Given - Provider: Dinora Devlin RN) Polyethylene glycol (MIRALAX) packet 17 g 17 g, Oral, DAILY NEEDED, Starting on Sat11/01/23 at 1927, Until Sat11/05/23 at 1912, Constipation 1st Line 1233 ([facility] [place] Hold - Provider: Automatic Transfer - Reason: Transfer to a Procedural area)1655 ([facility] [place] Unhold - Provider: Automatic Transfer) Sodium chloride 0.9% IV solution 250 mL Intravenous, at 20 mL/hr, NEEDED, Starting on Sat11/01/23 at 1924, Until Sat11/05/23 at 191, Carrier Fluid - See Admin. Inst, 250mL 0.9NS to be used as carrier fluid for intermittent small volume or piggyback medication administration as needed. Infusion rate of the carrier fluid should be set at 20 mL/hr unless the rate as the intermittent medication is less than 20 mL/hr. For intermittent medications with a rate less than 20 mL/hr set the carrier fluid at that rate of the intermittent or piggy back medication. 1233 ([facility] [place] Hold - Provider: Automatic Transfer - Reason: Transfer to a Procedural area)165 ([facility] [place] Unhold - Provider: Automatic Transfer) Linked Groups Order Group 1: HYDROmorphone (DILAUDID) injection 0.2 mgJump to med 0.2 mg, Intravenous, EVERY 3 HOURS NEEDED, Starting on Sat11/01/23 at 1930, Until Sat11/05/23 at 191, Moderate Pain, Severe Pain, Use as initial dose. Higher dose may be administered if lower dose was previously documented as ineffective and did not result in adverse effects (RR<10, negative change in RASS of 2 or more). Or HYDROmorphone (DILAUDID) injection 0.5 mgJump to med 0.5 mg, Intravenous, EVERY 3 HOURS NEEDED, Starting on Sat11/01/23 at 1930, Until Sat11/05/23 at 1912, Moderate Pain, Severe Pain, Higher dose may be administered if lower dose was previously documented as ineffective and did not result in adverse effects (RR<10, negative change in RASS of 2 or more). Decrease back to lower dose if patient has adverse effects or no PRN use in previous 12 hours. Hold for sedation. Group 2: Ondansetron 4mg/2ml (ZOFRAN) injection 4 mgJump to med 4 mg, Intravenous, EVERY 6 HOURS NEEDED, Starting on Sat11/01/23 at 1927, Until Sat11/05/23 at 1912, Nausea / Vomiting, 1st line for Nausea/Vomiting Or Ondansetron (ZOFRAN) tablet 4 mgJump to med 4 mg, Oral, EVERY 6 HOURS NEEDED, Starting on Sat11/01/23 at 1927, Until Sat11/05/23 at 1912, Nausea / Vomiting, 1st line for Nausea/Vomiting Scheduled Medication Order 11/03/2023 11/04/2023 11/05/2023 amLODIPine (NORVASC) tablet 5 mg 5 mg, Oral, DAILY, First dose on 11/02/23 at 0900, Until Discontinued 823 (Given - Provider: Diandra Saunders RN) 0840 (Given - Provider: Diandra Saunders RN)1233 ([facility] Hold - Provider: Automatic Transfer - Reason: Transfer to a Procedural area)165 ([facility] Unhold - Provider: Automatic Transfer) 0854 (Given - Provider: Giselle Reyes RN) Atenolol (TENORMIN) tablet 100 mg 100 mg, Oral, DAILY, First dose on 11/02/23 at 0900, Until Discontinued 823 (Given - Provider: Diandra Saunders RN) 0840 (Given - Provider: Diandra Saunders RN)1233 ([facility] Hold - Provider: Automatic Transfer - Reason: Transfer to a Procedural area)165 ([facility] Unhold - Provider: Automatic Transfer) 0854 (Given - Provider: Giselle Reyes, PAULA) Enoxaparin Sodium (LOVENOX) injection 40 mg 40 mg, Subcutaneous, DAILY, First dose on 11/02/23 at 0900, Until Discontinued, For SUBCUTANEOUS route ONLY: alternate injection sites between left and right abdominal wall, pinching location and avoiding area around navel. If unable to use abdominal sites, may use the front or side of thighs., Indications: DVT/PE prophylaxis 0823 (Not Given - Provider: Diandra Saunders RN - Reason: Patient/family refused) 0838 (Not Given - Provider: Diandra Saunders RN - Reason: Patient/family refused)1233 ([facility] [place] Hold - Provider: Automatic Transfer - Reason: Transfer to a Procedural area)165 ([facility] [place] Unhold - Provider: Automatic Transfer) 0859 (Not Given - Provider: Giselle Reyes RN - Reason: Patient/family refused) hydrALAZINE (APRESOLINE) injection 5 mg (COMPLETED) 5 mg, Intravenous, ONCE, 1 dose, On Sat11/03/23 at 2345 2346 (Given - Provider: Balwinder Henry RN) Indocyanine green (IC-GREEN) topical/IV 2.5 mg (COMPLETED) 2.5 mg, Intravenous, ONCE, 1 dose, On 11/04/23 at 1445 1417 (Given - Provider: MICK Mccord) Levothyroxine (SYNTHROID) tablet 150 mcg 150 mcg, Oral, DAILY BEFORE BREAKFAST, First dose on 11/02/23 at 0600, Until Discontinued 0610 (Given - Provider: Shannan Leon RN) 0517 (Given - Provider: Balwinder Henry RN)1233 ([facility] [place] Hold - Provider: Automatic Transfer - Reason: Transfer to a Procedural area)1656 ([facility] [place] Unhold - Provider: Automatic Transfer) 0559 (Given - Provider: Balwinder Henry RN) Pantoprazole (PROTONIX) injection 40 mg 40 mg, Intravenous, DAILY, First dose on 11/02/23 at 0900, Until Discontinued, Dilute each 40 mg vial with 10 mL of NS. All bolus doses, whether 40 mg or 80 mg, should be administered over at least two minutes., Indications: GERD 0823 (Given - Provider: Diandra Saunders RN) 0840 (Given - Provider: Diandra Saunders RN)1233 ([facility] Hold - Provider: Automatic Transfer - Reason: Transfer to a Procedural area)1656 ([facility] Unhold - Provider: Automatic Transfer) 0854 (Given - Provider: Giselle Reyes RN) traZODone (DESYREL) tablet 50 mg 50 mg, Oral, DAILY AT BEDTIME, First dose on Sat11/01/23 at 2200, Until Discontinued 2307 (Given - Provider: Diandra Saunders RN - Comment: per patients request) 1233 ([facility] Hold - Provider: Automatic Transfer - Reason: Transfer to a Procedural area)1656 ([facility] Unhold - Provider: Automatic Transfer)2256 (Given - Provider: Balwinder Henry RN) Continuous Medication Order 11/03/2023 11/04/2023 11/05/2023 Lactated ringers IV solution (CANCELED) Intravenous, at 75 mL/hr, CONTINUOUS, Starting on Sat11/01/23 at 2030, Until Sat11/05/23 at 0835 0036 (Stopped - Provider: Diandra Saunders RN)0037 (Stopped - Provider: Diandra Saunders RN)0037 ($$New Bag$$ - Provider: Landon Lee RN)0100 (Paused - Provider: Diandra Saunders RN)0102 (Restarted - Provider: Diandra Saunders RN)0102 (Paused - Provider: Diandra Saunders RN)0104 (Restarted - Provider: Diandra Saunders RN)0104 (Paused - Provider: Diandra Saunders RN)0106 (Restarted - Provider: Diandra Saunders RN)0106 (Paused - Provider: Diandra Saunders RN)0109 (Restarted - Provider: Diandra Saunders RN)0109 (Paused - Provider: Diandra Saunders RN)0111 (Restarted - Provider: Diandra Saunders RN)0111 (Paused - Provider: Diandra Saunders RN)0114 (Restarted - Provider: Diandra Saunders RN)0355 (Paused - Provider: Diandra Saunders RN)0357 (Restarted - Provider: Diandra Saunders RN)0821 (Rate/Dose Verify - Provider: Diandra Saunders RN)1237 ($$New Bag$$ - Provider: Diandra Saunders RN)1714 (Rate/Dose Change - Provider: Diandra Saunders RN)2310 ($$New Bag$$ - Provider: Diandra Saunders RN) 0512 (Rate/Dose Verify - Provider: Balwinder Henry RN)0844 (Paused - Provider: Diandra Saunders RN)0847 (Restarted - Provider: Diandra Saunders RN)0920 (Rate/Dose Verify - Provider: Diandra Saunders RN)0923 ($$New Bag$$ - Provider: Diandra Saunders RN)1233 ([facility] Hold - Provider: Automatic Transfer - Reason: Transfer to a Procedural area)1656 ([facility] Unhold - Provider: Automatic Transfer)1759 ($$New Bag$$ - Provider: Diandra Saunders RN)1931 (Rate/Dose Change - Provider: Balwinder Henry RN) 0100 (Rate/Dose Verify - Provider: Balwinder Henry RN)0600 (Rate/Dose Verify - Provider: Balwinder Henry RN)0623 ($$New Bag$$ - Provider: Balwinder Henry RN)0851 (Stopped - Provider: Giselle Reyes RN) PRN Medication Order 11/03/2023 11/04/2023 11/05/2023 Acetaminophen (TYLENOL) tablet 650 mg 650 mg, Oral, EVERY 6 HOURS NEEDED, Starting on Sat11/01/23 at 1927, Until Sat11/05/23 at 1912, Mild Pain, Oral temp > 100.4 F, Maximum dose of acetaminophen is 4000 mg from all sources in 24 hours. 0517 (Given - Provider: Balwinder Henry RN)1233 ([facility] Hold - Provider: Automatic Transfer - Reason: Transfer to a Procedural area)1656 ([facility] Unhold - Provider: Automatic Transfer)1746 (Given - Provider: Diandra Saunders RN) 0030 (Given - Provider: Balwinder Henry RN)1018 (Given - Provider: Giselle Reyes, RN)1544 (Given - Provider: Giselle Reyes, RN) guaiFENesin (ROBITUSSIN) oral solution 400 mg 400 mg, Oral, EVERY 6 HOURS NEEDED, Starting on Sat11/01/23 at 1927, Until Sat11/05/23 at 1912, Cough, Congestion 1233 ([facility] [place] Hold - Provider: Automatic Transfer - Reason: Transfer to a Procedural area)1655 ([facility] [place] Unhold - Provider: Automatic Transfer) hydrALAZINE (APRESOLINE) tablet 25 mg 25 mg, Oral, EVERY 8 HOURS NEEDED, Starting on 11/02/23 at 0816, Until Sat11/05/23 at 1912, Other, for systolic BP >175 2032 (Given - Provider: Diandra Saunders RN) 1233 ([facility] [place] Hold - Provider: Automatic Transfer - Reason: Transfer to a Procedural area)165 ([facility] [place] Unhold - Provider: Automatic Transfer)2039 (Given - Provider: Balwinder Henry RN) HYDROmorphone (DILAUDID) injection 0.2 mg(Linked Group 1) 0.2 mg, Intravenous, EVERY 3 HOURS NEEDED, Starting on Sat11/01/23 at 1930, Until Sat11/05/23 at 1912, Moderate Pain, Severe Pain, Use as initial dose. Higher dose may be administered if lower dose was previously documented as ineffective and did not result in adverse effects (RR<10, negative change in RASS of 2 or more). 1233 ([facility] [place] Hold - Provider: Automatic Transfer - Reason: Transfer to a Procedural area)165 ([facility] [place] Unhold - Provider: Automatic Transfer)1729 (See Alternative - Provider: Diandra Saunders RN)2039 (See Alternative - Provider: Balwinder Henry RN) 003 (See Alternative - Provider: Balwinder Henry, PAULA) HYDROmorphone (DILAUDID) injection 0.5 mg(Linked Group 1) 0.5 mg, Intravenous, EVERY 3 HOURS NEEDED, Starting on Sat11/01/23 at 1930, Until Sat11/05/23 at 1912, Moderate Pain, Severe Pain, Higher dose may be administered if lower dose was previously documented as ineffective and did not result in adverse effects (RR<10, negative change in RASS of 2 or more). Decrease back to lower dose if patient has adverse effects or no PRN use in previous 12 hours. Hold for sedation. 1233 ([facility] [place] Hold - Provider: Automatic Transfer - Reason: Transfer to a Procedural area)165 ([facility] [place] Unhold - Provider: Automatic Transfer)1729 (Given - Provider: Diandra Saunders RN)2039 (Given - Provider: Balwinder Henry RN) 003 (Given - Provider: Balwinder Henry RN) HYDROmorphone (DILAUDID) injection 0.5 mg (CANCELED) 0.5 mg, Intravenous, EVERY 10 MINUTES NEEDED, 8 doses, Starting on Sat11/04/23 at 1532, Until Sat11/04/23 at 1656, Moderate Pain, Severe Pain, May give a total of 4mg in PACU., Recovery 1548 (Given - Provider: Dinora Devlin RN) Lidocaine-epinephrine 1%-1:350255 injection (CANCELED) NEEDED, Starting on Sat11/04/23 at 1524, Until Sat11/04/23 at 1534, Intra-op/Intra-Proc 1524 (Given - Provider: Fiona Iqbal MD) Melatonin tablet 6 mg 6 mg, Oral, DAILY AT BEDTIME NEEDED, Starting on Sat11/01/23 at 1927, Until Sat11/05/23 at 1912, Insomnia 1233 ([facility] Hold - Provider: Automatic Transfer - Reason: Transfer to a Procedural area)1656 ([facility] [place] Unhold - Provider: Automatic Transfer) 0156 (Given - Provider: Balwinder Henry RN) Ondansetron (ZOFRAN) tablet 4 mg(Linked Group 2) 4 mg, Oral, EVERY 6 HOURS NEEDED, Starting on Sat11/01/23 at 1927, Until Sat11/05/23 at 1912, Nausea / Vomiting, 1st line for Nausea/Vomiting 1233 ([facility] [place] Hold - Provider: Automatic Transfer - Reason: Transfer to a Procedural area)165 ([facility] [place] Unhold - Provider: Automatic Transfer) Ondansetron 4mg/2ml (ZOFRAN) injection 4 mg(Linked Group 2) 4 mg, Intravenous, EVERY 6 HOURS NEEDED, Starting on Sat11/01/23 at 1927, Until Sat11/05/23 at 1912, Nausea / Vomiting, 1st line for Nausea/Vomiting 1233 ([facility] [place] Hold - Provider: Automatic Transfer - Reason: Transfer to a Procedural area)165 ([facility] [place] Unhold - Provider: Automatic Transfer) Ondansetron 4mg/2ml (ZOFRAN) injection 4 mg (COMPLETED) 4 mg, Intravenous, ONCE NEEDED, 1 dose, Starting on Sat11/04/23 at 1532, Until Sat11/04/23 at 1621, Nausea / Vomiting, FIRST line antiemetic, Do not administer within 6 hours of intra-operative dose., Recovery 1621 (Given - Provider: Dinora Devlin RN) Polyethylene glycol (MIRALAX) packet 17 g 17 g, Oral, DAILY NEEDED, Starting on Sat11/01/23 at 1927, Until Sat11/05/23 at 1912, Constipation 1st Line 1233 ([facility] [place] Hold - Provider: Automatic Transfer - Reason: Transfer to a Procedural area)1656 ([facility] [place] Unhold - Provider: Automatic Transfer) Sodium chloride 0.9% IV solution 250 mL Intravenous, at 20 mL/hr, NEEDED, Starting on Sat11/01/23 at 1924, Until Sat11/05/23 at 191, Carrier Fluid - See Admin. Inst, 250mL 0.9NS to be used as carrier fluid for intermittent small volume or piggyback medication administration as needed. Infusion rate of the carrier fluid should be set at 20 mL/hr unless the rate as the intermittent medication is less than 20 mL/hr. For intermittent medications with a rate less than 20 mL/hr set the carrier fluid at that rate of the intermittent or piggy back medication. 1233 ([facility] [place] Hold - Provider: Automatic Transfer - Reason: Transfer to a Procedural area)1656 ([facility] [place] Unhold - Provider: Automatic Transfer) Linked Groups Order Group 1: HYDROmorphone (DILAUDID) injection 0.2 mgJump to med 0.2 mg, Intravenous, EVERY 3 HOURS NEEDED, Starting on Sat11/01/23 at 1930, Until Sat11/05/23 at 191, Moderate Pain, Severe Pain, Use as initial dose. Higher dose may be administered if lower dose was previously documented as ineffective and did not result in adverse effects (RR<10, negative change in RASS of 2 or more). Or HYDROmorphone (DILAUDID) injection 0.5 mgJump to med 0.5 mg, Intravenous, EVERY 3 HOURS NEEDED, Starting on Sat11/01/23 at 1930, Until Sat11/05/23 at 1912, Moderate Pain, Severe Pain, Higher dose may be administered if lower dose was previously documented as ineffective and did not result in adverse effects (RR<10, negative change in RASS of 2 or more). Decrease back to lower dose if patient has adverse effects or no PRN use in previous 12 hours. Hold for sedation. Group 2: Ondansetron 4mg/2ml (ZOFRAN) injection 4 mgJump to med 4 mg, Intravenous, EVERY 6 HOURS NEEDED, Starting on Sat11/01/23 at 1927, Until Sat11/05/23 at 191, Nausea / Vomiting, 1st line for Nausea/Vomiting Or Ondansetron (ZOFRAN) tablet 4 mgJump to med 4 mg, Oral, EVERY 6 HOURS NEEDED, Starting on Sat11/01/23 at 1927, Until Sat11/05/23 at 191, Nausea / Vomiting, 1st line for Nausea/Vomiting FOR RECORDS PERTAINING TO PATIENTS WHO ARE OR HAVE BEEN ENROLLED IN A CHEMICAL DEPENDENCY/SUBSTANCEABUSE PROGRAM, SOME INFORMATION MAY BE OMITTED. This clinical summary was aggregated from multiple sources. Caution should be exercised in using it in the provision of clinical care. This summary normalizes information from multiple sources, and as a consequence, information in this document may materially change the coding, format and clinical context of patient data. In addition, data may be omitted in some cases. CLINICAL DECISIONS SHOULD BE BASED ON THE PRIMARY CLINICAL RECORDS. [employer] provides no warranty or guarantee of the accuracy or completeness of information in this document.
== END | disposition home or self-care (01) ==
LOC: OPBI 15:35
PROVIDERS: PCP Family Medicine
DX: Z12.31 Encounter for screening mammogram for malignant neoplasm of breast (principal)
CPT/HCPCS: 77063; 77067